=== PATIENT | female | born 1995 | race Caucasian/White ===

== ENCOUNTER 2023-05-05 19:56 | Outpatient (REF) | payer OTHER, SELFPAY ==
[2023-05-10 18:07] LABS: Age Gdln ACOG Testing Note (.); IGP, rfx Aptima HPV ASCU Note (.)
== END 2023-05-05 19:57 | disposition home or self-care (01) ==
LOC: LAB 19:56
PROVIDERS: Visit Provider Obstetrics & Gynecology
DX: Z01.419 Encounter for gynecological examination (general) (routine) without abnormal findings (principal)
CPT/HCPCS: G0145

== ENCOUNTER 2024-05-09 20:11 | Outpatient (REF) | payer OTHER, SELFPAY ==
[2024-05-13 17:07] LABS: Age Gdln ACOG Testing Note (.); HPV Aptima Negative (Negative); IGP, Aptima HPV, rfx 16/18,45 Note (.)
== END 2024-05-09 20:12 | disposition home or self-care (01) ==
LOC: LAB 20:11
PROVIDERS: Visit Provider Obstetrics & Gynecology
DX: Z01.419 Encounter for gynecological examination (general) (routine) without abnormal findings (principal)
CPT/HCPCS: 88175

== ENCOUNTER 2024-08-27 08:44 | Outpatient (OUT) | payer OTHER, SELFPAY ==
--- NOTE | 2024-08-27 | US_ITS ---
[address] [address] Patient Name: ISABEL GUTIERREZ MRN: [id number] date: 1995 Sex: F Assigned Patient Location: Current Patient Location: Accession/Order Number: [id number] Exam Date: 08/27/2024 08:52 Report Date: 08/29/2024 13:14 At the request of: VANESSA EDGE Procedure: US pelvis transvaginal EXAMINATION: US pelvis transvaginal HISTORY: Encounter for intrauterine device placement Z30.430 COMPARISON: No relevant comparison available. FINDINGS: Transvaginal images The uterus is normal in size, contour and echotexture measuring 7.5 x 3.2 x 4.2 cm per the uterus is anteverted. Linear hyperechogenicity within the endometrial cavity consistent with normally positioned IUD. The endometrial stripe measures 3 mm The right ovary is normal measuring 2.8 x 2.5 x 2.2 cm. Normal color and Doppler flow. 1.7 cm area of anechoic echogenicity, simple cyst The left ovary is normal measuring 2.9 x 1.7 x 1.4 cm. Normal color and Doppler flow No free fluid US/US pelvis transvaginal IMPRESSION: Normally positioned IUD Electronically authenticated by: JOSE KEE Date: 08/29/2024 13:14
== END 2024-08-27 08:45 | disposition home or self-care (01) ==
LOC: US 08:45
PROVIDERS: Visit Provider Obstetrics & Gynecology
DX: R10.2 Pelvic and perineal pain (principal); Z30.430 Encounter for insertion of intrauterine contraceptive device
CPT/HCPCS: 76830

== ENCOUNTER 2024-09-02 15:47 | Outpatient (RCR) | payer OTHER, SELFPAY | END 2024-09-16 15:50 | disposition home or self-care (01) | LOC: PT 15:47 | PROVIDERS: PCP Family Medicine; Visit Provider Family Medicine | DX: S22.39XD Fracture of one rib, unspecified side, subsequent encounter for fracture with routine healing (principal); R53.1 Weakness | CPT/HCPCS: 97110; 97161 ==

== ENCOUNTER 2024-10-12 08:22 | Outpatient (OUT) | payer OTHER, SELFPAY ==
[2024-10-12 09:44] LABS: Alanine Aminotransferase 29 U/L (14-59); Albumin Globulin Ratio 0.9; Albumin Level 3.4 g/dL (3.4-5.0); Alkaline Phosphatase 89 U/L (46-116); Anion Gap 12.2; Aspartate Amino Transferase 17 U/L (15-37); BUN Creatinine Ratio 12.1; Bilirubin Total 0.4 mg/dL (0.2-1.0); Calcium 8.8 mg/dL (8.5-10.1); Carbon Dioxide 27.3 mmol/L (21.0-32.0); Chloride 106 mmol/L (98-107); Estimated GFR (African America >60 (>=60 mL/min/1.73m^2); Estimated GFR (Non-African Ame >60 (>=60 mL/min/1.73m^2); Globulin 3.8 g/dL; Glucose 78 mg/dL (74-106); Potassium 4.5 mmol/L (3.5-5.1); Sodium 141 mmol/L (136-145); Total Protein 7.2 g/dL (6.4-8.2)
== END 2024-10-12 08:23 | disposition home or self-care (01) ==
LOC: LAB 08:24
PROVIDERS: PCP Family Medicine; Visit Provider Family Medicine
DX: S36.113A Laceration of liver, unspecified degree, initial encounter (principal)
CPT/HCPCS: 36415; 80053

== ENCOUNTER 2024-11-03 12:40 | Outpatient (OUT) | payer OTHER, SELFPAY ==
--- NOTE | 2024-11-03 12:43 | MR_ITS ---
[facility] [place] [id number] Patient Name: ISABEL GUTIERREZ MRN: [facility]:[id number] date: 1995 Sex: F Assigned Patient Location: MRI Current Patient Location: Accession/Order Number: [id number] Exam Date: 11/03/2024 13:00 Report Date: 11/04/2024 13:19 At the request of: KIMI LY Procedure: MR thoracic spine wo con EXAMINATION: MR thoracic spine wo con HISTORY: compression fracture of T4 T5 vertebrae S22.040A COMPARISON: No relevant comparison available. TECHNIQUE: Axial T2; Sagittal T1, T2, and Stir sequences. Images were performed without contrast. FINDINGS: CORD: Normal caliber, contour, and signal intensity. BONES: Slight irregularity and anterior wedging involving superior endplate of T5. No marrow edema. DISCS: No significant disc/facet abnormality, spinal stenosis, or foraminal stenosis. PARASPINAL AREA: No visible mass. OTHER: Negative. MR/MR thoracic spine wo con IMPRESSION: 1. T5 superior endplate remote mild compression fracture versus degenerative changes versus developmental variation. No marrow edema to suggest acute or subacute injury. No prior studies for comparison. Electronically authenticated by: PAMELA HAMILTON Date: 11/04/2024 13:19
--- OUTSIDE RECORDS SUMMARY | 2024-11-03 12:49 | XMS_ITS | CCD ---
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 Patent left gastric and common hepatic arteries through pancreaticoduodenal collaterals. SMA: No significant stenosis. DIMA: No significant stenosis. Right renal vessels: No significant stenosis. Left renal vessels: No significant stenosis. Infrarenal aorta: No significant stenosis. CTA PELVIC VESSELS R. Common iliac artery: No significant stenosis. R. External iliac artery: No significant stenosis. R. Internal iliac artery: No significant stenosis. L. Common iliac artery: No significant stenosis. L. External iliac artery: No significant stenosis. L. Internal iliac artery: No significant stenosis. NON-VASCULAR FINDINGS Included images of the lower thorax: Small volume right pleural effusion improved since prior. Mild persistent right middle, right lower, left lower lobe atelectasis, improved since prior. Hepatobiliary: Redemonstration of known hepatic laceration and hematoma which continues to decrease in size currently measuring 5.5 x 4.5 cm, previously 7.6 x 7.0 cm. No intra or extrahepatic biliary dilation evident. Pancreas: Unremarkable Spleen: Chronic appearing low attenuation splenic hematoma measuring 9.6 x 6.0 cm status-post splenic artery embolization. Adrenal Glands: Unremarkable Kidneys, ureters, and bladder: No calculi or hydroureteronephrosis GI tract: No evidence of obstruction. The appendix is within normal limits. Peritoneum and retroperitoneum: No free fluid or free air is noted. Lymph Nodes: Stable prominent lymph nodes in the right lower quadrant without lymphadenopathy. Uterus and adnexa: Right ovarian hypodensity, likely physiologic. IUD is present. Visualized musculoskeletal structures: No acute fracture or destructive osseous lesion is identified IMPRESSION: 1. 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 Patent left gastric and common hepatic arteries through pancreaticoduodenal collaterals.Otherwise patent vasculature throughout. 2. Chronic appearing low-attenuation splenic hematoma measuring 9.6 x 6.0 cm. MACRO: None [facility] CTA Abdominal vessels and Pe lvis vessels WO and W contrast Gay 09-15-2024 Radiology Study observation (narrative) [facility] Progress Noteson 08-29-2024 Spa Experience Coordinator Authentication Interface Message Text Normal [facility] Spa Experience Coordinator Authentication Interface Message Text IAkil PT, physical therapist was present and in the room for the entire session. I personally directed the care, and was responsible for the assessment and treatment of the patient. Akil Guerin PT, DPT Normal [facility] Progress Noteson 08-27-2024 Spa Experience Coordinator Authentication Interface Message Text Normal [facility] Patient Instructionson 08-25 Spa Experience Coordinator Authentication Interface Message Text Call [phone] scan ( please schedule 2-4 weeks from now) Call [phone] to schedule telephone follow up appointment with me AFTER the date of the CT scan to review results Normal [facility] Progress Noteson 08-24-2024 Spa Experience Coordinator Authentication Interface Message Text Normal [facility] Telephone En[facility] 2023 Spa Experience Coordinator Authentication Interface Message Text Normal [facility] BASIC METABOLIC PANELon 10-0 Anion gap [Moles/Vol] 15 mmol/L Normal 10-20 [facility] Comment on above: Performed By: #### C H8, MG ####[facility] [id number] [place], [place], Calcium [Mass/Vol] 8.3 mg/dL Low 8.6-10.3 [facility] Comment on above: Performed By: #### C H8, MG ####[facility] [id number] [place], Chloride [Moles/Vol] 101 mmol/L Normal 98-107 [facility] Comment on above: Performed By: #### C H8, MG ####[facility] [id number] [place], CO2 [Moles/Vol] 25 mmol/L Normal 21-31 [facility] Comment on above: Performed By: #### C H8, MG ####[facility] [id number] [place], Creatinine [Mass/Vol] 0.48 mg/dL Low 0.60-1.20 [facility] Comment on above: Performed By: #### C H8, MG ####[facility] [id number] [place], ESTIMATED GFR (CKD-EPI) 130 mL/min/1.73sqm Normal >=60 The [facility] Comment on above: Result Comment: 2020 CKD EPI Equation using Creatinine without RaceComment: Estimated glomerular filtration rate (eGFR) is calculated without a race coefficient. Values should be interpreted in the context of the patient's full clinical presentation.Reference:1. Evert Neely, Gloria M, Jasper GUERRA, et al.. A Unifying Approach for GFR Estimation: Recommendations of the NKF-ASN Task Force on Reassessing the Inclusion of Race in Diagnosing Kidney Disease. [place] Journal of Kidney Diseases 202;79(2):268-88.e1.2. N Engl J Med 1 Vol. 385 Issue 19 Pages 9149-3289 Performed By: #### Chin H8, MG ####[facility] [id number] [place], Glucose [Mass/Vol] 115 mg/dL High 74-109 [facility] Comment on above: Performed By: #### Chin H8, MG ####[facility] [id number] [place], Potassium [Moles/Vol] 4.5 mmol/L Normal 3.5-5.0 [facility] Comment on above: Performed By: #### Chin H8, MG ####[facility] [id number] [place], Sodium [Moles/Vol] 136 mmol/L Normal 136-145 [facility] Comment on above: Performed By: #### Chin H8, MG ####[facility] [id number] [place], Urea nitrogen [Mass/Vol] 5 mg/dL Low 7-25 [facility] Comment on above: Performed By: #### Chin H8, MG ####[facility] [id number] [place], Basic metabolic 2000 panelon 08-16-2024 Anion gap [Moles/Vol] 15 mmol/L 10 - 20 [facility] Calcium [Mass/Vol] 8.3 mg/dL Low 8.6 - 10. 3 mg/dL [facility] Chloride [Moles/Vol] 101 mmol/L 98 - 10 7 mmol/L [facility] CO2 [Moles/Vol] 25 mmol/L 21 - 31 mmol/L [facility] Creatinine [Mass/Vol] 0.48 mg/dL Low 0.60 - 1.20 mg/dL [facility] GFR/1.73 sq M.predicted CKD-EPI (S/P/Bld) [Vol rate/Area] 130 - PINF [facility] Glucose [Mass/Vol] 115 mg/dL High 74 - 109 mg/dL [facility] Interpretation and review of laboratory results Abnormal [facility] Potassium [Moles/Vol] 4.5 mmol/L 3.5 - 5.0 mmol/L [facility] Sodium [Moles/Vol] 136 mmol/L 136 - 145 mmol/L [facility] Urea nitrogen [Mass/Vol] 5 mg/dL Low 7 - 25 mg/dL [facility] CBC panel Auto (Bld)on 08-16 Erythrocyte distribution width (RBC) [Ratio] 15.9 % High 11.5 - 14.5 % [facility] Hematocrit (Bld) [Volume fraction] 31.2 % Low 36.0 - 46.0 % [facility] Hemoglobin (Bld) [Mass/Vol] 10.2 g/dL Low 12.0 - 15.0 g/dL [facility] Interpretation and review of laboratory results Abnormal [facility] MCH (RBC) [Entitic mass] 27.2 pg 26.0 - 34.0 pg [facility] MCHC (RBC) [Mass/Vol] 32.6 g/dL 32.0 - 35.9 g/dL [facility] MCV (RBC) [Entitic vol] 83 fL 80 - 100 fL [facility] Platelet mean volume (Bld) [Entitic vol] 7.0 fL Low 7.5 - 11.2 fL [facility] Platelets (Bld) [#/Vol] 735 10*3/uL High 150 - 400 K/uL [facility] RBC (Bld) [#/Vol] 3.75 10*6/uL Low [facility] WBC (Bld) [#/Vol] 9.0 10*3/uL 4.5 - 11.5 K/uL [facility] COMPLETE BLOOD COUNTon 08-16 Erythrocyte distribution width (RBC) [Ratio] 15.9 % High 11.5-14.5 [facility] Comment on above: Performed By: #### C BC ####S PATHOLOGY [id number] [place], Hematocrit (Bld) [Volume fraction] 31.2 % Low 36.0-46.0 [facility] Comment on above: Performed By: #### C BC ####S PATHOLOGY [id number] [place], Hemoglobin (Bld) [Mass/Vol] 10.2 g/dL Low 12.0-15.0 [facility] Comment on above: Performed By: #### C BC ####S PATHOLOGY [id number] [place], MCH (RBC) [Entitic mass] 27.2 pg Normal 26.0-34.0 [facility] Comment on above: Performed By: #### C BC ####S PATHOLOGY [id number] [place], MCHC (RBC) [Mass/Vol] 32.6 g/dL Normal 32.0-35.9 [facility] Comment on above: Performed By: #### C BC ####[facility] PATHOLOGY [id number] [place], MCV (RBC) [Entitic vol] 83 fL Normal 80-100 [facility] Comment on above: Performed By: #### C BC ####[facility] PATHOLOGY [id number] [place], Platelet mean volume (Bld) [Entitic vol] 7.0 fL Low 7.5-11.2 [facility] Comment on above: Performed By: #### C BC ####[facility] PATHOLOGY [id number] [place], Platelets (Bld) [#/Vol] 735 10*3/uL High 150-400 [facility] Comment on above: Performed By: #### C BC ####[facility] PATHOLOGY [id number] [place], RBC (Bld) [#/Vol] 3.75 10*6/uL Low 4.00-5.20 [facility] Comment on above: Performed By: #### C BC ####[facility] PATHOLOGY [id number] [place], WBC (Bld) [#/Vol] 9.0 10*3/uL Normal 4.5-11.5 [facility] Comment on above: Performed By: #### C BC ####S PATHOLOGY [id number] [place], MAGNESIUMon 08-16-2024 Interpretation and review of laboratory results Normal [facility] Magnesium [Mass/Vol] 2.0 mg/dL 1.9 - 2 .7 mg/dL [facility] Magnesium [Mass/Vol] 2.0 mg/dL Normal 1.9-2.7 [facility] Comment on above: Performed By: #### C H8, MG ####[facility] [id number] [place], No Panel Informationon 08-16 [facility] Progress Notes[facility] 08-16-2024 Spa Experience Coordinator Authentication Interface Message Text Normal [facility] Spa Experience Coordinator Authentication Interface Message Text Normal [facility] BASIC METABOLIC PANELon 10-0 Anion gap [Moles/Vol] 13 mmol/L Normal 10-20 [facility] Comment on above: Performed By: #### H EPATIC, MG, PHOS, CH8 ####[facility] [id number] [place], Calcium [Mass/Vol] 8.8 mg/dL Normal 8.6-10.3 [facility] Comment on above: Performed By: #### H EPATIC, MG, PHOS, CH8 ####[facility] [id number] [place], Chloride [Moles/Vol] 106 mmol/L Normal 98-107 [facility] Comment on above: Performed By: #### H EPATIC, MG, PHOS, CH8 ####[facility] [id number] [place], CO2 [Moles/Vol] 26 mmol/L Normal 21-31 [facility] Comment on above: Performed By: #### H EPATIC, MG, PHOS, CH8 ####[facility] [id number] [place], Creatinine [Mass/Vol] 0.65 mg/dL Normal 0.60-1.20 [facility] Comment on above: Performed By: #### H EPATIC, MG, PHOS, CH8 ####[facility] [id number] [place], ESTIMATED GFR (CKD-EPI) 121 mL/min/1.73sqm Normal >=60 [facility] Comment on above: Result Comment: 2020 CKD EPI Equation using Creatinine without RaceComment: Estimated glomerular filtration rate (eGFR) is calculated without a race coefficient. Values should be interpreted in the context of the patient's full clinical presentation.Reference:1. Evert Neely, Gloria M, Jasper GUERRA, et al.. A Unifying Approach for GFR Estimation: Recommendations of the NKF-ASN Task Force on Reassessing the Inclusion of Race in Diagnosing Kidney Disease. [place] Journal of Kidney Diseases 2021;79(2):268-88.e1.2. N Engl J Med 2020 Vol. 385 Issue 19 Pages 1736-0201 Performed By: #### H MG NOEMI PHOS, CH8 ####[facility] [id number] [place], Glucose [Mass/Vol] 134 mg/dL High 74-109 [facility] Comment on above: Performed By: #### H NOEMI MG PHOS, CH8 ####[facility] [id number] [place], Potassium [Moles/Vol] 4.2 mmol/L Normal 3.5-5.0 [facility] Comment on above: Performed By: #### H NOEMI MG PHOS, CH8 ####[facility] [id number] [place], Sodium [Moles/Vol] 141 mmol/L Normal 136-145 [facility] Comment on above: Performed By: #### H NOEMI MG PHOS, CH8 ####[facility] [id number] [place], Urea nitrogen [Mass/Vol] 19 mg/dL Normal 7-25 [facility] Comment on above: Performed By: #### H NOEMI MG PHOS, CH8 ####[facility] [id number] [place], Anion gap [Moles/Vol] 12 mmol/L Normal 10-20 [facility] Comment on above: Performed By: #### H ANI FRANKLINS, CH8, MG ####[facility] [id number] [place], Calcium [Mass/Vol] 8.0 mg/dL Low 8.6-10.3 [facility] Comment on above: Performed By: #### H EPATIC, PHOS, CH8, MG ####[facility] [id number] [place], Chloride [Moles/Vol] 102 mmol/L Normal 98-107 [facility] Comment on above: Performed By: #### H EPATIC, PHOS, CH8, MG ####[facility] [id number] [place], CO2 [Moles/Vol] 28 mmol/L Normal 21-31 [facility] Comment on above: Performed By: #### H EPATIC, PHOS, CH8, MG ####[facility] [id number] [place], Creatinine [Mass/Vol] 0.45 mg/dL Low 0.60-1.20 [facility] Comment on above: Performed By: #### H EPATIC, PHOS, CH8, MG ####[facility] [id number] [place], ESTIMATED GFR (CKD-EPI) 132 mL/min/1.73sqm Normal >=60 [facility] Comment on above: Result Comment: 2020 CKD EPI Equation using Creatinine without RaceComment: Estimated glomerular filtration rate (eGFR) is calculated without a race coefficient. Values should be interpreted in the context of the patient's full clinical presentation.Reference:1. Evert C, Gloria M, Jasper GUERRA, et al.. A Unifying Approach for GFR Estimation: Recommendations of the NKF-ASN Task Force on Reassessing the Inclusion of Race in Diagnosing Kidney Disease. [place] Journal of Kidney Diseases 2021;79(2):268-88.e1.2. N Engl J Med 2020 Vol. 385 Issue 19 Pages 0294-8614 Performed By: #### H EPATIC, PHOS, CH8, MG ####[facility] [id number] [place], Glucose [Mass/Vol] 91 mg/dL Normal 74-109 [facility] Comment on above: Performed By: #### H TSERING FRANKLIN CH8, MG ####[facility] [id number] [place], Potassium [Moles/Vol] 4.4 mmol/L Normal 3.5-5.0 [facility] Comment on above: Performed By: #### H TSERING FRANKLIN CH8, MG ####[facility] [id number] [place], Sodium [Moles/Vol] 138 mmol/L Normal 136-145 [facility] Comment on above: Performed By: #### H TSERING FRANLKIN CH8, MG ####[facility] [id number] [place], Urea nitrogen [Mass/Vol] 7 mg/dL Normal 7-25 [facility] Comment on above: Performed By: #### H TSERING FRANKLIN CH8, MG ####S PATHOLOGY [id number] [place], Basic metabolic 2000 panelon 08-15-2024 Anion gap [Moles/Vol] 13 mmol/L 10 - 20 [facility] Cal[facility] [Mass/Vol] 8.8 mg/dL 8.6 - 10. 3 mg/dL [facility] Chloride [Moles/Vol] 106 mmol/L 98 - 10 7 mmol/L [facility] CO2 [Moles/Vol] 26 mmol/L 21 - 31 mmol/L [facility] Creatinine [Mass/Vol] 0.65 mg/dL 0.60 - 1.20 mg/dL [facility] GFR/1.73 sq M.predicted CKD-EPI (S/P/Bld) [Vol rate/Area] 121 - PINF [facility] Glucose [Mass/Vol] 134 mg/dL High 74 - 109 mg/dL [facility] Potassium [Moles/Vol] 4.2 mmol/L 3.5 - 5.0 mmol/L [facility] Sodium [Moles/Vol] 141 mmol/L 136 - 145 mmol/L [facility] Urea nitrogen [Mass/Vol] 19 mg/dL 7 - 25 mg/dL [facility] Anion gap [Moles/Vol] 12 mmol/L 10 - 20 [facility] Calcium [Mass/Vol] 8.0 mg/dL Low 8.6 - 10. 3 mg/dL [facility] Chloride [Moles/Vol] 102 mmol/L 98 - 10 7 mmol/L [facility] CO2 [Moles/Vol] 28 mmol/L 21 - 31 mmol/L [facility] Creatinine [Mass/Vol] 0.45 mg/dL Low 0.60 - 1.20 mg/dL [facility] GFR/1.73 sq M.predicted CKD-EPI (S/P/Bld) [Vol rate/Area] 132 - PINF [facility] Glucose [Mass/Vol] 91 mg/dL 74 - 109 mg/dL [facility] Potassium [Moles/Vol] 4.4 mmol/L 3.5 - 5.0 mmol/L [facility] Sodium [Moles/Vol] 138 mmol/L 136 - 145 mmol/L [facility] Urea nitrogen [Mass/Vol] 7 mg/dL 7 - 25 mg/dL [facility] CBC panel Auto (Bld)on 08-15 Erythrocyte distribution width (RBC) [Ratio] 15.8 % High 11.5 - 14.5 % [facility] Hematocrit (Bld) [Volume fraction] 30.5 % Low 36.0 - 46.0 % [facility] Hemoglobin (Bld) [Mass/Vol] 10.0 g/dL Low 12.0 - 15.0 g/dL [facility] Interpretation and review of laboratory results Abnormal [facility] MCH (RBC) [Entitic mass] 27.5 pg 26.0 - 34.0 pg [facility] MCHC (RBC) [Mass/Vol] 32.9 g/dL 32.0 - 35.9 g/dL [facility] MCV (RBC) [Entitic vol] 84 fL 80 - 100 fL [facility] Platelet mean volume (Bld) [Entitic vol] 6.8 fL Low 7.5 - 11.2 fL [facility] Platelets (Bld) [#/Vol] 613 10*3/uL High 150 - 400 K/uL [facility] RBC (Bld) [#/Vol] 3.64 10*6/uL Low [facility] WBC (Bld) [#/Vol] 10.3 10*3/uL 4.5 - 11.5 K/uL [facility] Erythrocyte distribution width (RBC) [Ratio] 15.9 % High 11.5 - 14.5 % [facility] Hematocrit (Bld) [Volume fraction] 30.7 % Low 36.0 - 46.0 % [facility] Hemoglobin (Bld) [Mass/Vol] 10.0 g/dL Low 12.0 - 15.0 g/dL [facility] Interpretation and review of laboratory results Abnormal [facility] MCH (RBC) [Entitic mass] 27.5 pg 26.0 - 34.0 pg [facility] MCHC (RBC) [Mass/Vol] 32.7 g/dL 32.0 - 35.9 g/dL [facility] MCV (RBC) [Entitic vol] 84 fL 80 - 100 fL [facility] Platelet mean volume (Bld) [Entitic vol] 7.2 fL Low 7.5 - 11.2 fL [facility] Platelets (Bld) [#/Vol] 624 10*3/uL High 150 - 400 K/uL [facility] RBC (Bld) [#/Vol] 3.64 10*6/uL Low [facility] WBC (Bld) [#/Vol] 10.3 10*3/uL 4.5 - 11.5 K/uL [facility] COMPLETE BLOOD COUNTon 08-15 Erythrocyte distribution width (RBC) [Ratio] 15.8 % High 11.5-14.5 [facility] Comment on above: Performed By: #### C BC ####S PATHOLOGY [id number] [place] [address], Hematocrit (Bld) [Volume fraction] 30.5 % Low 36.0-46.0 [facility] Comment on above: Performed By: #### C BC ####[facility] [id number] [place], Hemoglobin (Bld) [Mass/Vol] 10.0 g/dL Low 12.0-15.0 [facility] Comment on above: Performed By: #### C BC ####S PATHOLOGY [id number] [place] [address], MCH (RBC) [Entitic mass] 27.5 pg Normal 26.0-34.0 [facility] Comment on above: Performed By: #### C BC ####[facility] PATHOLOGY [id number] [place], MCHC (RBC) [Mass/Vol] 32.9 g/dL Normal 32.0-35.9 [facility] Comment on above: Performed By: #### C BC ####[facility] PATHOLOGY [id number] [place], MCV (RBC) [Entitic vol] 84 fL Normal 80-100 [facility] Comment on above: Performed By: #### C BC ####[facility] PATHOLOGY [id number] [place], Platelet mean volume (Bld) [Entitic vol] 6.8 fL Low 7.5-11.2 [facility] Comment on above: Performed By: #### C BC ####[facility] PATHOLOGY [id number] [place], Platelets (Bld) [#/Vol] 613 10*3/uL High 150-400 [facility] Comment on above: Performed By: #### C BC ####[facility] PATHOLOGY [id number] [place], RBC (Bld) [#/Vol] 3.64 10*6/uL Low 4.00-5.20 [facility] Comment on above: Performed By: #### C BC ####[facility] PATHOLOGY [id number] [place], WBC (Bld) [#/Vol] 10.3 10*3/uL Normal 4.5-11.5 [facility] Comment on above: Performed By: #### C BC ####[facility] PATHOLOGY [id number] [place], Erythrocyte distribution width (RBC) [Ratio] 15.9 % High 11.5-14.5 [facility] Comment on above: Performed By: #### C BC ####S PATHOLOGY [id number] [place], Hematocrit (Bld) [Volume fraction] 30.7 % Low 36.0-46.0 [facility] Comment on above: Performed By: #### C BC ####[facility] PATHOLOGY [id number] [place], Hemoglobin (Bld) [Mass/Vol] 10.0 g/dL Low 12.0-15.0 [facility] Comment on above: Performed By: #### C BC ####[facility] PATHOLOGY [id number] [place], MCH (RBC) [Entitic mass] 27.5 pg Normal 26.0-34.0 [facility] Comment on above: Performed By: #### C BC ####[facility] PATHOLOGY [id number] [place], MCHC (RBC) [Mass/Vol] 32.7 g/dL Normal 32.0-35.9 [facility] Comment on above: Performed By: #### C BC ####[facility] PATHOLOGY [id number] [place] [address], MCV (RBC) [Entitic vol] 84 fL Normal 80-100 [facility] Comment on above: Performed By: #### C BC ####[facility] PATHOLOGY [id number] [place], Platelet mean volume (Bld) [Entitic vol] 7.2 fL Low 7.5-11.2 [facility] Comment on above: Performed By: #### C BC ####[facility] PATHOLOGY [id number] [place], Platelets (Bld) [#/Vol] 624 10*3/uL High 150-400 [facility] Comment on above: Performed By: #### C BC ####[facility] PATHOLOGY [id number] [place], RBC (Bld) [#/Vol] 3.64 10*6/uL Low 4.00-5.20 [facility] Comment on above: Performed By: #### C BC ####[facility] PATHOLOGY [id number] [place], WBC (Bld) [#/Vol] 10.3 10*3/uL Normal 4.5-11.5 [facility] Comment on above: Performed By: #### C BC ####S PATHOLOGY [id number] [place], HEPATIC FUNCTION PANELOrdere d By: Malaika Arroyo on 08-15-2024 Albumin [Mass/Vol] 3.3 g/dL Low 3.5 - 5.7 g/dL [facility] ALP [Catalytic activity/Vol] 69 U/L [facility] ALT [Catalytic activity/Vol] 17 U/L [facility] AST [Catalytic activity/Vol] 21 U/L [facility] Bilirubin [Mass/Vol] 0.4 mg/dL 0.3 - 1 .0 mg/dL [facility] Bilirubin.direct [Mass/Vol] 0.09 mg/dL 0.03 - 0.18 mg/dL [facility] Protein [Mass/Vol] 5.9 g/dL Low 6.0 - 8.3 g/dL [facility] HEPATIC FUNCTION PANELon Albumin [Mass/Vol] 2.8 g/dL Low 3.5 - 5.7 g/dL [facility] ALP [Catalytic activity/Vol] 75 U/L [facility] ALT [Catalytic activity/Vol] 38 U/L [facility] AST [Catalytic activity/Vol] 37 U/L [facility] Bilirubin [Mass/Vol] 0.4 mg/dL 0.3 - 1 .0 mg/dL [facility] Bilirubin.direct [Mass/Vol] 0.09 mg/dL 0.03 - 0.18 mg/dL [facility] Protein [Mass/Vol] 5.6 g/dL Low 6.0 - 8.3 g/dL [facility] Albumin [Mass/Vol] 3.3 g/dL Low 3.5-5.7 [facility] Comment on above: Performed By: #### H MG FRANKLIN PHOS, CH8 ####[facility] [id number] [place], ALK 69 IU/L Normal 34-104 [facility] Comment on above: Performed By: #### H MG FRANKLIN PHOS, CH8 ####S PATHOLOGY [id number] [place], ALT [Catalytic activity/Vol] 17 U/L Normal 7-52 [facility] Comment on above: Performed By: #### H EPAABHIJIT MG, PHOS, CH8 ####[facility] PATHOLOGY [id number] [place], [place], AST [Catalytic activity/Vol] 21 U/L Normal 13-39 [facility] Comment on above: Performed By: #### H EPATIC MG, PHOS, CH8 ####S PATHOLOGY [id number] [place], Bilirubin [Mass/Vol] 0.4 mg/dL Normal 0.3-1.0 [facility] Comment on above: Performed By: #### H EPATIC MG, PHOS, CH8 ####S PATHOLOGY [id number] [place], Bilirubin.direct [Mass/Vol] 0.09 mg/dL Normal 0.03-0.18 [facility] Comment on above: Performed By: #### H EPAABHIJIT MG, PHOS, CH8 ####S PATHOLOGY [id number] [place], Protein [Mass/Vol] 5.9 g/dL Low 6.0-8.3 [facility] Comment on above: Performed By: #### H EPATIC, MG, PHOS, CH8 ####S PATHOLOGY [id number] [place], Albumin [Mass/Vol] 2.8 g/dL Low 3.5-5.7 [facility] Comment on above: Performed By: #### H EPATIC, PHOS, CH8, MG ####S PATHOLOGY [id number] [place], ALK 75 IU/L Normal 34-104 [facility] Comment on above: Performed By: #### H EPATIC, PHOS, CH8, MG ####[facility] PATHOLOGY [id number] [place], ALT [Catalytic activity/Vol] 38 U/L Normal 7-52 [facility] Comment on above: Performed By: #### H TSERING FRANKLIN CH8, MG ####S PATHOLOGY [id number] [place], AST [Catalytic activity/Vol] 37 U/L Normal 13-39 [facility] Comment on above: Performed By: #### H ANI FRANKLINS CH8, MG ####S PATHOLOGY [id number] [place], Bilirubin [Mass/Vol] 0.4 mg/dL Normal 0.3-1.0 [facility] Comment on above: Performed By: #### H TSERING FRANKLIN CH8, MG ####S PATHOLOGY [id number] [place], Bilirubin.direct [Mass/Vol] 0.09 mg/dL Normal 0.03-0.18 [facility] Comment on above: Performed By: #### H TSERING FRANKLIN CH8, MG ####S PATHOLOGY [id number] [place], Protein [Mass/Vol] 5.6 g/dL Low 6.0-8.3 [facility] Comment on above: Performed By: #### H TSERING FRANKLIN CH8, MG ####S PATHOLOGY [id number] [place], MAGNESIUMon 08-15-2024 Magnesium [Mass/Vol] 2.0 mg/dL 1.9 - 2 .7 mg/dL [facility] Magnesium [Mass/Vol] 2.1 mg/dL 1.9 - 2 .7 mg/dL [facility] Magnesium [Mass/Vol] 2.0 mg/dL Normal 1.9-2.7 [facility] Comment on above: Performed By: #### H NOEMI MG, PHOS, CH8 ####S PATHOLOGY [id number] [place], Magnesium [Mass/Vol] 2.1 mg/dL Normal 1.9-2.7 [facility] Comment on above: Performed By: #### H NOEMI PHOS, CH8, MG ####[facility] PATHOLOGY [id number] [place], No Panel Informationon 08-15 Interpretation and review of laboratory results Abnormal [facility] Interpretation and review of laboratory results Normal [facility] Interpretation and review of laboratory results Abnormal [facility] Interpretation and review of laboratory results Normal [facility] PHOSPHORUSon 08-15-2024 Phosphate [Mass/Vol] 4.2 mg/dL 2.5 - 5 .0 mg/dL [facility] Phosphate [Mass/Vol] 4.1 mg/dL 2.5 - 5 .0 mg/dL [facility] Phosphate [Mass/Vol] 4.2 mg/dL Normal 2.5-5.0 [facility] Comment on above: Performed By: #### H NOEMI MG, PHOS, CH8 ####MHAgustin PATHOLOGY [id number] [place], Phosphate [Mass/Vol] 4.1 mg/dL Normal 2.5-5.0 [facility] Comment on above: Performed By: #### H TSERING FRANKLIN, CH8, MG ####S PATHOLOGY [id number] [place], Progress Noteson 08-15-2024 Spa Experience Coordinator Authentication Interface Message Text Normal [facility] Spa Experience Coordinator Authentication Interface Message Text Normal [facility] Spa Experience Coordinator Authentication Interface Message Text RN Coordinator picked up FMLA paperwork from [address] Normal [facility] Spa Experience Coordinator Authentication Interface Message Text Normal [facility] BASIC METABOLIC PANELon 100 Anion gap [Moles/Vol] 13 mmol/L Normal 10-20 [facility] Comment on above: Performed By: #### C H8 ####[facility] PATHOLOGY [id number] [place], Calcium [Mass/Vol] 7.7 mg/dL Low 8.6-10.3 [facility] Comment on above: Performed By: #### C H8 ####[facility] PATHOLOGY [id number] [place], Chloride [Moles/Vol] 101 mmol/L Normal 98-107 [facility] Comment on above: Performed By: #### C H8 ####S PATHOLOGY [id number] [place], CO2 [Moles/Vol] 28 mmol/L Normal 21-31 [facility] Comment on above: Performed By: #### C H8 ####S PATHOLOGY [id number] [place], Creatinine [Mass/Vol] 0.45 mg/dL Low 0.60-1.20 [facility] Comment on above: Performed By: #### C H8 ####S PATHOLOGY [id number] [place], ESTIMATED GFR (CKD-EPI) 132 mL/min/1.73sqm Normal >=60 [facility] Comment on above: Result Comment: 2020 CKD EPI Equation using Creatinine without RaceComment: Estimated glomerular filtration rate (eGFR) is calculated without a race coefficient. Values should be interpreted in the context of the patient's full clinical presentation.Reference:1. Evert C, Gloria M, Jasper GUERRA, et al.. A Unifying Approach for GFR Estimation: Recommendations of the NKF-ASN Task Force on Reassessing the Inclusion of Race in Diagnosing Kidney Disease. [place] Journal of Kidney Diseases 2021;79(2):268-88.e1.2. N Engl J Med 2020 Vol. 385 Issue 19 Pages 9534-7529 Performed By: #### C H8 ####[facility] PATHOLOGY [id number] [place], Glucose [Mass/Vol] 96 mg/dL Normal 74-109 [facility] Comment on above: Performed By: #### C H8 ####S PATHOLOGY [id number] [place], Potassium [Moles/Vol] 4.0 mmol/L Normal 3.5-5.0 [facility] Comment on above: Performed By: #### C H8 ####[facility] PATHOLOGY [id number] [place], Sodium [Moles/Vol] 138 mmol/L Normal 136-145 [facility] Comment on above: Performed By: #### C H8 ####[facility] PATHOLOGY [id number] [place], Urea nitrogen [Mass/Vol] 5 mg/dL Low 7-25 [facility] Comment on above: Performed By: #### C H8 ####[facility] PATHOLOGY [id number] [place], Basic metabolic 2000 panelon 08-14-2024 Anion gap [Moles/Vol] 13 mmol/L 10 - 20 [facility] Calcium [Mass/Vol] 7.7 mg/dL Low 8.6 - 10. 3 mg/dL [facility] Chloride [Moles/Vol] 101 mmol/L 98 - 10 7 mmol/L [facility] CO2 [Moles/Vol] 28 mmol/L 21 - 31 mmol/L [facility] Creatinine [Mass/Vol] 0.45 mg/dL Low 0.60 - 1.20 mg/dL [facility] GFR/1.73 sq M.predicted CKD-EPI (S/P/Bld) [Vol rate/Area] 132 - PINF [facility] Glucose [Mass/Vol] 96 mg/dL 74 - 109 mg/dL [facility] Interpretation and review of laboratory results Abnormal [facility] Potassium [Moles/Vol] 4.0 mmol/L 3.5 - 5.0 mmol/L [facility] Sodium [Moles/Vol] 138 mmol/L 136 - 145 mmol/L [facility] Urea nitrogen [Mass/Vol] 5 mg/dL Low 7 - 25 mg/dL [facility] CBC panel Auto (Bld)on 08-14 Erythrocyte distribution width (RBC) [Ratio] 15.6 % High 11.5 - 14.5 % [facility] Hematocrit (Bld) [Volume fraction] 30.1 % Low 36.0 - 46.0 % [facility] Hemoglobin (Bld) [Mass/Vol] 10.2 g/dL Low 12.0 - 15.0 g/dL [facility] Interpretation and review of laboratory results Abnormal [facility] MCH (RBC) [Entitic mass] 28.2 pg 26.0 - 34.0 pg [facility] MCHC (RBC) [Mass/Vol] 33.9 g/dL 32.0 - 35.9 g/dL [facility] MCV (RBC) [Entitic vol] 83 fL 80 - 100 [facility] mean volume (Bld) [Entitic vol] 7.5 fL 7.5 - 11.2 fL [facility] Platelets (Bld) [#/Vol] 579 10*3/uL High 150 - 400 K/uL [facility] RBC (Bld) [#/Vol] 3.63 10*6/uL Low [facility] WBC (Bld) [#/Vol] 11.0 10*3/uL 4.5 - 11.5 K/uL [facility] COMPLETE BLOOD COUNTon 08-14 Erythrocyte distribution width (RBC) [Ratio] 15.6 % High 11.5-14.5 [facility] Comment on above: Performed By: #### C BC ####[facility] PATHOLOGY [id number] [place] [address], Hematocrit (Bld) [Volume fraction] 30.1 % Low 36.0-46.0 [facility] Comment on above: Performed By: #### C BC ####[facility] PATHOLOGY [id number] [place] [address], Hemoglobin (Bld) [Mass/Vol] 10.2 g/dL Low 12.0-15.0 [facility] Comment on above: Performed By: #### C BC ####[facility] PATHOLOGY [id number] [place] [address], MCH (RBC) [Entitic mass] 28.2 pg Normal 26.0-34.0 [facility] Comment on above: Performed By: #### C BC ####S PATHOLOGY [id number] [place], MCHC (RBC) [Mass/Vol] 33.9 g/dL Normal 32.0-35.9 [facility] Comment on above: Performed By: #### C BC ####S PATHOLOGY [id number] [place], MCV (RBC) [Entitic vol] 83 fL Normal 80-100 [facility] Comment on above: Performed By: #### C BC ####[facility] PATHOLOGY [id number] [place], Platelet mean volume (Bld) [Entitic vol] 7.5 fL Normal 7.5-11.2 [facility] Comment on above: Performed By: #### C BC ####[facility] PATHOLOGY [id number] [place], Platelets (Bld) [#/Vol] 579 10*3/uL High 150-400 [facility] Comment on above: Performed By: #### C BC ####[facility] PATHOLOGY [id number] [place], RBC (Bld) [#/Vol] 3.63 10*6/uL Low 4.00-5.20 [facility] Comment on above: Performed By: #### C BC ####[facility] PATHOLOGY [id number] [place], WBC (Bld) [#/Vol] 11.0 10*3/uL Normal 4.5-11.5 [facility] Comment on above: Performed By: #### C BC ####[facility] PATHOLOGY [id number] [place], HEPATIC FUNCTION PANELon Albumin [Mass/Vol] 2.9 g/dL Low 3.5 - 5.7 g/dL [facility] ALP [Catalytic activity/Vol] 74 U/L [facility] ALT [Catalytic activity/Vol] 23 U/L [facility] AST [Catalytic activity/Vol] 24 U/L [facility] Bilirubin [Mass/Vol] 0.4 mg/dL 0.3 - 1 .0 mg/dL [facility] Bilirubin.direct [Mass/Vol] 0.10 mg/dL 0.03 - 0.18 mg/dL [facility] Interpretation and review of laboratory results Abnormal [facility] Protein [Mass/Vol] 5.5 g/dL Low 6.0 - 8.3 g/dL [facility] Albumin [Mass/Vol] 2.9 g/dL Low 3.5-5.7 [facility] Comment on above: Performed By: #### M G, HEPATIC, PHOS ####[facility] PATHOLOGY [id number] [place], ALK 74 IU/L Normal 34-104 [facility] Comment on above: Performed By: ###Nikkie Back HEPATIC, ANIS ####[facility] PATHOLOGY [id number] [place], ALT [Catalytic activity/Vol] 23 U/L Normal 7-52 [facility] Comment on above: Performed By: #### Mera Back HEPATIC, PHOS ####[facility] PATHOLOGY KOMUXSKKII0533 [place], AST [Catalytic activity/Vol] 24 U/L Normal 13-39 [facility] Comment on above: Performed By: #### Mera Back HEPATIC, ANIS ####[facility] PATHOLOGY [id number] [place], Bilirubin [Mass/Vol] 0.4 mg/dL Normal 0.3-1.0 [facility] Comment on above: Performed By: ###Nikkie Back HEPATIC, PHOS ####S PATHOLOGY [id number] [place], Bilirubin.direct [Mass/Vol] 0.10 mg/dL Normal 0.03-0.18 [facility] Comment on above: Performed By: ###Nikkie Back HEPATIC PHOS ####[facility] PATHOLOGY [id number] [place], Protein [Mass/Vol] 5.5 g/dL Low 6.0-8.3 [facility] Comment on above: Performed By: ###Nikkie Back HEPATIC, ANIS ####[facility] PATHOLOGY [id number] [place], MAGNESIUMon 08-14-2024 Magnesium [Mass/Vol] 2.2 mg/dL 1.9 - 2 .7 mg/dL [facility] Magnesium [Mass/Vol] 2.2 mg/dL Normal 1.9-2.7 The [facility] Comment on above: Performed By: ###iNkkie Back HEPATIC, ANIS ####[facility] PATHOLOGY [id number] [place], [place] Panel Informationon 08-14 Interpretation and review of laboratory results Normal [facility] PHOSPHORUSon 08-14-2024 Phosphate [Mass/Vol] 3.8 mg/dL 2.5 - 5 .0 mg/dL [facility] Phosphate [Mass/Vol] 3.8 mg/dL Normal 2.5-5.0 [facility] Comment on above: Performed By: #### M G, HEPATIC, PHOS ####[facility] PATHOLOGY [id number] [place], Progress Noteson 08-14-2024 Spa Experience Coordinator Authentication Interface Message Text Normal [facility] BASIC METABOLIC PANELon Anion gap [Moles/Vol] 14 mmol/L Normal 10-20 [facility] Comment on above: Performed By: #### Chin H8, HEPATIC, PHOS, MG ####[facility] PATHOLOGY [id number] [place], Calcium [Mass/Vol] 7.8 mg/dL Low 8.6-10.3 [facility] Comment on above: Performed By: #### Chin H8, HEPATIC, PHOS, MG ####[facility] PATHOLOGY [id number] [place], Chloride [Moles/Vol] 100 mmol/L Normal 98-107 [facility] Comment on above: Performed By: #### Chin H8, HEPATIC, PHOS, MG ####[facility] PATHOLOGY [id number] [place], CO2 [Moles/Vol] 29 mmol/L Normal 21-31 [facility] Comment on above: Performed By: #### C H8, HEPATIC, PHOS, MG ####[facility] PATHOLOGY [id number] [place], Creatinine [Mass/Vol] 0.45 mg/dL Low 0.60-1.20 [facility] Comment on above: Performed By: #### C H8, HEPATIC, PHOS, MG ####[facility] PATHOLOGY [id number] [place], ESTIMATED GFR (CKD-EPI) 132 mL/min/1.73sqm Normal >=60 [facility] Comment on above: Result Comment: 2020 CKD EPI Equation using Creatinine without RaceComment: Estimated glomerular filtration rate (eGFR) is calculated without a race coefficient. Values should be interpreted in the context of the patient's full clinical presentation.Reference:1. Evert Neely, Gloria M, Jasper GUERRA, et al.. A Unifying Approach for GFR Estimation: Recommendations of the NKF-ASN Task Force on Reassessing the Inclusion of Race in Diagnosing Kidney Disease. [place] Journal of Kidney Diseases 2021;79(2):268-88.e1.2. N Engl J Med 2020 Vol. 385 Issue 19 Pages [phone] Performed By: #### C H8, HEPATIC, PHOS, MG ####[facility] PATHOLOGY [id number] [place], Glucose [Mass/Vol] 95 mg/dL Normal 74-109 [facility] Comment on above: Performed By: #### C H8, HEPATIC, PHOS, MG ####[facility] PATHOLOGY [id number] [place], Potassium [Moles/Vol] 4.0 mmol/L Normal 3.5-5.0 [facility] Comment on above: Performed By: #### C H8, HEPATIC, PHOS, MG ####[facility] PATHOLOGY [id number] [place], Sodium [Moles/Vol] 139 mmol/L Normal 136-145 [facility] Comment on above: Performed By: #### C H8, HEPATIC, PHOS, MG ####[facility] PATHOLOGY [id number] [place], Urea nitrogen [Mass/Vol] 5 mg/dL Low 7-25 [facility] Comment on above: Performed By: #### C H8, HEPATIC, PHOS, MG ####[facility] PATHOLOGY [id number] [place], Basic metabolic 2000 panelon 08-13-2024 Anion gap [Moles/Vol] 14 mmol/L 10 - 20 [facility] Calcium [Mass/Vol] 7.8 mg/dL Low 8.6 - 10. 3 mg/dL [facility] Chloride [Moles/Vol] 100 mmol/L 98 - 10 7 mmol/L [facility] CO2 [Moles/Vol] 29 mmol/L 21 - 31 mmol/L [facility] Creatinine [Mass/Vol] 0.45 mg/dL Low 0.60 - 1.20 mg/dL [facility] GFR/1.73 sq M.predicted CKD-EPI (S/P/Bld) [Vol rate/Area] 132 - PINF [facility] Glucose [Mass/Vol] 95 mg/dL 74 - 109 mg/dL [facility] Potassium [Moles/Vol] 4.0 mmol/L 3.5 - 5.0 mmol/L [facility] Sodium [Moles/Vol] 139 mmol/L 136 - 145 mmol/L [facility] Urea nitrogen [Mass/Vol] 5 mg/dL Low 7 - 25 mg/dL [facility] CBC panel Auto (Bld)on 08-13 Erythrocyte distribution width (RBC) [Ratio] 15.7 % High 11.5 - 14.5 % [facility] Hematocrit (Bld) [Volume fraction] 28.5 % Low 36.0 - 46.0 % [facility] Hemoglobin (Bld) [Mass/Vol] 9.6 g/dL Low 12.0 - 15.0 g/dL [facility] Interpretation and review of laboratory results Abnormal [facility] MCH (RBC) [Entitic mass] 28.1 pg 26.0 - 34.0 pg [facility] MCHC (RBC) [Mass/Vol] 33.8 g/dL 32.0 - 35.9 g/dL [facility] MCV (RBC) [Entitic vol] 83 fL 80 - 100 fL [facility] Platelet mean volume (Bld) [Entitic vol] 7.4 fL Low 7.5 - 11.2 fL [facility] Platelets (Bld) [#/Vol] 523 10*3/uL High 150 - 400 K/uL [facility] RBC (Bld) [#/Vol] 3.43 10*6/uL Low [facility] WBC (Bld) [#/Vol] 11.8 10*3/uL High 4.5 - 11.5 K/uL [facility] COMPLETE BLOOD COUNTon 08-13 Erythrocyte distribution width (RBC) [Ratio] 15.7 % High 11.5-14.5 [facility] Comment on above: Performed By: #### C BC ####[facility] PATHOLOGY [id number] [place], Hematocrit (Bld) [Volume fraction] 28.5 % Low 36.0-46.0 [facility] Comment on above: Performed By: #### C BC ####[facility] PATHOLOGY [id number] [place], Hemoglobin (Bld) [Mass/Vol] 9.6 g/dL Low 12.0-15.0 [facility] Comment on above: Performed By: #### C BC ####[facility] PATHOLOGY [id number] [place], MCH (RBC) [Entitic mass] 28.1 pg Normal 26.0-34.0 [facility] Comment on above: Performed By: #### C BC ####[facility] PATHOLOGY [id number] [place], MCHC (RBC) [Mass/Vol] 33.8 g/dL Normal 32.0-35.9 [facility] Comment on above: Performed By: #### C BC ####[facility] PATHOLOGY [id number] [place], MCV (RBC) [Entitic vol] 83 fL Normal 80-100 [facility] Comment on above: Performed By: #### C BC ####[facility] PATHOLOGY [id number] [place], Platelet mean volume (Bld) [Entitic vol] 7.4 fL Low 7.5-11.2 [facility] Comment on above: Performed By: #### C BC ####[facility] PATHOLOGY [id number] [place], Platelets (Bld) [#/Vol] 523 10*3/uL High 150-400 [facility] Comment on above: Performed By: #### C BC ####[facility] PATHOLOGY [id number] [place], RBC (Bld) [#/Vol] 3.43 10*6/uL Low 4.00-5.20 [facility] Comment on above: Performed By: #### C BC ####[facility] PATH[facility] [id number] [place], WBC (Bld) [#/Vol] 11.8 10*3/uL High 4.5-11.5 [facility] Comment on above: Performed By: #### C BC ####S PATHOLOGY [id number] [place], HEPATIC FUNCTION PANELon Albumin [Mass/Vol] 2.7 g/dL Low 3.5 - 5.7 g/dL [facility] ALP [Catalytic activity/Vol] 67 U/L [facility] ALT [Catalytic activity/Vol] 15 U/L [facility] AST [Catalytic activity/Vol] 15 U/L [facility] Bilirubin [Mass/Vol] 0.4 mg/dL 0.3 - 1 .0 mg/dL [facility] Bilirubin.direct [Mass/Vol] 0.09 mg/dL 0.03 - 0.18 mg/dL [facility] Protein [Mass/Vol] 5.1 g/dL Low 6.0 - 8.3 g/dL [facility] Albumin [Mass/Vol] 2.7 g/dL Low 3.5-5.7 [facility] Comment on above: Performed By: #### Chin Royal, HEPATIC, PHOS, MG ####[facility] PATH[facility] [id number] [place], ALK 67 IU/L Normal 34-104 [facility] Comment on above: Performed By: #### Chin HNilo, HEPATIC, PHOS, MG ####[facility] PATHOLOGY [id number] [place], ALT [Catalytic activity/Vol] 15 U/L Normal 7-52 [facility] Comment on above: Performed By: #### Chin H8, HEPATIC, PHOS, MG ####[facility] PATHOLOG[facility] [id number] [place], AST [Catalytic activity/Vol] 15 U/L Normal 13-39 [facility] Comment on above: Performed By: #### Chin H8, HEPATIC, PHOS, MG ####[facility] PATHOLOGY [id number] [place], Bilirubin [Mass/Vol] 0.4 mg/dL Normal 0.3-1.0 [facility] Comment on above: Performed By: #### Chin H8, HEPATIC, PHOS, MG ####[facility] PATHOLOG[facility] [id number] [place], Bilirubin.direct [Mass/Vol] 0.09 mg/dL Normal 0.03-0.18 [facility] Comment on above: Performed By: #### Chin H8, HEPATIC, PHOS, MG ####[facility] PATHOLOGY [id number] [place], Protein [Mass/Vol] 5.1 g/dL Low 6.0-8.3 [facility] Comment on above: Performed By: #### Chin Royal, HEPATIC, PHOS, MG ####[facility] PATH[facility] [id number] [place], MAGNESIUMon 08-13-2024 Magnesium [Mass/Vol] 2.1 mg/dL 1.9 - 2 .7 mg/dL [facility] Magnesium [Mass/Vol] 2.1 mg/dL Normal 1.9-2.7 [facility] Comment on above: Performed By: #### Chin H8, HEPATIC, PHOS, MG ####[facility] PATHOLOG[facility] [id number] [place], [place] Panel Informationon 08-13 Interpretation and review of laboratory results Abnormal [facility] Interpretation and review of laboratory results [facility] PH[facility] 08-13-2024 Phosphate [Mass/Vol] 3.3 mg/dL 2.5 - 5 .0 mg/dL [facility] Phosphate [Mass/Vol] 3.3 mg/dL Normal 2.5-5.0 [facility] Comment on above: Performed By: #### Chin H8, HEPATIC, PHOS, MG ####[facility] PATHOLOG[facility] [id number] [place], Progress Noteson 08-13-2024 Spa Experience Coordinator Authentication Interface Message Text Normal [facility] BASIC METABOLIC PANELon Anion gap [Moles/Vol] 13 mmol/L Normal 10-20 [facility] Comment on above: Performed By: #### H EPATIC, CH8, LIP, PHOS, MG ####S PATHOLOGY [id number] [place], Calcium [Mass/Vol] 7.7 mg/dL Low 8.6-10.3 [facility] Comment on above: Performed By: #### H EPATIC, CH8, LIP, PHOS, MG ####[facility] PATHOLOG[facility] [id number] [place], Chloride [Moles/Vol] 100 mmol/L Normal 98-107 [facility] Comment on above: Performed By: #### H EPATIC, CH8, LIP, PHOS, MG ####[facility] PATHOLOG[facility] [id number] [place], CO2 [Moles/Vol] 28 mmol/L Normal 21-31 [facility] Comment on above: Performed By: #### H EPATIC, CH8, LIP, PHOS, MG ####[facility] PATHOLOGY [id number] [place], Creatinine [Mass/Vol] 0.42 mg/dL Low 0.60-1.20 [facility] Comment on above: Performed By: #### H EPATIC, CH8, LIP, PHOS, MG ####S PATHOLOGY [id number] [place], ESTIMATED GFR (CKD-EPI) 134 mL/min/1.73sqm Normal >=60 [facility] Comment on above: Result Comment: 2020 CKD EPI Equation using Creatinine without RaceComment: Estimated glomerular filtration rate (eGFR) is calculated without a race coefficient. Values should be interpreted in the context of the patient's full clinical presentation.Reference:1. Evert C, Gloria M, Jasper GUERRA, et al.. A Unifying Approach for GFR Estimation: Recommendations of the NKF-ASN Task Force on Reassessing the Inclusion of Race in Diagnosing Kidney Disease. [place] Journal of Kidney Diseases 2021;79(2):268-88.e1.2. N Engl J Med 2021 Vol. 385 Issue 19 Pages 9019-7084 Performed By: #### H NOEMI CHNilo, LIP, PHOS, MG ####[facility] PATHOLOGY [id number] [place], Glucose [Mass/Vol] 108 mg/dL Normal 74-109 [facility] Comment on above: Performed By: #### H NOEMI CH8, LIP, PHOS, MG ####[facility] PATHOLOGY [id number] [place], Potassium [Moles/Vol] 4.3 mmol/L Normal 3.5-5.0 [facility] Comment on above: Performed By: #### H DESHAWN FRANKLIN, LIP, PHOS, MG ####[facility] PATH[facility] [id number] [place], Sodium [Moles/Vol] 137 mmol/L Normal 136-145 [facility] Comment on above: Performed By: #### H DESHAWN FRANKLIN, LIP, PHOS, MG ####[facility] PATH[facility] [id number] [place], [place], Urea nitrogen [Mass/Vol] 6 mg/dL Low 7-25 [facility] Comment on above: Performed By: #### H DESHAWN FRANKLIN, LIP, PHOS, MG ####[facility] PATH[facility] [id number] [place], [place], Basic metabolic 2000 panelon 08-12-2024 Anion gap [Moles/Vol] 13 mmol/L 10 - 20 [facility] Cal[facility] [Mass/Vol] 7.7 mg/dL Low 8.6 - 10. 3 mg/dL [facility] Chloride [Moles/Vol] 100 mmol/L 98 - 10 7 mmol/L [facility] CO2 [Moles/Vol] 28 mmol/L 21 - 31 mmol/L [facility] Creatinine [Mass/Vol] 0.42 mg/dL Low 0.60 - 1.20 mg/dL [facility] GFR/1.73 sq M.predicted CKD-EPI (S/P/Bld) [Vol rate/Area] 134 - PINF [facility] Glucose [Mass/Vol] 108 mg/dL 74 - 109 mg/dL [facility] Potassium [Moles/Vol] 4.3 mmol/L 3.5 - 5.0 mmol/L [facility] Sodium [Moles/Vol] 137 mmol/L 136 - 145 mmol/L [facility] Urea nitrogen [Mass/Vol] 6 mg/dL Low 7 - 25 mg/dL [facility] CBC panel Auto (Bld)on 08-12 Erythrocyte distribution width (RBC) [Ratio] 15.6 % High 11.5 - 14.5 % [facility] Hematocrit (Bld) [Volume fraction] 31.5 % Low 36.0 - 46.0 % [facility] Hemoglobin (Bld) [Mass/Vol] 10.4 g/dL Low 12.0 - 15.0 g/dL [facility] Interpretation and review of laboratory results Abnormal [facility] MCH (RBC) [Entitic mass] 27.5 pg 26.0 - 34.0 pg [facility] MCHC (RBC) [Mass/Vol] 33.0 g/dL 32.0 - 35.9 g/dL [facility] MCV (RBC) [Entitic vol] 83 fL 80 - 100 fL [facility] Platelet mean volume (Bld) [Entitic vol] 6.8 fL Low 7.5 - 11.2 fL [facility] Platelets (Bld) [#/Vol] 504 10*3/uL High 150 - 400 K/uL [facility] RBC (Bld) [#/Vol] 3.77 10*6/uL Low [facility] WBC (Bld) [#/Vol] 8.3 10*3/uL 4.5 - 11.5 K/uL [facility] COMPLETE BLOOD COUNTon 08-12 Erythrocyte distribution width (RBC) [Ratio] 15.6 % High 11.5-14.5 [facility] Comment on above: Performed By: #### C BC ####S PATHOLOGY [id number] [place], Hematocrit (Bld) [Volume fraction] 31.5 % Low 36.0-46.0 [facility] Comment on above: Performed By: #### C BC ####S PATHOLOGY [id number] [place], Hemoglobin (Bld) [Mass/Vol] 10.4 g/dL Low 12.0-15.0 [facility] Comment on above: Performed By: #### C BC ####[facility] PATHOLOGY [id number] [place], MCH (RBC) [Entitic mass] 27.5 pg Normal 26.0-34.0 [facility] Comment on above: Performed By: #### C BC ####[facility] PATHOLOGY [id number] [place], MCHC (RBC) [Mass/Vol] 33.0 g/dL Normal 32.0-35.9 [facility] Comment on above: Performed By: #### C BC ####[facility] PATHOLOGY [id number] [place], MCV (RBC) [Entitic vol] 83 fL Normal 80-100 [facility] Comment on above: Performed By: #### C BC ####[facility] PATHOLOGY [id number] [place], Platelet mean volume (Bld) [Entitic vol] 6.8 fL Low 7.5-11.2 [facility] Comment on above: Performed By: #### C BC ####[facility] PATHOLOGY [id number] [place], Platelets (Bld) [#/Vol] 504 10*3/uL High 150-400 [facility] Comment on above: Performed By: #### C BC ####[facility] PATHOLOGY [id number] [place], RBC (Bld) [#/Vol] 3.77 10*6/uL Low 4.00-5.20 [facility] Comment on above: Performed By: #### C BC ####[facility] PATHOLOGY [id number] [place], WBC (Bld) [#/Vol] 8.3 10*3/uL Normal 4.5-11.5 [facility] Comment on above: Performed By: #### C BC ####[facility] PATHOLOGY [id number] [place], HEPATIC FUNCTION PANELon Albumin [Mass/Vol] 2.7 g/dL Low 3.5 - 5.7 g/dL [facility] ALP [Catalytic activity/Vol] 67 U/L [facility] ALT [Catalytic activity/Vol] 16 U/L [facility] AST [Catalytic activity/Vol] 20 U/L [facility] Bilirubin [Mass/Vol] 0.4 mg/dL 0.3 - 1 .0 mg/dL [facility] Bilirubin.direct [Mass/Vol] 0.10 mg/dL 0.03 - 0.18 mg/dL [facility] Protein [Mass/Vol] 5.3 g/dL Low 6.0 - 8.3 g/dL [facility] Albumin [Mass/Vol] 2.7 g/dL Low 3.5-5.7 [facility] Comment on above: Performed By: #### H EPATIC, CH8, LIP, PHOS, MG ####[facility] PATHOLOG[facility] [id number] [place], ALK 67 IU/L Normal 34-104 [facility] Comment on above: Performed By: #### H EPATIC, CH8, LIP, PHOS, MG ####S PATHOLOGY [id number] [place], ALT [Catalytic activity/Vol] 16 U/L Normal 7-52 The [facility] Comment on above: Performed By: #### H EPATIC, CH8, LIP, PHOS, MG ####[facility] PATHOLOGY [id number] [place], AST [Catalytic activity/Vol] 20 U/L Normal 13-39 [facility] Comment on above: Performed By: #### H EPATIC, CH8, LIP, PHOS, MG ####[facility] PATHOLOGY [id number] [place], Bilirubin [Mass/Vol] 0.4 mg/dL Normal 0.3-1.0 [facility] Comment on above: Performed By: #### H EPATIC, CH8, LIP, PHOS, MG ####[facility] PATHOLOGY [id number] [place], Bilirubin.direct [Mass/Vol] 0.10 mg/dL Normal 0.03-0.18 [facility] Comment on above: Performed By: #### H EPATIC, CH8, LIP, PHOS, MG ####[facility] PATHOLOGY [id number] [place], Protein [Mass/Vol] 5.3 g/dL Low 6.0-8.3 [facility] Comment on above: Performed By: #### H EPATIC, CH8, LIP, PHOS, MG ####[facility] PATHOLOGY [id number] [place], LIPASEon 08-12-2024 Lipase [Catalytic activity/Vol] 12 U/L [facility] LIP 12 IU/L Normal 11-82 [facility] Comment on above: Performed By: #### H EPATIC, CH8, LIP, PHOS, MG ####[facility] PATHOLOG[facility] [id number] [place], MAGNESIUMon 08-12-2024 Magnesium [Mass/Vol] 1.9 mg/dL 1.9 - 2 .7 mg/dL [facility] Magnesium [Mass/Vol] 1.9 mg/dL Normal 1.9-2.7 [facility] Comment on above: Performed By: #### H EPATIC, CH8, LIP, PHOS, MG ####[facility] PATHOLOGY [id number] [place], No Panel Informationon 08-12 [facility] Interpretation and review of laboratory results Normal [facility] Interpretation and review of laboratory results Abnormal [facility] No Panel InformationOrdered By: Henry Taylor on 08-12-2024 [facility] Work Phone: PHOSPHORUSon 08-12-2024 Phosphate [Mass/Vol] 3.5 mg/dL 2.5 - 5 .0 mg/dL [facility] Phosphate [Mass/Vol] 3.5 mg/dL Normal 2.5-5.0 [facility] Comment on above: Performed By: #### H EPATIC, CH8, LIP, PHOS, MG ####[facility] PATHOLOGY [id number] [place], [place], Progress Noteson 08-12-2024 Spa Experience Coordinator Authentication Interface Message Text I have reviewed and agree with Akil Odom's (Student Nurse) documentation for [id number] shift. Normal [facility] Spa Experience Coordinator Authentication Interface Message Text Normal [facility] Spa Experience Coordinator Authentication Interface Message Text Normal [facility] Spa Experience Coordinator Authentication Interface Message Text Normal [facility] XA ADDITIONAL VESSELS (ALESSANDRO)o n 08-12-2024 XA ADDITIONAL VESSELS (ALESSANDRO) Normal [facility] XA ART EMBO NON HEMORRHAGE ( ALESSANDRO)on 08-12-2024 XA ART EMBO NON HEMORRHAGE (ALESSANDRO) Normal [facility] XA CELIAC ARTERY (ALESSANDRO)on XA CELIAC ARTERY (ALESSANDRO) Normal Th e [facility] XA SUPERIOR MESENTERIC ARTER Y (ALESSANDRO)on 08-12-2024 XA SUPERIOR MESENTERIC ARTERY (ALESSANDRO) Normal [facility] XR CHEST AP OR PA 1 VIEWon 1 XR CHEST AP OR PA 1 VIEW Normal [facility] XR Chest Single viewon 08-12 RADIOLOGY [facility] XR Chest Single viewOrdered By: Pollo Quezada on 08-12-2024 [facility] Work Phone: AEROBIC BODY FLUID CULTUREon 08-11-2024 Bacteria identified Cx Nom (Body fld) No Growth [facility] Microscopic observation Gram stain Nom (Unsp spec) 3+ WBC's other than Polymorphonuclear cells present [facility] Microscopic observation Gram stain Nom (Unsp spec) 2+ Polymorphonuclear Leukocytes [facility] Microscopic observation Gram stain Nom (Unsp spec) 1+ Squamous Epithelial Cells [facility] Microscopic observation Gram stain Nom (Unsp spec) No organisms seen [facility] BASIC METABOLIC PANELon 100 Anion gap [Moles/Vol] 10 mmol/L Normal 10-20 [facility] Comment on above: Performed By: #### C H8, HEPATIC, PHOS, MG ####[facility] PATHOLOGY [id number] [place], [address] Calcium [Mass/Vol] 7.9 mg/dL Low 8.6-10.3 [facility] Comment on above: Performed By: #### C H8, HEPATIC, PHOS, MG ####[facility] PATHOLOGY [id number] [place], Chloride [Moles/Vol] 101 mmol/L Normal 98-107 [facility] Comment on above: Performed By: #### C H8, HEPATIC, PHOS, MG ####[facility] PATHOLOGY [id number] [place], CO2 [Moles/Vol] 30 mmol/L Normal 21-31 [facility] Comment on above: Performed By: #### C H8, HEPATIC, PHOS, MG ####[facility] PATHOLOGY [id number] [place], Creatinine [Mass/Vol] 0.53 mg/dL Low 0.60-1.20 [facility] Comment on above: Performed By: #### C H8, HEPATIC, PHOS, MG ####[facility] PATHOLOGY [id number] [place], ESTIMATED GFR (CKD-EPI) 127 mL/min/1.73sqm Normal >=60 [facility] Comment on above: Result Comment: 2020 CKD EPI Equation using Creatinine without RaceComment: Estimated glomerular filtration rate (eGFR) is calculated without a race coefficient. Values should be interpreted in the context of the patient's full clinical presentation.Reference:1. Evert C, Gloria M, Jasper GUERRA, et al.. A Unifying Approach for GFR Estimation: Recommendations of the NKF-ASN Task Force on Reassessing the Inclusion of Race in Diagnosing Kidney Disease. [place] Journal of Kidney Diseases 2021;79(2):268-88.e1.2. N Engl J Med 2020 Vol. 385 Issue 19 Pages 8181-0926 Performed By: #### C H8, HEPATIC, PHOS, MG ####[facility] PATHOLOGY [id number] [place], Glucose [Mass/Vol] 98 mg/dL Normal 74-109 [facility] Comment on above: Performed By: #### C H8, HEPATIC, PHOS, MG ####[facility] PATHOLOGY [id number] [place], Potassium [Moles/Vol] 4.2 mmol/L Normal 3.5-5.0 [facility] Comment on above: Performed By: #### C H8, HEPATIC, PHOS, MG ####[facility] PATHOLOGY [id number] [place], Sodium [Moles/Vol] 137 mmol/L Normal 136-145 [facility] Comment on above: Performed By: #### Chin H8, HEPATIC, PHOS, MG ####[facility] PATHOLOGY [id number] [place], Urea nitrogen [Mass/Vol] 10 mg/dL Normal 7-25 [facility] Comment on above: Performed By: #### Chin H8, HEPATIC, PHOS, MG ####[facility] PATHOLOGY [id number] [place], Basic metabolic 2000 panelon 08-11-2024 Anion gap [Moles/Vol] 10 mmol/L 10 - 20 Met [facility] Calcium [Mass/Vol] 7.9 mg/dL Low 8.6 - 10. 3 mg/dL [facility] Chloride [Moles/Vol] 101 mmol/L 98 - 10 7 mmol/L [facility] CO2 [Moles/Vol] 30 mmol/L 21 - 31 mmol/L [facility] Creatinine [Mass/Vol] 0.53 mg/dL Low 0.60 - 1.20 mg/dL [facility] GFR/1.73 sq M.predicted CKD-EPI (S/P/Bld) [Vol rate/Area] 127 - PINF [facility] Glucose [Mass/Vol] 98 mg/dL 74 - 109 mg/dL [facility] Potassium [Moles/Vol] 4.2 mmol/L 3.5 - 5.0 mmol/L [facility] Sodium [Moles/Vol] 137 mmol/L 136 - 145 mmol/L [facility] Urea nitrogen [Mass/Vol] 10 mg/dL 7 - 25 mg/dL [facility] CBC panel Auto (Bld)on 08-11 Erythrocyte distribution width (RBC) [Ratio] 15.2 % High 11.5 - 14.5 % [facility] Hematocrit (Bld) [Volume fraction] 29.0 % Low 36.0 - 46.0 % [facility] Hemoglobin (Bld) [Mass/Vol] 10.0 g/dL Low 12.0 - 15.0 g/dL [facility] Interpretation and review of laboratory results Abnormal [facility] MCH (RBC) [Entitic mass] 28.6 pg 26.0 - 34.0 pg [facility]C (RBC) [Mass/Vol] 34.5 g/dL 32.0 - 35.9 g/dL [facility] MCV (RBC) [Entitic vol] 83 fL 80 - 100 fL [facility] Platelet mean volume (Bld) [Entitic vol] 7.1 fL Low 7.5 - 11.2 fL [facility] Platelets (Bld) [#/Vol] 487 10*3/uL High 150 - 400 K/uL [facility] RBC (Bld) [#/Vol] 3.50 10*6/uL Low [facility] WBC (Bld) [#/Vol] 8.2 10*3/uL 4.5 - 11.5 K/uL [facility] COMPLETE BLOOD COUNTon 08-11 Erythrocyte distribution width (RBC) [Ratio] 15.2 % High 11.5-14.5 [facility] Comment on above: Performed By: #### C BC ####S PATHOLOGY [id number] [place], Hematocrit (Bld) [Volume fraction] 29.0 % Low 36.0-46.0 [facility] Comment on above: Performed By: #### C BC ####S PATHOLOGY [id number] [place], Hemoglobin (Bld) [Mass/Vol] 10.0 g/dL Low 12.0-15.0 [facility] Comment on above: Performed By: #### C BC ####S PATHOLOGY [id number] [place], MCH (RBC) [Entitic mass] 28.6 pg Normal 26.0-34.0 [facility] Comment on above: Performed By: #### C BC ####S PATHOLOGY [id number] [place], MCHC (RBC) [Mass/Vol] 34.5 g/dL Normal 32.0-35.9 [facility] Comment on above: Performed By: #### C BC ####[facility] PATHOLOGY [id number] [place], MCV (RBC) [Entitic vol] 83 fL Normal 80-100 [facility] Comment on above: Performed By: #### C BC ####[facility] PATHOLOGY [id number] [place], Platelet mean volume (Bld) [Entitic vol] 7.1 fL Low 7.5-11.2 [facility] Comment on above: Performed By: #### C BC ####[facility] PATHOLOGY [id number] [place], Platelets (Bld) [#/Vol] 487 10*3/uL High 150-400 [facility] Comment on above: Performed By: #### C BC ####[facility] PATHOLOGY [id number] [place], RBC (Bld) [#/Vol] 3.50 10*6/uL Low 4.00-5.20 [facility] Comment on above: Performed By: #### C BC ####[facility] PATHOLOGY [id number] [place], WBC (Bld) [#/Vol] 8.2 10*3/uL Normal 4.5-11.5 [facility] Comment on above: Performed By: #### C BC ####[facility] PATHOLOGY [id number] [place], Consultson 08-11-2024 Spa Experience Coordinator Authentication Interface Message Text Normal [facility] HEPATIC FUNCTION PANELon Albumin [Mass/Vol] 2.8 g/dL Low 3.5 - 5.7 g/dL [facility] ALP [Catalytic activity/Vol] 67 U/L [facility] ALT [Catalytic activity/Vol] 13 U/L [facility] AST [Catalytic activity/Vol] 11 U/L Low [facility] Bilirubin [Mass/Vol] 0.4 mg/dL 0.3 - 1 .0 mg/dL [facility] Bilirubin.direct [Mass/Vol] 0.11 mg/dL 0.03 - 0.18 mg/dL [facility] Protein [Mass/Vol] 5.3 g/dL Low 6.0 - 8.3 g/dL [facility] Albumin [Mass/Vol] 2.8 g/dL Low 3.5-5.7 [facility] Comment on above: Performed By: #### C H8, HEPATIC, PHOS, MG ####[facility] PATHOLOGY [id number] [place], ALK 67 IU/L Normal 34-104 [facility] Comment on above: Performed By: #### C H8, HEPATIC, PHOS, MG ####[facility] PATHOLOGY [id number] [place], ALT [Catalytic activity/Vol] 13 U/L Normal 7-52 [facility] Comment on above: Performed By: #### C H8, HEPATIC, PHOS, MG ####[facility] PATHOLOGY [id number] [place], AST [Catalytic activity/Vol] 11 U/L Low 13-39 [facility] Comment on above: Performed By: #### C H8, HEPATIC, PHOS, MG ####[facility] PATHOLOGY [id number] [place], Bilirubin [Mass/Vol] 0.4 mg/dL Normal 0.3-1.0 [facility] Comment on above: Performed By: #### C H8, HEPATIC, PHOS, MG ####[facility] PATHOLOGY [id number] [place], Bilirubin.direct [Mass/Vol] 0.11 mg/dL Normal 0.03-0.18 [facility] Comment on above: Performed By: #### C H8, HEPATIC, PHOS, MG ####[facility] PATHOLOGY [id number] [place], Protein [Mass/Vol] 5.3 g/dL Low 6.0-8.3 [facility] Comment on above: Performed By: #### C H8, HEPATIC, PHOS, MG ####[facility] PATHOLOGY [id number] [place], Laboratory - Blood bankon ABO and Rh group Nom (Bld) Blood group A Rh(D) negative [facility] MAGNESIUMon 08-11-2024 Magnesium [Mass/Vol] 1.8 mg/dL Low 1.9 - 2 .7 mg/dL [facility] Magnesium [Mass/Vol] 1.8 mg/dL Low 1.9-2.7 [facility] Comment on above: Performed By: #### C H8, HEPATIC, PHOS, MG ####[facility] PATHOLOGY [id number] [place], No Panel Informationon 08-11 Radiology Study observation (narrative) [facility] Interpretation and review of laboratory results Abnormal [facility] PHOSPHORUSon 08-11-2024 Interpretation and review of laboratory results Normal [facility] Phosphate [Mass/Vol] 3.7 mg/dL 2.5 - 5 .0 mg/dL [facility] Phosphate [Mass/Vol] 3.7 mg/dL Normal 2.5-5.0 [facility] Comment on above: Performed By: #### C H8, HEPATIC, PHOS, MG ####[facility] PATHOLOGY [id number] [place], Post-Procedure Noteon 2023 Spa Experience Coordinator Authentication Interface Message Text Normal [facility] Pre-Procedure Noteon Spa Experience Coordinator Authentication Interface Message Text Normal [facility] Procedureson 08-11-2024 Spa Experience Coordinator Authentication Interface Message Text Normal [facility] Progress Noteson 08-11-2024 Spa Experience Coordinator Authentication Interface Message Text Acute lactic acidosis Normal [facility] Spa Experience Coordinator Authentication Interface Message Text Attempted to see patient, but unable due to patient being off the unit. Will re-attempt tomorrow, if not today. Jarod Venegas, OFFICE SECRETARY-EDUCATION PROFESSOR Pain consult availability: Mornings, Thursday through Thursday. For questions please page [phone]. Normal [facility] Spa Experience Coordinator Authentication Interface Message Text Normal [facility] Spa Experience Coordinator Authentication Interface Message Text Normal [facility] TYPE AND SCREENon 08-11-2024 Blood group antibody screen Ql Negative [facility] ABO and Rh group Nom (Bld) Blood group A Rh(D) negative Normal [facility] Comment on above: Performed By: #### T S ####[facility] PATHOLOGY [id number] [place], ABSC INT Negative Normal [facility] Comment on above: Performed By: #### T S ####[facility] PATHOLOGY [id number] [place], XR ABDOMEN AP 1 VIEWon 08-11 XR ABDOMEN AP 1 VIEW Normal [facility] XR Abdomen APon 08-11-[address] [facility] Radiology Study observation (narrative) [facility] XR CHEST AP OR PA 1 VIEWon 1 XR CHEST AP OR PA 1 VIEW Normal [facility] XR Chest Single viewon 08-11 Radiology Study observation (narrative) [facility] EXAMINATION: XR CHES T AP OR PA 1 VIEW 08/11/2024 04:25 AM CLINICAL HISTORY: Chest surgery, postoperative; Chest tube assessment ASSOCIATED DIAGNOSIS: Chest surgery, postoperative Chest tube assessment ORDERING PROVIDER: VANIA KUMAR TECHNNAOMI NOTE: COMPARISON: XR CHEST AP OR PA 1 VIEW 08/10/2024, 4:31 AM FINDINGS: Lines, tubes, and devices: Right pleural drainage catheter is unchanged in position, but tip projecting over the right upper lung zone. Lungs and pleura: No new focal consolidation. Persistent right greater than left basilar opacities with blunting of the costophrenic angles bilaterally. Pleural air is seen inferiorly, likely loculated. Cardiomediastinal silhouette: The cardiomediastinal silhouette is prominent in size and likely exaggerated by AP technique. Musculoskeletal: Unremarkable. IMPRESSION: Stable radiographic appearance of the chest MACRO: None RADIOLOGY Nava Marrero MD - 08/11/2024 EXAMINATION: XR CHEST AP OR PA 1 VIEW 08/11/2024 04:25 AM CLINICAL HISTORY: Chest surgery, postoperative; Chest tube assessment ASSOCIATED DIAGNOSIS: Chest surgery, postoperative Chest tube assessment ORDERING PROVIDER: VANIA ARROYO NOTE: COMPARISON: XR CHEST AP OR PA 1 VIEW 08/10/2024, 4:31 AM FINDINGS: Lines, tubes, and devices: Right pleural drainage catheter is unchanged in position, but tip projecting over the right upper lung zone. Lungs and pleura: No new focal consolidation. Persistent right greater than left basilar opacities with blunting of the costophrenic angles bilaterally. Pleural air is seen inferiorly, likely loculated. Cardiomediastinal silhouette: The cardiomediastinal silhouette is prominent in size and likely exaggerated by AP technique. Musculoskeletal: Unremarkable. IMPRESSION: Stable radiographic appearance of the chest MACRO: None [facility] Radiology Study observation (narrative) [facility] XR Chest Single viewOrdered By: Nava Marrero on 08-11-2024 [facility] Work Phone: BASIC METABOLIC PANELon 10-0 Anion gap [Moles/Vol] 13 mmol/L Normal 10-20 [facility] Comment on above: Performed By: #### C H8, HEPATIC, MG, PHOS ####[facility] PATHOLOG[facility] [id number] [place], Calcium [Mass/Vol] 7.9 mg/dL Low 8.6-10.3 [facility] Comment on above: Performed By: #### C H8, HEPATIC, MG, PHOS ####[facility] PATHOLOGY [id number] [place], Chloride [Moles/Vol] 103 mmol/L Normal 98-107 [facility] Comment on above: Performed By: #### C H8, HEPATIC, MG, PHOS ####[facility] PATHOLOGY [id number] [place], CO2 [Moles/Vol] 28 mmol/L Normal 21-31 [facility] Comment on above: Performed By: #### C H8, HEPATIC, MG, PHOS ####[facility] PATHOLOGY [id number] [place], Creatinine [Mass/Vol] 0.54 mg/dL Low 0.60-1.20 [facility] Comment on above: Performed By: #### C H8, HEPATIC, MG, PHOS ####[facility] PATHOLOG[facility] [id number] [place], ESTIMATED GFR (CKD-EPI) 126 mL/min/1.73sqm Normal >=60 [facility] Comment on above: Result Comment: 2020 CKD EPI Equation using Creatinine without RaceComment: Estimated glomerular filtration rate (eGFR) is calculated without a race coefficient. Values should be interpreted in the context of the patient's full clinical presentation.Reference:1. Evert Neely, Gloria M, Jasper GUERRA, et al.. A Unifying Approach for GFR Estimation: Recommendations of the NKF-ASN Task Force on Reassessing the Inclusion of Race in Diagnosing Kidney Disease. [place] Journal of Kidney Diseases 2021;79(2):268-88.e1.2. N Engl J Med 2020 Vol. 385 Issue 19 Pages 5935-3881 Performed By: #### C H8, HEPATIC, MG, PHOS ####[facility] PATHOLOGY [id number] [place], Glucose [Mass/Vol] 88 mg/dL Normal 74-109 [facility] Comment on above: Performed By: #### C H8, HEPATIC, MG, PHOS ####[facility] PATHOLOG[facility] [id number] [place], Potassium [Moles/Vol] 4.3 mmol/L Normal 3.5-5.0 [facility] Comment on above: Performed By: #### C H8, HEPATIC, MG, PHOS ####[facility] PATHOLOGY [id number] [place], Sodium [Moles/Vol] 140 mmol/L Normal 136-145 [facility] Comment on above: Performed By: #### C H8, HEPATIC, MG, PHOS ####[facility] PATHOLOG[facility] [id number] [place], [place], Urea nitrogen [Mass/Vol] 12 mg/dL Normal 7-25 [facility] Comment on above: Performed By: #### C H8, HEPATIC, MG, PHOS ####[facility] PATH[facility] [id number] [place], [place], Basic metabolic 2000 panelon 08-10-2024 Anion gap [Moles/Vol] 13 mmol/L 10 - 20 [facility] Calcium [Mass/Vol] 7.9 mg/dL Low 8.6 - 10. 3 mg/dL [facility] Chloride [Moles/Vol] 103 mmol/L 98 - 10 7 mmol/L [facility] CO2 [Moles/Vol] 28 mmol/L 21 - 31 mmol/L [facility] Creatinine [Mass/Vol] 0.54 mg/dL Low 0.60 - 1.20 mg/dL [facility] GFR/1.73 sq M.predicted CKD-EPI (S/P/Bld) [Vol rate/Area] 126 - PINF [facility] Glucose [Mass/Vol] 88 mg/dL 74 - 109 mg/dL [facility] Potassium [Moles/Vol] 4.3 mmol/L 3.5 - 5.0 mmol/L [facility] Sodium [Moles/Vol] 140 mmol/L 136 - 145 mmol/L [facility] Urea nitrogen [Mass/Vol] 12 mg/dL 7 - 25 mg/dL [facility] CBC panel Auto (Bld)on 08-10 Erythrocyte distribution width (RBC) [Ratio] 15.4 % High 11.5 - 14.5 % [facility] Hematocrit (Bld) [Volume fraction] 31.5 % Low 36.0 - 46.0 % [facility] Hemoglobin (Bld) [Mass/Vol] 10.4 g/dL Low 12.0 - 15.0 g/dL [facility] Interpretation and review of laboratory results Abnormal [facility] MCH (RBC) [Entitic mass] 27.4 pg 26.0 - 34.0 pg [facility] MCHC (RBC) [Mass/Vol] 32.9 g/dL 32.0 - 35.9 g/dL [facility] MCV (RBC) [Entitic vol] 83 fL 80 - 100 fL [facility] Platelet mean volume (Bld) [Entitic vol] 7.1 fL Low 7.5 - 11.2 fL [facility] Platelets (Bld) [#/Vol] 506 10*3/uL High 150 - 400 K/uL [facility] RBC (Bld) [#/Vol] 3.78 10*6/uL Low [facility] WBC (Bld) [#/Vol] 6.6 10*3/uL 4.5 - 11.5 K/uL [facility] COMPLETE BLOOD COUNTon 08-10 Erythrocyte distribution width (RBC) [Ratio] 15.4 % High 11.5-14.5 [facility] Comment on above: Performed By: #### C BC ####[facility] PATHOLOGY [id number] [place], [place], Hematocrit (Bld) [Volume fraction] 31.5 % Low 36.0-46.0 [facility] Comment on above: Performed By: #### C BC ####[facility] PATHOLOGY [id number] [place], Hemoglobin (Bld) [Mass/Vol] 10.4 g/dL Low 12.0-15.0 [facility] Comment on above: Performed By: #### C BC ####[facility] PATHOLOGY [id number] [place], MCH (RBC) [Entitic mass] 27.4 pg Normal 26.0-34.0 [facility] Comment on above: Performed By: #### C BC ####[facility] PATHOLOGY [id number] [place], MCHC (RBC) [Mass/Vol] 32.9 g/dL Normal 32.0-35.9 [facility] Comment on above: Performed By: #### C BC ####[facility] PATHOLOGY [id number] [place], MCV (RBC) [Entitic vol] 83 fL Normal 80-100 [facility] Comment on above: Performed By: #### C BC ####[facility] PATHOLOGY [id number] [place], Platelet mean volume (Bld) [Entitic vol] 7.1 fL Low 7.5-11.2 [facility] Comment on above: Performed By: #### C BC ####[facility] PATHOLOGY [id number] [place], Platelets (Bld) [#/Vol] 506 10*3/uL High 150-400 [facility] Comment on above: Performed By: #### C BC ####[facility] PATHOLOGY [id number] [place], [place], RBC (Bld) [#/Vol] 3.78 10*6/uL Low 4.00-5.20 [facility] Comment on above: Performed By: #### C BC ####S PATHOLOGY [id number] [place], [place], WBC (Bld) [#/Vol] 6.6 10*3/uL Normal 4.5-11.5 [facility] Comment on above: Performed By: #### C BC ####[facility] PATHOLOGY [id number] [place], [place], Consultson 08-10-2024 Spa Experience Coordinator Authentication Interface Message Text Normal [facility] HEPATIC FUNCTION PANELon Albumin [Mass/Vol] 2.7 g/dL Low 3.5 - 5.7 g/dL [facility] ALP [Catalytic activity/Vol] 66 U/L [facility] ALT [Catalytic activity/Vol] 15 U/L [facility] AST [Catalytic activity/Vol] 12 U/L Low [facility] Bilirubin [Mass/Vol] 0.4 mg/dL 0.3 - 1 .0 mg/dL [facility] Bilirubin.direct [Mass/Vol] 0.11 mg/dL 0.03 - 0.18 mg/dL [facility] Protein [Mass/Vol] 5.3 g/dL Low 6.0 - 8.3 g/dL [facility] Albumin [Mass/Vol] 2.7 g/dL Low 3.5-5.7 [facility] Comment on above: Performed By: #### C H8, HEPATIC, MG, PHOS ####S PATHOLOGY [id number] [place], [place], ALK 66 IU/L Normal 34-104 [facility] Comment on above: Performed By: #### C H8, HEPATIC, MG, PHOS ####S PATHOLOGY [id number] [place], ALT [Catalytic activity/Vol] 15 U/L Normal 7-52 [facility] Comment on above: Performed By: #### C H8, HEPATIC, MG, PHOS ####S PATHOLOGY [id number] [place], AST [Catalytic activity/Vol] 12 U/L Low 13-39 [facility] Comment on above: Performed By: #### Chin Royal, HEPATIC, MG, PHOS ####[facility] PATHOLOG[facility] [id number] [place], Bilirubin [Mass/Vol] 0.4 mg/dL Normal 0.3-1.0 [facility] Comment on above: Performed By: #### Chin Royal, HEPATIC, MG, PHOS ####[facility] PATH[facility] [id number] [place], Bilirubin.direct [Mass/Vol] 0.11 mg/dL Normal 0.03-0.18 [facility] Comment on above: Performed By: #### Chin Royal, HEPATIC, MG, PHOS ####[facility] PATHOLOGY [id number] [place], Protein [Mass/Vol] 5.3 g/dL Low 6.0-8.3 [facility] Comment on above: Performed By: #### Chin Royal, HEPATIC, MG, PHOS ####S PATHOLOGY [id number] [place], [place], Laboratory - Microbiology an d Antimicrobial susceptibilityon 08-10-2024 Bacteria identified Cx Nom (Bld) No Growth [facility] MAGNESIUMon 08-10-2024 Magnesium [Mass/Vol] 1.9 mg/dL 1.9 - 2 .7 mg/dL [facility] Magnesium [Mass/Vol] 1.9 mg/dL Normal 1.9-2.7 [facility] Comment on above: Performed By: #### Chin Royal, HEPATIC, MG, PHOS ####S PATHOLOGY [id number] [place], [place], No Panel Informationon 08-10 Interpretation and review of laboratory results Normal [facility] Interpretation and review of laboratory results Abnormal [facility] Interpretation and review of laboratory results [facility] PHOSPHORUSon 08-10-2024 Phosphate [Mass/Vol] 3.3 mg/dL 2.5 - 5 .0 mg/dL [facility] Phosphate [Mass/Vol] 3.3 mg/dL Normal 2.5-5.0 [facility] Comment on above: Performed By: #### C H8, HEPATIC, MG, PHOS ####[facility] PATHOLOGY [id number] [place], [place], PROTHROMBIN TIME AND INRon INR Coag (PPP) [Relative time] 1.43 {INR} High 0.90 - 1.10 [facility] Interpretation and review of laboratory results Abnormal [facility] PT Coag (PPP) [Time] 16.0 s High [facility] INR Coag (PPP) [Relative time] 1.43 {INR} High 0.90-1.10 [facility] Comment on above: Performed By: #### P T ####[facility] PATH[facility] [id number] [place], PT Coag (PPP) [Time] 16.0 s High 9.7-12.9 [facility] Comment on above: Performed By: #### P T ####[facility] PATHOLOGY [id number] [place], [place], Progress Noteson 08-10-2024 Spa Experience Coordinator Authentication Interface Message Text Normal [facility] Spa Experience Coordinator Authentication Interface Message Text Normal [facility] XR CHEST AP OR PA 1 VIEWon XR CHEST AP OR PA 1 VIEW Normal [facility] X[facility] Chest Single viewon 08-10 EXAMINATION: XR CHES T AP OR PA 1 VIEW 08/10/2024 04:30 AM CLINICAL HISTORY: POD 2 s/p right VATS with chest tube x2 COMPARISON: XR CHEST AP OR PA 1 VIEW 08/09/2024, 1:33 PM FINDINGS: Lines, tubes, and devices: Status post VATS. Two right chest tubes in unchanged position. Lungs and pleura: Persistent right pleural effusion with adjacent opacities suggestive of atelectasis. Left retrocardiac opacity. Cardiomediastinal silhouette: Normal cardiomediastinal silhouette. Musculoskeletal: Unremarkable. IMPRESSION: 1. Similar position of right pleural drainage catheters with the inferior drainage catheter sidehole not confidently within the pleural space. Correlate with function. 2. Left retrocardiac opacity may represent atelectasis/mucus plugging or pleural fluid. Continued attention on follow-up is recommended. 3. Persistent right pleural effusion with adjacent opacities suggestive of atelectasis. MACRO: None RADIOLOGY Lucian Humphries MD - 08/10/2024 EXAMINATION: XR CHEST AP OR PA 1 VIEW 08/10/2024 04:30 AM CLINICAL HISTORY: POD 2 s/p right VATS with chest tube x2 COMPARISON: XR CHEST AP OR PA 1 VIEW 08/09/2024, 1:33 PM FINDINGS: Lines, tubes, and devices: Status post VATS. Two right chest tubes in unchanged position. Lungs and pleura: Persistent right pleural effusion with adjacent opacities suggestive of atelectasis. Left retrocardiac opacity. Cardiomediastinal silhouette: Normal cardiomediastinal silhouette. Musculoskeletal: Unremarkable. IMPRESSION: 1. Similar position of right pleural drainage catheters with the inferior drainage catheter sidehole not confidently within the pleural space. Correlate with function. 2. Left retrocardiac opacity may represent atelectasis/mucus plugging or pleural fluid. Continued attention on follow-up is recommended. 3. Persistent right pleural effusion with adjacent opacities suggestive of atelectasis. MACRO: None [facility] RADIOLOGY [facility] Radiology Study observation (narrative) [facility] Chest Single viewOrdered By: Lcuian Humphries on 08-10-2024 [employer] Work Phone: BASIC METABOLIC PANELon 10-0 Anion gap [Moles/Vol] 19 mmol/L Normal 10-20 [facility] Comment on above: Performed By: #### Mera Back PHOS, CH8, HEPATIC ####[facility] PATHOLOGY [id number] [place], Calcium [Mass/Vol] 7.7 mg/dL Low 8.6-10.3 [facility] Comment on above: Performed By: #### Mera Back PHOS, CH8, HEPATIC ####[facility] PATHOLOGY [id number] [place], Chloride [Moles/Vol] 104 mmol/L Normal 98-107 [facility] Comment on above: Performed By: #### Mera Back PHOS, CH8, HEPATIC ####[facility] PATHOLOGY [id number] [place], CO2 [Moles/Vol] 21 mmol/L Normal 21-31 [facility] Comment on above: Performed By: #### TSERING Wright CH8, HEPATIC ####[facility] PATHOLOGY [id number] [place], Creatinine [Mass/Vol] 0.53 mg/dL Low 0.60-1.20 [facility] Comment on above: Performed By: #### TSERING Wright CH8, HEPATIC ####[facility] PATHOLOGY [id number] [place], ESTIMATED GFR (CKD-EPI) 127 mL/min/1.73sqm Normal >=60 [facility] Comment on above: Result Comment: 2020 CKD EPI Equation using Creatinine without RaceComment: Estimated glomerular filtration rate (eGFR) is calculated without a race coefficient. Values should be interpreted in the context of the patient's full clinical presentation.Reference:1. Evert C, Gloria M, Jasper GUERRA, et al.. A Unifying Approach for GFR Estimation: Recommendations of the NKF-ASN Task Force on Reassessing the Inclusion of Race in Diagnosing Kidney Disease. [place] Journal of Kidney Diseases 2021;79(2):268-88.e1.2. N Engl J Med 1 Vol. 385 Issue 19 Pages 3702-7160 Performed By: #### TSERING Wright CH8, HEPATIC ####[facility] PATHOLOGY [id number] [place], Glucose [Mass/Vol] 95 mg/dL Normal 74-109 [facility] Comment on above: Performed By: #### TSERING Wright CH8, HEPATIC ####[facility] PATHOLOGY [id number] [place], [place], Potassium [Moles/Vol] 4.7 mmol/L Normal 3.5-5.0 [facility] Comment on above: Performed By: #### TSERING Wright CH8, HEPATIC ####[facility] PATHOLOGY [id number] [place], Sodium [Moles/Vol] 139 mmol/L Normal 136-145 [facility] Comment on above: Performed By: #### M G, PHOS, CH8, HEPATIC ####[facility] PATHOLOGY [id number] [place], Urea nitrogen [Mass/Vol] 10 mg/dL Normal 7-25 [facility] Comment on above: Performed By: #### M G, PHOS, CH8, HEPATIC ####[facility] PATHOLOGY [id number] [place], [place], Basic metabolic 2000 panelon 08-09-2024 Anion gap [Moles/Vol] 19 mmol/L 10 - 20 [facility] Calcium [Mass/Vol] 7.7 mg/dL Low 8.6 - 10. 3 mg/dL [facility] Chloride [Moles/Vol] 104 mmol/L 98 - 10 7 mmol/L [facility] CO2 [Moles/Vol] 21 mmol/L 21 - 31 mmol/L [facility] Creatinine [Mass/Vol] 0.53 mg/dL Low 0.60 - 1.20 mg/dL [facility] GFR/1.73 sq M.predicted CKD-EPI (S/P/Bld) [Vol rate/Area] 127 - PINF [facility] Glucose [Mass/Vol] 95 mg/dL 74 - 109 mg/dL [facility] Potassium [Moles/Vol] 4.7 mmol/L 3.5 - 5.0 mmol/L [facility] Sodium [Moles/Vol] 139 mmol/L 136 - 145 mmol/L [facility] Urea nitrogen [Mass/Vol] 10 mg/dL 7 - 25 mg/dL [facility] panel Auto (Bld)on 08-09 Erythrocyte distribution width (RBC) [Ratio] 15.4 % High 11.5 - 14.5 % [facility] Hematocrit (Bld) [Volume fraction] 29.9 % Low 36.0 - 46.0 % [facility] Hemoglobin (Bld) [Mass/Vol] 10.1 g/dL Low 12.0 - 15.0 g/dL [facility] Interpretation and review of laboratory results Abnormal [facility] MCH (RBC) [Entitic mass] 27.6 pg 26.0 - 34.0 pg [facility] MCHC (RBC) [Mass/Vol] 33.9 g/dL 32.0 - 35.9 g/dL [facility] MCV (RBC) [Entitic vol] 81 fL 80 - 100 fL [facility] Platelet mean volume (Bld) [Entitic vol] 7.1 fL Low 7.5 - 11.2 fL [facility] Platelets (Bld) [#/Vol] 500 10*3/uL High 150 - 400 K/[facility] RBC (Bld) [#/Vol] 3.67 10*6/uL Low [facility] WBC (Bld) [#/Vol] 9.4 10*3/uL 4.5 - 11.5 K/uL [facility] COMPLETE BLOOD COUNTon 08-09 Erythrocyte distribution width (RBC) [Ratio] 15.4 % High 11.5-14.5 [facility] Comment on above: Performed By: #### C BC ####[facility] PATHOLOGY [id number] [place] [address], Hematocrit (Bld) [Volume fraction] 29.9 % Low 36.0-46.0 [facility] Comment on above: Performed By: #### C BC ####[facility] PATHOLOGY [id number] [place] [address], Hemoglobin (Bld) [Mass/Vol] 10.1 g/dL Low 12.0-15.0 [facility] Comment on above: Performed By: #### C BC ####[facility] PATHOLOGY [id number] [place], MCH (RBC) [Entitic mass] 27.6 pg Normal 26.0-34.0 [facility] Comment on above: Performed By: #### C BC ####[facility] PATHOLOGY [id number] [place], MCHC (RBC) [Mass/Vol] 33.9 g/dL Normal 32.0-35.9 [facility] Comment on above: Performed By: #### C BC ####S PATHOLOGY [id number] [place], MCV (RBC) [Entitic vol] 81 fL Normal 80-100 [facility] Comment on above: Performed By: #### C BC ####[facility] [id number] [place], Platelet mean volume (Bld) [Entitic vol] 7.1 fL Low 7.5-11.2 [facility] Comment on above: Performed By: #### C BC ####[facility] PATHOLOGY [id number] [place], Platelets (Bld) [#/Vol] 500 10*3/uL High 150-400 [facility] Comment on above: Performed By: #### C BC ####[facility] PATHOLOGY [id number] [place], RBC (Bld) [#/Vol] 3.67 10*6/uL Low 4.00-5.20 [facility] Comment on above: Performed By: #### C BC ####[facility] PATHOLOGY [id number] [place], WBC (Bld) [#/Vol] 9.4 10*3/uL Normal 4.5-11.5 [facility] Comment on above: Performed By: #### C BC ####[facility] PATHOLOGY [id number] [place], HEPATIC FUNCTION PANELon Albumin [Mass/Vol] 2.7 g/dL Low 3.5 - 5.7 g/dL [facility] ALP [Catalytic activity/Vol] 71 U/L [facility] ALT [Catalytic activity/Vol] 18 U/L [facility] AST [Catalytic activity/Vol] 23 U/L [facility] Bilirubin [Mass/Vol] 0.4 mg/dL 0.3 - 1 .0 mg/dL [facility] Bilirubin.direct [Mass/Vol] 0.06 mg/dL 0.03 - 0.18 mg/dL [facility] Interpretation and review of laboratory results Abnormal [facility] Protein [Mass/Vol] 5.4 g/dL Low 6.0 - 8.3 g/dL [facility] Albumin [Mass/Vol] 2.7 g/dL Low 3.5-5.7 [facility] Comment on above: Performed By: #### M G, PHOS, CH8, HEPATIC ####[facility] PATHOLOGY [id number] [place], ALK 71 IU/L Normal 34-104 [facility] Comment on above: Performed By: #### TSERING Wright CH8, HEPATIC ####S PATHOLOGY [id number] [place], ALT [Catalytic activity/Vol] 18 U/L Normal 7-52 [facility] Comment on above: Performed By: #### TSERING Wright CH8, HEPATIC ####[facility] PATHOLOGY [id number] [place], AST [Catalytic activity/Vol] 23 U/L Normal 13-39 [facility] Comment on above: Performed By: #### TSERING Wright CH8, HEPATIC ####S PATHOLOGY [id number] [place], Bilirubin [Mass/Vol] 0.4 mg/dL Normal 0.3-1.0 [facility] Comment on above: Performed By: #### TSERING Wright CH8, HEPATIC ####[facility] PATHOLOGY [id number] [place], Bilirubin.direct [Mass/Vol] 0.06 mg/dL Normal 0.03-0.18 [facility] Comment on above: Performed By: #### TSERING Wright CH8, HEPATIC ####[facility] PATHOLOGY [id number] [place], Protein [Mass/Vol] 5.4 g/dL Low 6.0-8.3 [facility] Comment on above: Performed By: ###TSERING Mcguire CH8, HEPATIC ####S PATHOLOGY [id number] [place], MAGNESIUMon 08-09-2024 Magnesium [Mass/Vol] 1.8 mg/dL Low 1.9 - 2 .7 mg/dL [facility] Magnesium [Mass/Vol] 1.8 mg/dL Low 1.9-2.7 [facility] Comment on above: Performed By: #### TSERING Wright CH8, HEPATIC ####S PATHOLOGY [id number] [place], [id number] No Panel Informationon 08-09 Interpretation and review of laboratory results Abnormal [facility] PHOSPHORUSon 08-09-2024 Interpretation and review of laboratory results Normal [facility] Phosphate [Mass/Vol] 4.4 mg/dL 2.5 - 5 .0 mg/dL [facility] Phosphate [Mass/Vol] 4.4 mg/dL Normal 2.5-5.0 [facility] Comment on above: Performed By: #### M G, PHOS, CH8, HEPATIC ####[facility] PATH[facility] [id number] [place], Progress Noteson 08-09-2024 Spa Experience Coordinator Authentication Interface Message Text Normal [facility] Spa Experience Coordinator Authentication Interface Message Text Normal [facility] Spa Experience Coordinator Authentication Interface Message Text Normal [facility] Spa Experience Coordinator Authentication Interface Message Text Normal [facility] XR CHEST AP OR PA 1 VIEWon 1 XR CHEST AP OR PA 1 VIEW Normal [facility] XR Chest Single viewon 08-09 EXAMINATION: XR CHES T AP OR PA 1 VIEW 08/09/2024 01:33 PM CLINICAL HISTORY: POD 1 s/p right VATS with chest tube x2 ASSOCIATED DIAGNOSIS: POD 1 s/p right VATS with chest tube x2 ORDERING PROVIDER: [employer] NOTE: COMPARISON: XR CHEST AP OR PA 1 VIEW 08/08/2024, 5:36 PM FINDINGS: Lines, tubes, and devices: 2 right pleural drainage catheters project over the right upper lung zone and periphery of the right lower lung zone. The sidehole of the superior pleural drainage catheter is medial to the rib cage. The sidehole of the lower lung zone pleural drainage catheter is again at/just medial to the inferior rib cage. Lungs and pleura: No new focal pulmonary consolidation. Persistent right greater than left basilar opacities, with apparent increased left retrocardiac opacity. No sizable pneumothorax, however there is a small right basilar lucency seen peripherally, which favors small volume pleural air. Cardiomediastinal silhouette: Normal cardiomediastinal silhouette. Musculoskeletal: Unremarkable. IMPRESSION: 1. Similar position of right pleural drainage catheters with the inferior drainage catheter sidehole not confidently within the pleural space. Correlate with function. 2. Similar to slightly improved aeration. Increased left retrocardiac opacity may represent atelectasis/mucus plugging or pleural fluid. Continued attention on follow-up is recommended, as exam is limited by rotated patient position. MACRO: None RADIOLOGY Nava Marrero MD - 08/09/2024 EXAMINATION: XR CHEST AP OR PA 1 VIEW 08/09/2024 01:33 PM CLINICAL HISTORY: POD 1 s/p right VATS with chest tube x2 ASSOCIATED DIAGNOSIS: POD 1 s/p right VATS with chest tube x2 ORDERING PROVIDER: [employer] NOTE: COMPARISON: XR CHEST AP OR PA 1 VIEW 08/08/2024, 5:36 PM FINDINGS: Lines, tubes, and devices: 2 right pleural drainage catheters project over the right upper lung zone and periphery of the right lower lung zone. The sidehole of the superior pleural drainage catheter is medial to the rib cage. The sidehole of the lower lung zone pleural drainage catheter is again at/just medial to the inferior rib cage. Lungs and pleura: No new focal pulmonary consolidation. Persistent right greater than left basilar opacities, with apparent increased left retrocardiac opacity. No sizable pneumothorax, however there is a small right basilar lucency seen peripherally, which favors small volume pleural air. Cardiomediastinal silhouette: Normal cardiomediastinal silhouette. Musculoskeletal: Unremarkable. IMPRESSION: 1. Similar position of right pleural drainage catheters with the inferior drainage catheter sidehole not confidently within the pleural space. Correlate with function. 2. Similar to slightly improved aeration. Increased left retrocardiac opacity may represent atelectasis/mucus plugging or pleural fluid. Continued attention on follow-up is recommended, as exam is limited by rotated patient position. MACRO: None [facility] RADIOLOGY [facility] Radiology Study observation (narrative) [facility] XR Chest Single viewOrdered By: Nava Marrero on 08-09-2024 [facility] Work Phone: Anesthesia Postprocedure Clementina luationon 08-08-2024 Spa Experience Coordinator Authentication Interface Message Text Normal [facility] Anesthesia Preprocedure Eval uationon 08-08-2024 Spa Experience Coordinator Authentication Interface Message Text Normal [facility] Anesthesia Transfer Of Careo n 08-08-2024 Spa Experience Coordinator Authentication Interface Message Text Normal [facility] BASIC METABOLIC PANELon 07-12 Anion gap [Moles/Vol] 16 mmol/L Normal 10-20 [facility] Comment on above: Performed By: #### C H8, MG, PHOS ####[facility] PATH[facility] [id number] [place], Calcium [Mass/Vol] 8.1 mg/dL Low 8.6-10.3 [facility] Comment on above: Performed By: #### C H8, MG, PHOS ####[facility] [id number] [place], Chloride [Moles/Vol] 102 mmol/L Normal 98-107 [facility] Comment on above: Performed By: #### C H8, MG, PHOS ####[facility] PATH[facility] [id number] [place], CO2 [Moles/Vol] 24 mmol/L Normal 21-31 [facility] Comment on above: Performed By: #### C H8, MG, PHOS ####[facility] PATH[facility] [id number] [place], Creatinine [Mass/Vol] 0.61 mg/dL Normal 0.60-1.20 [facility] Comment on above: Performed By: #### C H8, MG, PHOS ####[facility] PATH[facility] [id number] [place], ESTIMATED GFR (CKD-EPI) 123 mL/min/1.73sqm Normal >=60 [facility] [facility] Comment on above: Result Comment: 2020 CKD EPI Equation using Creatinine without RaceComment: Estimated glomerular filtration rate (eGFR) is calculated without a race coefficient. Values should be interpreted in the context of the patient's full clinical presentation.Reference:1. Evert Neely, Gloria M, Jasper GUERRA, et al.. A Unifying Approach for GFR Estimation: Recommendations of the NKF-ASN Task Force on Reassessing the Inclusion of Race in Diagnosing Kidney Disease. [place] Journal of Kidney Diseases 202;79(2):268-88.e1.2. N Engl J Med 2020 Vol. 385 Issue 19 Pages 9279-9269 Performed By: #### MG Lou PHOS ####[facility] [id number] [place], [place], Glucose [Mass/Vol] 89 mg/dL Normal 74-109 [facility] Comment on above: Performed By: #### MG Lou PHOS ####[facility] [id number] [place], [place], Potassium [Moles/Vol] 4.1 mmol/L Normal 3.5-5.0 [facility] Comment on above: Performed By: #### MG Lou PHOS ####[facility] [id number] [place], Sodium [Moles/Vol] 138 mmol/L Normal 136-145 [facility] Comment on above: Performed By: #### MG Lou PHOS ####[facility] [id number] [place], [place], Urea nitrogen [Mass/Vol] 12 mg/dL Normal 7-25 [facility] Comment on above: Performed By: ###MG Bass PHOS ####[facility] [id number] [place], [place], BLOOD GAS, ARTERIALOrdered B y: Harsh Epperson on 08-08-2024 Base excess Calc (Bld) [Moles/Vol] -0.4000 mmol/L -2.0 - 3.0 mmol/L [facility] CO2 (Bld) [Partial pressure] 48.4 mm[Hg] High [facility] HCO3 (Bld) [Moles/Vol] 25 mmol/L 21 - 28 mmol/L [facility] Oxygen (Bld) [Partial pressure] 88 mm[Hg] [facility] pH (Bld) 7.335 [pH] Low 7.350 - 7.450 [facility] BLOOD GAS, ARTERIALon 2023 CR TERA -0.4 mmol/L Normal -2.0-3.0 [facility] Comment on above: Performed By: #### C R BGA, CR LYTES, CR COOX, CR ICA, CR GLU, LACT ####[facility] PATHOLOGY [id number] [place] [address], CR PCO2 48.4 mm Hg High 35.0-45.0 [facility] Comment on above: Performed By: #### C R BGA, CR LYTES, CR COOX, CR ICA, CR GLU, LACT ####[facility] PATHOLOGY [id number] [place] [address], CR PHA 7.335 Low 7.350-7.45 0 [facility] Comment on above: Performed By: #### C R BGA, CR LYTES, CR COOX, CR ICA, CR GLU, LACT ####[facility] PATHOLOGY [id number] [place] [address], CR PO2 88 mm Hg Normal 80-100 [facility] Comment on above: Performed By: #### C R BGA, CR LYTES, CR COOX, CR ICA, CR GLU, LACT ####[facility] PATHOLOGY [id number] [place] [address], HCO3 (Bld) [Moles/Vol] 25 mmol/L Normal 21-28 e [facility] Comment on above: Performed By: #### C R BGA, CR LYTES, CR COOX, CR ICA, CR GLU, LACT ####[facility] PATHOLOGY [id number] [place] [address], Oxygen saturation in Blood 96.6 % Normal 95.0-99.0 [facility] Comment on above: Performed By: #### C R BGA, CR LYTES, CR COOX, CR ICA, CR GLU, LACT ####[facility] PATHOLOGY [id number] [place] [address], Basic metabolic 2000 panelon 08-08-2024 Anion gap [Moles/Vol] 16 mmol/L 10 - 20 [facility] Calcium [Mass/Vol] 8.1 mg/dL Low 8.6 - 10. 3 mg/dL [facility] Chloride [Moles/Vol] 102 mmol/L 98 - 10 7 mmol/L [facility] CO2 [Moles/Vol] 24 mmol/L 21 - 31 mmol/L [facility] Creatinine [Mass/Vol] 0.61 mg/dL 0.60 - 1.20 mg/dL [facility] GFR/1.73 sq M.predicted CKD-EPI (S/P/Bld) [Vol rate/Area] 123 - PINF [facility] Glucose [Mass/Vol] 89 mg/dL 74 - 109 mg/dL [facility] Interpretation and review of laboratory results Abnormal [facility] Potassium [Moles/Vol] 4.1 mmol/L 3.5 - 5.0 mmol/L [facility] Sodium [Moles/Vol] 138 mmol/L 136 - 145 mmol/L [facility] Urea nitrogen [Mass/Vol] 12 mg/dL 7 - 25 mg/dL [facility] Blood Attestationon 08-08-20 24 Spa Experience Coordinator Authentication Interface Message Text Normal [facility] CALCIUM, IONIZEDon 4 Calcium.ionized (Bld) [Moles/Vol] 1.10 mmol/L Low 1.15 - 1.33 mmol/L [facility] CR ICA 1.10 mmol/L Low 1.15-1.33 [facility] Comment on above: Result Comment: This test was developed, and its performance characteristics determined by the Department of Pathology of [facility]. It has not been cleared or approved by the FDA. This test is used for clinical purposes only. Performed By: #### C R BGA, CR LYTES, CR COOX, CR ICA, CR GLU, LACT ####[facility] [id number] [place], [id number] CBC panel Auto (Bld)on 08-08 Erythrocyte distribution width (RBC) [Ratio] 15.0 % High 11.5 - 14.5 % [facility] Hematocrit (Bld) [Volume fraction] 31.3 % Low 36.0 - 46.0 % [facility] Hemoglobin (Bld) [Mass/Vol] 10.2 g/dL Low 12.0 - 15.0 g/dL [facility] Interpretation and review of laboratory results Abnormal [facility] MCH (RBC) [Entitic mass] 27.5 pg 26.0 - 34.0 pg [facility] MCHC (RBC) [Mass/Vol] 32.6 g/dL 32.0 - 35.9 g/dL [facility] MCV (RBC) [Entitic vol] 84 fL 80 - 100 fL [facility] Platelet mean volume (Bld) [Entitic vol] 7.5 fL 7.5 - 11.2 fL [facility] Platelets (Bld) [#/Vol] 411 10*3/uL High 150 - 400 K/uL [facility] RBC (Bld) [#/Vol] 3.71 10*6/uL Low [facility] WBC (Bld) [#/Vol] 7.4 10*3/uL 4.5 - 11.5 K/uL [facility] CO-OXIMETERon 08-08-2024 Carboxyhemoglobin (BldA) [Mass fraction] 1.8 % High 0.5 - 1.5 % [facility] Hematocrit (BldA) [Volume fraction] 28.9 % Low 38.0 - 46.0 % [facility] Hemoglobin (Bld) [Mass/Vol] 9.3 g/dL Low 12.0 - 16.0 g/dL [facility] Methemoglobin (BldA) [Mass fraction] 0.6 % 0.0 - 1.5 % [facility] Oxyhemoglobin (BldA) [Mass fraction] 94.3 % 94.0 - 98.0 % [facility] CARBOXYHEMOGLOBIN 1.8 % High 0.5-1.5 [facility] Comment on above: Performed By: #### C R BGA, CR LYTES, CR COOX, CR ICA, CR GLU, LACT ####[facility] PATHOLOGY [id number] [place] [address], CR HBMET 0.6 % Normal 0.0-1.5 [facility] Comment on above: Performed By: #### C R BGA, CR LYTES, CR COOX, CR ICA, CR GLU, LACT ####[facility] PATHOLOGY [id number] [place] [address], Hematocrit (Bld) [Volume fraction] 28.9 % Low 38.0-46.0 [facility] Comment on above: Performed By: #### C R BGA, CR LYTES, CR COOX, CR ICA, CR GLU, LACT ####[facility] PATHOLOGY [id number] [place] [address], Hemoglobin (Bld) [Mass/Vol] 9.3 g/dL Low 12.0-16.0 [facility] Comment on above: Performed By: #### C R BGA, CR LYTES, CR COOX, CR ICA, CR GLU, LACT ####[facility] PATHOLOGY [id number] [place], OXYHEMOGLOBIN 94.3 % Normal 94.0-98.0 [facility] Comment on above: Performed By: #### C R BGA, CR LYTES, CR COOX, CR ICA, CR GLU, LACT ####[facility] PATHOLOGY [id number] [place], COMPLETE BLOOD COUNTon 08-08 Erythrocyte distribution width (RBC) [Ratio] 15.0 % High 11.5-14.5 [facility] Comment on above: Performed By: #### C BC ####[facility] PATHOLOGY [id number] [place] [address], Hematocrit (Bld) [Volume fraction] 31.3 % Low 36.0-46.0 [facility] Comment on above: Performed By: #### C BC ####[facility] PATHOLOGY [id number] [place] [address], Hemoglobin (Bld) [Mass/Vol] 10.2 g/dL Low 12.0-15.0 [facility] Comment on above: Performed By: #### C BC ####[facility] PATHOLOGY [id number] [place], MCH (RBC) [Entitic mass] 27.5 pg Normal 26.0-34.0 [facility] Comment on above: Performed By: #### C BC ####[facility] PATHOLOGY [id number] [place] [address], MCHC (RBC) [Mass/Vol] 32.6 g/dL Normal 32.0-35.9 [facility] Comment on above: Performed By: #### C BC ####[facility] PATHOLOGY [id number] [place] [address], MCV (RBC) [Entitic vol] 84 fL Normal 80-100 [facility] Comment on above: Performed By: #### C BC ####[facility] PATHOLOGY [id number] [place], Platelet mean volume (Bld) [Entitic vol] 7.5 fL Normal 7.5-11.2 [facility] Comment on above: Performed By: #### C BC ####[facility] PATHOLOGY [id number] [place], Platelets (Bld) [#/Vol] 411 10*3/uL High 150-400 [facility] Comment on above: Performed By: #### C BC ####[facility] PATHOLOGY [id number] [place], RBC (Bld) [#/Vol] 3.71 10*6/uL Low 4.00-5.20 The [facility] Comment on above: Performed By: #### C BC ####[facility] PATHOLOGY [id number] [place], WBC (Bld) [#/Vol] 7.4 10*3/uL Normal 4.5-11.5 [facility] Comment on above: Performed By: #### C BC ####[facility] PATHOLOGY [id number] [place], [place], CT CHEST/ABD/PELVIS W/ CONTR Ericka 08-08-2024 CT CHEST/ABD/PELVIS W/ CONTRAST Normal [facility] CT Chest and Abdomen and Pel vis W contrast IVOrdered By: Radha Lee on 08-08-2024 CT DLP 1359.03 (mGycm) [facility] Work Phone: CT Series Chest,Chest,Chest [facility] Work Phone: CTDI VOL 17.61 (mGy) [facility] Work Phone: PHANTOM TYPE IEC Body Dosimetry Phantom [facility] Work Phone: [facility] Work Phone: CT Chest and Abdomen and Pel vis W contrast Gay 08-08-2024 RADIOLOGY [facility] EKG 12 LEAD - PERFORMon 09-3 0-2024 P wave [facility] by EKG [address] [facility] P wave [facility] by EKG 119 BPM [facility] P wave axis 48 degrees [facility] P wave axis 70 degrees [facility] P-R Interval 134 ms [facility] P-R Interval 146 ms [facility] Q-T interval 300 ms [facility] Q-T interval 298 ms [facility] Q-T interval corrected 436 ms [facility] Q-T interval corrected 419 ms [facility] QRS axis 11 degrees [facility] QRS axis 74 degrees [facility] QRS duration 68 ms [facility] QRS duration 74 ms [facility] T wave axis -13 degrees [facility] T wave axis 14 degrees [facility] ELECTROLYTESon 08-08-2024 Chloride [Moles/Vol] 106 mmol/L 98 - 10 7 mmol/L [facility] HCO3 (Bld) [Moles/Vol] 25 mmol/L 21 - 28 mmol/L [facility] Interpretation and review of laboratory results Abnormal [facility] Potassium [Moles/Vol] 3.1 mmol/L Low 3.5 - 5.0 mmol/L [facility] Sodium [Moles/Vol] 137 mmol/L 136 - 146 mmol/L [facility] Chloride [Moles/Vol] 106 mmol/L Normal 98-107 [facility] Comment on above: Performed By: #### C R BGA, CR LYTES, CR COOX, CR ICA, CR GLU, LACT ####[facility] PATHOLOGY [id number] [place] [address], Potassium [Moles/Vol] 3.1 mmol/L Low 3.5-5.0 [facility] Comment on above: Performed By: #### C R BGA, CR LYTES, CR COOX, CR ICA, CR GLU, LACT ####[facility] PATHOLOGY [id number] [place], Sodium [Moles/Vol] 137 mmol/L Normal 136-146 [facility] Comment on above: Performed By: #### C R BGA, CR LYTES, CR COOX, CR ICA, CR GLU, LACT ####[facility] PATHOLOGY [id number] [place], GLUCOSE, WHOLE BLOODon 08-08 Glucose [Mass/Vol] 101 mg/dL 70 - 105 mg/dL [facility] CR GLU 101 mg/dL Normal 70-105 [facility] Comment on above: Performed By: #### C R BGA, CR LYTES, CR COOX, CR ICA, CR GLU, LACT ####[facility] [id number] [place], LACTIC ACIDon 08-08-2024 Lactate [Moles/Vol] 0.7 mmol/L 0.5 - 1. 6 mmol/L [facility] CR LACT 0.7 mmol/L Normal 0.5-1.6 [facility] Comment on above: Performed By: #### C R BGA, CR LYTES, CR COOX, CR ICA, CR GLU, LACT ####S PATHOLOGY [id number] [place], [place], Laboratory - Blood bankon ABO and Rh group Nom (Bld) Blood group A Rh(D) negative [facility] MAGNESIUMon 08-08-2024 Magnesium [Mass/Vol] 1.9 mg/dL 1.9 - 2 .7 mg/dL [facility] Magnesium [Mass/Vol] 1.9 mg/dL Normal 1.9-2.7 [facility] Comment on above: Performed By: #### C H8, MG, PHOS ####[facility] [id number] [place] [address], No Panel Informationon 08-08 Interpretation and review of laboratory results Abnormal [facility] Interpretation and review of laboratory results Normal [facility] Interpretation and review of laboratory results Normal [facility] OP Noteon 08-08-2024 Spa Experience Coordinator Authentication Interface Message Text Normal [facility] PHOSPHORUSon 08-08-2024 Phosphate [Mass/Vol] 3.8 mg/dL 2.5 - 5 .0 mg/dL [facility] Phosphate [Mass/Vol] 3.8 mg/dL Normal 2.5-5.0 [facility] Comment on above: Performed By: #### C H8, MG, PHOS ####[facility] [id number] [place], [place], Progress Noteson 08-08-2024 Spa Experience Coordinator Authentication Interface Message Text Normal [facility] TYPE AND SCREENon 08-08-2024 Blood group antibody screen Ql Negative [facility] ABO and Rh group Nom (Bld) Blood group A Rh(D) negative Normal [facility] Comment on above: Performed By: #### T S ####[facility] [id number] [place], ABSC INT Negative Normal [facility] Comment on above: Performed By: #### T S ####[facility] [id number] [place], URINE HCG-IN OFFICEOrdered B y: Doris Wayne on 08-08-2024 HCG ( test) Ql (U) Negative Negative [facility] Interpretation and review of laboratory results Normal [facility] Negative Internal Control Negative Negative [facility] Positive Internal Control Positive Positive [facility] X[facility] CHEST AP OR PA 1 VIEWon 0 08-08-2024 XR CHEST AP OR PA 1 VIEW Normal [facility] XR CHEST AP OR PA 1 VIEW Normal [facility] XR Chest Single viewon 08-08 RADIOLOGY [facility] Radiology Study observation (narrative) [facility] EXAMINATION: XR CHES T AP OR PA 1 VIEW 08/08/2024 08:05 AM CLINICAL HISTORY: right pigtail catheter in place for pleural effusion; eval placement/interval change in effusion ASSOCIATED DIAGNOSIS: right pigtail catheter in place for pleural effusion; eval placement/interval change in effusion ORDERING PROVIDER: [employer] NOTE: COMPARISON: XR CHEST AP OR PA 1 VIEW 08/07/2024, 6:08 AM FINDINGS: Life support devices are unchanged. The aeration of the lungs is stable compared to the prior exam. No pneumothorax. The cardiac size and osseous structures are unchanged. IMPRESSION: No significant change from the prior exam. Macro: None RADIOLOGY Chris Liz M D - 08/08/2024 EXAMINATION: XR CHEST AP OR PA 1 VIEW 08/08/2024 08:05 AM CLINICAL HISTORY: right pigtail catheter in place for pleural effusion; eval placement/interval change in effusion ASSOCIATED DIAGNOSIS: right pigtail catheter in place for pleural effusion; eval placement/interval change in effusion ORDERING PROVIDER: [employer] NOTE: COMPARISON: XR CHEST AP OR PA 1 VIEW 08/07/2024, 6:08 AM FINDINGS: Life support devices are unchanged. The aeration of the lungs is stable compared to the prior exam. No pneumothorax. The cardiac size and osseous structures are unchanged. IMPRESSION: No significant change from the prior exam. Macro: None [facility] RADIOLOGY [facility] Radiology Study observation (narrative) [facility] XR Chest Single viewOrdered By: Jose Emerson on 08-08-2024 [facility]: XR Chest Single viewOrdered By: Chris Liz on 08-08-2024 [facility] Work Phone: BASIC METABOLIC PANELon 07-11 Anion gap [Moles/Vol] 16 mmol/L Normal 10-20 [facility] Comment on above: Performed By: #### TSERING Lou MG ####[facility] [id number] [place], Calcium [Mass/Vol] 8.0 mg/dL Low 8.6-10.3 [facility] Comment on above: Performed By: #### TSERING Lou MG ####[facility] [id number] [place], Chloride [Moles/Vol] 101 mmol/L Normal 98-107 [facility] Comment on above: Performed By: #### TSERING Lou MG ####[facility] HEXVALJFNT3307 [place], CO2 [Moles/Vol] 23 mmol/L Normal 21-31 [facility] Comment on above: Performed By: #### TSERING Lou MG ####[facility] XBHGMSEMFM4466 [place], Creatinine [Mass/Vol] 0.60 mg/dL Normal 0.60-1.20 [facility] Comment on above: Performed By: #### TSERING Lou MG ####[facility] [id number] [place], ESTIMATED GFR (CKD-EPI) 123 mL/min/1.73sqm Normal >=60 [facility] Comment on above: Result Comment: 2020 CKD EPI Equation using Creatinine without RaceComment: Estimated glomerular filtration rate (eGFR) is calculated without a race coefficient. Values should be interpreted in the context of the patient's full clinical presentation.Reference:1. Evert C, Gloria M, Jasper DC, et al.. A Unifying Approach for GFR Estimation: Recommendations of the NKF-ASN Task Force on Reassessing the Inclusion of Race in Diagnosing Kidney Disease. [place] Journal of Kidney Diseases 202;79(2):268-88.e1.2. N Engl J Med 1 Vol. 385 Issue 19 Pages 6350-7012 Performed By: #### TSERING Lou MG ####[facility] [id number] [place], Glucose [Mass/Vol] 128 mg/dL High 74-109 [facility] Comment on above: Performed By: #### TSERING Lou MG ####[facility] VATMXLVLOC9177 [place], Potassium [Moles/Vol] 4.1 mmol/L Normal 3.5-5.0 [facility] Comment on above: Performed By: #### TSERING Lou MG ####[facility] [id number] [place], Sodium [Moles/Vol] 136 mmol/L Normal 136-145 [facility] Comment on above: Performed By: #### TSERING Lou MG ####[facility] [id number] [place], Urea nitrogen [Mass/Vol] 11 mg/dL Normal 7-25 [facility] Comment on above: Performed By: #### TSERING Lou MG ####[facility] UYELMMHKYW0190 [place], Basic metabolic 2000 panelon 08-07-2024 Anion gap [Moles/Vol] 16 mmol/L 10 - 20 [facility] Calcium [Mass/Vol] 8.0 mg/dL Low 8.6 - 10. 3 mg/dL [facility] Chloride [Moles/Vol] 101 mmol/L 98 - 10 7 mmol/L [facility] CO2 [Moles/Vol] 23 mmol/L 21 - 31 mmol/L [facility] Creatinine [Mass/Vol] 0.60 mg/dL 0.60 - 1.20 mg/dL [facility] GFR/1.73 sq M.predicted CKD-EPI (S/P/Bld) [Vol rate/Area] 123 - PINF [facility] Glucose [Mass/Vol] 128 mg/dL High 74 - 109 mg/dL [facility] Potassium [Moles/Vol] 4.1 mmol/L 3.5 - 5.0 mmol/L [facility] Sodium [Moles/Vol] 136 mmol/L 136 - 145 mmol/L [facility] Urea nitrogen [Mass/Vol] 11 mg/dL 7 - 25 mg/dL [facility] CBC panel Auto (Bld)on 08-07 Erythrocyte distribution width (RBC) [Ratio] 15.3 % High 11.5 - 14.5 % [facility] Hematocrit (Bld) [Volume fraction] 34.0 % Low 36.0 - 46.0 % [facility] Hemoglobin (Bld) [Mass/Vol] 11.0 g/dL Low 12.0 - 15.0 g/dL [facility] Interpretation and review of laboratory results Abnormal [facility] MCH (RBC) [Entitic mass] 27.3 pg 26.0 - 34.0 pg [facility] MCHC (RBC) [Mass/Vol] 32.4 g/dL 32.0 - 35.9 g/dL [facility] MCV (RBC) [Entitic vol] 84 fL 80 - 100 fL [facility] Platelet mean volume (Bld) [Entitic vol] 7.3 fL Low 7.5 - 11.2 fL [facility] Platelets (Bld) [#/Vol] 457 10*3/uL High 150 - 400 K/uL [facility] RBC (Bld) [#/Vol] 4.03 10*6/uL [facility] WBC (Bld) [#/Vol] 14.1 10*3/uL High 4.5 - 11.5 K/uL [facility] COMPLETE BLOOD COUNTon 08-07 Erythrocyte distribution width (RBC) [Ratio] 15.3 % High 11.5-14.5 [facility] Comment on above: Performed By: #### C BC ####[facility] PATHOLOGY [id number] [place], Hematocrit (Bld) [Volume fraction] 34.0 % Low 36.0-46.0 [facility] Comment on above: Performed By: #### C BC ####[facility] PATHOLOGY [id number] [place] [address], Hemoglobin (Bld) [Mass/Vol] 11.0 g/dL Low 12.0-15.0 [facility] Comment on above: Performed By: #### C BC ####[facility] PATHOLOGY [id number] [place] [address], MCH (RBC) [Entitic mass] 27.3 pg Normal 26.0-34.0 [facility] Comment on above: Performed By: #### C BC ####[facility] PATHOLOGY [id number] [place] [address], MCHC (RBC) [Mass/Vol] 32.4 g/dL Normal 32.0-35.9 [facility] Comment on above: Performed By: #### C BC ####[facility] PATHOLOGY [id number] [place] [address], MCV (RBC) [Entitic vol] 84 fL Normal 80-100 [facility] Comment on above: Performed By: #### C BC ####[facility] PATHOLOGY [id number] [place] [address], Platelet mean volume (Bld) [Entitic vol] 7.3 fL Low 7.5-11.2 [facility] Comment on above: Performed By: #### C BC ####[facility] PATHOLOGY [id number] [place] [address], Platelets (Bld) [#/Vol] 457 10*3/uL High 150-400 [facility] Comment on above: Performed By: #### C BC ####[facility] PATHOLOGY [id number] [place] [address], RBC (Bld) [#/Vol] 4.03 10*6/uL Normal 4.00-5.20 [facility] Comment on above: Performed By: #### C BC ####[facility] [id number] [place], WBC (Bld) [#/Vol] 14.1 10*3/uL High 4.5-11.5 [facility] Comment on above: Performed By: #### C BC ####[facility] [id number] [place], [place], CT Chest and Abdomen and Pel vis W contrast Gay 08-07-2024 Radiology Study observation (narrative) [facility] Consultson 08-07-2024 Spa Experience Coordinator Authentication Interface Message Text Normal [facility] MAGNESIUMon 08-07-2024 Magnesium [Mass/Vol] 1.7 mg/dL Low 1.9 - 2 .7 mg/dL [facility] Magnesium [Mass/Vol] 1.7 mg/dL Low 1.9-2.7 [facility] Comment on above: Performed By: #### C HNilo, PHOS, MG ####[facility] [id number] [place], No Panel Informationon 08-07 Interpretation and review of laboratory results Abnormal [facility] PHOSPHORUSon 08-07-2024 Interpretation and review of laboratory results [facility] Phosphate [Mass/Vol] 4.0 mg/dL 2.5 - 5 .0 mg/dL [facility] Phosphate [Mass/Vol] 4.0 mg/dL Normal 2.5-5.0 [facility] Comment on above: Performed By: #### C H8, PHOS, MG ####[facility] PATH[facility] [id number] [place], [place], Progress Noteson 08-07-2024 Spa Experience Coordinator Authentication Interface Message Text Normal [facility] Spa Experience Coordinator Authentication Interface Message Text Normal [facility] XR CHEST AP OR PA 1 VIEWon 0 08-07-2024 XR CHEST AP OR PA 1 VIEW Normal [facility] XR CHEST AP OR PA 1 VIEW Normal [facility] XR Chest Single viewon 08-07 [facility] observation (narrative) [facility] EXAMINATION: XR CHES T AP OR PA 1 VIEW 08/07/2024 01:25 AM CLINICAL HISTORY: Chest pain; right sided chest tubes in place, new chest pain centrally, eval for change ASSOCIATED DIAGNOSIS: Chest pain right sided chest tubes in place, new chest pain centrally, eval for change ORDERING PROVIDER: HARRY RIZO [employer] NOTE: COMPARISON: XR CHEST AP OR PA 1 VIEW 08/06/2024, 3:55 AM FINDINGS: Lines, tubes, and devices: Unchanged appearance of pigtail pleural drainage catheter in the right mid lung zone. An additional pigtail drainage catheter overlies the subdiaphragmatic right upper quadrant. Lungs and pleura: Hyperlucency in the right lower lung zone with adjacent consolidation. Blunting of the right costophrenic angle. Cardiomediastinal silhouette: Normal cardiomediastinal silhouette. Musculoskeletal: Unremarkable. IMPRESSION: 1. Increasing lucency of the right lower lung zone may represent interval development of small right basilar hydropneumothorax versus improving right basilar aeration with loculated effusion. 2. Chest tubes in the right mid lung and right lung bases are in unchanged position from previously. MACRO: None RADIOLOGY Hayley Shannon MD - 08/07/2024 EXAMINATION: XR CHEST AP OR PA 1 VIEW 08/07/2024 01:25 AM CLINICAL HISTORY: Chest pain; right sided chest tubes in place, new chest pain centrally, eval for change ASSOCIATED DIAGNOSIS: Chest pain right sided chest tubes in place, new chest pain centrally, eval for change ORDERING PROVIDER: HARRY RIZO [employer] NOTE: COMPARISON: XR CHEST AP OR PA 1 VIEW 08/06/2024, 3:55 AM FINDINGS: Lines, tubes, and devices: Unchanged appearance of pigtail pleural drainage catheter in the right mid lung zone. An additional pigtail drainage catheter overlies the subdiaphragmatic right upper quadrant. Lungs and pleura: Hyperlucency in the right lower lung zone with adjacent consolidation. Blunting of the right costophrenic angle. Cardiomediastinal silhouette: Normal cardiomediastinal silhouette. Musculoskeletal: Unremarkable. IMPRESSION: 1. Increasing lucency of the right lower lung zone may represent interval development of small right basilar hydropneumothorax versus improving right basilar aeration with loculated effusion. 2. Chest tubes in the right mid lung and right lung bases are in unchanged position from previously. MACRO: None [facility] RAD[facility]Y [facility] Radiology Study observation (narrative) [facility] XR Chest Single viewOrdered By: Kedar Kauffman on 08-07-2024 [facility] Work Phone: XR Chest Single viewOrdered By: Hayley Shannon on 08-07-2024 [facility] Work Phone: AEROBIC BODY FLUID CULTUREon 08-06-2024 AEROBIC BODY FLUID CULTURE C BDYFLD: No Growth GRAM STAIN: 3+ WBC's other than Polymorphonuclear cells present 2+ Polymorphonuclear Leukocytes 1+ Squamous Epithelial Cells No organisms seen Normal [facility] Comment on above: Performed By: #### C BDYFLD ####[facility] Yvst[address]qloc8539 [place], [place] BASIC METABOLIC PANELon 07-11 Anion gap [Moles/Vol] 17 mmol/L Normal 10-20 [facility] Comment on above: Performed By: #### C H8 ####[facility] PATHOLOGY [id number] [place], [place], Calcium [Mass/Vol] 7.8 mg/dL Low 8.6-10.3 [facility] Comment on above: Performed By: #### C H8 ####S PATHOLOGY [id number] [place], [place], Chloride [Moles/Vol] 105 mmol/L Normal 98-107 [facility] Comment on above: Performed By: #### C H8 ####S PATHOLOGY [id number] [place], [place], CO2 [Moles/Vol] 20 mmol/L Low 21-31 [facility] Comment on above: Performed By: #### C H8 ####S PATHOLOGY [id number] [place], [place], Creatinine [Mass/Vol] 0.63 mg/dL Normal 0.60-1.20 [facility] Comment on above: Performed By: #### C H8 ####S PATHOLOGY [id number] [place], [place], ESTIMATED GFR (CKD-EPI) 122 mL/min/1.73sqm Normal >=60 [facility] Comment on above: Result Comment: 2020 CKD EPI Equation using Creatinine without RaceComment: Estimated glomerular filtration rate (eGFR) is calculated without a race coefficient. Values should be interpreted in the context of the patient's full clinical presentation.Reference:1. Evert C, Gloria M, Jasper GUERRA, et al.. A Unifying Approach for GFR Estimation: Recommendations of the NKF-ASN Task Force on Reassessing the Inclusion of Race in Diagnosing Kidney Disease. [place] Journal of Kidney Diseases 2021;79(2):268-88.e1.2. N Engl J Med 1 Vol. 385 Issue 19 Pages 7893-3175 Performed By: #### C H8 ####[facility] PATHOLOGY [id number] [place], [place], Glucose [Mass/Vol] 123 mg/dL High 74-109 [facility] Comment on above: Performed By: #### C H8 ####[facility] PATHOLOGY [id number] [place], [place], Potassium [Moles/Vol] 3.8 mmol/L Normal 3.5-5.0 [facility] Comment on above: Performed By: #### C H8 ####[facility] PATHOLOGY [id number] [place], [place], Sodium [Moles/Vol] 138 mmol/L Normal 136-145 [facility] Comment on above: Performed By: #### C H8 ####[facility] PATHOLOGY [id number] [place], Urea nitrogen [Mass/Vol] 9 mg/dL Normal 7-25 [facility] Comment on above: Performed By: #### C H8 ####S PATHOLOGY [id number] [place], [place], Basic metabolic 2000 panelon 08-06-2024 Anion gap [Moles/Vol] 17 mmol/L 10 - 20 [facility] Calcium [Mass/Vol] 7.8 mg/dL Low 8.6 - 10. 3 mg/dL [facility] Chloride [Moles/Vol] 105 mmol/L 98 - 10 7 mmol/L [facility] CO2 [Moles/Vol] 20 mmol/L Low 21 - 31 mmol/L [facility] Creatinine [Mass/Vol] 0.63 mg/dL 0.60 - 1.20 mg/dL [facility] GFR/1.73 sq M.predicted CKD-EPI (S/P/Bld) [Vol rate/Area] 122 - PINF [facility] Glucose [Mass/Vol] 123 mg/dL High 74 - 109 mg/dL [facility] Interpretation and review of laboratory results Abnormal [facility] Potassium [Moles/Vol] 3.8 mmol/L 3.5 - 5.0 mmol/L [facility] Sodium [Moles/Vol] 138 mmol/L 136 - 145 mmol/L [facility] Urea nitrogen [Mass/Vol] 9 mg/dL 7 - 25 mg/dL [facility] CBC panel Auto (Bld)on 08-06 Erythrocyte distribution width (RBC) [Ratio] 14.9 % High 11.5 - 14.5 % [facility] Hematocrit (Bld) [Volume fraction] 35.3 % Low 36.0 - 46.0 % [facility] Hemoglobin (Bld) [Mass/Vol] 11.6 g/dL Low 12.0 - 15.0 g/dL [facility] Interpretation and review of laboratory results Abnormal [facility] MCH (RBC) [Entitic mass] 27.6 pg 26.0 - 34.0 pg [facility] MCHC (RBC) [Mass/Vol] 32.9 g/dL 32.0 - 35.9 g/dL [facility] MCV (RBC) [Entitic vol] 84 fL 80 - 100 fL [facility] Platelet mean volume (Bld) [Entitic vol] 7.4 fL Low 7.5 - 11.2 fL [facility] Platelets (Bld) [#/Vol] 456 10*3/uL High 150 - 400 K/uL [facility] RBC (Bld) [#/Vol] 4.20 10*6/uL [facility] WBC (Bld) [#/Vol] 10.4 10*3/uL 4.5 - 11.5 K/uL [facility] COMPLETE BLOOD COUNTon 08-06 Erythrocyte distribution width (RBC) [Ratio] 14.9 % High 11.5-14.5 [facility] Comment on above: Performed By: #### C BC ####[facility] PATHOLOGY [id number] [place] [address], Hematocrit (Bld) [Volume fraction] 35.3 % Low 36.0-46.0 [facility] Comment on above: Performed By: #### C BC ####[facility] PATHOLOGY [id number] [place] [address], Hemoglobin (Bld) [Mass/Vol] 11.6 g/dL Low 12.0-15.0 [facility] Comment on above: Performed By: #### C BC ####[facility] PATHOLOGY [id number] [place] [address], MCH (RBC) [Entitic mass] 27.6 pg Normal 26.0-34.0 [facility] Comment on above: Performed By: #### C BC ####[facility] PATHOLOGY [id number] [place] [address], MCHC (RBC) [Mass/Vol] 32.9 g/dL Normal 32.0-35.9 [facility] Comment on above: Performed By: #### C BC ####[facility] PATHOLOGY [id number] [place] [address], MCV (RBC) [Entitic vol] 84 fL Normal 80-100 [facility] Comment on above: Performed By: #### C BC ####[facility] PATHOLOGY [id number] [place] [address], Platelet mean volume (Bld) [Entitic vol] 7.4 fL Low 7.5-11.2 [facility] Comment on above: Performed By: #### C BC ####[facility] PATHOLOGY [id number] [place] [address], Platelets (Bld) [#/Vol] 456 10*3/uL High 150-400 [facility] Comment on above: Performed By: #### C BC ####[facility] PATHOLOGY [id number] [place] [address], RBC (Bld) [#/Vol] 4.20 10*6/uL Normal 4.00-5.20 [facility] Comment on above: Performed By: #### C BC ####[facility] PATHOLOGY [id number] [place], WBC (Bld) [#/Vol] 10.4 10*3/uL Normal 4.5-11.5 [facility] Comment on above: Performed By: #### C BC ####[facility] PATHOLOGY [id number] [place], [place], Care Plan Noteon 08-06-2024 Spa Experience Coordinator Authentication Interface Message Text Normal [facility] LACTIC ACIDOrdered By: Tarah Arguelles on 08-06-2024 Interpretation and review of laboratory results Normal [facility] Lactate [Moles/Vol] 0.8 mmol/L 0.5 - 1. 6 mmol/L [facility] LACTIC ACIDon 08-06-2024 CR LACT 0.8 mmol/L Normal 0.5-1.6 [facility] Comment on above: Performed By: #### L ACT ####[facility] PATHOLOGY [id number] [place], [place], Progress Noteson 08-06-2024 Spa Experience Coordinator Authentication Interface Message Text Normal [facility] Spa Experience Coordinator Authentication Interface Message Text Pigtail inserted by trauma team, plurovac changed total output from 1st drainage system 1950 mL blood tinged. Normal [facility] TOTAL BILIRUBIN, BODY FLUIDo n 08-06-2024 Bilirubin (Body fld) [Mass/Vol] 1.3 mg/dL [facility] Bilirubin [Mass/Vol] 1.3 mg/dL Normal [facility] Comment on above: Result Comment: This test was developed, and its performance characteristics determined by the Department of Pathology of The [facility]. It has not been cleared or approved by the FDA. This test is used for clinical purposes only. Performed By: #### T BILFLD ####[facility] PATHOLOGY [id number] [place], [place], URINE CULTUREOrdered By: Diane Hernandez on 08-06-2024 Bacteria identified Cx Nom (U) 10,000 - 50,000 CFU/ml No significant growth; skin/urogenital contamination present [facility] Interpretation and review of laboratory results Normal [facility] XR CHEST AP OR PA 1 VIEWon 0 08-06-2024 XR CHEST AP OR PA 1 VIEW Normal [facility] XR Chest Single viewon 08-[address] [facility] Radiology Study observation (narrative) [facility] BASIC METABOLIC PANELon 07-11 Anion gap [Moles/Vol] 14 mmol/L Normal 10-20 [facility] Comment on above: Performed By: #### H EPATIC, MG, PHOS, CH8 ####[facility] PATHOLOGY [id number] [place], Calcium [Mass/Vol] 8.6 mg/dL Normal 8.6-10.3 [facility] Comment on above: Performed By: #### H EPATIC, MG, PHOS, CH8 ####[facility] PATHOLOG[facility] [id number] [place], Chloride [Moles/Vol] 103 mmol/L Normal 98-107 [facility] Comment on above: Performed By: #### H EPATIC, MG, PHOS, CH8 ####[facility] PATHOLOGY [id number] [place], CO2 [Moles/Vol] 25 mmol/L Normal 21-31 [facility] Comment on above: Performed By: #### H EPATIC, MG, PHOS, CH8 ####[facility] PATHOLOGY [id number] [place], Creatinine [Mass/Vol] 0.67 mg/dL Normal 0.60-1.20 [facility] Comment on above: Performed By: #### H EPATIC, MG, PHOS, CH8 ####[facility] PATHOLOGY [id number] [place], ESTIMATED GFR (CKD-EPI) 120 mL/min/1.73sqm Normal >=60 [facility] Comment on above: Result Comment: 2020 CKD EPI Equation using Creatinine without RaceComment: Estimated glomerular filtration rate (eGFR) is calculated without a race coefficient. Values should be interpreted in the context of the patient's full clinical presentation.Reference:1. Evert C, Gloria M, Jasper DC, et al.. A Unifying Approach for GFR Estimation: Recommendations of the NKF-ASN Task Force on Reassessing the Inclusion of Race in Diagnosing Kidney Disease. [place] Journal of Kidney Diseases 2021;79(2):268-88.e1.2. N Engl J Med 1 Vol. 385 Issue 19 Pages 0486-0471 Performed By: #### H EPATIC, MG, PHOS, CH8 ####[facility] PATHOLOGY [id number] [place], Glucose [Mass/Vol] 92 mg/dL Normal 74-109 [facility] Comment on above: Performed By: #### H EPATIC, MG, PHOS, CH8 ####[facility] PATHOLOGY [id number] [place], Potassium [Moles/Vol] 4.0 mmol/L Normal 3.5-5.0 [facility] Comment on above: Performed By: #### H EPATIC, MG, PHOS, CH8 ####S PATHOLOGY [id number] [place], Sodium [Moles/Vol] 138 mmol/L Normal 136-145 [facility] Comment on above: Performed By: #### H EPATIC, MG, PHOS, CH8 ####[facility] PATHOLOGY [id number] [place], Urea nitrogen [Mass/Vol] 10 mg/dL Normal 7-25 [facility] Comment on above: Performed By: #### H EPATIC, MG, PHOS, CH8 ####[facility] PATHOLOGY [id number] [place], BLOOD CULTUREon 08-05-2024 Bacteria identified Cx Nom (Bld) C BLOOD: No Growth Normal [facility] Comment on above: Performed By: #### C BLOOD ####[facility] Patmlpner[address] [place], [place] Basic metabolic 2000 panelon 08-05-2024 Anion gap [Moles/Vol] 14 mmol/L 10 - 20 [facility] Calcium [Mass/Vol] 8.6 mg/dL 8.6 - 10. 3 mg/dL [facility] Chloride [Moles/Vol] 103 mmol/L 98 - 10 7 mmol/L [facility] CO2 [Moles/Vol] 25 mmol/L 21 - 31 mmol/L [facility] Creatinine [Mass/Vol] 0.67 mg/dL 0.60 - 1.20 mg/dL [facility] GFR/1.73 sq M.predicted CKD-EPI (S/P/Bld) [Vol rate/Area] 120 - PINF [facility] Glucose [Mass/Vol] 92 mg/dL 74 - 109 mg/dL [facility] Potassium [Moles/Vol] 4.0 mmol/L 3.5 - 5.0 mmol/L [facility] Sodium [Moles/Vol] 138 mmol/L 136 - 145 mmol/L [facility] Urea nitrogen [Mass/Vol] 10 mg/dL 7 - 25 mg/dL [facility] CBC WITH DIFFERENTIALon 07-11 Basophils (Bld) [#/Vol] 0.10 10*3/uL 0.00 - 0.20 K/uL [facility] Basophils/100 WBC (Bld) 1.0 % NINF - 1.9 % [facility] Eosinophils (Bld) [#/Vol] 0.26 10*3/uL 0.00 - 0.70 K/uL [facility] Eosinophils/100 WBC (Bld) 2.6 % 0.1 - 4.0 % [facility] Erythrocyte distribution width (RBC) [Ratio] 14.6 % High 11.5 - 14.5 % [facility] Hematocrit (Bld) [Volume fraction] 36.3 % 36.0 - 46.0 % [facility] Hemoglobin (Bld) [Mass/Vol] 11.9 g/dL Low 12.0 - 15.0 g/dL [facility] Interpretation and review of laboratory results Abnormal [facility] Lymphocytes (Bld) [#/Vol] 0.93 10*3/uL Low 1.00 - 4.80 K/uL [facility] Lymphocytes/100 WBC (Bld) 9.4 % Low 24.0 - 44.0 % [facility] MCH (RBC) [Entitic mass] 27.8 pg 26.0 - 34.0 pg [facility] MCHC (RBC) [Mass/Vol] 32.7 g/dL 32.0 - 35.9 g/dL [facility] MCV (RBC) [Entitic vol] 85 fL 80 - 100 fL [facility] Monocyte distribution width Auto (Bld) [Entitic vol] 23 High NINF - 20 [facility] Monocytes (Bld) [#/Vol] 0.99 10*3/uL 0.20 - 1.00 K/uL [facility] Monocytes/100 WBC (Bld) 10.0 % 2.0 - 11.0 % [facility] Neutrophils (Bld) [#/Vol] 7.65 10*3/uL 1.50 - 8.00 K/uL [facility] Neutrophils/100 WBC (Bld) 77.0 % High 31.0 - 76.0 % [facility] Platelet mean volume (Bld) [Entitic vol] 7.2 fL Low 7.5 - 11.2 fL [facility] Platelets (Bld) [#/Vol] 468 10*3/uL High 150 - 400 K/uL [facility] RBC (Bld) [#/Vol] 4.26 10*6/uL [facility] WBC (Bld) [#/Vol] 9.9 10*3/uL 4.5 - 11.5 K/uL [facility] Basophils (Bld) [#/Vol] 0.10 10*3/uL Normal 0.00-0.20 [facility] Comment on above: Performed By: #### C BCDSAT ####S PATHOLOGY [id number] [place], Basophils/100 WBC (Bld) 1.0 % Normal <=1.9 [facility] Comment on above: Performed By: #### C BCDSAT ####[facility] PATHOLOGY [id number] [place], Eosinophils (Bld) [#/Vol] 0.26 10*3/uL Normal 0.00-0.70 [facility] Comment on above: Performed By: #### C BCDSAT ####S PATHOLOGY [id number] [place], Eosinophils/100 WBC (Bld) 2.6 % Normal 0.1-4.0 [facility] Comment on above: Performed By: #### C BCDSAT ####[facility] PATHOLOGY [id number] [place], Erythrocyte distribution width (RBC) [Ratio] 14.6 % High 11.5-14.5 [facility] Comment on above: Performed By: #### C BCDSAT ####[facility] PATHOLOGY [id number] [place] [address], Hematocrit (Bld) [Volume fraction] 36.3 % Normal 36.0-46.0 [facility] Comment on above: Performed By: #### C BCDSAT ####[facility] PATHOLOGY [id number] [place] [address], Hemoglobin (Bld) [Mass/Vol] 11.9 g/dL Low 12.0-15.0 [facility] Comment on above: Performed By: #### C BCDSAT ####[facility] PATHOLOGY [id number] [place] [address], Lymphocytes (Bld) [#/Vol] 0.93 10*3/uL Low 1.00-4.80 [facility] Comment on above: Performed By: #### C BCDSAT ####[facility] PATHOLOGY [id number] [place] [address], Lymphocytes/100 WBC (Bld) 9.4 % Low 24.0-44.0 [facility] Comment on above: Performed By: #### C BCDSAT ####[facility] PATHOLOGY [id number] [place] [address], MCH (RBC) [Entitic mass] 27.8 pg Normal 26.0-34.0 [facility] Comment on above: Performed By: #### C BCDSAT ####S PATHOLOGY [id number] [place] [address], MCHC (RBC) [Mass/Vol] 32.7 g/dL Normal 32.0-35.9 [facility] Comment on above: Performed By: #### C BCDSAT ####S PATHOLOGY [id number] [place] [address], MCV (RBC) [Entitic vol] 85 fL Normal 80-100 [facility] Comment on above: Performed By: #### C SUSANDSAT ####[facility] PATHOLOGY [id number] [place], MONOCYTE DISTRIBUTION WIDTH 23 High <=20 [facility] Comment on above: Performed By: #### C SUSANDSAT ####S PATHOLOGY [id number] [place], Monocytes (Bld) [#/Vol] 0.99 10*3/uL Normal 0.20-1.00 [facility] Comment on above: Performed By: #### C SUSANDSAT ####[facility] PATHOLOGY [id number] [place], Monocytes/100 WBC (Bld) 10.0 % Normal 2.0-11.0 [facility] Comment on above: Performed By: #### C SUSANDSAT ####[facility] PATHOLOGY [id number] [place] [address], Neutrophils (Bld) [#/Vol] 7.65 10*3/uL Normal 1.50-8.00 [facility] Comment on above: Performed By: #### Chin PÉREZAT ####[facility] PATHOLOGY [id number] [place] [address], Neutrophils/100 WBC (Bld) 77.0 % High 31.0-76.0 [facility] Comment on above: Performed By: #### Chin BCDSAT ####S PATHOLOGY [id number] [place], Platelet mean volume (Bld) [Entitic vol] 7.2 fL Low 7.5-11.2 [facility] Comment on above: Performed By: #### C BCDSAT ####S PATHOLOGY [id number] [place], Platelets (Bld) [#/Vol] 468 10*3/uL High 150-400 [facility] Comment on above: Performed By: #### Chin BCDSAT ####S PATHOLOGY [id number] [place], RBC (Bld) [#/Vol] 4.26 10*6/uL Normal 4.00-5.20 [facility] Comment on above: Performed By: #### C BCDSAT ####[facility] PATH[facility] [id number] [place], WBC (Bld) [#/Vol] 9.9 10*3/uL Normal 4.5-11.5 [facility] Comment on above: Performed By: #### C BCDSAT ####[facility] PATHOLOG[facility] [id number] [place], [place], CT ABDOMEN/PELVIS W/ CONTRAS Ton 08-05-2024 CT ABDOMEN/PELVIS W/ CONTRAST Normal [facility] CT Abdomen and Pelvis W cont rast Gay 08-05-[address] [facility] CTA CHEST PULMONARY EMBOLISM W/on 08-05-2024 CTA CHEST PULMONARY EMBOLISM W/ Normal [facility] CTA Pulmonary arteries for p ulmonary embolus W contrast IVOrdered By: Hayley Shannon on 08-05-2024 CT DLP 1222.6 (mGy.cm) [facility] Work Phone: CT Series Entire body,Entire body,Entire body,Entire body [facility] Work Phone: CTDI VOL 5.3 (mGy),12.1 (mGy) ,13.3 (mGy),13.9 (mGy) [facility] Work Phone: LIMITED SEGMENTAL No PE identified. PE cannot be evaluated beyond the segmental level due to the limitations above. [facility] Work Phone: PHANTOM TYPE IEC Body Dosimetry Phantom,IEC Body Dosimetry Phantom,IEC Body Dosimetry Phantom,IEC Body Dosimetry Phantom [facility] Work Phone: [facility] Work Phone: CTA Pulmonary arteries for p ulmonary embolus W contrast Gay 08-05-2024 RADIOLOGY [facility] Consultson 08-05-2024 Spa Experience Coordinator Authentication Interface Message Text Normal [facility] ED Provider Noteson 08-05-20 Spa Experience Coordinator Authentication Interface Message Text Normal [facility] Spa Experience Coordinator Authentication Interface Message Text Normal [facility] Spa Experience Coordinator Authentication Interface Message Text Normal [facility] HEPATIC FUNCTION PANELon Albumin [Mass/Vol] 3.5 g/dL 3.5 - 5.7 g/dL [facility] ALP [Catalytic activity/Vol] 103 U/L [facility] ALT [Catalytic activity/Vol] 34 U/L [facility] AST [Catalytic activity/Vol] 16 U/L [facility] Bilirubin [Mass/Vol] 1.0 mg/dL 0.3 - 1 .0 mg/dL [facility] Bilirubin.direct [Mass/Vol] 0.22 mg/dL High 0.03 - 0.18 mg/dL [facility] Protein [Mass/Vol] 6.7 g/dL 6.0 - 8.3 g/dL [facility] Albumin [Mass/Vol] 3.5 g/dL Normal 3.5-5.7 [facility] Comment on above: Performed By: #### H MG FRANKLIN PHOS, CH8 ####S PATHOLOGY [id number] [place], ALK 103 IU/L Normal 34-104 [facility] Comment on above: Performed By: #### MG PLASENCIA PHOS, CH8 ####S PATHOLOGY [id number] [place], [place], ALT [Catalytic activity/Vol] 34 U/L Normal 7-52 [facility] Comment on above: Performed By: #### MG PLASENCIA PHOS, CH8 ####[facility] [id number] [place], AST [Catalytic activity/Vol] 16 U/L Normal 13-39 [facility] Comment on above: Performed By: #### MG PLASENCIA PHOS, CH8 ####S PATHOLOGY [id number] [place], Bilirubin [Mass/Vol] 1.0 mg/dL Normal 0.3-1.0 [facility] Comment on above: Performed By: #### MG PLASENCIA PHOS, CH8 ####[facility] PATH[facility] [id number] [place], Bilirubin.direct [Mass/Vol] 0.22 mg/dL High 0.03-0.18 [facility] Comment on above: Performed By: #### H MG FRANKLIN PHOS, CH8 ####S PATHOLOGY [id number] [place], Protein [Mass/Vol] 6.7 g/dL Normal 6.0-8.3 [facility] Comment on above: Performed By: #### H MG NOEMI PHOS, PRAKASH8 ####[facility] PATHOLOGY [id number] [place], LACTATE WITH REPEAT EDOrdere d By: Filomena Mabry on 08-05-2024 Interpretation and review of laboratory results Abnormal [facility] Lactate [Moles/Vol] 1.8 mmol/L High 0.5 - 1. 6 mmol/L [facility] LACTATE WITH REPEAT EDon CR LACT 1.8 mmol/L High 0.5-1.6 [facility] Comment on above: Performed By: #### L ACTREPEAT ####[facility] PATHOLOGY [id number] [place], CR LACT 1.0 mmol/L Normal 0.5-1.6 [facility] Comment on above: Performed By: #### L ACTREPEAT ####[facility] PATHOLOGY [id number] [place], LACTATE WITH REPEAT EDOrdere d By: Donnie Xavier on 08-05-2024 Interpretation and review of laboratory results Normal [facility] Lactate [Moles/Vol] 1.0 mmol/L 0.5 - 1. 6 mmol/L [facility] MAGNESIUMon 08-05-2024 Magnesium [Mass/Vol] 1.8 mg/dL Low 1.9 - 2 .7 mg/dL [facility] Magnesium [Mass/Vol] 1.8 mg/dL Low 1.9-2.7 [facility] Comment on above: Performed By: #### H MG NOEMI PHOS, CH8 ####S PATHOLOGY [id number] [place], No Panel Informationon 08-05 Radiology Study observation (narrative) [facility] Interpretation and review of laboratory results Normal [facility] Interpretation and review of laboratory results Abnormal [facility] PARTIAL THROMBOPLASTIN TIMEo n 08-05-2024 aPTT Coag (Bld) [Time] 40 s High [facility] Interpretation and review of laboratory results Abnormal [facility] aPTT Coag (Bld) [Time] 40 s High 25-37 Th e [facility] Comment on above: Performed By: #### P T, APTT ####[facility] PATH[facility] [id number] [place], PHOSPHORUSon 08-05-2024 Phosphate [Mass/Vol] 3.7 mg/dL 2.5 - 5 .0 mg/dL [facility] Phosphate [Mass/Vol] 3.7 mg/dL Normal 2.5-5.0 [facility] Comment on above: Performed By: #### H EPATIC, MG, PHOS, CH8 ####[facility] [id number] [place], PROTHROMBIN TIME AND INRon 0 08-05-2024 INR Coag (PPP) [Relative time] 1.88 {INR} High 0.90 - 1.10 [facility] Interpretation and review of laboratory results Abnormal [facility] PT Coag (PPP) [Time] 21.0 s High [facility] INR Coag (PPP) [Relative time] 1.88 {INR} High 0.90-1.10 [facility] Comment on above: Performed By: #### P T, APTT ####[facility] PATH[facility] [id number] [place], PT Coag (PPP) [Time] 21.0 s High 9.7-12.9 [facility] Comment on above: Performed By: #### P T, APTT ####[facility] PATH[facility] [id number] [place], [place], Telephone Encounteron 2023 Spa Experience Coordinator Authentication Interface Message Text Normal [facility] URINALYSIS WITH REFLEX CULTU RE PERFORMABLEon 08-05-2024 Appearance (U) Clear Clear [facility] Bacteria LM.HPF (Urine sed) [#/Area] Few /HPF [facility] Bilirubin Ql (U) Negative [facility] Calcium oxalate crystals LM.HPF (Urine sed) [#/Area] Few /HPF [facility] Color (U) Yellow Colorless [facility] Epithelial cells.squamous LM.HPF (Urine sed) [#/Area] 3-5 [facility] Glucose Auto test strip (U) [Mass/Vol] Negative Negative mg/dL [facility] Hemoglobin Ql (U) Small Abnormal Negative [facility] Interpretation and review of laboratory results Abnormal [facility] Ketones Ql (U) 10 mg/dL Abnormal Negative [facility] Leukocyte esterase Test strip Ql (U) Positive Abnormal Negative [facility] Mucus Ql (Urine sed) Present [facility] Nitrite Ql (U) Negative Negative [facility] pH (U) 6.0 [pH] 5.0 - 8.0 [facility] Protein (U) [Mass/Vol] 70 mg/dL Abnormal Negative [facility] Specific gravity (U) [Rel density] 1.045 High NINF - 1.030 [facility] Urobilinogen Qn (U) 3.0 mg/dL Abnormal Negative [facility] WBC (U) [#/Vol] 6-10 Abnormal [facility] WBC LM.HPF (Urine sed) [#/Area] 3-5 Abnormal [facility] CALCIUM OXALATE CRYSTALS Few Normal [facility] Comment on above: Order Comment: A neg ative leukocyte esterase AND negative nitrite test or absence of pyuria (urine WBC count <= 5-10) make a UTI (urinary tract infection) very unlikely in a non-neutropenic adult (<=5% likelihood in many studies). A positive leukocyte esterase, nitrite and/or pyuria is a nonspecific result. This can be seen in conditions other than a UTI e.g. asymptomatic bacteriuria, gynecologic infections, sexually transmitted infections, and noninfectious conditions (positive predictive value for UTI around 50%) Performed By: #### u rinalysiswcul ####[facility] [id number] [place], [id number]#### C URINE ####[facility] Qkjoanksc0302 [place], [place] Glucose Ql (U) Negative Normal Negative [facility] Comment on above: Order Comment: A neg ative leukocyte esterase AND negative nitrite test or absence of pyuria (urine WBC count <= 5-10) make a UTI (urinary tract infection) very unlikely in a non-neutropenic adult (<=5% likelihood in many studies). A positive leukocyte esterase, nitrite and/or pyuria is a nonspecific result. This can be seen in conditions other than a UTI e.g. asymptomatic bacteriuria, gynecologic infections, sexually transmitted infections, and noninfectious conditions (positive predictive value for UTI around 50%) Performed By: #### u rinalysiswcul ####[facility] PATHOLOGY [id number] [place] [address], #### C URINE ####[facility] [address] [place] [address] Protein (U) [Mass/Vol] 70 mg/dL Abnormal Negative Th e [facility] Comment on above: Order Comment: A neg ative leukocyte esterase AND negative nitrite test or absence of pyuria (urine WBC count <= 5-10) make a UTI (urinary tract infection) very unlikely in a non-neutropenic adult (<=5% likelihood in many studies). A positive leukocyte esterase, nitrite and/or pyuria is a nonspecific result. This can be seen in conditions other than a UTI e.g. asymptomatic bacteriuria, gynecologic infections, sexually transmitted infections, and noninfectious conditions (positive predictive value for UTI around 50%) Performed By: #### u rinalysiswcul ####[facility] PATHOLOGY [id number] [place], #### C URINE ####[facility] Cmpsfsifv8761 [place], [place] SQUAMOUS EPITHELIAL 3-5 Normal 0-10 [facility] Comment on above: Order Comment: A neg ative leukocyte esterase AND negative nitrite test or absence of pyuria (urine WBC count <= 5-10) make a UTI (urinary tract infection) very unlikely in a non-neutropenic adult (<=5% likelihood in many studies). A positive leukocyte esterase, nitrite and/or pyuria is a nonspecific result. This can be seen in conditions other than a UTI e.g. asymptomatic bacteriuria, gynecologic infections, sexually transmitted infections, and noninfectious conditions (positive predictive value for UTI around 50%) Performed By: #### u rinalysiswcul ####[facility] PATHOLOGY OARGVCTKBW7290 [place], [place], #### C URINE ####[facility] Kwsgwwuyl4103 [place], [place] U APPEAR Clear Normal Clear [facility] Comment on above: Order Comment: A neg ative leukocyte esterase AND negative nitrite test or absence of pyuria (urine WBC count <= 5-10) make a UTI (urinary tract infection) very unlikely in a non-neutropenic adult (<=5% likelihood in many studies). A positive leukocyte esterase, nitrite and/or pyuria is a nonspecific result. This can be seen in conditions other than a UTI e.g. asymptomatic bacteriuria, gynecologic infections, sexually transmitted infections, and noninfectious conditions (positive predictive value for UTI around 50%) Performed By: #### u rinalysiswcul ####[facility] PATHOLOGY [id number] [place], #### C URINE ####[facility] Ivdhvdnqv3133 [place], [place] U BACTERIA Few Normal [facility] Comment on above: Order Comment: A neg ative leukocyte esterase AND negative nitrite test or absence of pyuria (urine WBC count <= 5-10) make a UTI (urinary tract infection) very unlikely in a non-neutropenic adult (<=5% likelihood in many studies). A positive leukocyte esterase, nitrite and/or pyuria is a nonspecific result. This can be seen in conditions other than a UTI e.g. asymptomatic bacteriuria, gynecologic infections, sexually transmitted infections, and noninfectious conditions (positive predictive value for UTI around 50%) Performed By: #### u rinalysiswcul ####[facility] PATHOLOGY [id number] [place], #### C URINE ####[facility] Emeumvxjd8623 [place], [place] U BILI Negative Normal Negative [facility] Comment on above: Order Comment: A neg ative leukocyte esterase AND negative nitrite test or absence of pyuria (urine WBC count <= 5-10) make a UTI (urinary tract infection) very unlikely in a non-neutropenic adult (<=5% likelihood in many studies). A positive leukocyte esterase, nitrite and/or pyuria is a nonspecific result. This can be seen in conditions other than a UTI e.g. asymptomatic bacteriuria, gynecologic infections, sexually transmitted infections, and noninfectious conditions (positive predictive value for UTI around 50%) Performed By: #### u rinalysiswcul ####[facility] PATHOLOGY [id number] [place], #### C URINE ####[facility] [address] [place], [place] [id number] U BLOOD Small Abnormal Negative [facility] Comment on above: Order Comment: A neg ative leukocyte esterase AND negative nitrite test or absence of pyuria (urine WBC count <= 5-10) make a UTI (urinary tract infection) very unlikely in a non-neutropenic adult (<=5% likelihood in many studies). A positive leukocyte esterase, nitrite and/or pyuria is a nonspecific result. This can be seen in conditions other than a UTI e.g. asymptomatic bacteriuria, gynecologic infections, sexually transmitted infections, and noninfectious conditions (positive predictive value for UTI around 50%) Performed By: #### u rinalysiswcul ####[facility] PATHOLOGY [id number] [place], #### C URINE ####[facility] Qvrgomspc9240 [place], [place] U COLOR Yellow Normal Colorless [facility] Comment on above: Order Comment: A neg ative leukocyte esterase AND negative nitrite test or absence of pyuria (urine WBC count <= 5-10) make a UTI (urinary tract infection) very unlikely in a non-neutropenic adult (<=5% likelihood in many studies). A positive leukocyte esterase, nitrite and/or pyuria is a nonspecific result. This can be seen in conditions other than a UTI e.g. asymptomatic bacteriuria, gynecologic infections, sexually transmitted infections, and noninfectious conditions (positive predictive value for UTI around 50%) Performed By: #### u rinalysiswcul ####[facility] PATHOLOGY [id number] [place], #### C URINE ####[facility] Lykwktfzz7083 [place], [place] U KETONE 10 mg/dL Abnormal Negative [facility] Comment on above: Order Comment: A neg ative leukocyte esterase AND negative nitrite test or absence of pyuria (urine WBC count <= 5-10) make a UTI (urinary tract infection) very unlikely in a non-neutropenic adult (<=5% likelihood in many studies). A positive leukocyte esterase, nitrite and/or pyuria is a nonspecific result. This can be seen in conditions other than a UTI e.g. asymptomatic bacteriuria, gynecologic infections, sexually transmitted infections, and noninfectious conditions (positive predictive value for UTI around 50%) Performed By: #### u rinalysiswcul ####[facility] PATHOLOGY [id number] [place], #### C URINE ####[facility] [address] [place], [place] [id number] U LEUK Positive Abnormal Negative [facility] Comment on above: Order Comment: A neg ative leukocyte esterase AND negative nitrite test or absence of pyuria (urine WBC count <= 5-10) make a UTI (urinary tract infection) very unlikely in a non-neutropenic adult (<=5% likelihood in many studies). A positive leukocyte esterase, nitrite and/or pyuria is a nonspecific result. This can be seen in conditions other than a UTI e.g. asymptomatic bacteriuria, gynecologic infections, sexually transmitted infections, and noninfectious conditions (positive predictive value for UTI around 50%) Result Comment: Norm al urine specimens will not produce a positive reaction. Small amounts of leukocyte esterase, causing a positive reaction should be repeated, using a fresh urine specimen, from the same patient. Positive results require further testing for pyuria. Performed By: #### u rinalysiswcul ####[facility] PATHOLOGY SSSARFPZCK0789 [place], #### C URINE ####[facility] Sptukdrfo9390 [place], [place] U MUCOUS Present Normal [facility] Comment on above: Order Comment: A neg ative leukocyte esterase AND negative nitrite test or absence of pyuria (urine WBC count <= 5-10) make a UTI (urinary tract infection) very unlikely in a non-neutropenic adult (<=5% likelihood in many studies). A positive leukocyte esterase, nitrite and/or pyuria is a nonspecific result. This can be seen in conditions other than a UTI e.g. asymptomatic bacteriuria, gynecologic infections, sexually transmitted infections, and noninfectious conditions (positive predictive value for UTI around 50%) Performed By: #### u rinalysiswcul ####[facility] PATHOLOGY [id number] [place], #### C URINE ####[facility] Dgyihzefu9896 [place], [place] U NITRITE Negative Normal Negative [facility] Comment on above: Order Comment: A neg ative leukocyte esterase AND negative nitrite test or absence of pyuria (urine WBC count <= 5-10) make a UTI (urinary tract infection) very unlikely in a non-neutropenic adult (<=5% likelihood in many studies). A positive leukocyte esterase, nitrite and/or pyuria is a nonspecific result. This can be seen in conditions other than a UTI e.g. asymptomatic bacteriuria, gynecologic infections, sexually transmitted infections, and noninfectious conditions (positive predictive value for UTI around 50%) Performed By: #### u rinalysiswcul ####[facility] PATHOLOGY [id number] [place], #### C URINE ####[facility] [address] [place], [place] [id number] U PH 6.0 Normal 5.0-8.0 [facility] Comment on above: Order Comment: A neg ative leukocyte esterase AND negative nitrite test or absence of pyuria (urine WBC count <= 5-10) make a UTI (urinary tract infection) very unlikely in a non-neutropenic adult (<=5% likelihood in many studies). A positive leukocyte esterase, nitrite and/or pyuria is a nonspecific result. This can be seen in conditions other than a UTI e.g. asymptomatic bacteriuria, gynecologic infections, sexually transmitted infections, and noninfectious conditions (positive predictive value for UTI around 50%) Performed By: #### u rinalysiswcul ####[facility] PATHOLOGY EFTEPSKNVZ5341 [place], #### C URINE ####[facility] Nhlpyrcpf3264 [place], [place] U RBC 6-10 Abnormal 0-2 [facility] Comment on above: Order Comment: A neg ative leukocyte esterase AND negative nitrite test or absence of pyuria (urine WBC count <= 5-10) make a UTI (urinary tract infection) very unlikely in a non-neutropenic adult (<=5% likelihood in many studies). A positive leukocyte esterase, nitrite and/or pyuria is a nonspecific result. This can be seen in conditions other than a UTI e.g. asymptomatic bacteriuria, gynecologic infections, sexually transmitted infections, and noninfectious conditions (positive predictive value for UTI around 50%) Performed By: #### u rinalysiswcul ####[facility] PATHOLOGY EGVTILPLBH7799 [place], #### C URINE ####[facility] [address] [place], [place] [id number] U SG 1.045 High <=1.030 [facility] Comment on above: Order Comment: A neg ative leukocyte esterase AND negative nitrite test or absence of pyuria (urine WBC count <= 5-10) make a UTI (urinary tract infection) very unlikely in a non-neutropenic adult (<=5% likelihood in many studies). A positive leukocyte esterase, nitrite and/or pyuria is a nonspecific result. This can be seen in conditions other than a UTI e.g. asymptomatic bacteriuria, gynecologic infections, sexually transmitted infections, and noninfectious conditions (positive predictive value for UTI around 50%) Performed By: #### u rinalysiswcul ####[facility] PATHOLOGY RRVNNLANCO3184 [place], #### C URINE ####[facility] [address] [place], [place] [id number] U UROBILI 3.0 mg/dL Abnormal Negative [facility] Comment on above: Order Comment: A neg ative leukocyte esterase AND negative nitrite test or absence of pyuria (urine WBC count <= 5-10) make a UTI (urinary tract infection) very unlikely in a non-neutropenic adult (<=5% likelihood in many studies). A positive leukocyte esterase, nitrite and/or pyuria is a nonspecific result. This can be seen in conditions other than a UTI e.g. asymptomatic bacteriuria, gynecologic infections, sexually transmitted infections, and noninfectious conditions (positive predictive value for UTI around 50%) Performed By: #### u rinalysiswcul ####[facility] PATHOLOGY SVSFMYTLOF3208 [place], #### C URINE ####[facility] Sjtxhsanj8426 [place], [place] U WBC 3-5 Abnormal 0-2 [facility] Comment on above: Order Comment: A neg ative leukocyte esterase AND negative nitrite test or absence of pyuria (urine WBC count <= 5-10) make a UTI (urinary tract infection) very unlikely in a non-neutropenic adult (<=5% likelihood in many studies). A positive leukocyte esterase, nitrite and/or pyuria is a nonspecific result. This can be seen in conditions other than a UTI e.g. asymptomatic bacteriuria, gynecologic infections, sexually transmitted infections, and noninfectious conditions (positive predictive value for UTI around 50%) Performed By: #### u rinalysiswcul ####[facility] PATHOLOGY [id number] [place], #### C URINE ####[facility] Myiiglapj2327 [place], [place] URINE CULTUREon 08-05-2024 Bacteria identified Cx Nom (U) C URINE: 10,000 - 50,000 CFU/ml No significant growth; skin/urogenital contamination present Normal [facility] Comment on above: Performed By: #### u rinalysiswcul ####S PATHOLOGY NIFVERQIMQ3273 [place], #### C URINE ####[facility] [address] [place], [place] [id number] Patient Instructionson 07-27 Spa Experience Coordinator Authentication Interface Message Text Please continue to measure the drain output once a day. Please keep your follow up with Dr. Zarate, Vascular Surgery Normal [facility] Progress Noteson 07-27-2024 Spa Experience Coordinator Authentication Interface Message Text Normal [facility] Telephone Encounteron 2023 Spa Experience Coordinator Authentication Interface Message Text Called to r/s office visit with Dr Nazanin Zaarte for after scheduled CTA 08/17/24. Normal [facility] CBC panel Auto (Bld)on 07-25 Erythrocyte distribution width (RBC) [Ratio] 14.3 % 11.5 - 14.5 % [facility] Hematocrit (Bld) [Volume fraction] 29.4 % Low 36.0 - 46.0 % [facility] Hemoglobin (Bld) [Mass/Vol] 10.0 g/dL Low 12.0 - 15.0 g/dL [facility] Interpretation and review of laboratory results Abnormal [facility] MCH (RBC) [Entitic mass] 29.2 pg 26.0 - 34.0 pg [facility] MCHC (RBC) [Mass/Vol] 34.0 g/dL 32.0 - 35.9 g/dL [facility] MCV (RBC) [Entitic vol] 86 fL 80 - 100 fL [facility] Platelet mean volume (Bld) [Entitic vol] 7.2 fL Low 7.5 - 11.2 fL [facility] Platelets (Bld) [#/Vol] 579 10*3/uL High 150 - 400 K/uL [facility] RBC (Bld) [#/Vol] 3.43 10*6/uL Low [facility] WBC (Bld) [#/Vol] 9.3 10*3/uL 4.5 - 11.5 K/uL [facility] COMPLETE BLOOD COUNTon 07-25 Erythrocyte distribution width (RBC) [Ratio] 14.3 % Normal 11.5-14.5 [facility] Comment on above: Performed By: #### C BC ####S PATHOLOGY BBSYAZKPFW4585 [place], Hematocrit (Bld) [Volume fraction] 29.4 % Low 36.0-46.0 [facility] Comment on above: Performed By: #### C BC ####[facility] GWPBIPVZRR3232 [place], Hemoglobin (Bld) [Mass/Vol] 10.0 g/dL Low 12.0-15.0 [facility] Comment on above: Performed By: #### C BC ####[facility] PATHOLOGY OLYHUBYQHU2292 [place], MCH (RBC) [Entitic mass] 29.2 pg Normal 26.0-34.0 [facility] Comment on above: Performed By: #### C BC ####[facility] PATHOLOGY REIRIIBJGZ4458 [place], MCHC (RBC) [Mass/Vol] 34.0 g/dL Normal 32.0-35.9 [facility] Comment on above: Performed By: #### C BC ####[facility] PATHOLOGY RYVHASEDME0394 [place], MCV (RBC) [Entitic vol] 86 fL Normal 80-100 [facility] Comment on above: Performed By: #### C BC ####[facility] PATHOLOGY [id number] [place], Platelet mean volume (Bld) [Entitic vol] 7.2 fL Low 7.5-11.2 [facility] Comment on above: Performed By: #### C BC ####[facility] PATHOLOGY GWKALNVZJB3096 [place], Platelets (Bld) [#/Vol] 579 10*3/uL High 150-400 [facility] Comment on above: Performed By: #### C BC ####[facility] PATHOLOGY [id number] [place], RBC (Bld) [#/Vol] 3.43 10*6/uL Low 4.00-5.20 [facility] Comment on above: Performed By: #### C BC ####[facility] PATHOLOGY [id number] [place], WBC (Bld) [#/Vol] 9.3 10*3/uL Normal 4.5-11.5 [facility] Comment on above: Performed By: #### C BC ####S PATHOLOGY [id number] [place], [place], Progress Noteson 07-25-2024 Spa Experience Coordinator Authentication Interface Message Text Normal [facility] BASIC METABOLIC PANELon 07-10 Anion gap [Moles/Vol] 12 mmol/L Normal 10-20 [facility] Comment on above: Performed By: #### Chin Royal, MG, PHOS ####[facility] PATHOLOGY [id number] [place], [place], Calcium [Mass/Vol] 8.0 mg/dL Low 8.6-10.3 [facility] Comment on above: Performed By: #### Chin Royal, MG, PHOS ####[facility] PATHOLOGY [id number] [place], Chloride [Moles/Vol] 101 mmol/L Normal 98-107 [facility] Comment on above: Performed By: #### Chin Royal MG, PHOS ####[facility] PATHOLOGY [id number] [place], CO2 [Moles/Vol] 26 mmol/L Normal 21-31 [facility] Comment on above: Performed By: #### Chin Royal, MG, PHOS ####[facility] PATHOLOGY [id number] [place], Creatinine [Mass/Vol] 0.66 mg/dL Normal 0.60-1.20 [facility] Comment on above: Performed By: #### Chin HNilo, MG, PHOS ####[facility] PATHOLOGY [id number] [place], Glucose [Mass/Vol] 109 mg/dL Normal 74-109 [facility] Comment on above: Performed By: #### Chin H8, MG, PHOS ####[facility] PATHOLOGY [id number] [place], Potassium [Moles/Vol] 4.4 mmol/L Normal 3.5-5.0 [facility] Comment on above: Performed By: #### C H8, MG, PHOS ####[facility] PATHOLOGY [id number] [place], Sodium [Moles/Vol] 135 mmol/L Low 136-145 [facility] Comment on above: Performed By: #### MG Lou PHOS ####[facility] PATHOLOGY [id number] [place], Urea nitrogen [Mass/Vol] 8 mg/dL Normal 7-25 [facility] Comment on above: Performed By: #### MG Lou PHOS ####[facility] PATHOLOGY [id number] [place], ESTIMATED GFR (CKD-EPI) 120 mL/min/1.73sqm Normal >=60 [facility] Comment on above: Result Comment: 2020 CKD EPI Equation using Creatinine without RaceComment: Estimated glomerular filtration rate (eGFR) is calculated without a race coefficient. Values should be interpreted in the context of the patient's full clinical presentation.Reference:1. Evert Neely, Gloria M, Jasper GUERRA, et al.. A Unifying Approach for GFR Estimation: Recommendations of the NKF-ASN Task Force on Reassessing the Inclusion of Race in Diagnosing Kidney Disease. [place] Journal of Kidney Diseases 2021;79(2):268-88.e1.2. N Engl J Med 2020 Vol. 385 Issue 19 Pages 1431-4081 Performed By: #### MG Lou PHOS ####[facility] PATHOLOGY [id number] [place], [place], Basic metabolic 2000 panelon 07-24-2024 GFR/1.73 sq M.predicted CKD-EPI (S/P/Bld) [Vol rate/Area] 120 - PINF [facility] Interpretation and review of laboratory results Abnormal [facility] CBC panel Auto (Bld)on 07-24 Interpretation and review of laboratory results Abnormal [facility] COMPLETE BLOOD COUNTon 07-24 Erythrocyte distribution width (RBC) [Ratio] 14.5 % Normal 11.5-14.5 [facility] Comment on above: Performed By: #### C BC ####[facility] PATHOLOGY [id number] [place], Hematocrit (Bld) [Volume fraction] 29.2 % Low 36.0-46.0 [facility] Comment on above: Performed By: #### C BC ####[facility] PATHOLOGY [id number] [place], Hemoglobin (Bld) [Mass/Vol] 9.8 g/dL Low 12.0-15.0 [facility] Comment on above: Performed By: #### C BC ####[facility] PATHOLOGY [id number] [place], MCH (RBC) [Entitic mass] 28.9 pg Normal 26.0-34.0 [facility] Comment on above: Performed By: #### C BC ####[facility] PATHOLOGY [id number] [place] [address], MCHC (RBC) [Mass/Vol] 33.6 g/dL Normal 32.0-35.9 [facility] Comment on above: Performed By: #### C BC ####[facility] PATHOLOGY [id number] [place] [address], MCV (RBC) [Entitic vol] 86 fL Normal 80-100 [facility] Comment on above: Performed By: #### C BC ####[facility] PATHOLOGY [id number] [place], Platelet mean volume (Bld) [Entitic vol] 7.2 fL Low 7.5-11.2 [facility] Comment on above: Performed By: #### C BC ####[facility] PATHOLOGY [id number] [place], Platelets (Bld) [#/Vol] 545 10*3/uL High 150-400 [facility] Comment on above: Performed By: #### C BC ####[facility] PATHOLOGY [id number] [place], RBC (Bld) [#/Vol] 3.39 10*6/uL Low 4.00-5.20 [facility] Comment on above: Performed By: #### C BC ####[facility] PATHOLOGY [id number] [place], WBC (Bld) [#/Vol] 9.9 10*3/uL Normal 4.5-11.5 [facility] Comment on above: Performed By: #### C BC ####[facility] PATHOLOGY [id number] [place], [place], CT CATH DRAINAGE PERITONEAL (ALESSANDRO)on 07-24-2024 CT CATH DRAINAGE PERITONEAL (ALESSANDRO) Normal [facility] CT Guidance for drainage of abscess and placement of drainage catheter of Peritoneal spaceon 07-24-2024 CT DLP 264.1 (mGy.cm) [facility] CT Series AP Topogram ,LAT Topogram,SPIRAL SCAN ,i-Sequence [facility] CTDI VOL 0.03 (mGy),0.02 (mGy),8.35 (mGy),41.93 (mGy) [facility] PHANTOM TYPE IEC Body Dosimetry Phantom,IEC Body Dosimetry Phantom,IEC Body Dosimetry Phantom,IEC Body Dosimetry Phantom [facility] RADIOLOGY [facility] MAGNESIUMon 07-24-2024 Magnesium [Mass/Vol] 2.1 mg/dL Normal 1.9-2.7 [facility] Comment on above: Performed By: #### Chin Royal, MG, PHOS ####[facility] PATHOLOGY [id number] [place], No Panel Informationon 07-24 Interpretation and review of laboratory results Normal [facility] PHOSPHORUSon 07-24-2024 Phosphate [Mass/Vol] 5.0 mg/dL Normal 2.5-5.0 [facility] Comment on above: Performed By: #### Chin HNilo, MG, PHOS ####[facility] PATHOLOGY [id number] [place], Progress Noteson 07-24-2024 Spa Experience Coordinator Authentication Interface Message Text Normal [facility] BASIC METABOLIC PANELon 07-10 Anion gap [Moles/Vol] 15 mmol/L Normal 10-20 [facility] Comment on above: Performed By: #### Chin H8, MG, PHOS ####[facility] PATHOLOGY [id number] [place], Calcium [Mass/Vol] 7.8 mg/dL Low 8.6-10.3 [facility] Comment on above: Performed By: #### Chin H8, MG, PHOS ####[facility] PATHOLOGY [id number] [place], Chloride [Moles/Vol] 102 mmol/L Normal 98-107 [facility] Comment on above: Performed By: #### MG Lou PHOS ####[facility] PATHOLOGY [id number] [place], CO2 [Moles/Vol] 23 mmol/L Normal 21-31 [facility] Comment on above: Performed By: #### MG Lou PHOS ####[facility] PATHOLOGY [id number] [place], Creatinine [Mass/Vol] 0.52 mg/dL Low 0.60-1.20 [facility] Comment on above: Performed By: #### MG Lou PHOS ####[facility] PATHOLOGY [id number] [place], ESTIMATED GFR (CKD-EPI) 127 mL/min/1.73sqm Normal >=60 [facility] Comment on above: Result Comment: 2020 CKD EPI Equation using Creatinine without RaceComment: Estimated glomerular filtration rate (eGFR) is calculated without a race coefficient. Values should be interpreted in the context of the patient's full clinical presentation.Reference:1. Evert C, Bashakira M, Jasper GUERRA, et al.. A Unifying Approach for GFR Estimation: Recommendations of the NKF-ASN Task Force on Reassessing the Inclusion of Race in Diagnosing Kidney Disease. [place] Journal of Kidney Diseases 2021;79(2):268-88.e1.2. N Engl J Med 2020 Vol. 385 Issue 19 Pages 1791-7094 Performed By: #### MG Lou PHOS ####[facility] PATHOLOGY [id number] [place], Glucose [Mass/Vol] 102 mg/dL Normal 74-109 [facility] Comment on above: Performed By: #### MG Lou PHOS ####[facility] PATHOLOGY [id number] [place], Potassium [Moles/Vol] 4.4 mmol/L Normal 3.5-5.0 [facility] Comment on above: Performed By: #### MG Lou PHOS ####[facility] PATHOLOGY [id number] [place], Sodium [Moles/Vol] 136 mmol/L Normal 136-145 [facility] Comment on above: Performed By: #### MG Lou PHOS ####[facility] PATHOLOGY [id number] [place], Urea nitrogen [Mass/Vol] 8 mg/dL Normal 7-25 [facility] Comment on above: Performed By: #### MG Lou PHOS ####[facility] PATHOLOGY [id number] [place], Basic metabolic 2000 panelon 07-23-2024 Anion gap [Moles/Vol] 15 mmol/L 10 - 20 [facility] Calcium [Mass/Vol] 7.8 mg/dL Low 8.6 - 10. 3 mg/dL [facility] Chloride [Moles/Vol] 102 mmol/L 98 - 10 7 mmol/L [facility] CO2 [Moles/Vol] 23 mmol/L 21 - 31 mmol/L [facility] Creatinine [Mass/Vol] 0.52 mg/dL Low 0.60 - 1.20 mg/dL [facility] GFR/1.73 sq M.predicted CKD-EPI (S/P/Bld) [Vol rate/Area] 127 - PINF [facility] Glucose [Mass/Vol] 102 mg/dL 74 - 109 mg/dL [facility] Interpretation and review of laboratory results Abnormal [facility] Potassium [Moles/Vol] 4.4 mmol/L 3.5 - 5.0 mmol/L [facility] Sodium [Moles/Vol] 136 mmol/L 136 - 145 mmol/L [facility] Urea nitrogen [Mass/Vol] 8 mg/dL 7 - 25 mg/dL [facility] CBC panel Auto (Bld)on 07-23 Erythrocyte distribution width (RBC) [Ratio] 14.7 % High 11.5 - 14.5 % [facility] Hematocrit (Bld) [Volume fraction] 30.8 % Low 36.0 - 46.0 % [facility] Hemoglobin (Bld) [Mass/Vol] 10.2 g/dL Low 12.0 - 15.0 g/dL [facility] Interpretation and review of laboratory results Abnormal [facility] MCH (RBC) [Entitic mass] 28.8 pg 26.0 - 34.0 pg [facility] MCHC (RBC) [Mass/Vol] 33.2 g/dL 32.0 - 35.9 g/dL [facility] MCV (RBC) [Entitic vol] 87 fL 80 - 100 fL [facility] Platelet mean volume (Bld) [Entitic vol] 7.9 fL 7.5 - 11.2 fL [facility] Platelets (Bld) [#/Vol] 549 10*3/uL High 150 - 400 K/uL [facility] RBC (Bld) [#/Vol] 3.54 10*6/uL Low [facility] WBC (Bld) [#/Vol] 10.9 10*3/uL 4.5 - 11.5 K/uL [facility] Erythrocyte distribution width (RBC) [Ratio] 14.5 % 11.5 - 14.5 % [facility] Hematocrit (Bld) [Volume fraction] 30.6 % Low 36.0 - 46.0 % [facility] Hemoglobin (Bld) [Mass/Vol] 10.0 g/dL Low 12.0 - 15.0 g/dL [facility] Interpretation and review of laboratory results Abnormal [facility] MCH (RBC) [Entitic mass] 28.5 pg 26.0 - 34.0 pg [facility] MCHC (RBC) [Mass/Vol] 32.7 g/dL 32.0 - 35.9 g/dL [facility] MCV (RBC) [Entitic vol] 87 fL 80 - 100 fL [facility] Platelet mean volume (Bld) [Entitic vol] 7.4 fL Low 7.5 - 11.2 fL [facility] Platelets (Bld) [#/Vol] 478 10*3/uL High 150 - 400 K/uL [facility] RBC (Bld) [#/Vol] 3.51 10*6/uL Low [facility] WBC (Bld) [#/Vol] 11.2 10*3/uL 4.5 - 11.5 K/uL [facility] COMPLETE BLOOD COUNTon 07-23 Erythrocyte distribution width (RBC) [Ratio] 14.7 % High 11.5-14.5 [facility] Comment on above: Performed By: #### C BC ####[facility] PATHOLOGY [id number] [place], Hematocrit (Bld) [Volume fraction] 30.8 % Low 36.0-46.0 [facility] Comment on above: Performed By: #### C BC ####[facility] PATHOLOGY [id number] [place], Hemoglobin (Bld) [Mass/Vol] 10.2 g/dL Low 12.0-15.0 [facility] Comment on above: Performed By: #### C BC ####[facility] PATHOLOGY [id number] [place], MCH (RBC) [Entitic mass] 28.8 pg Normal 26.0-34.0 [facility] Comment on above: Performed By: #### C BC ####[facility] PATHOLOGY [id number] [place], MCHC (RBC) [Mass/Vol] 33.2 g/dL Normal 32.0-35.9 [facility] Comment on above: Performed By: #### C BC ####[facility] PATHOLOGY [id number] [place], MCV (RBC) [Entitic vol] 87 fL Normal 80-100 [facility] Comment on above: Performed By: #### C BC ####[facility] PATHOLOGY [id number] [place], Platelet mean volume (Bld) [Entitic vol] 7.9 fL Normal 7.5-11.2 [facility] Comment on above: Performed By: #### C BC ####[facility] PATHOLOGY [id number] [place], Platelets (Bld) [#/Vol] 549 10*3/uL High 150-400 [facility] Comment on above: Performed By: #### C BC ####[facility] PATHOLOGY [id number] [place], RBC (Bld) [#/Vol] 3.54 10*6/uL Low 4.00-5.20 [facility] Comment on above: Performed By: #### C BC ####[facility] PATHOLOGY [id number] [place], WBC (Bld) [#/Vol] 10.9 10*3/uL Normal 4.5-11.5 [facility] Comment on above: Performed By: #### C BC ####[facility] PATHOLOGY [id number] [place], Erythrocyte distribution width (RBC) [Ratio] 14.5 % Normal 11.5-14.5 [facility] Comment on above: Performed By: #### C BC ####[facility] PATHOLOGY [id number] [place], Hematocrit (Bld) [Volume fraction] 30.6 % Low 36.0-46.0 [facility] Comment on above: Performed By: #### C BC ####[facility] PATHOLOGY [id number] [place] [address], Hemoglobin (Bld) [Mass/Vol] 10.0 g/dL Low 12.0-15.0 [facility] Comment on above: Performed By: #### C BC ####[facility] PATHOLOGY [id number] [place], MCH (RBC) [Entitic mass] 28.5 pg Normal 26.0-34.0 [facility] Comment on above: Performed By: #### C BC ####[facility] PATHOLOGY [id number] [place], MCHC (RBC) [Mass/Vol] 32.7 g/dL Normal 32.0-35.9 [facility] Comment on above: Performed By: #### C BC ####[facility] PATHOLOGY [id number] [place], MCV (RBC) [Entitic vol] 87 fL Normal 80-100 [facility] Comment on above: Performed By: #### C BC ####[facility] PATHOLOGY [id number] [place], Platelet mean volume (Bld) [Entitic vol] 7.4 fL Low 7.5-11.2 [facility] Comment on above: Performed By: #### C BC ####[facility] PATHOLOGY [id number] [place], Platelets (Bld) [#/Vol] 478 10*3/uL High 150-400 [facility] Comment on above: Performed By: #### C BC ####[facility] PATHOLOGY [id number] [place], RBC (Bld) [#/Vol] 3.51 10*6/uL Low 4.00-5.20 [facility] Comment on above: Performed By: #### C BC ####[facility] PATHOLOGY [id number] [place], WBC (Bld) [#/Vol] 11.2 10*3/uL Normal 4.5-11.5 [facility] Comment on above: Performed By: #### C BC ####S PATHOLOGY [id number] [place], MAGNESIUMon 07-23-2024 Magnesium [Mass/Vol] 2.1 mg/dL 1.9 - 2 .7 mg/dL [facility] Magnesium [Mass/Vol] 2.1 mg/dL Normal 1.9-2.7 [facility] Comment on above: Performed By: #### C H8, MG, PHOS ####[facility] PATHOLOGY [id number] [place], No Panel Informationon 07-23 Interpretation and review of laboratory results Normal [facility] PARTIAL THROMBOPLASTIN TIMEO rdered By: Iman Lewis on 07-23-2024 aPTT Coag (Bld) [Time] 61 s High [facility] Interpretation and review of laboratory results Abnormal [facility] PARTIAL THROMBOPLASTIN TIMEo n 07-23-2024 aPTT Coag (Bld) [Time] 61 s High 25-37 Th e [facility] Comment on above: Performed By: #### A PTT ####[facility] PATHOLOGY [id number] [place], aPTT Coag (Bld) [Time] 85 s High 25-37 Th e [facility] Comment on above: Performed By: #### A PTT ####[facility] PATHOLOGY [id number] [place], aPTT Coag (Bld) [Time] 33 s Normal 25-37 e [facility] Comment on above: Performed By: #### A PTT ####[facility] PATHOLOGY [id number] [place], PARTIAL THROMBOPLASTIN TIMEO rdered By: Ronaldo He on 07-23-2024 aPTT Coag (Bld) [Time] 85 s High [facility]ation and review of laboratory results [facility] PARTIAL THROMBOPLASTIN TIMEO rdered By: Dian Calderon on 07-23-2024 aPTT Coag (Bld) [Time] 33 s [facility] Interpretation and review of laboratory results Normal [facility] PHOSPHORUSon 07-23-2024 Phosphate [Mass/Vol] 4.8 mg/dL 2.5 - 5 .0 mg/dL [facility] Phosphate [Mass/Vol] 4.8 mg/dL Normal 2.5-5.0 [facility] Comment on above: Performed By: #### C H8, MG, PHOS ####[facility] PATHOLOGY [id number] [place], Progress Noteson 07-23-2024 Spa Experience Coordinator Authentication Interface Message Text Normal [facility] BASIC METABOLIC PANELon 07-10 Anion gap [Moles/Vol] 14 mmol/L Normal 10-20 [facility] Comment on above: Performed By: #### H EPATIC, MG, CH8, PHOS ####[facility] PATHOLOGY [id number] [place], Calcium [Mass/Vol] 7.6 mg/dL Low 8.6-10.3 [facility] Comment on above: Performed By: #### H EPATIC, MG, CH8, PHOS ####[facility] PATHOLOGY [id number] [place], Chloride [Moles/Vol] 101 mmol/L Normal 98-107 [facility] Comment on above: Performed By: #### H EPATIC, MG, CH8, PHOS ####[facility] PATHOLOGY [id number] [place], CO2 [Moles/Vol] 25 mmol/L Normal 21-31 [facility] Comment on above: Performed By: #### H EPATIC, MG, CH8, PHOS ####[facility] PATHOLOGY [id number] [place], Creatinine [Mass/Vol] 0.53 mg/dL Low 0.60-1.20 [facility] Comment on above: Performed By: #### H EPATIC, MG, CH8, PHOS ####[facility] PATHOLOGY [id number] [place], ESTIMATED GFR (CKD-EPI) 127 mL/min/1.73sqm Normal >=60 [facility] Comment on above: Result Comment: 2020 CKD EPI Equation using Creatinine without RaceComment: Estimated glomerular filtration rate (eGFR) is calculated without a race coefficient. Values should be interpreted in the context of the patient's full clinical presentation.Reference:1. Evert C, Gloria M, Jasper GUERRA, et al.. A Unifying Approach for GFR Estimation: Recommendations of the NKF-ASN Task Force on Reassessing the Inclusion of Race in Diagnosing Kidney Disease. [place] Journal of Kidney Diseases 2021;79(2):268-88.e1.2. N Engl J Med 2020 Vol. 385 Issue 19 Pages 2541-7554 Performed By: #### H EPATIC, MG, CH8, PHOS ####[facility] PATHOLOGY [id number] [place], Glucose [Mass/Vol] 110 mg/dL High 74-109 [facility] Comment on above: Performed By: #### H EPATIC, MG, CH8, PHOS ####[facility] PATHOLOGY [id number] [place], Potassium [Moles/Vol] 4.0 mmol/L Normal 3.5-5.0 [facility] Comment on above: Performed By: #### H EPATIC, MG, CH8, PHOS ####[facility] PATHOLOGY [id number] [place], Sodium [Moles/Vol] 136 mmol/L Normal 136-145 [facility] Comment on above: Performed By: #### H MG FRANKLIN CH8, PHOAgustin ####S PATHOLOGY [id number] [place], Urea nitrogen [Mass/Vol] 7 mg/dL Normal 7-25 [facility] Comment on above: Performed By: #### H MG FRANKLIN CH8, PHOAgustin ####S PATHOLOGY [id number] [place], Basic metabolic 2000 panelon 07-22-2024 Anion gap [Moles/Vol] 14 mmol/L 10 - 20 [facility] Calcium [Mass/Vol] 7.6 mg/dL Low 8.6 - 10. 3 mg/dL [facility] Chloride [Moles/Vol] 101 mmol/L 98 - 10 7 mmol/L [facility] CO2 [Moles/Vol] 25 mmol/L 21 - 31 mmol/L [facility] Creatinine [Mass/Vol] 0.53 mg/dL Low 0.60 - 1.20 mg/dL [facility] GFR/1.73 sq M.predicted CKD-EPI (S/P/Bld) [Vol rate/Area] 127 - PINF [facility] Glucose [Mass/Vol] 110 mg/dL High 74 - 109 mg/dL [facility] Potassium [Moles/Vol] 4.0 mmol/L 3.5 - 5.0 mmol/L [facility] Sodium [Moles/Vol] 136 mmol/L 136 - 145 mmol/L [facility] Urea nitrogen [Mass/Vol] 7 mg/dL 7 - 25 mg/dL [facility] CBC panel Auto (Bld)on 07-22 Erythrocyte distribution width (RBC) [Ratio] 14.4 % 11.5 - 14.5 % [facility] Hematocrit (Bld) [Volume fraction] 31.6 % Low 36.0 - 46.0 % [facility] Hemoglobin (Bld) [Mass/Vol] 10.4 g/dL Low 12.0 - 15.0 g/dL [facility] Interpretation and review of laboratory results Abnormal [facility] MCH (RBC) [Entitic mass] 28.6 pg 26.0 - 34.0 pg [facility] MCHC (RBC) [Mass/Vol] 33.0 g/dL 32.0 - 35.9 g/dL [facility] MCV (RBC) [Entitic vol] 87 fL 80 - 100 fL [facility] Platelet mean volume (Bld) [Entitic vol] 7.7 fL 7.5 - 11.2 fL [facility] Platelets (Bld) [#/Vol] 473 10*3/uL High 150 - 400 K/uL [facility] RBC (Bld) [#/Vol] 3.65 10*6/uL Low [facility] WBC (Bld) [#/Vol] 11.1 10*3/uL 4.5 - 11.5 K/uL [facility] Erythrocyte distribution width (RBC) [Ratio] 14.5 % 11.5 - 14.5 % [facility] Hematocrit (Bld) [Volume fraction] 28.7 % Low 36.0 - 46.0 % [facility] Hemoglobin (Bld) [Mass/Vol] 9.6 g/dL Low 12.0 - 15.0 g/dL [facility] Interpretation and review of laboratory results Abnormal [facility] MCH (RBC) [Entitic mass] 29.0 pg 26.0 - 34.0 pg [facility] MCHC (RBC) [Mass/Vol] 33.4 g/dL 32.0 - 35.9 g/dL [facility] MCV (RBC) [Entitic vol] 87 fL 80 - 100 fL [facility] Platelet mean volume (Bld) [Entitic vol] 7.5 fL 7.5 - 11.2 fL [facility] Platelets (Bld) [#/Vol] 393 10*3/uL 150 - 400 K/uL [facility] RBC (Bld) [#/Vol] 3.31 10*6/uL Low [facility] WBC (Bld) [#/Vol] 10.6 10*3/uL 4.5 - 11.5 K/uL [facility] Erythrocyte distribution width (RBC) [Ratio] 14.6 % High 11.5 - 14.5 % [facility] Hematocrit (Bld) [Volume fraction] 27.8 % Low 36.0 - 46.0 % [facility] Hemoglobin (Bld) [Mass/Vol] 9.3 g/dL Low 12.0 - 15.0 g/dL [facility] Interpretation and review of laboratory results [facility] ([facility] [Entitic mass] 28.9 pg 26.0 - 34.0 pg [facility] MCHC (RBC) [Mass/Vol] 33.4 g/dL 32.0 - 35.9 g/dL [facility] MCV (RBC) [Entitic vol] 87 fL 80 - 100 fL [facility] Platelet mean volume (Bld) [Entitic vol] 7.4 fL Low 7.5 - 11.2 fL [facility] Platelets (Bld) [#/Vol] 398 10*3/uL 150 - 400 K/uL [facility] RBC (Bld) [#/Vol] 3.22 10*6/uL [facility] [#/Vol] 10.4 10*3/uL 4.5 - 11.5 K/uL [facility] COMPLETE BLOOD COUNTon 07-22 Erythrocyte distribution width (RBC) [Ratio] 14.4 % Normal 11.5-14.5 [facility] Comment on above: Performed By: #### C BC ####S PATHOLOGY [id number] [place], Hematocrit (Bld) [Volume fraction] 31.6 % Low 36.0-46.0 [facility] Comment on above: Performed By: #### C BC ####[facility] PATHOLOGY [id number] [place], Hemoglobin (Bld) [Mass/Vol] 10.4 g/dL Low 12.0-15.0 [facility] Comment on above: Performed By: #### C BC ####S PATHOLOGY [id number] [place], MCH (RBC) [Entitic mass] 28.6 pg Normal 26.0-34.0 [facility] Comment on above: Performed By: #### C BC ####S PATHOLOGY [id number] [place], MCHC (RBC) [Mass/Vol] 33.0 g/dL Normal 32.0-35.9 [facility] Comment on above: Performed By: #### C BC ####[facility] PATHOLOGY [id number] [place], MCV (RBC) [Entitic vol] 87 fL Normal 80-100 [facility] Comment on above: Performed By: #### C BC ####S PATHOLOGY [id number] [place], Platelet mean volume (Bld) [Entitic vol] 7.7 fL Normal 7.5-11.2 [facility] Comment on above: Performed By: #### C BC ####[facility] PATHOLOGY [id number] [place], [place], Platelets (Bld) [#/Vol] 473 10*3/uL High 150-400 [facility] Comment on above: Performed By: #### C BC ####[facility] PATHOLOGY [id number] [place], RBC (Bld) [#/Vol] 3.65 10*6/uL Low 4.00-5.20 [facility] Comment on above: Performed By: #### C BC ####[facility] PATHOLOGY [id number] [place], WBC (Bld) [#/Vol] 11.1 10*3/uL Normal 4.5-11.5 [facility] Comment on above: Performed By: #### C BC ####[facility] PATHOLOGY [id number] [place], Erythrocyte distribution width (RBC) [Ratio] 14.5 % Normal 11.5-14.5 [facility] Comment on above: Performed By: #### C BC ####[facility] PATHOLOGY [id number] [place], Hematocrit (Bld) [Volume fraction] 28.7 % Low 36.0-46.0 [facility] Comment on above: Performed By: #### C BC ####S PATHOLOGY [id number] [place], Hemoglobin (Bld) [Mass/Vol] 9.6 g/dL Low 12.0-15.0 [facility] Comment on above: Performed By: #### C BC ####S PATHOLOGY [id number] [place], MCH (RBC) [Entitic mass] 29.0 pg Normal 26.0-34.0 [facility] Comment on above: Performed By: #### C BC ####S PATHOLOGY [id number] [place], MCHC (RBC) [Mass/Vol] 33.4 g/dL Normal 32.0-35.9 [facility] Comment on above: Performed By: #### C BC ####[facility] PATHOLOGY [id number] [place], MCV (RBC) [Entitic vol] 87 fL Normal 80-100 [facility] Comment on above: Performed By: #### C BC ####[facility] PATHOLOGY [id number] [place], Platelet mean volume (Bld) [Entitic vol] 7.5 fL Normal 7.5-11.2 [facility] Comment on above: Performed By: #### C BC ####[facility] PATHOLOGY [id number] [place], Platelets (Bld) [#/Vol] 393 10*3/uL Normal 150-400 [facility] Comment on above: Performed By: #### C BC ####[facility] PATHOLOGY [id number] [place], RBC (Bld) [#/Vol] 3.31 10*6/uL Low 4.00-5.20 [facility] Comment on above: Performed By: #### C BC ####[facility] PATHOLOGY [id number] [place], WBC (Bld) [#/Vol] 10.6 10*3/uL Normal 4.5-11.5 [facility] Comment on above: Performed By: #### C BC ####S PATHOLOGY [id number] [place], Erythrocyte distribution width (RBC) [Ratio] 14.6 % High 11.5-14.5 [facility] Comment on above: Performed By: #### C BC ####[facility] PATHOLOGY [id number] [place], Hematocrit (Bld) [Volume fraction] 27.8 % Low 36.0-46.0 [facility] Comment on above: Performed By: #### C BC ####[facility] PATHOLOGY [id number] [place], Hemoglobin (Bld) [Mass/Vol] 9.3 g/dL Low 12.0-15.0 [facility] Comment on above: Performed By: #### C BC ####[facility] PATHOLOGY [id number] [place], MCH (RBC) [Entitic mass] 28.9 pg Normal 26.0-34.0 [facility] Comment on above: Performed By: #### C BC ####[facility] PATHOLOGY [id number] [place], MCHC (RBC) [Mass/Vol] 33.4 g/dL Normal 32.0-35.9 [facility] Comment on above: Performed By: #### C BC ####[facility] PATHOLOGY [id number] [place], MCV (RBC) [Entitic vol] 87 fL Normal 80-100 [facility] Comment on above: Performed By: #### C BC ####[facility] PATHOLOGY [id number] [place], Platelet mean volume (Bld) [Entitic vol] 7.4 fL Low 7.5-11.2 [facility] Comment on above: Performed By: #### C BC ####[facility] PATHOLOGY [id number] [place], Platelets (Bld) [#/Vol] 398 10*3/uL Normal 150-400 [facility] Comment on above: Performed By: #### C BC ####[facility] PATHOLOGY [id number] [place], RBC (Bld) [#/Vol] 3.22 10*6/uL Low 4.00-5.20 [facility] Comment on above: Performed By: #### C BC ####S PATHOLOGY [id number] [place], WBC (Bld) [#/Vol] 10.4 10*3/uL Normal 4.5-11.5 [facility] Comment on above: Performed By: #### C BC ####S PATHOLOGY [id number] [place], [place], CT Guidance for drainage of abscess and placement of drainage catheter of Peritoneal spaceon 07-22-2024 Radiology Study observation (narrative) [facility] HEPATIC FUNCTION PANELon Albumin [Mass/Vol] 2.6 g/dL Low 3.5 - 5.7 g/dL [facility] ALP [Catalytic activity/Vol] 120 U/L High [facility] ALT [Catalytic activity/Vol] 120 U/L High [facility] AST [Catalytic activity/Vol] 30 U/L [facility] Bilirubin [Mass/Vol] 0.8 mg/dL 0.3 - 1 .0 mg/dL [facility] Bilirubin.direct [Mass/Vol] 0.20 mg/dL High 0.03 - 0.18 mg/dL [facility] Protein [Mass/Vol] 5.1 g/dL Low 6.0 - 8.3 g/dL [facility] Albumin [Mass/Vol] 2.6 g/dL Low 3.5-5.7 [facility] Comment on above: Performed By: #### H MG NOEMI CH8, PHOS ####S PATHOLOGY [id number] [place], ALK 120 IU/L High 34-104 [facility] Comment on above: Performed By: #### H MG NOEMI CH8, PHOS ####[facility] [id number] [place], ALT [Catalytic activity/Vol] 120 U/L High 7-52 [facility] Comment on above: Performed By: #### H MG NOEMI, CH8, PHOS ####S PATHOLOGY [id number] [place], AST [Catalytic activity/Vol] 30 U/L Normal 13-39 [facility] Comment on above: Performed By: #### H NOEMI MG, CH8, PHOS ####[facility] [id number] [place], Bilirubin [Mass/Vol] 0.8 mg/dL Normal 0.3-1.0 [facility] Comment on above: Performed By: #### H NOEMI MG, CH8, PHOS ####[facility] [id number] [place], Bilirubin.direct [Mass/Vol] 0.20 mg/dL High 0.03-0.18 [facility] Comment on above: Performed By: #### H NOEMI MG, CH8, PHOS ####[facility] [id number] [place], Protein [Mass/Vol] 5.1 g/dL Low 6.0-8.3 [facility] Comment on above: Performed By: #### H NOEMI MG, CH8, PHOS ####[facility] [id number] [place], Laboratory - Blood bankon ABO and Rh group Nom (Bld) Blood group A Rh(D) negative [facility] MAGNESIUMon 07-22-2024 Magnesium [Mass/Vol] 2.1 mg/dL 1.9 - 2 .7 mg/dL [facility] Magnesium [Mass/Vol] 2.1 mg/dL Normal 1.9-2.7 [facility] Comment on above: Performed By: #### H NOEMI MG, CH8, PHOS ####[facility] [id number] [place], No Panel Informationon 07-22 Interpretation and review of laboratory results Abnormal [facility] Interpretation and review of laboratory results Normal [facility] PHOSPHORUSon 07-22-2024 Phosphate [Mass/Vol] 4.8 mg/dL 2.5 - 5 .0 mg/dL [facility] Phosphate [Mass/Vol] 4.8 mg/dL Normal 2.5-5.0 [facility] Comment on above: Performed By: #### H EPATIC, MG, CH8, PHOS ####[facility] [id number] [place], Post-Procedure Noteon 2023 [employer] Experience Coordinator Authentication Interface Message Text Normal [facility] Pre-Procedure Noteon 024 [employer] Experience Coordinator Authentication Interface Message Text Normal [facility] Progress Noteson 07-22-2024 Spa Experience Coordinator Authentication Interface Message Text Normal [facility] TYPE AND SCREENon 07-22-2024 Blood group antibody screen Ql Negative [facility] ABO and Rh group Nom (Bld) Blood group A Rh(D) negative Normal [facility] Comment on above: Performed By: #### T S ####[facility] [id number] [place], ABSC INT Negative Normal [facility] Comment on above: Performed By: #### T S ####[facility] [id number] [place], URINE HCG-IN OFFICEOrdered B y: Jacinda Srivastava on 07-22-2024 HCG ( test) Ql (U) Negative Negative [facility] Phone: Interpretation and review of laboratory results Normal [facility] Work Phone: Negative Internal Control Negative Negative [facility] Phone: Positive Internal Control Positive Positive [facility] Work Phone: [facility] Work Phone: BASIC METABOLIC PANELon 07-10 Anion gap [Moles/Vol] 11 mmol/L Normal 10-20 [facility] Comment on above: Performed By: #### C H8, MG, PHOS ####[facility] PATH[facility] [id number] [place], Calcium [Mass/Vol] 7.8 mg/dL Low 8.6-10.3 [facility] Comment on above: Performed By: #### C H8, MG, PHOS ####[facility] PATH[facility] [id number] [place], Chloride [Moles/Vol] 102 mmol/L Normal 98-107 [facility] Comment on above: Performed By: #### MG Lou PHOS ####[facility] PATH[facility]Y [id number] [place], CO2 [Moles/Vol] 26 mmol/L Normal 21-31 [facility] Comment on above: Performed By: #### MG Lou PHOS ####[facility] PATH[facility]Y [id number] [place], Creatinine [Mass/Vol] 0.55 mg/dL Low 0.60-1.20 [facility] Comment on above: Performed By: #### MG Lou PHOS ####[facility] PATH[facility] [id number] [place], ESTIMATED GFR (CKD-EPI) 126 mL/min/1.73sqm Normal >=60 [facility] Comment on above: Result Comment: 2020 CKD EPI Equation using Creatinine without RaceComment: Estimated glomerular filtration rate (eGFR) is calculated without a race coefficient. Values should be interpreted in the context of the patient's full clinical presentation.Reference:1. Evert C, Bashakira M, Jasper DC, et al.. A Unifying Approach for GFR Estimation: Recommendations of the NKF-ASN Task Force on Reassessing the Inclusion of Race in Diagnosing Kidney Disease. [place] Journal of Kidney Diseases 2021;79(2):268-88.e1.2. N Engl J Med 2020 Vol. 385 Issue 19 Pages 9831-4049 Performed By: #### MG Lou PHOS ####[facility] [id number] [place], Glucose [Mass/Vol] 115 mg/dL High 74-109 [facility] Comment on above: Performed By: #### MG Lou PHOS ####[facility] [id number] [place], Potassium [Moles/Vol] 4.3 mmol/L Normal 3.5-5.0 [facility] Comment on above: Performed By: #### MG Lou PHOS ####[facility] [id number] [place], Sodium [Moles/Vol] 135 mmol/L Low 136-145 [facility] Comment on above: Performed By: #### MG Lou PHOS ####[facility] PATH[facility] [id number] [place], Urea nitrogen [Mass/Vol] 7 mg/dL Normal 7-25 [facility] Comment on above: Performed By: #### MG Lou PHOS ####[facility] PATH[facility] [id number] [place], Basic metabolic 2000 panelon 07-21-2024 Anion gap [Moles/Vol] 11 mmol/L 10 - 20 [facility] Calcium [Mass/Vol] 7.8 mg/dL Low 8.6 - 10. 3 mg/dL [facility] Chloride [Moles/Vol] 102 mmol/L 98 - 10 7 mmol/L [facility] CO2 [Moles/Vol] 26 mmol/L 21 - 31 mmol/L [facility] Creatinine [Mass/Vol] 0.55 mg/dL Low 0.60 - 1.20 mg/dL [facility] GFR/1.73 sq M.predicted CKD-EPI (S/P/Bld) [Vol rate/Area] 126 - PINF [facility] Glucose [Mass/Vol] 115 mg/dL High 74 - 109 mg/dL [facility] Interpretation and review of laboratory results Abnormal [facility] Potassium [Moles/Vol] 4.3 mmol/L 3.5 - 5.0 mmol/L [facility] Sodium [Moles/Vol] 135 mmol/L Low 136 - 145 mmol/L [facility] Urea nitrogen [Mass/Vol] 7 mg/dL 7 - 25 mg/dL [facility] CBC panel Auto (Bld)on 07-21 Erythrocyte distribution width (RBC) [Ratio] 14.4 % 11.5 - 14.5 % [facility] Hematocrit (Bld) [Volume fraction] 30.9 % Low 36.0 - 46.0 % [facility] Hemoglobin (Bld) [Mass/Vol] 10.5 g/dL Low 12.0 - 15.0 g/dL [facility] Interpretation and review of laboratory results Abnormal [facility] MCH (RBC) [Entitic mass] 29.2 pg 26.0 - 34.0 pg [facility] MCHC (RBC) [Mass/Vol] 33.8 g/dL 32.0 - 35.9 g/dL [facility] MCV (RBC) [Entitic vol] 86 fL 80 - 100 fL [facility] Platelet mean volume (Bld) [Entitic vol] 7.8 fL 7.5 - 11.2 fL [facility] Platelets (Bld) [#/Vol] 401 10*3/uL High 150 - 400 K/uL [facility] RBC (Bld) [#/Vol] 3.59 10*6/uL Low [facility] WBC (Bld) [#/Vol] 11.0 10*3/uL 4.5 - 11.5 K/uL [facility] Erythrocyte distribution width (RBC) [Ratio] 14.0 % 11.5 - 14.5 % [facility] Hematocrit (Bld) [Volume fraction] 31.0 % Low 36.0 - 46.0 % [facility] Hemoglobin (Bld) [Mass/Vol] 10.3 g/dL Low 12.0 - 15.0 g/dL [facility] Interpretation and review of laboratory results Abnormal [facility] MCH (RBC) [Entitic mass] 28.8 pg 26.0 - 34.0 pg [facility] MCHC (RBC) [Mass/Vol] 33.3 g/dL 32.0 - 35.9 g/dL [facility] MCV (RBC) [Entitic vol] 87 fL 80 - 100 fL [facility] Platelet mean volume (Bld) [Entitic vol] 7.9 fL 7.5 - 11.2 fL [facility] Platelets (Bld) [#/Vol] 393 10*3/uL 150 - 400 K/uL [facility] RBC (Bld) [#/Vol] 3.58 10*6/uL Low [facility] WBC (Bld) [#/Vol] 11.2 10*3/uL 4.5 - 11.5 K/uL [facility] Erythrocyte distribution width (RBC) [Ratio] 14.2 % 11.5 - 14.5 % [facility] Hematocrit (Bld) [Volume fraction] 29.5 % Low 36.0 - 46.0 % [facility] Hemoglobin (Bld) [Mass/Vol] 9.8 g/dL Low 12.0 - 15.0 g/dL [facility] Interpretation and review of laboratory results [facility] MCH (RBC) [Entitic mass] 28.9 pg 26.0 - 34.0 pg [facility] MCHC (RBC) [Mass/Vol] 33.0 g/dL 32.0 - 35.9 g/dL [facility] MCV (RBC) [Entitic vol] 88 fL 80 - 100 fL [facility] Platelet mean volume (Bld) [Entitic vol] 7.8 fL 7.5 - 11.2 fL [facility] Platelets (Bld) [#/Vol] 381 10*3/uL 150 - 400 K/uL [facility] RBC (Bld) [#/Vol] 3.38 10*6/uL Low [facility] WBC (Bld) [#/Vol] 10.7 10*3/uL 4.5 - 11.5 K/uL [facility] COMPLETE BLOOD COUNTon 07-21 Erythrocyte distribution width (RBC) [Ratio] 14.4 % Normal 11.5-14.5 [facility] Comment on above: Performed By: #### C BC ####S PATHOLOGY [id number] [place], Hematocrit (Bld) [Volume fraction] 30.9 % Low 36.0-46.0 [facility] Comment on above: Performed By: #### C BC ####S PATHOLOGY [id number] [place], Hemoglobin (Bld) [Mass/Vol] 10.5 g/dL Low 12.0-15.0 [facility] Comment on above: Performed By: #### C BC ####S PATHOLOGY [id number] [place], MCH (RBC) [Entitic mass] 29.2 pg Normal 26.0-34.0 [facility] Comment on above: Performed By: #### C BC ####S PATHOLOGY [id number] [place], MCHC (RBC) [Mass/Vol] 33.8 g/dL Normal 32.0-35.9 [facility] Comment on above: Performed By: #### C BC ####[facility] PATHOLOGY [id number] [place], MCV (RBC) [Entitic vol] 86 fL Normal 80-100 [facility] Comment on above: Performed By: #### C BC ####[facility] PATHOLOGY [id number] [place], Platelet mean volume (Bld) [Entitic vol] 7.8 fL Normal 7.5-11.2 [facility] Comment on above: Performed By: #### C BC ####[facility] PATHOLOGY [id number] [place], Platelets (Bld) [#/Vol] 401 10*3/uL High 150-400 [facility] Comment on above: Performed By: #### C BC ####[facility] PATHOLOGY [id number] [place] [address], RBC (Bld) [#/Vol] 3.59 10*6/uL Low 4.00-5.20 [facility] Comment on above: Performed By: #### C BC ####[facility] PATHOLOGY [id number] [place] [address], WBC (Bld) [#/Vol] 11.0 10*3/uL Normal 4.5-11.5 [facility] Comment on above: Performed By: #### C BC ####[facility] PATHOLOGY [id number] [place] [address], Erythrocyte distribution width (RBC) [Ratio] 14.0 % Normal 11.5-14.5 [facility] Comment on above: Performed By: #### C BC ####[facility] PATHOLOGY [id number] [place], Hematocrit (Bld) [Volume fraction] 31.0 % Low 36.0-46.0 [facility] Comment on above: Performed By: #### C BC ####[facility] PATHOLOGY [id number] [place], Hemoglobin (Bld) [Mass/Vol] 10.3 g/dL Low 12.0-15.0 [facility] Comment on above: Performed By: #### C BC ####[facility] PATHOLOGY [id number] [place], MCH (RBC) [Entitic mass] 28.8 pg Normal 26.0-34.0 [facility] Comment on above: Performed By: #### C BC ####[facility] PATHOLOGY [id number] [place], MCHC (RBC) [Mass/Vol] 33.3 g/dL Normal 32.0-35.9 [facility] Comment on above: Performed By: #### C BC ####[facility] PATHOLOGY [id number] [place], MCV (RBC) [Entitic vol] 87 fL Normal 80-100 [facility] Comment on above: Performed By: #### C BC ####[facility] PATHOLOGY [id number] [place], Platelet mean volume (Bld) [Entitic vol] 7.9 fL Normal 7.5-11.2 [facility] Comment on above: Performed By: #### C BC ####[facility] PATHOLOGY [id number] [place], Platelets (Bld) [#/Vol] 393 10*3/uL Normal 150-400 [facility] Comment on above: Performed By: #### C BC ####[facility] PATHOLOGY [id number] [place], RBC (Bld) [#/Vol] 3.58 10*6/uL Low 4.00-5.20 [facility] Comment on above: Performed By: #### C BC ####[facility] PATHOLOGY [id number] [place], WBC (Bld) [#/Vol] 11.2 10*3/uL Normal 4.5-11.5 [facility] Comment on above: Performed By: #### C BC ####[facility] PATHOLOGY [id number] [place], Erythrocyte distribution width (RBC) [Ratio] 14.2 % Normal 11.5-14.5 [facility] Comment on above: Performed By: #### C BC ####[facility] PATHOLOGY [id number] [place] [address], Hematocrit (Bld) [Volume fraction] 29.5 % Low 36.0-46.0 [facility] Comment on above: Performed By: #### C BC ####[facility] PATHOLOGY [id number] [place] [address], Hemoglobin (Bld) [Mass/Vol] 9.8 g/dL Low 12.0-15.0 [facility] Comment on above: Performed By: #### C BC ####[facility] PATHOLOGY [id number] [place] [address], MCH (RBC) [Entitic mass] 28.9 pg Normal 26.0-34.0 [facility] Comment on above: Performed By: #### C BC ####[facility] PATHOLOGY [id number] [place] [address], MCHC (RBC) [Mass/Vol] 33.0 g/dL Normal 32.0-35.9 [facility] Comment on above: Performed By: #### C BC ####[facility] PATHOLOGY [id number] [place] [address], MCV (RBC) [Entitic vol] 88 fL Normal 80-100 [facility] Comment on above: Performed By: #### C BC ####[facility] PATHOLOGY [id number] [place] [address], Platelet mean volume (Bld) [Entitic vol] 7.8 fL Normal 7.5-11.2 [facility] Comment on above: Performed By: #### C BC ####[facility] PATHOLOGY [id number] [place] [address], Platelets (Bld) [#/Vol] 381 10*3/uL Normal 150-400 [facility] Comment on above: Performed By: #### C BC ####[facility] PATHOLOGY [id number] [place] [address], RBC (Bld) [#/Vol] 3.38 10*6/uL Low 4.00-5.20 [facility] Comment on above: Performed By: #### C BC ####S PATHOLOGY [id number] [place], WBC (Bld) [#/Vol] 10.7 10*3/uL Normal 4.5-11.5 [facility] Comment on above: Performed By: #### C BC ####[facility] PATHOLOGY [id number] [place], [place] ABDOMEN/PELVIS W/ CONTRAS Ton 07-21-2024 CT ABDOMEN/PELVIS W/ CONTRAST Normal [facility] CT Abdomen and Pelvis W cont rast Gay 07-21-[address] CT DLP 688.58 (mGy.cm) [facility] Series Topogram,ABD PEL WITH [facility] CTDI VOL 0.03 (mGy),11.70 (mGy) [facility] PHANTOM TYPE IEC Body Dosimetry Phantom,IEC Body Dosimetry Phantom [facility] RADIOLOGY [facility] CT HEAD W/O CONTRASTon 07-21 CT HEAD W/O CONTRAST Normal [facility] CT Head WO contrastOrdered B y: Pollo Quezada on 07-21-2024 CT DLP 545.85 (mGy.cm) [facility] Work Phone: CT Series Topogram,HEAD WO [facility] Work Phone: CTDI VOL 0.19 (mGy),31.91 (mGy) [facility] Work Phone: PHANTOM TYPE IEC Head Dosimetry Phantom,IEC Head Dosimetry Phantom [facility] Work Phone: [facility] Work Phone: CT Head WO contraston 2023 RADIOLOGY [facility] Consultson 07-21-2024 Spa Experience Coordinator Authentication Interface Message Text Normal [facility] [employer] Coordinator Authentication Interface Message Text Normal [facility] MAGNESIUMon 07-21-2024 Magnesium [Mass/Vol] 2.0 mg/dL 1.9 - 2 .7 mg/dL [facility] Magnesium [Mass/Vol] 2.0 mg/dL Normal 1.9-2.7 [facility] Comment on above: Performed By: #### C MG Lele PHOS ####[facility] [id number] [place], No Panel Informationon 07-21 Radiology Study observation (narrative) [facility] Interpretation and review of laboratory results Normal [facility] PARTIAL THROMBOPLASTIN TIMEO rdered By: Kelly Hagen on 07-21-2024 aPTT Coag (Bld) [Time] 61 s High [facility] Interpretation and review of laboratory results Abnormal [facility] PARTIAL THROMBOPLASTIN TIMEo n 07-21-2024 aPTT Coag (Bld) [Time] 61 s High 25-37 Th [facility] Comment on above: Performed By: #### A PTT ####[facility] [id number] [place], aPTT Coag (Bld) [Time] 105 s Critically high [facility] Interpretation and review of laboratory results Abnormal [facility] aPTT Coag (Bld) [Time] 105 s Critically high 25-37 [facility] Comment on above: Performed By: #### A PTT ####[facility] [id number] [place], aPTT Coag (Bld) [Time] 38 s High [facility] Interpretation and review of laboratory results Abnormal [facility] aPTT Coag (Bld) [Time] 38 s High 25-37 Th e [facility] Comment on above: Performed By: #### A PTT ####[facility] [id number] [place], PHOSPHORUSon 07-21-2024 Phosphate [Mass/Vol] 4.5 mg/dL 2.5 - 5 .0 mg/dL [facility] Phosphate [Mass/Vol] 4.5 mg/dL Normal 2.5-5.0 [facility] Comment on above: Performed By: #### Chin HNilo, [place], PHOS ####[facility] [id number] [place], [place], Progress Noteson 07-21-2024 Spa Experience Coordinator Authentication Interface Message Text I have reviewed and agree with Jenna Wheeler's (Student Nurse) documentation for [id number] shift. Normal [facility] Spa Experience Coordinator Authentication Interface Message Text Normal [facility] BASIC METABOLIC PANELon 07-10 Anion gap [Moles/Vol] 14 mmol/L Normal 10-20 [facility] Comment on above: Performed By: #### P HOS, MG, CH8 ####[facility] PATH[facility] [id number] [place], [place], Calcium [Mass/Vol] 7.7 mg/dL Low 8.6-10.3 [facility] Comment on above: Performed By: #### P HOS, MG, CH8 ####[facility] PATH[facility] [id number] [place], [place], Chloride [Moles/Vol] 103 mmol/L Normal 98-107 [facility] Comment on above: Performed By: #### P HOS, MG, CH8 ####[facility] PATH[facility] [id number] [place], CO2 [Moles/Vol] 24 mmol/L Normal 21-31 [facility] Comment on above: Performed By: #### P HOS, MG, CH8 ####[facility] PATH[facility] [id number] [place], Creatinine [Mass/Vol] 0.49 mg/dL Low 0.60-1.20 [facility] Comment on above: Performed By: #### P HOS, MG, CH8 ####[facility] [id number] [place], ESTIMATED GFR (CKD-EPI) 129 mL/min/1.73sqm Normal >=60 [facility] Comment on above: Result Comment: 2020 CKD EPI Equation using Creatinine without RaceComment: Estimated glomerular filtration rate (eGFR) is calculated without a race coefficient. Values should be interpreted in the context of the patient's full clinical presentation.Reference:1. Evert C, Gloria M, Jasper DC, et al.. A Unifying Approach for GFR Estimation: Recommendations of the NKF-ASN Task Force on Reassessing the Inclusion of Race in Diagnosing Kidney Disease. [place] Journal of Kidney Diseases 2021;79(2):268-88.e1.2. N Engl J Med 1 Vol. 385 Issue 19 Pages 4673-9470 Performed By: #### P HOS MG, CH8 ####[facility] [id number] [place], Glucose [Mass/Vol] 111 mg/dL High 74-109 [facility] Comment on above: Performed By: #### P HOS MG, CH8 ####[facility] [id number] [place], Potassium [Moles/Vol] 4.1 mmol/L Normal 3.5-5.0 [facility] Comment on above: Performed By: #### P HOS MG, CH8 ####[facility] [id number] [place], Sodium [Moles/Vol] 137 mmol/L Normal 136-145 [facility] Comment on above: Performed By: #### P HOS, MG, CH8 ####[facility] [id number] [place], Urea nitrogen [Mass/Vol] 9 mg/dL Normal 7-25 [facility] Comment on above: Performed By: #### P HOS MG, CH8 ####[facility] [id number] [place], Basic metabolic 2000 panelon 2024 Anion gap [Moles/Vol] 14 mmol/L 10 - 20 [facility] Calcium [Mass/Vol] 7.7 mg/dL Low 8.6 - 10. 3 mg/dL [facility] Chloride [Moles/Vol] 103 mmol/L 98 - 10 7 mmol/L [facility] CO2 [Moles/Vol] 24 mmol/L 21 - 31 mmol/L [facility] Creatinine [Mass/Vol] 0.49 mg/dL Low 0.60 - 1.20 mg/dL [facility] GFR/1.73 sq M.predicted CKD-EPI (S/P/Bld) [Vol rate/Area] 129 - PINF [facility] Glucose [Mass/Vol] 111 mg/dL High 74 - 109 mg/dL [facility] Interpretation and review of laboratory results Abnormal [facility] Potassium [Moles/Vol] 4.1 mmol/L 3.5 - 5.0 mmol/L [facility] Sodium [Moles/Vol] 137 mmol/L 136 - 145 mmol/L [facility] Urea nitrogen [Mass/Vol] 9 mg/dL 7 - 25 mg/dL [facility] CBC panel Auto (Bld)on 07-20 Erythrocyte distribution width (RBC) [Ratio] 14.3 % 11.5 - 14.5 % [facility] Hematocrit (Bld) [Volume fraction] 31.9 % Low 36.0 - 46.0 % [facility] Hemoglobin (Bld) [Mass/Vol] 10.4 g/dL Low 12.0 - 15.0 g/dL [facility] Interpretation and review of laboratory results Abnormal [facility] MCH (RBC) [Entitic mass] 28.8 pg 26.0 - 34.0 pg [facility] MCHC (RBC) [Mass/Vol] 32.7 g/dL 32.0 - 35.9 g/dL [facility] MCV (RBC) [Entitic vol] 88 fL 80 - 100 fL [facility] Platelet mean volume (Bld) [Entitic vol] 7.8 fL 7.5 - 11.2 fL [facility] Platelets (Bld) [#/Vol] 433 10*3/uL High 150 - 400 K/uL [facility] RBC (Bld) [#/Vol] 3.62 10*6/uL Low [facility] WBC (Bld) [#/Vol] 11.8 10*3/uL High 4.5 - 11.5 K/uL [facility] Erythrocyte distribution width (RBC) [Ratio] 14.3 % 11.5 - 14.5 % [facility] Hematocrit (Bld) [Volume fraction] 30.2 % Low 36.0 - 46.0 % [facility] Hemoglobin (Bld) [Mass/Vol] 10.4 g/dL Low 12.0 - 15.0 g/dL [facility] Interpretation and review of laboratory results Abnormal [facility] MCH (RBC) [Entitic mass] 30.2 pg 26.0 - 34.0 pg [facility] MCHC (RBC) [Mass/Vol] 34.5 g/dL 32.0 - 35.9 g/dL [facility] MCV (RBC) [Entitic vol] 88 fL 80 - 100 fL [facility] Platelet mean volume (Bld) [Entitic vol] 7.5 fL 7.5 - 11.2 fL [facility] Platelets (Bld) [#/Vol] 492 10*3/uL High 150 - 400 K/uL [facility] RBC (Bld) [#/Vol] 3.45 10*6/uL Low [facility] WBC (Bld) [#/Vol] 9.9 10*3/uL 4.5 - 11.5 K/uL [facility] Erythrocyte distribution width (RBC) [Ratio] 14.2 % 11.5 - 14.5 % [facility] Hematocrit (Bld) [Volume fraction] 28.2 % Low 36.0 - 46.0 % [facility] Hemoglobin (Bld) [Mass/Vol] 9.6 g/dL Low 12.0 - 15.0 g/dL [facility] Interpretation and review of laboratory results Abnormal [facility] MCH (RBC) [Entitic mass] 29.6 pg 26.0 - 34.0 pg [facility] MCHC (RBC) [Mass/Vol] 33.9 g/dL 32.0 - 35.9 g/dL [facility] MCV (RBC) [Entitic vol] 87 fL 80 - 100 fL [facility] Platelet mean volume (Bld) [Entitic vol] 7.4 fL Low 7.5 - 11.2 fL [facility] Platelets (Bld) [#/Vol] 421 10*3/uL High 150 - 400 K/uL [facility] RBC (Bld) [#/Vol] 3.23 10*6/uL Low [facility] WBC (Bld) [#/Vol] 9.2 10*3/uL 4.5 - 11.5 K/uL [facility] Erythrocyte distribution width (RBC) [Ratio] 14.3 % 11.5 - 14.5 % [facility] Hematocrit (Bld) [Volume fraction] 28.3 % Low 36.0 - 46.0 % [facility] Hemoglobin (Bld) [Mass/Vol] 9.5 g/dL Low 12.0 - 15.0 g/dL [facility] Interpretation and review of laboratory results Abnormal [facility] MCH (RBC) [Entitic mass] 29.3 pg 26.0 - 34.0 pg [facility] MCHC (RBC) [Mass/Vol] 33.5 g/dL 32.0 - 35.9 g/dL [facility] MCV (RBC) [Entitic vol] 88 fL 80 - 100 fL [facility] Platelet mean volume (Bld) [Entitic vol] 7.6 fL 7.5 - 11.2 fL [facility] Platelets (Bld) [#/Vol] 394 10*3/uL 150 - 400 K/uL [facility] RBC (Bld) [#/Vol] 3.24 10*6/uL [facility]ld[facility] [#/Vol] 9.4 10*3/uL 4.5 - 11.5 K/uL [facility] COMPLETE BLOOD COUNTon 07-20 Erythrocyte distribution width (RBC) [Ratio] 14.3 % Normal 11.5-14.5 [facility] Comment on above: Performed By: #### C BC ####S PATHOLOGY [id number] [place] [address], Hematocrit (Bld) [Volume fraction] 31.9 % Low 36.0-46.0 [facility] Comment on above: Performed By: #### C BC ####[facility] PATHOLOGY [id number] [place] [address], Hemoglobin (Bld) [Mass/Vol] 10.4 g/dL Low 12.0-15.0 [facility] Comment on above: Performed By: #### C BC ####S PATHOLOGY [id number] [place] [address], MCH (RBC) [Entitic mass] 28.8 pg Normal 26.0-34.0 [facility] Comment on above: Performed By: #### C BC ####S PATHOLOGY [id number] [place] [address], MCHC (RBC) [Mass/Vol] 32.7 g/dL Normal 32.0-35.9 [facility] Comment on above: Performed By: #### C BC ####S PATHOLOGY [id number] [place] [address], MCV (RBC) [Entitic vol] 88 fL Normal 80-100 [facility] Comment on above: Performed By: #### C BC ####[facility] PATHOLOGY [id number] [place] [address], Platelet mean volume (Bld) [Entitic vol] 7.8 fL Normal 7.5-11.2 [facility] Comment on above: Performed By: #### C BC ####[facility] PATHOLOGY [id number] [place] [address], Platelets (Bld) [#/Vol] 433 10*3/uL High 150-400 [facility] Comment on above: Performed By: #### C BC ####[facility] PATHOLOGY [id number] [place] [address], RBC (Bld) [#/Vol] 3.62 10*6/uL Low 4.00-5.20 [facility] Comment on above: Performed By: #### C BC ####[facility] PATHOLOGY [id number] [place] [address], WBC (Bld) [#/Vol] 11.8 10*3/uL High 4.5-11.5 [facility] Comment on above: Performed By: #### C BC ####[facility] PATHOLOGY [id number] [place] [address], Erythrocyte distribution width (RBC) [Ratio] 14.3 % Normal 11.5-14.5 [facility] Comment on above: Performed By: #### C BC ####[facility] PATHOLOGY [id number] [place], Hematocrit (Bld) [Volume fraction] 30.2 % Low 36.0-46.0 [facility] Comment on above: Performed By: #### C BC ####[facility] PATHOLOGY [id number] [place], Hemoglobin (Bld) [Mass/Vol] 10.4 g/dL Low 12.0-15.0 [facility] Comment on above: Performed By: #### C BC ####[facility] PATHOLOGY [id number] [place], MCH (RBC) [Entitic mass] 30.2 pg Normal 26.0-34.0 [facility] Comment on above: Performed By: #### C BC ####[facility] PATHOLOGY [id number] [place], MCHC (RBC) [Mass/Vol] 34.5 g/dL Normal 32.0-35.9 [facility] Comment on above: Performed By: #### C BC ####[facility] PATHOLOGY [id number] [place], MCV (RBC) [Entitic vol] 88 fL Normal 80-100 [facility] Comment on above: Performed By: #### C BC ####[facility] PATHOLOGY [id number] [place] [address], Platelet mean volume (Bld) [Entitic vol] 7.5 fL Normal 7.5-11.2 [facility] Comment on above: Performed By: #### C BC ####[facility] PATHOLOGY [id number] [place] [address], Platelets (Bld) [#/Vol] 492 10*3/uL High 150-400 [facility] Comment on above: Performed By: #### C BC ####[facility] PATHOLOGY [id number] [place], RBC (Bld) [#/Vol] 3.45 10*6/uL Low 4.00-5.20 [facility] Comment on above: Performed By: #### C BC ####[facility] PATHOLOGY [id number] [place] [address], WBC (Bld) [#/Vol] 9.9 10*3/uL Normal 4.5-11.5 [facility] Comment on above: Performed By: #### C BC ####[facility] PATHOLOGY [id number] [place], Erythrocyte distribution width (RBC) [Ratio] 14.2 % Normal 11.5-14.5 [facility] Comment on above: Performed By: #### C BC ####[facility] JIGRANPUNJ6694 [place], Hematocrit (Bld) [Volume fraction] 28.2 % Low 36.0-46.0 [facility] Comment on above: Performed By: #### C BC ####[facility] PATHOLOGY [id number] [place], Hemoglobin (Bld) [Mass/Vol] 9.6 g/dL Low 12.0-15.0 [facility] Comment on above: Performed By: #### C BC ####[facility] PATHOLOGY [id number] [place], MCH (RBC) [Entitic mass] 29.6 pg Normal 26.0-34.0 [facility] Comment on above: Performed By: #### C BC ####[facility] PATHOLOGY [id number] [place], MCHC (RBC) [Mass/Vol] 33.9 g/dL Normal 32.0-35.9 [facility] Comment on above: Performed By: #### C BC ####[facility] PATHOLOGY [id number] [place], MCV (RBC) [Entitic vol] 87 fL Normal 80-100 [facility] Comment on above: Performed By: #### C BC ####[facility] PATHOLOGY [id number] [place], Platelet mean volume (Bld) [Entitic vol] 7.4 fL Low 7.5-11.2 [facility] Comment on above: Performed By: #### C BC ####[facility] PATHOLOGY [id number] [place], Platelets (Bld) [#/Vol] 421 10*3/uL High 150-400 [facility] Comment on above: Performed By: #### C BC ####[facility] PATHOLOGY [id number] [place], RBC (Bld) [#/Vol] 3.23 10*6/uL Low 4.00-5.20 [facility] Comment on above: Performed By: #### C BC ####[facility] [id number] [place], WBC (Bld) [#/Vol] 9.2 10*3/uL Normal 4.5-11.5 [facility] Comment on above: Performed By: #### C BC ####[facility] PATHOLOGY [id number] [place], Erythrocyte distribution width (RBC) [Ratio] 14.3 % Normal 11.5-14.5 [facility] Comment on above: Performed By: #### C BC ####[facility] PATHOLOGY [id number] [place] [address], Hematocrit (Bld) [Volume fraction] 28.3 % Low 36.0-46.0 [facility] Comment on above: Performed By: #### C BC ####[facility] PATHOLOGY [id number] [place] [address], Hemoglobin (Bld) [Mass/Vol] 9.5 g/dL Low 12.0-15.0 [facility] Comment on above: Performed By: #### C BC ####[facility] PATHOLOGY [id number] [place] [address], MCH (RBC) [Entitic mass] 29.3 pg Normal 26.0-34.0 [facility] Comment on above: Performed By: #### C BC ####[facility] PATHOLOGY [id number] [place], MCHC (RBC) [Mass/Vol] 33.5 g/dL Normal 32.0-35.9 [facility] Comment on above: Performed By: #### C BC ####[facility] PATHOLOGY [id number] [place], MCV (RBC) [Entitic vol] 88 fL Normal 80-100 [facility] Comment on above: Performed By: #### C BC ####[facility] PATHOLOGY [id number] [place] [address], Platelet mean volume (Bld) [Entitic vol] 7.6 fL Normal 7.5-11.2 [facility] Comment on above: Performed By: #### C BC ####S PATHOLOGY [id number] [place], Platelets (Bld) [#/Vol] 394 10*3/uL Normal 150-400 [facility] Comment on above: Performed By: #### C BC ####S PATHOLOGY [id number] [place], RBC (Bld) [#/Vol] 3.24 10*6/uL Low 4.00-5.20 [facility] Comment on above: Performed By: #### C BC ####[facility] PATHOLOGY [id number] [place], WBC (Bld) [#/Vol] 9.4 10*3/uL Normal 4.5-11.5 [facility] Comment on above: Performed By: #### C BC ####[facility] PATHOLOGY [id number] [place] [address], MAGNESIUMon 2024 Magnesium [Mass/Vol] 2.0 mg/dL 1.9 - 2 .7 mg/dL [facility] Magnesium [Mass/Vol] 2.0 mg/dL Normal 1.9-2.7 The [facility] Comment on above: Performed By: #### P HOS, MG, CH8 ####[facility] PATHOLOGY [id number] [place] [address], No Panel Informationon 07-20 Interpretation and review of laboratory results Normal [facility] PARTIAL THROMBOPLASTIN TIMEo n 2024 aPTT Coag (Bld) [Time] 38 s High [facility] Interpretation and review of laboratory results Abnormal [facility] aPTT Coag (Bld) [Time] 38 s High 25-37 Th e [facility] Comment on above: Performed By: #### A PTT ####S PATHOLOGY [id number] [place] [address], aPTT Coag (Bld) [Time] 41 s High [facility] Interpretation and review of laboratory results Abnormal [facility] aPTT Coag (Bld) [Time] 41 s High 25-37 Th e [facility] Comment on above: Performed By: #### A PTT ####[facility] [id number] [place], aPTT Coag (Bld) [Time] 34 s [facility] Interpretation and review of laboratory results Normal [facility] aPTT Coag (Bld) [Time] 34 s Normal 25-37 Th e [facility] Comment on above: Performed By: #### A PTT ####[facility] PATH[facility] [id number] [place], aPTT Coag (Bld) [Time] 31 s [facility] Interpretation and review of laboratory results Normal [facility] aPTT Coag (Bld) [Time] 31 s Normal 25-37 Th e [facility] Comment on above: Performed By: #### A PTT ####[facility] [id number] [place], PHOSPHORUSon 2024 Phosphate [Mass/Vol] 4.1 mg/dL 2.5 - 5 .0 mg/dL [facility] Phosphate [Mass/Vol] 4.1 mg/dL Normal 2.5-5.0 The [facility] Comment on above: Performed By: #### P MALISSA MG, CH8 ####[facility] PATHOLOGY [id number] [place] [address], Progress Noteson 2024 Spa Experience Coordinator Authentication Interface Message Text Normal The [facility] Spa Experience Coordinator Authentication Interface Message Text Normal The [facility] ANTI FXA-LMW HEPARINon 07-19 LMW Heparin Chromogenic method Qn (PPP) 0.11 IU/mL [facility] ANTI FXA-LMW HEPARIN ASSAY 0.11 IU/mL Normal [facility] Comment on above: Order Comment: The r ecommended therapeutic range for treatment of thrombosis with Low Molecular Weight Heparin is 0.5 - 1.0 IU/mLThe recommended range for VTE prophylaxis with Low Molecular Weight Heparin is 0.2 - 0.4 IU/mL. Performed By: #### A XL ####[facility] [id number] [place], BASIC METABOLIC PANELon 07-10 Anion gap [Moles/Vol] 14 mmol/L Normal 10-20 [facility] Comment on above: Performed By: #### TSERING [place] CH8 ####S PATHOLOGY [id number] [place], Calcium [Mass/Vol] 7.5 mg/dL Low 8.6-10.3 [facility] Comment on above: Performed By: #### TSERING [place] CH8 ####S PATHOLOGY ONRGEQHRCS4194 [place], Chloride [Moles/Vol] 102 mmol/L Normal 98-107 [facility] Comment on above: Performed By: #### TSERING [place] CH8 ####S PATHOLOGY [id number] [place], CO2 [Moles/Vol] 26 mmol/L Normal 21-31 [facility] Comment on above: Performed By: ###TSERING Mcguire CH8 ####S PATHOLOGY [id number] [place], Creatinine [Mass/Vol] 0.56 mg/dL Low 0.60-1.20 [facility] Comment on above: Performed By: ###TSERING Mcguire CH8 ####[facility] PATHOLOGY [id number] [place], ESTIMATED GFR (CKD-EPI) 126 mL/min/1.73sqm Normal >=60 [facility] Comment on above: Result Comment: 2020 CKD EPI Equation using Creatinine without RaceComment: Estimated glomerular filtration rate (eGFR) is calculated without a race coefficient. Values should be interpreted in the context of the patient's full clinical presentation.Reference:1. Evert C, Gloria M, Jasper DC, et al.. A Unifying Approach for GFR Estimation: Recommendations of the NKF-ASN Task Force on Reassessing the Inclusion of Race in Diagnosing Kidney Disease. [place] Journal of Kidney Diseases 202;79(2):268-88.e1.2. N Engl J Med 1 Vol. 385 Issue 19 Pages 0736-9127 Performed By: ###TSERING Mcguire CH8 ####S PATHOLOGY [id number] [place], Glucose [Mass/Vol] 106 mg/dL Normal 74-109 The [facility] Comment on above: Performed By: #### TSERING [place] CH8 ####S PATHOLOGY [id number] [place], Potassium [Moles/Vol] 3.9 mmol/L Normal 3.5-5.0 [facility] Comment on above: Performed By: #### TSERING [place] CH8 ####S PATHOLOGY [id number] [place], Sodium [Moles/Vol] 138 mmol/L Normal 136-145 The [facility] Comment on above: Performed By: #### TSERING [place] CH8 ####[facility] PATHOLOGY [id number] [place], Urea nitrogen [Mass/Vol] 11 mg/dL Normal 7-25 The [facility] Comment on above: Performed By: #### TSERING [place] CH8 ####[facility] PATHOLOGY [id number] [place], Basic metabolic 2000 panelon 07-19-2024 Anion gap [Moles/Vol] 14 mmol/L 10 - 20 [facility] Calcium [Mass/Vol] 7.5 mg/dL Low 8.6 - 10. 3 mg/dL [facility] Chloride [Moles/Vol] 102 mmol/L 98 - 10 7 mmol/L [facility] CO2 [Moles/Vol] 26 mmol/L 21 - 31 mmol/L [facility] Creatinine [Mass/Vol] 0.56 mg/dL Low 0.60 - 1.20 mg/dL [facility] GFR/1.73 sq M.predicted CKD-EPI (S/P/Bld) [Vol rate/Area] 126 - PINF [facility] Glucose [Mass/Vol] 106 mg/dL 74 - 109 mg/dL [facility] Interpretation and review of laboratory results Abnormal [facility] Potassium [Moles/Vol] 3.9 mmol/L 3.5 - 5.0 mmol/L [facility] Sodium [Moles/Vol] 138 mmol/L 136 - 145 mmol/L [facility] Urea nitrogen [Mass/Vol] 11 mg/dL 7 - 25 mg/dL [facility] CBC panel Auto (Bld)on 07-19 Erythrocyte distribution width (RBC) [Ratio] 14.3 % 11.5 - 14.5 % [facility] Hematocrit (Bld) [Volume fraction] 28.7 % Low 36.0 - 46.0 % [facility] Hemoglobin (Bld) [Mass/Vol] 9.6 g/dL Low 12.0 - 15.0 g/dL [facility] Interpretation and review of laboratory results Abnormal [facility] MCH (RBC) [Entitic mass] 29.1 pg 26.0 - 34.0 pg [facility] MCHC (RBC) [Mass/Vol] 33.3 g/dL 32.0 - 35.9 g/dL [facility] MCV (RBC) [Entitic vol] 87 fL 80 - 100 fL [facility] Platelet mean volume (Bld) [Entitic vol] 7.7 fL 7.5 - 11.2 fL [facility] Platelets (Bld) [#/Vol] 367 10*3/uL 150 - 400 K/uL [facility] RBC (Bld) [#/Vol] 3.29 10*6/uL Low [facility] WBC (Bld) [#/Vol] 9.1 10*3/uL 4.5 - 11.5 K/uL [facility] Erythrocyte distribution width (RBC) [Ratio] 14.3 % 11.5 - 14.5 % [facility] Hematocrit (Bld) [Volume fraction] 29.3 % Low 36.0 - 46.0 % [facility] Hemoglobin (Bld) [Mass/Vol] 9.8 g/dL Low 12.0 - 15.0 g/dL [facility] Interpretation and review of laboratory results Abnormal [facility] MCH (RBC) [Entitic mass] 29.4 pg 26.0 - 34.0 pg [facility] MCHC (RBC) [Mass/Vol] 33.6 g/dL 32.0 - 35.9 g/dL [facility] MCV (RBC) [Entitic vol] 87 fL 80 - 100 fL [facility] Platelet mean volume (Bld) [Entitic vol] 8.1 fL 7.5 - 11.2 fL [facility] Platelets (Bld) [#/Vol] 361 10*3/uL 150 - 400 K/uL [facility] RBC (Bld) [#/Vol] 3.35 10*6/uL Low [facility] WBC (Bld) [#/Vol] 9.2 10*3/uL 4.5 - 11.5 K/uL [facility] COMPLETE BLOOD COUNTon 07-19 Erythrocyte distribution width (RBC) [Ratio] 14.3 % Normal 11.5-14.5 [facility] Comment on above: Performed By: #### C BC ####[facility] PATHOLOGY [id number] [place] [address], Hematocrit (Bld) [Volume fraction] 28.7 % Low 36.0-46.0 [facility] Comment on above: Performed By: #### C BC ####[facility] PATHOLOGY [id number] [place] [address], Hemoglobin (Bld) [Mass/Vol] 9.6 g/dL Low 12.0-15.0 [facility] Comment on above: Performed By: #### C BC ####[facility] PATHOLOGY [id number] [place] [address], MCH (RBC) [Entitic mass] 29.1 pg Normal 26.0-34.0 [facility] Comment on above: Performed By: #### C BC ####[facility] PATHOLOGY [id number] [place] [address], MCHC (RBC) [Mass/Vol] 33.3 g/dL Normal 32.0-35.9 [facility] Comment on above: Performed By: #### C BC ####[facility] PATHOLOGY [id number] [place] [address], MCV (RBC) [Entitic vol] 87 fL Normal 80-100 [facility] Comment on above: Performed By: #### C BC ####[facility] PATHOLOGY [id number] [place] [address], Platelet mean volume (Bld) [Entitic vol] 7.7 fL Normal 7.5-11.2 [facility] Comment on above: Performed By: #### C BC ####[facility] PATHOLOGY [id number] [place], [place], Platelets (Bld) [#/Vol] 367 10*3/uL Normal 150-400 [facility] Comment on above: Performed By: #### C BC ####[facility] PATHOLOGY [id number] [place], RBC (Bld) [#/Vol] 3.29 10*6/uL Low 4.00-5.20 [facility] Comment on above: Performed By: #### C BC ####[facility] PATHOLOGY [id number] [place], WBC (Bld) [#/Vol] 9.1 10*3/uL Normal 4.5-11.5 [facility] Comment on above: Performed By: #### C BC ####[facility] PATHOLOGY [id number] [place], Erythrocyte distribution width (RBC) [Ratio] 14.3 % Normal 11.5-14.5 [facility] Comment on above: Performed By: #### C BC ####[facility] PATHOLOGY [id number] [place], Hematocrit (Bld) [Volume fraction] 29.3 % Low 36.0-46.0 [facility] Comment on above: Performed By: #### C BC ####[facility] PATHOLOGY [id number] [place], Hemoglobin (Bld) [Mass/Vol] 9.8 g/dL Low 12.0-15.0 [facility] Comment on above: Performed By: #### C BC ####[facility] PATHOLOGY [id number] [place], MCH (RBC) [Entitic mass] 29.4 pg Normal 26.0-34.0 [facility] Comment on above: Performed By: #### C BC ####[facility] PATHOLOGY [id number] [place], MCHC (RBC) [Mass/Vol] 33.6 g/dL Normal 32.0-35.9 [facility] Comment on above: Performed By: #### C BC ####S PATHOLOGY [id number] [place], MCV (RBC) [Entitic vol] 87 fL Normal 80-100 [facility] Comment on above: Performed By: #### C BC ####[facility] [id number] [place], Platelet mean volume (Bld) [Entitic vol] 8.1 fL Normal 7.5-11.2 [facility] Comment on above: Performed By: #### C BC ####S PATHOLOGY [id number] [place], Platelets (Bld) [#/Vol] 361 10*3/uL Normal 150-400 [facility] Comment on above: Performed By: #### C BC ####[facility] PATHOLOGY [id number] [place], RBC (Bld) [#/Vol] 3.35 10*6/uL Low 4.00-5.20 [facility] Comment on above: Performed By: #### C BC ####[facility] PATH[facility] [id number] [place], WBC (Bld) [#/Vol] 9.2 10*3/uL Normal 4.5-11.5 [facility] Comment on above: Performed By: #### C BC ####[facility] PATHOLOGY [id number] [place], [place], Consultson 07-19-2024 Spa Experience Coordinator Authentication Interface Message Text Normal [facility] Spa Experience Coordinator Authentication Interface Message Text Normal [facility] MAGNESIUMon 07-19-2024 Magnesium [Mass/Vol] 2.1 mg/dL 1.9 - 2 .7 mg/dL [facility] Magnesium [Mass/Vol] 2.1 mg/dL Normal 1.9-2.7 [facility] Comment on above: Performed By: #### TSERING Wright, CH8 ####[facility] PATHOLOGY [id number] [place], No Panel Informationon 07-19 Interpretation and review of laboratory results Normal [facility] PARTIAL THROMBOPLASTIN TIMEo n 07-19-2024 aPTT Coag (Bld) [Time] 31 s [facility] Interpretation and review of laboratory results Normal [facility] aPTT Coag (Bld) [Time] 31 s Normal 25-37 Th e [facility] Comment on above: Performed By: #### A PTT ####[facility] [id number] [place], PHOSPHORUSon 07-19-2024 Phosphate [Mass/Vol] 4.2 mg/dL 2.5 - 5 .0 mg/dL [facility] Phosphate [Mass/Vol] 4.2 mg/dL Normal 2.5-5.0 [facility] Comment on above: Performed By: #### TSERING Wright CH8 ####[facility] [id number] [place], Progress Noteson 07-19-2024 Spa Experience Coordinator Authentication Interface Message Text Normal [facility] Spa Experience Coordinator Authentication Interface Message Text Normal [facility] ANTI FXA-LMW HEPARINon 07-18 LMW Heparin Chromogenic method Qn (PPP) 0.09 IU/mL [facility] ANTI FXA-LMW HEPARIN ASSAY 0.09 IU/mL Normal [facility] Comment on above: Order Comment: The r ecommended therapeutic range for treatment of thrombosis with Low Molecular Weight Heparin is 0.5 - 1.0 IU/mLThe recommended range for VTE prophylaxis with Low Molecular Weight Heparin is 0.2 - 0.4 IU/mL. Performed By: #### A XL ####[facility] [id number] [place], BASIC METABOLIC PANELon Anion gap [Moles/Vol] 14 mmol/L Normal 10-20 [facility] Comment on above: Performed By: #### TSERING Lou MG ####[facility] [id number] [place], Calcium [Mass/Vol] 7.5 mg/dL Low 8.6-10.3 [facility] Comment on above: Performed By: #### C H8, PHOS, MG ####[facility] [id number] [place], Chloride [Moles/Vol] 100 mmol/L Normal 98-107 [facility] Comment on above: Performed By: #### C H8, PHOS, MG ####[facility] [id number] [place], CO2 [Moles/Vol] 28 mmol/L Normal 21-31 [facility] Comment on above: Performed By: #### C H8 PHOS, MG ####[facility] [id number] [place], Creatinine [Mass/Vol] 0.56 mg/dL Low 0.60-1.20 [facility] Comment on above: Performed By: #### C H8, PHOS, MG ####[facility] [id number] [place], ESTIMATED GFR (CKD-EPI) 126 mL/min/1.73sqm Normal >=60 [facility] Comment on above: Result Comment: 2020 CKD EPI Equation using Creatinine without RaceComment: Estimated glomerular filtration rate (eGFR) is calculated without a race coefficient. Values should be interpreted in the context of the patient's full clinical presentation.Reference:1. Evert C, Gloria M, Jasper GUERRA, et al.. A Unifying Approach for GFR Estimation: Recommendations of the NKF-ASN Task Force on Reassessing the Inclusion of Race in Diagnosing Kidney Disease. [place] Journal of Kidney Diseases 2021;79(2):268-88.e1.2. N Engl J Med 2020 Vol. 385 Issue 19 Pages 5129-6883 Performed By: #### C H8, PHOS, MG ####[facility] [id number] [place], Glucose [Mass/Vol] 100 mg/dL Normal 74-109 [facility] Comment on above: Performed By: #### C H8, PHOS, MG ####[facility] [id number] [place], Potassium [Moles/Vol] 3.5 mmol/L Normal 3.5-5.0 [facility] Comment on above: Performed By: #### TSEIRNG Lou MG ####[facility] [id number] [place], Sodium [Moles/Vol] 138 mmol/L Normal 136-145 [facility] Comment on above: Performed By: #### TSERING Lou MG ####[facility] [id number] [place], Urea nitrogen [Mass/Vol] 10 mg/dL Normal 7-25 [facility] Comment on above: Performed By: #### TSERING Lou MG ####[facility] [id number] [place], Basic metabolic 2000 panelon 07-18-2024 Anion gap [Moles/Vol] 14 mmol/L 10 - 20 [facility] Calcium [Mass/Vol] 7.5 mg/dL Low 8.6 - 10. 3 mg/dL [facility] Chloride [Moles/Vol] 100 mmol/L 98 - 10 7 mmol/L [facility] CO2 [Moles/Vol] 28 mmol/L 21 - 31 mmol/L [facility] Creatinine [Mass/Vol] 0.56 mg/dL Low 0.60 - 1.20 mg/dL [facility] G[facility]/1.73 sq M.predicted CKD-EPI (S/P/Bld) [Vol rate/Area] 126 - PINF [facility] Glucose [Mass/Vol] 100 mg/dL 74 - 109 mg/dL [facility] Interpretation and review of laboratory results Abnormal [facility] Potassium [Moles/Vol] 3.5 mmol/L 3.5 - 5.0 mmol/L [facility] Sodium [Moles/Vol] 138 mmol/L 136 - 145 mmol/L [facility] Urea nitrogen [Mass/Vol] 10 mg/dL 7 - 25 mg/dL [facility] CBC panel Auto (Bld)on 07-18 Erythrocyte distribution width (RBC) [Ratio] 13.8 % 11.5 - 14.5 % [facility] Hematocrit (Bld) [Volume fraction] 26.9 % Low 36.0 - 46.0 % [facility] Hemoglobin (Bld) [Mass/Vol] 9.0 g/dL Low 12.0 - 15.0 g/dL [facility] Interpretation and review of laboratory results Abnormal [facility] MCH (RBC) [Entitic mass] 29.4 pg 26.0 - 34.0 pg [facility] MCHC (RBC) [Mass/Vol] 33.6 g/dL 32.0 - 35.9 g/dL [facility] MCV (RBC) [Entitic vol] 88 fL 80 - 100 fL [facility] Platelet mean volume (Bld) [Entitic vol] 8.0 fL 7.5 - 11.2 fL [facility] Platelets (Bld) [#/Vol] 297 10*3/uL 150 - 400 K/uL [facility] RBC (Bld) [#/Vol] 3.06 10*6/uL Low [facility] WBC (Bld) [#/Vol] 9.1 10*3/uL 4.5 - 11.5 K/uL [facility] COMPLETE BLOOD COUNTon 07-18 Erythrocyte distribution width (RBC) [Ratio] 13.8 % Normal 11.5-14.5 [facility] Comment on above: Performed By: #### C BC ####[facility] PATHOLOGY [id number] [place], Hematocrit (Bld) [Volume fraction] 26.9 % Low 36.0-46.0 [facility] Comment on above: Performed By: #### C BC ####S PATHOLOGY [id number] [place], Hemoglobin (Bld) [Mass/Vol] 9.0 g/dL Low 12.0-15.0 [facility] Comment on above: Performed By: #### C BC ####S PATHOLOGY [id number] [place], MCH (RBC) [Entitic mass] 29.4 pg Normal 26.0-34.0 [facility] Comment on above: Performed By: #### C BC ####S PATHOLOGY [id number] [place], MCHC (RBC) [Mass/Vol] 33.6 g/dL Normal 32.0-35.9 [facility] Comment on above: Performed By: #### C BC ####[facility] PATH[facility]Y [id number] [place], MCV (RBC) [Entitic vol] 88 fL Normal 80-100 [facility] Comment on above: Performed By: #### C BC ####S PATHOLOGY [id number] [place], Platelet mean volume (Bld) [Entitic vol] 8.0 fL Normal 7.5-11.2 [facility] Comment on above: Performed By: #### C BC ####[facility] PATH[facility] [id number] [place], Platelets (Bld) [#/Vol] 297 10*3/uL Normal 150-400 [facility] Comment on above: Performed By: #### C BC ####[facility] PATHOLOGY [id number] [place], RBC (Bld) [#/Vol] 3.06 10*6/uL Low 4.00-5.20 [facility] Comment on above: Performed By: #### C BC ####[facility] PATHOLOGY [id number] [place], WBC (Bld) [#/Vol] 9.1 10*3/uL Normal 4.5-11.5 [facility] Comment on above: Performed By: #### C BC ####[facility] PATHOLOGY [id number] [place], Consultson 07-18-2024 Spa Experience Coordinator Authentication Interface Message Text Normal [facility] Spa Experience Coordinator Authentication Interface Message Text Normal [facility] Spa Experience Coordinator Authentication Interface Message Text Normal [facility] MAGNESIUMon 07-18-2024 Magnesium [Mass/Vol] 2.0 mg/dL 1.9 - 2 .7 mg/dL [facility] Magnesium [Mass/Vol] 2.0 mg/dL Normal 1.9-2.7 [facility] Comment on above: Performed By: #### C H8, PHOS, MG ####[facility] PATHOLOGY [id number] [place], [place] Panel Informationon 07-18 Interpretation and review of laboratory results Normal [facility] PHOSPHORUSon 07-18-2024 Phosphate [Mass/Vol] 3.9 mg/dL 2.5 - 5 .0 mg/dL [facility] Phosphate [Mass/Vol] 3.9 mg/dL Normal 2.5-5.0 [facility] Comment on above: Performed By: #### TSERING Lou MG ####[facility] [id number] [place], Progress Noteson 07-18-2024 Spa Experience Coordinator Authentication Interface Message Text RN Coordinator picked up FMLA paperwork from [address] and delivered to produce department manager Normal [facility] Spa Experience Coordinator Authentication Interface Message Text Normal [facility] ANTI FXA-LMW HEPARINon 07-17 LMW Heparin Chromogenic method Qn (PPP) 0.13 IU/mL [facility] ANTI FXA-LMW HEPARIN ASSAY 0.13 IU/mL Normal [facility] Comment on above: Order Comment: The r ecommended therapeutic range for treatment of thrombosis with Low Molecular Weight Heparin is 0.5 - 1.0 IU/mLThe recommended range for VTE prophylaxis with Low Molecular Weight Heparin is 0.2 - 0.4 IU/mL. Performed By: #### A XL ####[facility] [id number] [place], BASIC METABOLIC PANELon Anion gap [Moles/Vol] 12 mmol/L Normal 10-20 [facility] Comment on above: Performed By: #### TSERING Lou MG ####[facility] [id number] [place], Calcium [Mass/Vol] 7.3 mg/dL Low 8.6-10.3 [facility] Comment on above: Performed By: #### TSERING Lou MG ####[facility] [id number] [place], Chloride [Moles/Vol] 100 mmol/L Normal 98-107 [facility] Comment on above: Performed By: #### C H8, PHOS, MG ####[facility] [id number] [place], CO2 [Moles/Vol] 27 mmol/L Normal 21-31 [facility] Comment on above: Performed By: #### TSERING Lou MG ####[facility] [id number] [place], Creatinine [Mass/Vol] 0.53 mg/dL Low 0.60-1.20 [facility] Comment on above: Performed By: #### TSERING Lou MG ####[facility] [id number] [place], ESTIMATED GFR (CKD-EPI) 128 mL/min/1.73sqm Normal >=60 [facility] Comment on above: Result Comment: 2020 CKD EPI Equation using Creatinine without RaceComment: Estimated glomerular filtration rate (eGFR) is calculated without a race coefficient. Values should be interpreted in the context of the patient's full clinical presentation.Reference:1. Evert C, Gloria M, Jasper GUERRA, et al.. A Unifying Approach for GFR Estimation: Recommendations of the NKF-ASN Task Force on Reassessing the Inclusion of Race in Diagnosing Kidney Disease. [place] Journal of Kidney Diseases 2021;79(2):268-88.e1.2. N Engl J Med 2020 Vol. 385 Issue 19 Pages 1681-3840 Performed By: #### TSERING Lou MG ####[facility] [id number] [place], Glucose [Mass/Vol] 123 mg/dL High 74-109 [facility] Comment on above: Performed By: #### TSERING Lou MG ####[facility] [id number] [place], Potassium [Moles/Vol] 3.5 mmol/L Normal 3.5-5.0 [facility] Comment on above: Performed By: #### TSERING Lou MG ####[facility] [id number] [place], Sodium [Moles/Vol] 135 mmol/L Low 136-145 [facility] Comment on above: Performed By: #### C H8, PHOS, MG ####[facility] [id number] [place], Urea nitrogen [Mass/Vol] 12 mg/dL Normal 7-25 [facility] Comment on above: Performed By: #### C H8, PHOS, MG ####[facility] [id number] [place], Basic metabolic 2000 panelon 07-17-2024 Anion gap [Moles/Vol] 12 mmol/L 10 - 20 [facility] Calcium [Mass/Vol] 7.3 mg/dL Low 8.6 - 10. 3 mg/dL [facility] Chloride [Moles/Vol] 100 mmol/L 98 - 10 7 mmol/L [facility] CO2 [Moles/Vol] 27 mmol/L 21 - 31 mmol/L [facility] Creatinine [Mass/Vol] 0.53 mg/dL Low 0.60 - 1.20 mg/dL [facility] GFR/1.73 sq M.predicted CKD-EPI (S/P/Bld) [Vol rate/Area] 128 - PINF [facility] Glucose [Mass/Vol] 123 mg/dL High 74 - 109 mg/dL [facility] Interpretation and review of laboratory results Abnormal [facility] Potassium [Moles/Vol] 3.5 mmol/L 3.5 - 5.0 mmol/L [facility] Sodium [Moles/Vol] 135 mmol/L Low 136 - 145 mmol/L [facility] Urea nitrogen [Mass/Vol] 12 mg/dL 7 - 25 mg/dL [facility] CBC panel Auto (Bld)on 07-17 Erythrocyte distribution width (RBC) [Ratio] 14.0 % 11.5 - 14.5 % [facility] Hematocrit (Bld) [Volume fraction] 25.8 % Low 36.0 - 46.0 % [facility] Hemoglobin (Bld) [Mass/Vol] 8.7 g/dL Low 12.0 - 15.0 g/dL [facility] Interpretation and review of laboratory results Abnormal [facility] MCH (RBC) [Entitic mass] 29.5 pg 26.0 - 34.0 pg [facility] MCHC (RBC) [Mass/Vol] 33.8 g/dL 32.0 - 35.9 g/dL [facility] MCV (RBC) [Entitic vol] 87 fL 80 - 100 fL [facility] Platelet mean volume (Bld) [Entitic vol] 8.0 fL 7.5 - 11.2 fL [facility] Platelets (Bld) [#/Vol] 257 10*3/uL 150 - 400 K/uL [facility] RBC (Bld) [#/Vol] 2.96 10*6/uL Low [facility] WBC (Bld) [#/Vol] 10.8 10*3/uL 4.5 - 11.5 K/uL [facility] COMPLETE BLOOD COUNTon 07-17 Erythrocyte distribution width (RBC) [Ratio] 14.0 % Normal 11.5-14.5 [facility] Comment on above: Performed By: #### C BC ####[facility] [id number] [place], Hematocrit (Bld) [Volume fraction] 25.8 % Low 36.0-46.0 [facility] Comment on above: Performed By: #### C BC ####[facility] PATHOLOGY [id number] [place], Hemoglobin (Bld) [Mass/Vol] 8.7 g/dL Low 12.0-15.0 [facility] Comment on above: Performed By: #### C BC ####[facility] PATH[facility] [id number] [place], MCH (RBC) [Entitic mass] 29.5 pg Normal 26.0-34.0 [facility] Comment on above: Performed By: #### C BC ####[facility] PATHOLOG[facility] [id number] [place], MCHC (RBC) [Mass/Vol] 33.8 g/dL Normal 32.0-35.9 [facility] Comment on above: Performed By: #### C BC ####[facility] [id number] [place], MCV (RBC) [Entitic vol] 87 fL Normal 80-100 [facility] Comment on above: Performed By: #### C BC ####[facility] [id number] [place], Platelet mean volume (Bld) [Entitic vol] 8.0 fL Normal 7.5-11.2 [facility] Comment on above: Performed By: #### C BC ####[facility] [id number] [place], Platelets (Bld) [#/Vol] 257 10*3/uL Normal 150-400 [facility] Comment on above: Performed By: #### C BC ####[facility] [id number] [place], RBC (Bld) [#/Vol] 2.96 10*6/uL Low 4.00-5.20 [facility] Comment on above: Performed By: #### C BC ####[facility] [id number] [place], WBC (Bld) [#/Vol] 10.8 10*3/uL Normal 4.5-11.5 [facility] Comment on above: Performed By: #### C BC ####[facility] [id number] [place], CTA ABDOMEN + PELVIS W/on CTA ABDOMEN + PELVIS W/ Normal [facility] CTA Abdominal vessels and Pe lvis vessels WO and W contrast IVOrdered By: Cristofer Trevino on 07-17-2024 CT DLP 2437.2 (mGy.cm) [facility] Work Phone: CT Series Abdomen,Abdomen,Abdo men,A bdomen,Abdomen [facility] Work Phone: CTDI VOL 14.6 (mGy),5.3 (mGy) ,12.1 (mGy),13.1 (mGy),13.1 (mGy) [facility] Work Phone: PHANTOM TYPE IEC Body Dosimetry Phantom,IEC Body Dosimetry Phantom,IEC Body Dosimetry Phantom,IEC Body Dosimetry Phantom,IEC Body Dosimetry Phantom [employer] Work Phone: [facility] Work Phone: CTA Abdominal vessels and Pe lvis vessels WO and W contrast Gay 07-17-2024 RADIOLOGY [facility] Radiology Study observation (narrative) [facility] MAGNESIUMon 07-17-2024 Magnesium [Mass/Vol] 2.0 mg/dL 1.9 - 2 .7 mg/dL [facility] Magnesium [Mass/Vol] 2.0 mg/dL Normal 1.9-2.7 [facility] Comment on above: Performed By: #### C H8, PHOS, MG ####[facility] [id number] [place], No Panel Informationon 07-17 Interpretation and review of laboratory results Normal [facility] PHOSPHORUSon 07-17-2024 Phosphate [Mass/Vol] 3.0 mg/dL 2.5 - 5 .0 mg/dL [facility] Phosphate [Mass/Vol] 3.0 mg/dL Normal 2.5-5.0 [facility] Comment on above: Performed By: #### C H8, PHOS, MG ####[facility] [id number] [place], Progress Noteson 07-17-2024 Spa Experience Coordinator Authentication Interface Message Text Normal [facility] ANTI FXA-LMW HEPARINon 07-16 LMW Heparin Chromogenic method Qn (PPP) 0.22 IU/mL [facility] ANTI FXA-LMW HEPARIN ASSAY 0.22 IU/mL Normal [facility] Comment on above: Order Comment: The r ecommended therapeutic range for treatment of thrombosis with Low Molecular Weight Heparin is 0.5 - 1.0 IU/mLThe recommended range for VTE prophylaxis with Low Molecular Weight Heparin is 0.2 - 0.4 IU/mL. Performed By: #### A XL ####[facility] [id number] [place], BASIC METABOLIC PANELon Anion gap [Moles/Vol] 12 mmol/L Normal 10-20 [facility] Comment on above: Performed By: #### C H8, MG, HEPATIC, PHOS ####[facility] [id number] [place], Calcium [Mass/Vol] 7.4 mg/dL Low 8.6-10.3 [facility] Comment on above: Performed By: #### C H8, MG, HEPATIC, PHOS ####[facility] [id number] [place], Chloride [Moles/Vol] 102 mmol/L Normal 98-107 [facility] Comment on above: Performed By: #### C H8, MG, HEPATIC, PHOS ####[facility] [id number] [place], CO2 [Moles/Vol] 25 mmol/L Normal 21-31 [facility] Comment on above: Performed By: #### C H8, MG, HEPATIC, PHOS ####[facility] [id number] [place], Creatinine [Mass/Vol] 0.62 mg/dL Normal 0.60-1.20 [facility] [employer] [facility] Comment on above: Performed By: #### C H8, MG, HEPATIC, PHOS ####[facility] [id number] [place], ESTIMATED GFR (CKD-EPI) 123 mL/min/1.73sqm Normal >=60 [facility] Comment on above: Result Comment: 2020 CKD EPI Equation using Creatinine without RaceComment: Estimated glomerular filtration rate (eGFR) is calculated without a race coefficient. Values should be interpreted in the context of the patient's full clinical presentation.Reference:1. Evert C, Gloria M, Jasper GUERRA, et al.. A Unifying Approach for GFR Estimation: Recommendations of the NKF-ASN Task Force on Reassessing the Inclusion of Race in Diagnosing Kidney Disease. [place] Journal of Kidney Diseases 2021;79(2):268-88.e1.2. N Engl J Med 1 Vol. 385 Issue 19 Pages 8994-3177 Performed By: #### C H8, MG, HEPATIC, PHOS ####[facility] [id number] [place], Glucose [Mass/Vol] 122 mg/dL High 74-109 [facility] Comment on above: Performed By: #### C H8, MG, HEPATIC, PHOS ####[facility] [id number] [place], Potassium [Moles/Vol] 3.7 mmol/L Normal 3.5-5.0 [facility] Comment on above: Performed By: #### Chin H8, MG, HEPATIC, PHOS ####[facility] [id number] [place], Sodium [Moles/Vol] 135 mmol/L Low 136-145 [facility] Comment on above: Performed By: #### Chin H8, MG, HEPATIC, PHOS ####[facility] [id number] [place], Urea nitrogen [Mass/Vol] 14 mg/dL Normal 7-25 [facility] Comment on above: Performed By: #### Chin H8, MG, HEPATIC, PHOS ####[facility] [id number] [place], Basic metabolic 2000 panelon 07-16-2024 Anion gap [Moles/Vol] 12 mmol/L 10 - 20 [facility] Calcium [Mass/Vol] 7.4 mg/dL Low 8.6 - 10. 3 mg/dL [facility] Chloride [Moles/Vol] 102 mmol/L 98 - 10 7 mmol/L [facility] CO2 [Moles/Vol] 25 mmol/L 21 - 31 mmol/L [facility] Creatinine [Mass/Vol] 0.62 mg/dL 0.60 - 1.20 mg/dL [facility] GFR/1.73 sq M.predicted CKD-EPI (S/P/Bld) [Vol rate/Area] 123 - PINF [facility] Glucose [Mass/Vol] 122 mg/dL High 74 - 109 mg/dL [facility] Interpretation and review of laboratory results Abnormal [facility] Potassium [Moles/Vol] 3.7 mmol/L 3.5 - 5.0 mmol/L [facility] Sodium [Moles/Vol] 135 mmol/L Low 136 - 145 mmol/L [facility] Urea nitrogen [Mass/Vol] 14 mg/dL 7 - 25 mg/dL [facility] CBC panel Auto (Bld)Ordered By: Jessie Oneil on 07-16-2024 Erythrocyte distribution width (RBC) [Ratio] 14.0 % 11.5 - 14.5 % [facility] Hematocrit (Bld) [Volume fraction] 29.1 % Low 36.0 - 46.0 % [facility] Hemoglobin (Bld) [Mass/Vol] 9.7 g/dL Low 12.0 - 15.0 g/dL [facility] Interpretation and review of laboratory results Abnormal [facility] MCH (RBC) [Entitic mass] 29.4 pg 26.0 - 34.0 pg [facility] MCHC (RBC) [Mass/Vol] 33.3 g/dL 32.0 - 35.9 g/dL [facility] MCV (RBC) [Entitic vol] 88 fL 80 - 100 fL [facility] Platelet mean volume (Bld) [Entitic vol] 8.0 fL 7.5 - 11.2 fL [facility] Platelets (Bld) [#/Vol] 264 10*3/uL 150 - 400 K/uL [facility] RBC (Bld) [#/Vol] 3.30 10*6/uL Low [facility] WBC (Bld) [#/Vol] 13.9 10*3/uL High 4.5 - 11.5 K/uL [facility] CBC panel Auto (Bld)on 07-16 Erythrocyte distribution width (RBC) [Ratio] 14.0 % 11.5 - 14.5 % [facility] Hematocrit (Bld) [Volume fraction] 27.8 % Low 36.0 - 46.0 % [facility] Hemoglobin (Bld) [Mass/Vol] 9.3 g/dL Low 12.0 - 15.0 g/dL [facility] Interpretation and review of laboratory results Abnormal [facility] MCH (RBC) [Entitic mass] 29.2 pg 26.0 - 34.0 pg [facility] MCHC (RBC) [Mass/Vol] 33.5 g/dL 32.0 - 35.9 g/dL [facility] MCV (RBC) [Entitic vol] 87 fL 80 - 100 fL [facility] Platelet mean volume (Bld) [Entitic vol] 8.3 fL 7.5 - 11.2 fL [facility] Platelets (Bld) [#/Vol] 197 10*3/uL 150 - 400 K/uL [facility] RBC (Bld) [#/Vol] 3.18 10*6/uL Low [facility] WBC (Bld) [#/Vol] 12.5 10*3/uL High 4.5 - 11.5 K/uL [facility] COMPLETE BLOOD COUNTon 07-16 Erythrocyte distribution width (RBC) [Ratio] 14.0 % Normal 11.5-14.5 [facility] Comment on above: Performed By: #### C BC ####[facility] PATHOLOGY [id number] [place] [address], Hematocrit (Bld) [Volume fraction] 29.1 % Low 36.0-46.0 [facility] Comment on above: Performed By: #### C BC ####[facility] PATHOLOGY [id number] [place] [address], Hemoglobin (Bld) [Mass/Vol] 9.7 g/dL Low 12.0-15.0 [facility] Comment on above: Performed By: #### C BC ####[facility] PATHOLOGY [id number] [place] [address], MCH (RBC) [Entitic mass] 29.4 pg Normal 26.0-34.0 [facility] Comment on above: Performed By: #### C BC ####[facility] PATHOLOGY [id number] [place] [address], MCHC (RBC) [Mass/Vol] 33.3 g/dL Normal 32.0-35.9 [facility] Comment on above: Performed By: #### C BC ####[facility] PATHOLOGY [id number] [place] [address], MCV (RBC) [Entitic vol] 88 fL Normal 80-100 [facility] Comment on above: Performed By: #### C BC ####[facility] PATHOLOGY [id number] [place] [address], Platelet mean volume (Bld) [Entitic vol] 8.0 fL Normal 7.5-11.2 [facility] Comment on above: Performed By: #### C BC ####[facility] PATH[facility]Y [id number] [place], Platelets (Bld) [#/Vol] 264 10*3/uL Normal 150-400 [facility] Comment on above: Performed By: #### C BC ####[facility] PATH[facility] [id number] [place], RBC (Bld) [#/Vol] 3.30 10*6/uL Low 4.00-5.20 [facility] Comment on above: Performed By: #### C BC ####[facility] PATH[facility] [id number] [place], WBC (Bld) [#/Vol] 13.9 10*3/uL High 4.5-11.5 [facility] Comment on above: Performed By: #### C BC ####[facility] PATH[facility] [id number] [place], Erythrocyte distribution width (RBC) [Ratio] 14.0 % Normal 11.5-14.5 [facility] Comment on above: Performed By: #### C BC ####[facility] [id number] [place], Hematocrit (Bld) [Volume fraction] 27.8 % Low 36.0-46.0 [facility] Comment on above: Performed By: #### C BC ####[facility] [id number] [place], Hemoglobin (Bld) [Mass/Vol] 9.3 g/dL Low 12.0-15.0 [facility] Comment on above: Performed By: #### C BC ####[facility] [id number] [place], MCH (RBC) [Entitic mass] 29.2 pg Normal 26.0-34.0 [facility] Comment on above: Performed By: #### C BC ####[facility] PATH[facility] [id number] [place], MCHC (RBC) [Mass/Vol] 33.5 g/dL Normal 32.0-35.9 [facility] Comment on above: Performed By: #### C BC ####[facility] PATH[facility] [id number] [place], MCV (RBC) [Entitic vol] 87 fL Normal 80-100 [facility] Comment on above: Performed By: #### C BC ####S PATHOLOGY [id number] [place], Platelet mean volume (Bld) [Entitic vol] 8.3 fL Normal 7.5-11.2 [facility] Comment on above: Performed By: #### C BC ####[facility] PATH[facility] [id number] [place], Platelets (Bld) [#/Vol] 197 10*3/uL Normal 150-400 [facility] Comment on above: Performed By: #### C BC ####[facility] PATH[facility] [id number] [place], RBC (Bld) [#/Vol] 3.18 10*6/uL Low 4.00-5.20 [facility] Comment on above: Performed By: #### C BC ####[facility] [id number] [place], WBC (Bld) [#/Vol] 12.5 10*3/uL High 4.5-11.5 [facility] Comment on above: Performed By: #### C BC ####[facility] [id number] [place], [place], Consultson 07-16-2024 Spa Experience Coordinator Authentication Interface Message Text Normal [facility] HEPATIC FUNCTION PANELOrdere d By: Libby Wilson on 07-16-2024 Albumin [Mass/Vol] 2.9 g/dL Low 3.5 - 5.7 g/dL [facility] ALP [Catalytic activity/Vol] 141 U/L High [facility] ALT [Catalytic activity/Vol] 523 U/L High [facility] AST [Catalytic activity/Vol] 93 U/L High [facility] Bilirubin [Mass/Vol] 1.6 mg/dL High 0.3 - 1 .0 mg/dL [facility] Bilirubin.direct [Mass/Vol] 0.62 mg/dL High 0.03 - 0.18 mg/dL [facility] Interpretation and review of laboratory results Abnormal [facility] Protein [Mass/Vol] 5.2 g/dL Low 6.0 - 8.3 g/dL [facility] HEPATIC FUNCTION PANELon Albumin [Mass/Vol] 2.9 g/dL Low 3.5-5.7 [facility] Comment on above: Performed By: #### Chin Royal MG, HEPATIC, PHOS ####[facility] [id number] [place], ALK 141 IU/L High 34-104 [facility] Comment on above: Performed By: #### Chin Royal, MG, HEPATIC, PHOS ####[facility] [id number] [place], ALT [Catalytic activity/Vol] 523 U/L High 7-52 [facility] Comment on above: Performed By: #### Chin Royal, MG, HEPATIC, PHOS ####[facility] [id number] [place], AST [Catalytic activity/Vol] 93 U/L High 13-39 [facility] Comment on above: Performed By: #### Chin Royal, MG, HEPATIC, PHOS ####[facility] [id number] [place], Bilirubin [Mass/Vol] 1.6 mg/dL High 0.3-1.0 [facility] Comment on above: Performed By: #### Chin Royal, MG, HEPATIC, PHOS ####[facility] [id number] [place], Bilirubin.direct [Mass/Vol] 0.62 mg/dL High 0.03-0.18 [facility] Comment on above: Performed By: #### Chin Royal, MG, HEPATIC, PHOS ####[facility] [id number] [place], Protein [Mass/Vol] 5.2 g/dL Low 6.0-8.3 [facility] Comment on above: Performed By: #### C H8, MG, HEPATIC, PHOS ####[facility] [id number] [place], Laboratory - Blood bankon ABO and Rh group Nom (Bld) Blood group A Rh(D) negative [facility] MAGNESIUMon 07-16-2024 Magnesium [Mass/Vol] 2.0 mg/dL 1.9 - 2 .7 [facility] [Mass/Vol] 2.0 mg/dL Normal 1.9-2.7 [facility] Comment on above: Performed By: #### C H8, MG, HEPATIC, PHOS ####[facility] [id number] [place], No Panel Informationon 07-16 Interpretation and review of laboratory results Normal [facility] PHOSPHORUSon 07-16-2024 Phosphate [Mass/Vol] 2.7 mg/dL 2.5 - 5 .0 mg/dL [facility] Phosphate [Mass/Vol] 2.7 mg/dL Normal 2.5-5.0 [facility] Comment on above: Performed By: #### C H8, MG, HEPATIC, PHOS ####[facility] [id number] [place], Progress Noteson 07-16-2024 Spa Experience Coordinator Authentication Interface Message Text Normal [facility] TYPE AND SCREENon 07-16-2024 Blood group antibody screen Ql Negative [facility] ABO and Rh group Nom (Bld) Blood group A Rh(D) negative Normal [facility] Comment on above: Performed By: #### T S ####[facility] [id number] [place], ABSC INT Negative Normal [facility] Comment on above: Performed By: #### T S ####[facility] [id number] [place], ANTI FXA-LMW HEPARINon 07-15 LMW Heparin Chromogenic method Qn (PPP) 0.16 IU/mL [facility] ANTI FXA-LMW HEPARIN ASSAY 0.16 IU/mL Normal [facility] Comment on above: Order Comment: The r ecommended therapeutic range for treatment of thrombosis with Low Molecular Weight Heparin is 0.5 - 1.0 IU/mLThe recommended range for VTE prophylaxis with Low Molecular Weight Heparin is 0.2 - 0.4 IU/mL. Performed By: #### A XL ####[facility] [id number] [place], BASIC METABOLIC PANELon 09-0 -2023 Anion gap [Moles/Vol] 14 mmol/L Normal 10-20 [facility] Comment on above: Performed By: #### C H8, MG, PHOS ####[facility] [id number] [place], Calcium [Mass/Vol] 7.7 mg/dL Low 8.6-10.3 [facility] Comment on above: Performed By: #### Chin H8, MG, PHOS ####[facility] [id number] [place], Chloride [Moles/Vol] 103 mmol/L Normal 98-107 [facility] Comment on above: Performed By: #### C H8, MG, PHOS ####[facility] [id number] [place], CO2 [Moles/Vol] 24 mmol/L Normal 21-31 [facility] Comment on above: Performed By: #### C H8, MG, PHOS ####[facility] [id number] [place], Creatinine [Mass/Vol] 0.66 mg/dL Normal 0.60-1.20 [facility] Comment on above: Performed By: #### C H8, MG, PHOS ####[facility] [id number] [place], ESTIMATED GFR (CKD-EPI) 121 mL/min/1.73sqm Normal >=60 [facility] Comment on above: Result Comment: 2020 CKD EPI Equation using Creatinine without RaceComment: Estimated glomerular filtration rate (eGFR) is calculated without a race coefficient. Values should be interpreted in the context of the patient's full clinical presentation.Reference:1. Evert Neely, Gloria Tesfaye, Jasper GUERRA, et al.. A Unifying Approach for GFR Estimation: Recommendations of the NKF-ASN Task Force on Reassessing the Inclusion of Race in Diagnosing Kidney Disease. [place] Journal of Kidney Diseases 202;79(2):268-88.e1.2. N Engl J Med 2020 Vol. 385 Issue 19 Pages 3637-9435 Performed By: #### MG Lou PHOS ####[facility] [id number] [place], Glucose [Mass/Vol] 97 mg/dL Normal 74-109 [facility] Comment on above: Performed By: #### MG Lou PHOS ####[facility] [id number] [place], Potassium [Moles/Vol] 4.3 mmol/L Normal 3.5-5.0 [facility] Comment on above: Performed By: #### MG Lou PHOS ####[facility] [id number] [place], Sodium [Moles/Vol] 137 mmol/L Normal 136-145 [facility] Comment on above: Performed By: #### MG Lou PHOS ####[facility] [id number] [place], Urea nitrogen [Mass/Vol] 11 mg/dL Normal 7-25 [facility] Comment on above: Performed By: #### MG Lou PHOS ####[facility] [id number] [place], Basic metabolic 2000 panelon 07-15-2024 Anion gap [Moles/Vol] 14 mmol/L 10 - 20 [facility] Calcium [Mass/Vol] 7.7 mg/dL Low 8.6 - 10. 3 mg/dL [facility] Chloride [Moles/Vol] 103 mmol/L 98 - 10 7 mmol/L [facility] CO2 [Moles/Vol] 24 mmol/L 21 - 31 mmol/L [facility] Creatinine [Mass/Vol] 0.66 mg/dL 0.60 - 1.20 mg/dL [facility] GFR/1.73 sq M.predicted CKD-EPI (S/P/Bld) [Vol rate/Area] 121 - PINF [facility] Glucose [Mass/Vol] 97 mg/dL 74 - 109 mg/dL [facility] Interpretation and review of laboratory results Abnormal [facility] Potassium [Moles/Vol] 4.3 mmol/L 3.5 - 5.0 mmol/L [facility] Sodium [Moles/Vol] 137 mmol/L 136 - 145 mmol/L [facility] Urea nitrogen [Mass/Vol] 11 mg/dL 7 - 25 mg/dL [facility] CBC panel Auto (Bld)Ordered By: Aysa Benavides on 07-15-2024 Erythrocyte distribution width (RBC) [Ratio] 14.1 % 11.5 - 14.5 % [facility] Hematocrit (Bld) [Volume fraction] 31.9 % Low 36.0 - 46.0 % [facility] Hemoglobin (Bld) [Mass/Vol] 10.8 g/dL Low 12.0 - 15.0 g/dL [facility] Interpretation and review of laboratory results Abnormal [facility] MCH (RBC) [Entitic mass] 29.7 pg 26.0 - 34.0 pg [facility] MCHC (RBC) [Mass/Vol] 33.7 g/dL 32.0 - 35.9 g/dL [facility] MCV (RBC) [Entitic vol] 88 fL 80 - 100 fL [facility] Platelet mean volume (Bld) [Entitic vol] 8.1 fL 7.5 - 11.2 fL [facility] Platelets (Bld) [#/Vol] 178 10*3/uL 150 - 400 K/uL [facility] RBC (Bld) [#/Vol] 3.62 10*6/uL Low [facility] WBC (Bld) [#/Vol] 14.0 10*3/uL High 4.5 - 11.5 K/uL [facility] COMPLETE BLOOD COUNTon 07-15 Erythrocyte distribution width (RBC) [Ratio] 14.1 % Normal 11.5-14.5 [facility] Comment on above: Performed By: #### C BC ####[facility] [id number] [place], [address] Hematocrit (Bld) [Volume fraction] 31.9 % Low 36.0-46.0 [facility] Comment on above: Performed By: #### C BC ####[facility] [id number] [place], Hemoglobin (Bld) [Mass/Vol] 10.8 g/dL Low 12.0-15.0 [facility] Comment on above: Performed By: #### C BC ####[facility] [id number] [place], MCH (RBC) [Entitic mass] 29.7 pg Normal 26.0-34.0 [facility] Comment on above: Performed By: #### C BC ####[facility] [id number] [place], MCHC (RBC) [Mass/Vol] 33.7 g/dL Normal 32.0-35.9 [facility] Comment on above: Performed By: #### C BC ####[facility] [id number] [place] [address], MCV (RBC) [Entitic vol] 88 fL Normal 80-100 [facility] Comment on above: Performed By: #### C BC ####[facility] [id number] [place], Platelet mean volume (Bld) [Entitic vol] 8.1 fL Normal 7.5-11.2 [facility] Comment on above: Performed By: #### C BC ####[facility] [id number] [place], Platelets (Bld) [#/Vol] 178 10*3/uL Normal 150-400 [facility] Comment on above: Performed By: #### C BC ####[facility] [id number] [place], RBC (Bld) [#/Vol] 3.62 10*6/uL Low 4.00-5.20 [facility] Comment on above: Performed By: #### C BC ####[facility] [id number] [place], WBC (Bld) [#/Vol] 14.0 10*3/uL High 4.5-11.5 [facility] Comment on above: Performed By: #### C BC ####[facility] [id number] [place], Consultson 07-15-2024 Spa Experience Coordinator Authentication Interface Message Text Normal [facility] Spa Experience Coordinator Authentication Interface Message Text Normal [facility] EKG 12 LEAD - PERFORMon Diagnosis [facility] P wave Atrium by EKG [address] [facility] P-R Interval 138 ms [facility] Q-T interval 316 ms [facility] Q-T interval corrected 435 ms [facility] QRS axis 183 degrees [facility] QRS duration 80 ms [facility] T wave axis [address] [facility] MAGNESIUMon 07-15-2024 Magnesium [Mass/Vol] 2.1 mg/dL 1.9 - 2 .7 mg/dL [facility] Magnesium [Mass/Vol] 2.1 mg/dL Normal 1.9-2.7 [facility] Comment on above: Performed By: #### C Lele, MG, PHOS ####[facility] [id number] [place], No Panel Informationon 07-15 Interpretation and review of laboratory results Normal [facility] Blood Product Description FFP [facility] Blood Product Unit Type 8400 [facility] Status Transfused [facility] PHOSPHORUSon 07-15-2024 Phosphate [Mass/Vol] 3.0 mg/dL 2.5 - 5 .0 mg/dL [facility] Phosphate [Mass/Vol] 3.0 mg/dL Normal 2.5-5.0 [facility] Comment on above: Performed By: #### C H8, MG, PHOS ####[facility] [id number] [place], PLASMA STATUSon 07-15-2024 Blood Product Code [id number] [facility] Blood Product Code [id number] [facility] Blood product unit Nom (BPU) [ID] [id number] [facility] Blood product unit Nom (BPU) [ID] [id number] [facility] Progress Noteson 07-15-2024 Spa Experience Coordinator Authentication Interface Message Text Normal [facility] WHOLE BLOOD STATUSon 024 Blood Product Code [id number] [facility] Blood Product Description Whole Blood [facility] Blood product unit Nom (BPU) [ID] [id number] [facility] Blood Product Unit Type 9500 [facility] Major crossmatch [Interp] Incompatible [facility] BASIC METABOLIC PANELon Anion gap [Moles/Vol] 12 mmol/L Normal 10-20 [facility] Comment on above: Performed By: #### C H8, PHOS, MG ####[facility] [id number] [place], Calcium [Mass/Vol] 7.4 mg/dL Low 8.6-10.3 [facility] Comment on above: Performed By: #### C H8, PHOS, MG ####[facility] [id number] [place], Chloride [Moles/Vol] 103 mmol/L Normal 98-107 [facility] Comment on above: Performed By: #### C H8, PHOS, MG ####[facility] [id number] [place], CO2 [Moles/Vol] 26 mmol/L Normal 21-31 [facility] Comment on above: Performed By: #### C H8, PHOS, MG ####[facility] [id number] [place], Creatinine [Mass/Vol] 0.75 mg/dL Normal 0.60-1.20 [facility] Comment on above: Performed By: #### C H8, PHOS, MG ####[facility] [id number] [place], ESTIMATED GFR (CKD-EPI) 110 mL/min/1.73sqm Normal >=60 [facility] Comment on above: Result Comment: 2020 CKD EPI Equation using Creatinine without RaceComment: Estimated glomerular filtration rate (eGFR) is calculated without a race coefficient. Values should be interpreted in the context of the patient's full clinical presentation.Reference:1. Evert Neely, Gloria M, Jasper GUERRA, et al.. A Unifying Approach for GFR Estimation: Recommendations of the NKF-ASN Task Force on Reassessing the Inclusion of Race in Diagnosing Kidney Disease. [place] Journal of Kidney Diseases 2021;79(2):268-88.e1.2. N Engl J Med 2020 Vol. 385 Issue 19 Pages 2405-0025 Performed By: #### TSERING Lou MG ####[facility] [id number] [place], Glucose [Mass/Vol] 113 mg/dL High 74-109 [facility] Comment on above: Performed By: #### TSERING Lou MG ####[facility] [id number] [place], Potassium [Moles/Vol] 3.9 mmol/L Normal 3.5-5.0 [facility] Comment on above: Performed By: #### TSERING Lou MG ####[facility] [id number] [place], Sodium [Moles/Vol] 137 mmol/L Normal 136-145 [facility] Comment on above: Performed By: #### TSERING Lou MG ####[facility] [id number] [place], Urea nitrogen [Mass/Vol] 12 mg/dL Normal 7-25 [facility] Comment on above: Performed By: #### TSERING Lou MG ####[facility] [id number] [place], Basic metabolic 2000 panelon 07-14-2024 Anion gap [Moles/Vol] 12 mmol/L 10 - 20 [facility] Calcium [Mass/Vol] 7.4 mg/dL Low 8.6 - 10. 3 mg/dL [facility] Chloride [Moles/Vol] 103 mmol/L 98 - 10 7 mmol/L [facility] CO2 [Moles/Vol] 26 mmol/L 21 - 31 mmol/L [facility] Creatinine [Mass/Vol] 0.75 mg/dL 0.60 - 1.20 mg/dL [facility] GFR/1.73 sq M.predicted CKD-EPI (S/P/Bld) [Vol rate/Area] 110 - PINF [facility] Glucose [Mass/Vol] 113 mg/dL High 74 - 109 mg/dL [facility] Interpretation and review of laboratory results Abnormal [facility] Potassium [Moles/Vol] 3.9 mmol/L 3.5 - 5.0 mmol/L [facility] Sodium [Moles/Vol] 137 mmol/L 136 - 145 mmol/L [facility] Urea nitrogen [Mass/Vol] 12 mg/dL 7 - 25 mg/dL [facility] CBC panel Auto (Bld)on 07-14 Erythrocyte distribution width (RBC) [Ratio] 14.0 % 11.5 - 14.5 % [facility] Hematocrit (Bld) [Volume fraction] 27.2 % Low 36.0 - 46.0 % [facility] Hemoglobin (Bld) [Mass/Vol] 9.0 g/dL Low 12.0 - 15.0 g/dL [facility] Interpretation and review of laboratory results Abnormal [facility] MCH (RBC) [Entitic mass] 29.0 pg 26.0 - 34.0 pg [facility] MCHC (RBC) [Mass/Vol] 33.2 g/dL 32.0 - 35.9 g/dL [facility] MCV (RBC) [Entitic vol] 87 fL 80 - 100 fL [facility] Platelet mean volume (Bld) [Entitic vol] 8.1 fL 7.5 - 11.2 fL [facility] Platelets (Bld) [#/Vol] 167 10*3/uL 150 - 400 K/uL [facility] RBC (Bld) [#/Vol] 3.12 10*6/uL Low [facility] WBC (Bld) [#/Vol] 13.9 10*3/uL High 4.5 - 11.5 K/uL [facility] COMPLETE BLOOD COUNTon 07-14 Erythrocyte distribution width (RBC) [Ratio] 14.0 % Normal 11.5-14.5 [facility] Comment on above: Performed By: #### C BC ####[facility] [id number] [place], [address] Hematocrit (Bld) [Volume fraction] 27.2 % Low 36.0-46.0 [facility] Comment on above: Performed By: #### C BC ####[facility] PATHOLOGY [id number] [place], [place], Hemoglobin (Bld) [Mass/Vol] 9.0 g/dL Low 12.0-15.0 [facility] Comment on above: Performed By: #### C BC ####[facility] PATHOLOGY [id number] [place], [place], MCH (RBC) [Entitic mass] 29.0 pg Normal 26.0-34.0 [facility] Comment on above: Performed By: #### C BC ####[facility] PATHOLOGY [id number] [place], MCHC (RBC) [Mass/Vol] 33.2 g/dL Normal 32.0-35.9 [facility] Comment on above: Performed By: #### C BC ####[facility] PATHOLOGY [id number] [place] [address], MCV (RBC) [Entitic vol] 87 fL Normal 80-100 [facility] Comment on above: Performed By: #### C BC ####[facility] PATHOLOGY [id number] [place], Platelet mean volume (Bld) [Entitic vol] 8.1 fL Normal 7.5-11.2 [facility] Comment on above: Performed By: #### C BC ####[facility] PATHOLOGY [id number] [place], Platelets (Bld) [#/Vol] 167 10*3/uL Normal 150-400 [facility] Comment on above: Performed By: #### C BC ####[facility] PATHOLOGY [id number] [place], RBC (Bld) [#/Vol] 3.12 10*6/uL Low 4.00-5.20 [facility] Comment on above: Performed By: #### C BC ####[facility] PATHOLOGY [id number] [place], WBC (Bld) [#/Vol] 13.9 10*3/uL High 4.5-11.5 [facility] Comment on above: Performed By: #### C BC ####[facility] [id number] [place], [place], Consultson 07-14-2024 Spa Experience Coordinator Authentication Interface Message Text Normal [facility] MAGNESIUMon 07-14-2024 Magnesium [Mass/Vol] 2.0 mg/dL 1.9 - 2 .7 mg/dL [facility] Magnesium [Mass/Vol] 2.0 mg/dL Normal 1.9-2.7 [facility] Comment on above: Performed By: #### C H8, PHOS, MG ####[facility] [id number] [place], No Panel Informationon 07-14 Interpretation and review of laboratory results Normal [facility] PHOSPHORUSon 07-14-2024 Phosphate [Mass/Vol] 2.7 mg/dL 2.5 - 5 .0 mg/dL [facility] Phosphate [Mass/Vol] 2.7 mg/dL Normal 2.5-5.0 [facility] Comment on above: Performed By: #### C H8, PHOS, MG ####[facility] [id number] [place], [place], Progress Noteson 07-14-2024 Spa Experience Coordinator Authentication Interface Message Text I have reviewed and agree with Baldemar Kunz's (Student Nurse) documentation for [id number] shift. Normal [facility] Spa Experience Coordinator Authentication Interface Message Text Normal [facility] Spa Experience Coordinator Authentication Interface Message Text Normal [facility] Spa Experience Coordinator Authentication Interface Message Text Noted injury on her knee, skin healed and can see dry blood Normal [facility] XR CHEST AP OR PA 1 VIEWon 0 07-14-2024 XR CHEST AP OR PA 1 VIEW Normal [facility] XR Chest Single viewon 07-14 EXAMINATION: XR CHES T AP OR PA 1 VIEW 07/14/2024 08:10 AM CLINICAL HISTORY: Hypoxia ASSOCIATED DIAGNOSIS: Hypoxia ORDERING PROVIDER: LYSSA JAMISON TECHNOLOGISTS NOTE: COMPARISON: XR CHEST AP OR PA 1 VIEW 07/12/2024, 5:[address] BODY IMAGE IMPORT(ALESSANDRO) 07/11/2024, 6:28 PM FINDINGS: Position and projection: AP erect. Limitations: Low lung volumes. Clinical considerations: Obtained from EMR. Lines, tubes, and devices: CT BODY IMAGE IMPORT(ALESSANDRO) 07/11/2024, 6:28 PM Cardiomediastinal silhouette: Normal heart size. Diaphragm: Mild elevation of the right hemidiaphragm with the right hemidiaphragm approximately 3 cm higher than the left. Lungs and pleura: Bibasilar atelectasis. No sizable pleural effusion or pneumothorax. Osseous structures: Acute, displaced fracture of the posteromedial right 10th rib. Chest wall: Unremarkable. IMPRESSION: 1. Status post recent right upper quadrant abdominal trauma with an acute right 10th rib fracture. 2. Low lung volumes, mild elevation of the right hemidiaphragm and bibasilar atelectasis. MACRO: None RADIOLOGY Marcelino Mcarthur, DO - 07/14/2024 EXAMINATION: XR CHEST AP OR PA 1 VIEW 07/14/2024 08:10 AM CLINICAL HISTORY: Hypoxia ASSOCIATED DIAGNOSIS: Hypoxia ORDERING PROVIDER: LYSSA JAMISON TECHNOLOGISTS NOTE: COMPARISON: XR CHEST AP OR PA 1 VIEW 07/12/2024, 5:[address] BODY IMAGE IMPORT(ALESSANDRO) 07/11/2024, 6:28 PM FINDINGS: Position and projection: AP erect. Limitations: Low lung volumes. Clinical considerations: Obtained from EMR. Lines, tubes, and devices: CT BODY IMAGE IMPORT(ALESSANDRO) 07/11/2024, 6:28 PM Cardiomediastinal silhouette: Normal heart size. Diaphragm: Mild elevation of the right hemidiaphragm with the right hemidiaphragm approximately 3 cm higher than the left. Lungs and pleura: Bibasilar atelectasis. No sizable pleural effusion or pneumothorax. Osseous structures: Acute, displaced fracture of the posteromedial right 10th rib. Chest wall: Unremarkable. IMPRESSION: 1. Status post recent right upper quadrant abdominal trauma with an acute right 10th rib fracture. 2. Low lung volumes, mild elevation of the right hemidiaphragm and bibasilar atelectasis. MACRO: None [facility] RADIOLOGY [facility] Radiology Study observation (narrative) [facility] XR Chest Single viewOrdered By: Marcelino Mcarthur on 07-14-2024 [employer] Work Phone: BASIC METABOLIC PANELon 09 Anion gap [Moles/Vol] 11 mmol/L Normal 10-20 [facility] Comment on above: Performed By: #### TSERING Wright, CH8 ####[facility] [id number] [place], Calcium [Mass/Vol] 7.6 mg/dL Low 8.6-10.3 [facility] Comment on above: Performed By: #### TSERING Wright, CH8 ####[facility] [id number] [place], Chloride [Moles/Vol] 106 mmol/L Normal 98-107 [facility] Comment on above: Performed By: #### TSERING Wright, CH8 ####[facility] [id number] [place], CO2 [Moles/Vol] 26 mmol/L Normal 21-31 [facility] Comment on above: Performed By: #### TSERING Wright, CH8 ####[facility] PATH[facility] [id number] [place], Creatinine [Mass/Vol] 0.85 mg/dL Normal 0.60-1.20 [facility] Comment on above: Performed By: #### TSERING Wright, CH8 ####[facility] [id number] [place], ESTIMATED GFR (CKD-EPI) 94 mL/min/1.73sqm Normal >=60 [facility] Comment on above: Result Comment: 2020 CKD EPI Equation using Creatinine without RaceComment: Estimated glomerular filtration rate (eGFR) is calculated without a race coefficient. Values should be interpreted in the context of the patient's full clinical presentation.Reference:1. Evert Neely, Gloria M, Jasper GUERRA, et al.. A Unifying Approach for GFR Estimation: Recommendations of the NKF-ASN Task Force on Reassessing the Inclusion of Race in Diagnosing Kidney Disease. [place] Journal of Kidney Diseases 2021;79(2):268-88.e1.2. N Engl J Med 2020 Vol. 385 Issue 19 Pages 8787-6907 Performed By: #### TSERING Wright CH8 ####[facility] [id number] [place], Glucose [Mass/Vol] 131 mg/dL High 74-109 [facility] Comment on above: Performed By: #### TSERING Wright CH8 ####[facility] [id number] [place], Potassium [Moles/Vol] 4.0 mmol/L Normal 3.5-5.0 [facility] Comment on above: Performed By: #### TSERING Wright CH8 ####[facility] [id number] [place], Sodium [Moles/Vol] 139 mmol/L Normal 136-145 [facility] Comment on above: Performed By: ###TSERING Mcguire CH8 ####[facility] HIWNAPVMCL0916 [place], Urea nitrogen [Mass/Vol] 15 mg/dL Normal 7-25 [facility] Comment on above: Performed By: ###TSERING Mcguire CH8 ####[facility] [id number] [place], Basic metabolic 2000 panelon 07-13-2024 Anion gap [Moles/Vol] 11 mmol/L 10 - 20 [facility] Calcium [Mass/Vol] 7.6 mg/dL Low 8.6 - 10. 3 mg/dL [facility] Chloride [Moles/Vol] 106 mmol/L 98 - 10 7 mmol/L [facility] CO2 [Moles/Vol] 26 mmol/L 21 - 31 mmol/L [facility] Creatinine [Mass/Vol] 0.85 mg/dL 0.60 - 1.20 mg/dL [facility] GFR/1.73 sq M.predicted CKD-EPI (S/P/Bld) [Vol rate/Area] 94 - PINF [facility] Glucose [Mass/Vol] 131 mg/dL High 74 - 109 mg/dL [facility] Interpretation and review of laboratory results Abnormal [facility] Potassium [Moles/Vol] 4.0 mmol/L 3.5 - 5.0 mmol/L [facility] Sodium [Moles/Vol] 139 mmol/L 136 - 145 mmol/L [facility] Urea nitrogen [Mass/Vol] 15 mg/dL 7 - 25 mg/dL [facility] CBC panel Auto (Bld)on 07-13 Erythrocyte distribution width (RBC) [Ratio] 14.0 % 11.5 - 14.5 % [facility] Hematocrit (Bld) [Volume fraction] 28.9 % Low 36.0 - 46.0 % [facility] Hemoglobin (Bld) [Mass/Vol] 9.7 g/dL Low 12.0 - 15.0 g/dL [facility] Interpretation and review of laboratory results Abnormal [facility] MCH (RBC) [Entitic mass] 29.1 pg 26.0 - 34.0 pg [facility] MCHC (RBC) [Mass/Vol] 33.4 g/dL 32.0 - 35.9 g/dL [facility] MCV (RBC) [Entitic vol] 87 fL 80 - 100 fL [facility] Platelet mean volume (Bld) [Entitic vol] 8.2 fL 7.5 - 11.2 fL [facility] Platelets (Bld) [#/Vol] 176 10*3/uL 150 - 400 K/uL [facility] RBC (Bld) [#/Vol] 3.31 10*6/uL Low [facility] WBC (Bld) [#/Vol] 13.6 10*3/uL High 4.5 - 11.5 K/uL [facility] COMPLETE BLOOD COUNTon 07-13 Erythrocyte distribution width (RBC) [Ratio] 14.0 % Normal 11.5-14.5 [facility] Comment on above: Performed By: #### C BC ####S PATHOLOGY [id number] [place] [address], Hematocrit (Bld) [Volume fraction] 28.9 % Low 36.0-46.0 [facility] Comment on above: Performed By: #### C BC ####S PATHOLOGY [id number] [place], Hemoglobin (Bld) [Mass/Vol] 9.7 g/dL Low 12.0-15.0 [facility] Comment on above: Performed By: #### C BC ####[facility] PATHOLOGY [id number] [place], MCH (RBC) [Entitic mass] 29.1 pg Normal 26.0-34.0 [facility] Comment on above: Performed By: #### C BC ####[facility] PATHOLOGY [id number] [place], MCHC (RBC) [Mass/Vol] 33.4 g/dL Normal 32.0-35.9 [facility] Comment on above: Performed By: #### C BC ####[facility] PATHOLOGY [id number] [place], MCV (RBC) [Entitic vol] 87 fL Normal 80-100 [facility] Comment on above: Performed By: #### C BC ####[facility] PATHOLOGY [id number] [place], Platelet mean volume (Bld) [Entitic vol] 8.2 fL Normal 7.5-11.2 [facility] Comment on above: Performed By: #### C BC ####[facility] PATHOLOGY [id number] [place], Platelets (Bld) [#/Vol] 176 10*3/uL Normal 150-400 [facility] Comment on above: Performed By: #### C BC ####[facility] PATHOLOGY [id number] [place], RBC (Bld) [#/Vol] 3.31 10*6/uL Low 4.00-5.20 [facility] Comment on above: Performed By: #### C BC ####[facility] PATHOLOGY [id number] [place], WBC (Bld) [#/Vol] 13.6 10*3/uL High 4.5-11.5 [facility] Comment on above: Performed By: #### C BC ####S PATHOLOGY [id number] [place], Consultson 07-13-2024 Spa Experience Coordinator Authentication Interface Message Text Normal [facility] Spa Experience Coordinator Authentication Interface Message Text Normal [facility] MAGNESIUMon 07-13-2024 Interpretation and review of laboratory results Abnormal [facility] Magnesium [Mass/Vol] 1.8 mg/dL Low 1.9 - 2 .7 mg/dL [facility] Magnesium [Mass/Vol] 1.8 mg/dL Low 1.9-2.7 [facility] Comment on above: Performed By: #### TSERING Wright CH8 ####[facility] [id number] [place], No Panel Informationon 07-13 [facility] No Panel InformationOrdered By: Henry Taylor on 07-13-2024 [facility] Work Phone: PHOSPHORUSon 07-13-2024 Interpretation and review of laboratory results Normal [facility] Phosphate [Mass/Vol] 3.8 mg/dL 2.5 - 5 .0 mg/dL [facility] Phosphate [Mass/Vol] 3.8 mg/dL Normal 2.5-5.0 [facility] Comment on above: Performed By: #### TSERING Wright CH8 ####[facility] [id number] [place], Progress Noteson 07-13-2024 Spa Experience Coordinator Authentication Interface Message Text Normal [facility] Spa Experience Coordinator Authentication Interface Message Text Normal [facility] XA ADDITIONAL VESSELS (ALESSANDRO)o n 07-13-2024 XA ADDITIONAL VESSELS (ALESSANDRO) Normal [facility] XA CELIAC ARTERY (ALESSANDRO)on XA CELIAC ARTERY (ALESSANDRO) Normal [facility] BASIC METABOLIC PANELon 0 Anion gap [Moles/Vol] 14 mmol/L Normal 10-20 [facility] Comment on above: Performed By: #### C H8, HEPATIC, MG, PHOS ####[facility] [id number] [place], Calcium [Mass/Vol] 7.8 mg/dL Low 8.6-10.3 [facility] Comment on above: Performed By: #### C H8, HEPATIC, MG, PHOS ####[facility] [id number] [place], Chloride [Moles/Vol] 110 mmol/L High 98-107 [facility] Comment on above: Performed By: #### C H8, HEPATIC, MG, PHOS ####[facility] [id number] [place], CO2 [Moles/Vol] 21 mmol/L Normal 21-31 [facility] Comment on above: Performed By: #### C H8, HEPATIC, MG, PHOS ####[facility] [id number] [place], Creatinine [Mass/Vol] 0.81 mg/dL Normal 0.60-1.20 [facility] Comment on above: Performed By: #### C H8, HEPATIC, MG, PHOS ####[facility] [id number] [place], ESTIMATED GFR (CKD-EPI) 100 mL/min/1.73sqm Normal >=60 [facility] Comment on above: Result Comment: 2020 CKD EPI Equation using Creatinine without RaceComment: Estimated glomerular filtration rate (eGFR) is calculated without a race coefficient. Values should be interpreted in the context of the patient's full clinical presentation.Reference:1. Evert C, Gloria M, Jasper GUERRA, et al.. A Unifying Approach for GFR Estimation: Recommendations of the NKF-ASN Task Force on Reassessing the Inclusion of Race in Diagnosing Kidney Disease. [place] Journal of Kidney Diseases 2021;79(2):268-88.e1.2. N Engl J Med 2020 Vol. 385 Issue 19 Pages 7205-3797 Performed By: #### C H8, HEPATIC, MG, PHOS ####[facility] [id number] [place], Glucose [Mass/Vol] 159 mg/dL High 74-109 [facility] Comment on above: Performed By: #### C H8, HEPATIC, MG, PHOS ####[facility] [id number] [place], Potassium [Moles/Vol] 4.2 mmol/L Normal 3.5-5.0 [facility] Comment on above: Performed By: #### C H8, HEPATIC, MG, PHOS ####[facility] [id number] [place], Sodium [Moles/Vol] 141 mmol/L Normal 136-145 [facility] Comment on above: Performed By: #### Chin H8, HEPATIC, MG, PHOS ####[facility] [id number] [place], Urea nitrogen [Mass/Vol] 16 mg/dL Normal 7-25 [facility] Comment on above: Performed By: #### Chin Moreno8, HEPATIC, MG, PHOS ####[facility] [id number] [place], Basic metabolic 2000 panelon 07-12-2024 Anion gap [Moles/Vol] 14 mmol/L 10 - 20 [facility] Calcium [Mass/Vol] 7.8 mg/dL Low 8.6 - 10. 3 mg/dL [facility] Chloride [Moles/Vol] 110 mmol/L High 98 - 10 7 mmol/L [facility] CO2 [Moles/Vol] 21 mmol/L 21 - 31 mmol/L [facility] Creatinine [Mass/Vol] 0.81 mg/dL 0.60 - 1.20 mg/dL [facility] GFR/1.73 sq M.predicted CKD-EPI (S/P/Bld) [Vol rate/Area] 100 - PINF [facility] Glucose [Mass/Vol] 159 mg/dL High 74 - 109 mg/dL [facility] Interpretation and review of laboratory results Abnormal [facility] Potassium [Moles/Vol] 4.2 mmol/L 3.5 - 5.0 mmol/L [facility] Sodium [Moles/Vol] 141 mmol/L 136 - 145 mmol/L [facility] Urea nitrogen [Mass/Vol] 16 mg/dL 7 - 25 mg/dL [facility] CBC panel Auto (Bld)on 07-12 Erythrocyte distribution width (RBC) [Ratio] 13.8 % 11.5 - 14.5 % [facility] Hematocrit (Bld) [Volume fraction] 33.6 % Low 36.0 - 46.0 % [facility] Hemoglobin (Bld) [Mass/Vol] 11.3 g/dL Low 12.0 - 15.0 g/dL [facility] Interpretation and review of laboratory results Abnormal [facility] MCH (RBC) [Entitic mass] 29.1 pg 26.0 - 34.0 pg [facility] MCHC (RBC) [Mass/Vol] 33.6 g/dL 32.0 - 35.9 g/dL [facility] MCV (RBC) [Entitic vol] 87 fL 80 - 100 fL [facility] Platelet mean volume (Bld) [Entitic vol] 8.3 fL 7.5 - 11.2 fL [facility] Platelets (Bld) [#/Vol] 218 10*3/uL 150 - 400 K/uL [facility] RBC (Bld) [#/Vol] 3.88 10*6/uL Low [facility] WBC (Bld) [#/Vol] 13.8 10*3/uL High 4.5 - 11.5 K/uL [facility] Erythrocyte distribution width (RBC) [Ratio] 13.8 % 11.5 - 14.5 % [facility] Hematocrit (Bld) [Volume fraction] 33.0 % Low 36.0 - 46.0 % [facility] Hemoglobin (Bld) [Mass/Vol] 11.4 g/dL Low 12.0 - 15.0 g/dL [facility] Interpretation and review of laboratory results Abnormal [facility] MCH (RBC) [Entitic mass] 29.9 pg 26.0 - 34.0 pg [facility] MCHC (RBC) [Mass/Vol] 34.5 g/dL 32.0 - 35.9 g/dL [facility] MCV (RBC) [Entitic vol] 87 fL 80 - 100 fL [facility] Platelet mean volume (Bld) [Entitic vol] 8.3 fL 7.5 - 11.2 fL [facility] Platelets (Bld) [#/Vol] 193 10*3/uL 150 - 400 K/uL [facility] RBC (Bld) [#/Vol] 3.81 10*6/uL Low [facility] WBC (Bld) [#/Vol] 9.8 10*3/uL 4.5 - 11.5 K/uL [facility] Erythrocyte distribution width (RBC) [Ratio] 14.0 % 11.5 - 14.5 % [facility] Hematocrit (Bld) [Volume fraction] 33.4 % Low 36.0 - 46.0 % [facility] Hemoglobin (Bld) [Mass/Vol] 11.2 g/dL Low 12.0 - 15.0 g/dL [facility] Interpretation and review of laboratory results Abnormal [facility] MCH (RBC) [Entitic mass] 29.3 pg 26.0 - 34.0 pg [facility] MCHC (RBC) [Mass/Vol] 33.6 g/dL 32.0 - 35.9 g/dL [facility] MCV (RBC) [Entitic vol] 87 fL 80 - 100 fL [facility] Platelet mean volume (Bld) [Entitic vol] 8.3 fL 7.5 - 11.2 fL [facility] Platelets (Bld) [#/Vol] 172 10*3/uL 150 - 400 K/uL [facility] RBC (Bld) [#/Vol] 3.83 10*6/uL [facility] [#/Vol] 13.0 10*3/uL High 4.5 - 11.5 K/uL [facility] COMPLETE BLOOD COUNTon 07-12 Erythrocyte distribution width (RBC) [Ratio] 13.8 % Normal 11.5-14.5 [facility] Comment on above: Performed By: #### C BC ####S PATHOLOGY [id number] [place], Hematocrit (Bld) [Volume fraction] 33.6 % Low 36.0-46.0 [facility] Comment on above: Performed By: #### C BC ####S PATHOLOGY [id number] [place], Hemoglobin (Bld) [Mass/Vol] 11.3 g/dL Low 12.0-15.0 [facility] Comment on above: Performed By: #### C BC ####S PATHOLOGY [id number] [place], MCH (RBC) [Entitic mass] 29.1 pg Normal 26.0-34.0 [facility] Comment on above: Performed By: #### C BC ####S PATHOLOGY [id number] [place], MCHC (RBC) [Mass/Vol] 33.6 g/dL Normal 32.0-35.9 [facility] Comment on above: Performed By: #### C BC ####S PATHOLOGY [id number] [place], MCV (RBC) [Entitic vol] 87 fL Normal 80-100 [facility] Comment on above: Performed By: #### C BC ####S PATHOLOGY [id number] [place], Platelet mean volume (Bld) [Entitic vol] 8.3 fL Normal 7.5-11.2 [facility] Comment on above: Performed By: #### C BC ####[facility] PATHOLOGY [id number] [place], Platelets (Bld) [#/Vol] 218 10*3/uL Normal 150-400 [facility] Comment on above: Performed By: #### C BC ####[facility] PATHOLOGY [id number] [place], RBC (Bld) [#/Vol] 3.88 10*6/uL Low 4.00-5.20 [facility] Comment on above: Performed By: #### C BC ####[facility] PATHOLOGY [id number] [place], WBC (Bld) [#/Vol] 13.8 10*3/uL High 4.5-11.5 [facility] Comment on above: Performed By: #### C BC ####S PATHOLOGY [id number] [place], Erythrocyte distribution width (RBC) [Ratio] 13.8 % Normal 11.5-14.5 [facility] Comment on above: Performed By: #### C BC ####S PATHOLOGY [id number] [place], Hematocrit (Bld) [Volume fraction] 33.0 % Low 36.0-46.0 [facility] Comment on above: Performed By: #### C BC ####[facility] PATHOLOGY [id number] [place], Hemoglobin (Bld) [Mass/Vol] 11.4 g/dL Low 12.0-15.0 [facility] Comment on above: Performed By: #### C BC ####[facility] PATHOLOGY [id number] [place], MCH (RBC) [Entitic mass] 29.9 pg Normal 26.0-34.0 [facility] Comment on above: Performed By: #### C BC ####[facility] PATHOLOGY [id number] [place], MCHC (RBC) [Mass/Vol] 34.5 g/dL Normal 32.0-35.9 [facility] Comment on above: Performed By: #### C BC ####[facility] PATHOLOGY [id number] [place], MCV (RBC) [Entitic vol] 87 fL Normal 80-100 [facility] Comment on above: Performed By: #### C BC ####[facility] PATHOLOGY [id number] [place], Platelet mean volume (Bld) [Entitic vol] 8.3 fL Normal 7.5-11.2 [facility] Comment on above: Performed By: #### C BC ####[facility] PATHOLOGY [id number] [place], Platelets (Bld) [#/Vol] 193 10*3/uL Normal 150-400 [facility] Comment on above: Performed By: #### C BC ####[facility] PATHOLOGY [id number] [place], RBC (Bld) [#/Vol] 3.81 10*6/uL Low 4.00-5.20 [facility] Comment on above: Performed By: #### C BC ####[facility] PATHOLOGY [id number] [place], WBC (Bld) [#/Vol] 9.8 10*3/uL Normal 4.5-11.5 [facility] Comment on above: Performed By: #### C ####[facility] [id number] [place], [id number] [address] 4 PHASE LIVER W/+W/Oon CT 4 PHASE LIVER W/+W/O Normal [facility] CT Liver WO and W contrast I Von 07-12-2024 RADIOLOGY [facility] CT Liver WO and W contrast I VOrdered By: Caesar Maguire on 07-12-2024 [facility] Work Phone: CT T-SPINE/L-SPINE W/O CONTR Ericka 07-12-2024 CT T-SPINE/L-SPINE W/O CONTRAST Normal [facility] CT Thoracic and lumbar spine WO contrastOrdered By: Lucian Humphries on 07-12-2024 CT DLP 3304.7 (mGy.cm) [facility] Work Phone: CT Series Entire body,Entire body,Entire body,Entire body,Entire body,Entire body,Entire body [facility] Work Phone: CTDI VOL 20.9 (mGy),7.9 (mGy) ,5.3 (mGy),9.8 (mGy),12.7 (mGy),14.2 (mGy),12.8 (mGy) [facility] Work Phone: PHANTOM TYPE IEC Body Dosimetry Phantom,IEC Body Dosimetry Phantom,IEC Body Dosimetry Phantom,IEC Body Dosimetry Phantom,IEC Body Dosimetry Phantom,IEC Body Dosimetry Phantom,IEC Body Dosimetry Phantom [facility] Work Phone: [facility]: CT Thoracic and lumbar spine WO contraston 07-12-2024 RADIOLOGY [facility] Care Plan Noteon 07-12-2024 Spa Experience Coordinator Authentication Interface Message Text Normal [facility] [employer] Consultson 07-12-2024 Spa Experience Coordinator Authentication Interface Message Text Normal [facility] Spa Experience Coordinator Authentication Interface Message Text Normal [facility] Experience Coordinator Authentication Interface Message Text Normal [facility] HEPATIC FUNCTION PANELon Albumin [Mass/Vol] 3.6 g/dL 3.5 - 5.7 g/dL [facility] ALP [Catalytic activity/Vol] 43 U/L [facility] ALT [Catalytic activity/Vol] 705 U/L High [facility] AST [Catalytic activity/Vol] 582 U/L High [facility] Bilirubin [Mass/Vol] 0.8 mg/dL 0.3 - 1 .0 mg/dL [facility] Bilirubin.direct [Mass/Vol] 0.21 mg/dL High 0.03 - 0.18 mg/dL [facility] Protein [Mass/Vol] 5.7 g/dL Low 6.0 - 8.3 g/dL [facility] Albumin [Mass/Vol] 3.6 g/dL Normal 3.5-5.7 [facility] Comment on above: Performed By: #### C H8, HEPATIC, MG, PHOS ####[facility] [id number] [place], [place], ALK 43 IU/L Normal 34-104 [facility] Comment on above: Performed By: #### C H8, HEPATIC, MG, PHOS ####[facility] [id number] [place], ALT [Catalytic activity/Vol] 705 U/L High 7-52 [facility] Comment on above: Performed By: #### C H8, HEPATIC, MG, PHOS ####[facility] [id number] [place], AST [Catalytic activity/Vol] 582 U/L High 13-39 [facility] Comment on above: Performed By: #### C H8, HEPATIC, MG, PHOS ####[facility] [id number] [place], Bilirubin [Mass/Vol] 0.8 mg/dL Normal 0.3-1.0 [facility]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 Pain is controlled, ambulating. Denies shortness of breath or difficulty breathing but is easily fatigued. States she is intermittently using the IS and is able to pull 1000 cc Physical Exam Patient in no distress Abdomen soft, non-distended, nontender Right chest incisions are clean/dry/intact, sutures intact A/P: - Patient doing well - Encouraged patient to be more active and use the IS more regularly, patient is starting PT next Thursday - Sutures removed at the bedside - Discussed pain regimen - No need to return to clinic unless new issues arise Philip Quezada MD documented in this encounter [facility] 08-17-2024 Telephone encounter Note Transitions of Care Follow Up Call Initial communication post- discharge: 1st attempt: 08/17/2024 1419 2nd attempt: 08/17/2024 15 Sources of Information: [x]Patient, family member or clinical manager home care: Name and Relationship to patient: [x] Hospital Discharge/CDU Summary reviewed: [] Hospital fax received from: [x] List of recent hospitalizations or ED visits reviewed : [] Patient/Caregiver decline Follow Up Call [] CarePort: []Other: Date of Admission: 08/05/2024 Date of Discharge: 08/16/2024 Hospital Discharge diagnosis: Pleural effusion Current symptoms/Patient concerns: Patient reports doing okay. She is sore from where the chest Medication changes: Yes If yes, what are they and does patient understand how and when to take? START taking: GNP ClearLax (polyethylene glycol) Lidocaine Pain Relief (lidocaine) Start taking on: August 17, 2024 methocarbamol (ROBAXIN) oxyCODONE CHANGE how you take: acetaminophen extra strength (TYLENOL) senna (SENOKOT) STOP taking: Eliquis 5 MG tablet (Apixaban) Medication list reviewed with patient: Yes Medication-related problems: MTP: Problem identified - No medication-related issues identified - Patient able to obtain prescribed medications per discharge list: Yes Pharmacy needs: None at this time Patient provided pharmacy number [phone] for medication related concerns/follow up. Needs follow up appointment or procedure: Yes Trauma Surg - 08/24 Vascular - 08/25 Review need for or follow up on pending diagnostic test, referrals to specialist and treatment plans with patient/caregiver: Yes Community resources identified for patient/family: No i.e. [employer] Durable medical equipment ordered:No Education provided to patient/caregiver to support self management, ADL's, etc: CLIVE offered no Mode of Transportation: Family/self Interact with other health lead caregiver involved in patient care:No Referral to Primary Care Coordination :No [facility] Additional information needed and requested:No Reminded to bring in all medications. (Old & New) to future appointment. ELISHA Guerra, RN Laundry Superintendent, [facility] 08-17-2024 Miscellaneous Notes Transitions of Care Follow Up Call Initial communication post- discharge: 1st attempt: 08/17/2024 1419 2nd attempt: 08/17/2024 15 Sources of Information: [x]Patient, family member or clinical manager home care: Name and Relationship to patient: [x] Hospital Discharge/CDU Summary reviewed: [] Hospital fax received from: [x] List of recent hospitalizations or ED visits reviewed : [] Patient/Caregiver decline Follow Up Call [] CarePort: []Other: Date of Admission: 08/05/2024 Date of Discharge: 08/16/2024 Hospital Discharge diagnosis: Pleural effusion Current symptoms/Patient concerns: Patient reports doing okay. She is sore from where the chest Medication changes: Yes If yes, what are they and does patient understand how and when to take? START taking: GNP ClearLax (polyethylene glycol) Lidocaine Pain Relief (lidocaine) Start taking on: August 17, 2024 methocarbamol (ROBAXIN) oxyCODONE CHANGE how you take: acetaminophen extra strength (TYLENOL) senna (SENOKOT) STOP taking: Eliquis 5 MG tablet (Apixaban) Medication list reviewed with patient: Yes Medication-related problems: MTP: Problem identified - No medication-related issues identified - Patient able to obtain prescribed medications per discharge list: Yes Pharmacy needs: None at this time Patient provided pharmacy number [phone] for medication related concerns/follow up. Needs follow up appointment or procedure: Yes Trauma Surg - 08/24 Vascular - 08/25 Review need for or follow up on pending diagnostic test, referrals to specialist and treatment plans with patient/caregiver: Yes Community resources identified for patient/family: No i.e. [employer] Durable medical equipment ordered:No Education provided to patient/caregiver to support self management, ADL's, etc: CLIVE offered no Mode of Transportation: Family/self Interact with other health lead caregiver involved in patient care:No Referral to Primary Care Coordination :No Referral to [place] :No Additional information needed and requested:No Reminded to bring in all medications. (Old & New) to future appointment. ELISHA Guerra, RN Laundry Superintendent, [facility], [facility] documented in this encounter [facility]16[facility] of Present illness Narrative [facility] 08/16/2024 Services Provide For: Patient Services Provided by: Dicer Operator Reason for Services: Follow-Up Immediate Needs: Patient/Family Reports None Additional Notes: Pt verbalized that she is likely being discharged today or tomorrow. Pt explained that she is ready to go home and excited to be out of the hospital. Band Top Maker listened, validated, and provided support. ? Zina Vides Main Line: [phone] [facility] TRAUMA RECOVERY PEER VISIT Patient/Family received a Peer Visit, 08/16/2024 , by an official [facility] Volunteer and trained Peer [place]. Peer Visitor Provided: Patient Support Answered questions about Recovery and Next Steps Shared Patient Experience Encouraged Patient Provided resources available to them through the Trauma Department, [facility], and [facility]. Peer Visitor: Lesvia Elder ? Special Notes: Peer visitor reports that the patient appears to be in better spirits than the previous visit they had last week. Pt is ready to get back home. Peer visitor advised pt to follow doctor and P/T instructions so she can heal and not have to return to the hospital. ? Deena Osei [facility] Main Line: [phone] Images from the original note were not included. GENERAL INFORMATION TRAUMA FLOOR - DAILY PROGRESS NOTE Patient Name: Marilee Collado Admission Date: 08/05/2024 Patient seen and examined on 08/15/24 INTERVAL HISTORY/EVENTS Background: Marilee Collado is a 29 year old female with a recent admission to the hospital on 07/11 for CUSTODIAL sustaining a grade 5 liver injury s/p IR drain placement for perihepatic fluid collection (07/22), grade 3-4 splenic laceration, R posterior 10th rib fracture, T4-5 vertebral body fracture. Patient presents again today for acute onset right sided chest pain and RUQ discomfort. Labs are unremarkable. Imaging workup significant for large right pleural effusion and RUQ percutaneous drain crossing diaphragm. Hospital Course: 08/05: R chest tube pigtail was placed for pleural effusion with 2L output 08/06: Significant pain, ill-appearing and uncomfortable, tachycardic (110s). Chest tube draining well with serobilious appearing fluid in tubing. 08/07: No acute events, pain improving, CT chest/abd/pel completed 08/08: OR for R VATS with placement of chest tubes and diagnostic lap for abdominal washout and drain placement 08/09: Uncontrolled pain, No fever, chills, nausea, or vomiting 08/10: 2L NC. H/H stable. Pain mgmt consult. Distal chest tube and LINDA drain removed. Plan for IR angio of celiac pseudoaneurysm next day. 08/11: s/p IR embolization of celiac pseudoaneurysm, CT removed, Eliquis and antibiotics discontinued 08/12: pain moderately controlled, emesis x1 50 mL, not getting out of bed, poor oral intake 08/13-08/14: improved pain. Poor PO intake 24 Hour Events: Ambulating in the hallways, reports abdominal pain is improved but feels bloated. Had BM yesterday. Passing flatus Labs: Na 141, K 4.2. Renal function stable. Resolved leukocytosis. Vitals: Normotensive, HR 89-109. Tmax 37C. Sats appropriate on RA Intake: PO: 600 mL Output: UOP: 3x occurrences recorded Last BM documented x 1 on 08/14 -- PHYSICAL EXAM -- Vital Signs: Vital sign ranges over the past 24 hours (retrieved 08/15/2024 at 4:52 PM): Tmax (24 hours): 98.6 F (37 C) Pulse Av.3 Min: 89 Max: 109 Systolic (24hrs), Av , Min:125 , Max:138 Diastolic (24hrs), Av, Min:77, Max:84 MAP (mmHg) Av.7 mmHg Min: 92 mmHg Max: 96 mmHg Resp Av Min: 18 Max: 18 SpO2 Av.7 % Min: 96 % Max: 100 % 24 Hour Input/Output Intake/Output Summary (Last 24 hours) at 08/15/2024 1652 Last data filed at 08/15/2024 0504 Gross per 24 hour Intake 600 ml Output -- Net 600 ml -- PHYSICAL EXAM -- GENERAL: Laying in bed, no acute distress NEURO: GCS 15, no focal deficits. Moves all extremities CARDIOVASCULAR:Non tachycardic, RRR, radial/DP pulses palpable bilaterally PULMONARY: Breathing easily on RA, symmetric chest expansion. R chest tube sites with sutures intact. Minimal strikethrough on dressing. ABDOMINAL: Abdominal pain with palpation; soft, non-distended. Lap sites x 3 to umbilicus, RUQ, LLQ well healed EXTREMITIES: No deformities SKIN: Warm, dry LABORATORY RESULTS (LAST 24 HOURS) CBC/PT/INR 08/15/2024 08/15/2024 1:41 AM 12:41 AM WBC 10.3 10.3 RBC 3.64 3.64 Hgb 10.0 10.0 Hct 30.5 30.7 MCV 84 84 RDW 15.8 15.9 Plt 613 624 Basic Metabolic Panel 08/15/2024 08/15/2024 1:56 AM 12:41 AM Na 141 138 K 4.2 4.4 Cl 106 102 CO2 26 28 Gap 13 12 Glu 134 91 BUN 19 7 Cr 0.65 0.45 Ca 8.8 8.0 Mg 2.0 2.1 PO4 4.2 4.1 Fingerstick Glucose (last 72 hours) None IMAGING RESULTS (PERSONALLY REVIEWED) No new imaging in last 24 hours. 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 Acute post op pain. 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 HDS - Continue routine BP and HR monitoring per unit protocol - Eliquis discontinued per Dr. Cristobal - Continue ASA 81 mg PO daily - Duration needs discussed Respiratory: R pleural effusion s/p R VATs and CT placement on 08/08. 08/[address] and LINDA removed Minimal CT output and stable CXR . - Continue pulmonary hygiene, nebs - Encourage IS - Continue Respiratory [employer] Protocol GI/Diet: Tolerating normal diet. S/p diagnostic lap and abdominal washout with drain removal on 08/08. Intermittent nausea -- monitoring for s/s of pancreatitis - Regular diet - Continue bowel regimen: Senna, Colace, and PRN Dulcolax - Zofran 4mg q4h PRN nausea/vomiting - LFTs every 3 days ID: Leukocytosis 11.0, low grade temps overnight. Completed course of cefepime and Flagyl 08/12 -CBC every other day - No indication for abx at this time Renal/Electrolytes: Voiding spontaneously. - BMP every 3 days Heme: H+H stable. - No indication for tranfusion - Daily CBC Endocrine: No glycemic/endocrine issues. MSK: - WBAT - Spines: Clear - Activity: OOBAT - Continue progressive mobilty procedure Prophylaxis: - VTE ppx: Continue SCDs, Lovenox 30 mg BID - Anti Xa with AM labs - GI ppx: Not indicated Tubes/Lines/Drains: - Maintain PIVs - Monitor for urinary retention Dispo: Remain on RNF for pain control management and progressing diet. Anticipate medical clearance in next 1-2 days. Lyssa Jamison APRN-[facility] Trauma and Acute Care Surgery Pager: [phone] Plan of care discussed with Trauma Floor Attending, Dr. Katona Images from the original note were not included. Subjective: The patient is a 29 year old female with a past medical history of adapted per chart review recent admission to the hospital on 07/11 for CUSTODIAL sustaining a grade 5 liver injury s/p IR drain placement for perihepatic fluid collection (07/22), grade 3-4 splenic laceration, R posterior 10th rib fracture, T4-5 vertebral body fracture. Patient presents again for acute onset right sided chest pain and RUQ discomfort. Imaging workup significant for large right pleural effusion and RUQ percutaneous drain crossing diaphragm, now s/p right VATS with placement of chest tubes and diagnostic lap for abdominal washout and drain placement (08/08/24). Patient is alert and oriented x4, sitting up in bed with family at bedside. Pain level 6-7/10 described as pressure bloating to abdomen that is constant. Patient states her appetite is poor. She states she had a bowel movement in the last three days. Patient states the medication does help. COMFORT- Tolerable with discomfort CHANGE IN PAIN- About the same PAIN CONTROL- Partially effective FUNCTIONING- Pain keeps me from doing most of what I need to do SLEEP- Awake with pain most of the night Review of Systems: Review of Systems Gastrointestinal: Positive for abdominal pain (bloating). Musculoskeletal: Positive for back pain. All other systems reviewed and are negative. Allergies: no known allergies Medications: Current Facility-Administered Medications: oxyCODONE immediate release tablet, 2.5 mg, Oral, Q4H PRN, Lyssa Jamison APRN-CNP oxyCODONE immediate release tablet, 5 mg, Oral, Q4H PRN, Lyssa Jamison APRN-CNP melatonin tablet, 3 mg, Oral, At Bedtime, Lyssa Jamison APRN-CNP HYDROmorphone (DILAUDID) tablet, 1 mg, Oral, Q4H PRN, Lyssa Jamison APRN-CNP simethicone (GAS-X) 80 MG chewable tablet, 80 mg, Oral, Q6H PRN, Lyssa Jamison APRN-CNP, 80 mg at 08/15/24 1848 [START ON 08/16/2024] lidocaine (LIDODERM) 4 % patch, 2 Patch, Transdermal, Every 24 hours, Lyssa Jamison APRN-CNP methocarbamol (ROBAXIN) tablet, 750 mg, Oral, Every 6 hours, Giselle Rojas APRN-CNP, 750 mg at 08/15/24 1359 aspirin 81 MG chewable tablet, 81 mg, Oral, Daily, Vania Kumar MD, 81 mg at 08/15/24 0922 enoxaparin (LOVENOX) 60 MG/0.6ML injection 50 mg, 0.5 mg/kg, Subcutaneous, 2x Daily, [place]ney Mccormick APRN-CNP, 50 mg at 08/15/24 09 acetaminophen (TYLENOL) tablet, 1,000 mg, Oral, Every 8 hours, Vania Kumar MD, 1,000 mg at 08/15/24 135 ondansetron (ZOFRAN) 4 MG/2ML injection, 4 mg, Intravenous Push, Q4H PRN, Vania Kumar MD, 4 mg at 08/13/24 2200 bisacodyl (DULCOLAX) 10 MG suppository, 10 mg, Rectal, Daily PRN, Shawna Cook MD, 10 mg at 08/11/24 184 sodium chloride 0.9 % nebulizer solution, 3 mL, Nebulization, PRN, Shawna Cook MD albuterol (PROVENTIL) (2.5 MG/3ML) 0.083% nebulizer solution, 2.5 mg, Nebulization, Q4H PRN, Shawna Cook MD polyethylene glycol (MIRALAX) 17 g packet, 17 g, Oral, Daily, Shawna Cook MD, 17 g at 08/15/24 09 senna (SENOKOT) tablet, 8.6 mg, Oral, At Bedtime, Shawna Cook MD, 8.6 mg at 08/14/24 2143 Physical Exam: Last ECG Date: 08/08/2024 Patient Vitals for the past 24 hrs: BP Temp Temp src Pulse Resp SpO2 O2 Device 08/15/24 1813 -- -- -- -- -- -- Room air 08/15/24 1602 -- -- -- -- -- -- Room air 08/15/24 1348 138/84 97.9 F (36.6 C) Oral 91 18 100 % Room air 08/15/24 0541 125/81 98.6 F (37 C) Oral 89 18 96 % Room air 08/14/24 2117 128/77 98.4 F (36.9 C) Oral 109 18 100 % Room air Intake/Output Summary (Last 24 hours) at 08/15/20242043 Last data filed at 08/15/2024 0516 Gross per 24 hour Intake 600 ml Output -- Net 600 ml Physical Exam Vitals and nursing note reviewed. Constitutional: Appearance: Normal appearance. Comments: Sitting up in bed Eyes: Extraocular Movements: Extraocular movements intact. Cardiovascular: Rate and Rhythm: Normal rate and regular rhythm. Pulmonary: Effort: Pulmonary effort is normal. Comments: Room air Abdominal: Comments: Abdomen is soft, non-distended Musculoskeletal: Cervical back: Normal range of motion and neck supple. Skin: General: Skin is warm and dry. Comments: right upper back dressing has strike through. Neurological: Mental Status: She is alert. Comments: Neurovascularly intact, sensation to light touch intact Psychiatric: Behavior: Behavior is cooperative. Comments: Recent remote memory as evidence through face to face interaction and discussion appear grossly intact Labs: BMP (last 3 years, up to 8 values) 08/15/2024 08/15/2024 08/14/2024 08/13/2024 08/12/2024 08/11/2024 08/10/2024 08/09/2024 1:56 AM 12:41 AM 6:36 AM 1:38 AM 3:16 AM 12:54 AM 1:15 AM 1:29 AM Na 141 138 138 139 137 137 140 139 K 4.2 4.4 4.0 4.0 4.3 4.2 4.3 4.7 Cl 106 102 101 100 100 101 103 104 CO2 26 28 28 29 28 30 28 21 Gap 13 12 13 14 13 10 13 19 Glu 134 91 96 95 108 98 88 95 BUN 19 7 5 5 6 10 12 10 Cr 0.65 0.45 0.45 0.45 0.42 0.53 0.54 0.53 Ca 8.8 8.0 7.7 7.8 7.7 7.9 7.9 7.7 eGFR 121 132 132 132 134 127 126 127 Cardiac None CBC (last 3 years, up to 8 values) 08/15/2024 08/15/2024 08/14/2024 08/13/2024 08/12/2024 08/11/2024 08/10/2024 08/09/2024 1:41 AM 12:41 AM 12:07 AM 1:38 AM 3:16 AM 12:54 AM 1:15 AM 1:29 AM WBC 10.3 10.3 11.0 11.8 8.3 8.2 6.6 9.4 RBC 3.64 3.64 3.63 3.43 3.77 3.50 3.78 3.67 Hgb 10.0 10.0 10.2 9.6 10.4 10.0 10.4 10.1 Hct 30.5 30.7 30.1 28.5 31.5 29.0 31.5 29.9 MCV 84 84 83 83 83 83 83 81 RDW 15.8 15.9 15.6 15.7 15.6 15.2 15.4 15.4 Plt 613 624 579 523 504 487 506 500 LFT's (last 3 years, up to 8 values) 08/15/2024 08/15/2024 08/14/2024 08/13/2024 08/12/2024 08/11/2024 08/10/2024 08/09/2024 1:56 AM 12:41 AM 12:07 AM 1:38 AM 3:16 AM 12:54 AM 1:15 AM 1:29 AM T Prot 5.9 5.6 5.5 5.1 5.3 5.3 5.3 5.4 Albumin 3.3 2.8 2.9 2.7 2.7 2.8 2.7 2.7 D Bili 0.09 0.09 0.10 0.09 0.10 0.11 0.11 0.06 T Bili 0.4 0.4 0.4 0.4 0.4 0.4 0.4 0.4 Alk Phos 69 75 74 67 67 67 66 71 ALT 17 38 23 15 16 13 15 18 AST 21 37 24 15 20 11 12 23 Imaging: XA CELIAC ARTERY (ALESSANDRO), XA SUPERIOR MESENTERIC ARTERY (ALESSANDRO), XA ADDITIONAL VESSELS (ALESSANDRO), XA ART EMBO NON HEMORRHAGE (ALESSANDRO) EXAMINATION: XA CELIAC ARTERY (ALESSANDRO), XA SUPERIOR MESENTERIC ARTERY (ALESSANDRO), XA ADDITIONAL VESSELS (ALESSANDRO), XA ART EMBO NON HEMORRHAGE (ALESSANDRO) 08/11/2024 10:08 AM CLINICAL HISTORY: Rad Procedure required: = stent vas coil embolization of celiac pseudoaneurysm,stent vas coil embolization of celiac pseudoaneurysm ASSOCIATED DIAGNOSIS: ORDERING PROVIDER: VANIA KUMAR TECHNOLOGISTS NOTE: Moderate sedation intra-service start 824 end 957. FLUOROSCOPIST: HENRY TAYLOR FLUORO TIME: 16.2 Minutes ATTENDING PHYSICIAN: Henry Taylor RESIDENT/FELLOW PHYSICIAN: Foster Meyer INTRA-PROCEDURE MEDS: iohexol (OMNIPAQUE) 350 MG/ML injection 150 mL Route: Intra-arterial SEDATION TIME: Start time: 824 Stop time: 957 INFORMED CONSENT: Written informed consent was obtained. The procedure, risks, benefits, and alternatives were discussed. All questions were answered. TIMEOUT: Physician led timeout was conducted documenting correct patient, procedure, site, fire risk, antibiotics and allergies. COMPLICATIONS: None ESTIMATED BLOOD LOSS: Less than 10 mL TECHNIQUE: The patient was positioned supine on the angiography table. The right groin was prepped and draped in the usual aseptic fashion. Lidocaine was used for local anesthesia. A 21 gauge single wall needle was used to access the right common femoral artery. A 0.018 inch wire was passed through the needle and the needle exchanged for a micropuncture sheath. The wire was removed and exchanged for a Bentson wire. A 5 swedish sheath was advanced over the wire over its matched dilator. The dilator was removed. A 5 F Omni flush catheter was placed over the wire and positioned in the aorta in the thoracoabdominal junction region and a single plane abdominal digital subtraction aortogram was performed on imaging over the upper abdomen, multiple projections. The catheter was removed over the wire. A 5 Kyrgyz Sos-2 catheter was placed over the wire, and the pair was used to position the catheter in the celiac trunk and celiac DSA was performed, imaging over the abdomen. The catheter was directed into the SMA and DSA done in multiple projections, imaging over the abdomen. The catheter was directed into the celiac artery. A ProGreat 2.4 Kyrgyz microcatheter and Synchro microwire were used to select the pseudoaneurysm and splenic artery. DSA was performed both within the pseudoaneurysm and within the splenic artery in multiple projections. Embolization was performed in the proximal splenic artery and pseudoaneurysm, packed with a total of 9 Azur Cx 18 coils. Completion angiogram was performed through both the microcatheter within the pseudoaneurysm as well as the base catheter at the origin of the celiac artery. A sheath-injected right external iliac run was made, imaging over the right hemipelvis. The sheath was removed and satisfactory hemostasis obtained using an angioseal device. The patient tolerated the procedure well without immediate complication and was transferred from the angiography suite in stable condition. FINDINGS: The abdominal aortogram is normal except for the celiac axis. Celiac artery injection with DSA over the upper abdomen shows a large pseudoaneurysm near the origin of the celiac artery. The celiac artery only supplies the splenic artery and dorsal pancreatic artery of magna. No supply to the common hepatic artery. Superior mesenteric artery injection with DSA over the abdomen shows robust pancreaticoduodenal collaterals supplying the common hepatic artery. Postintervention completion angiogram demonstrates no blood flow within the pseudoaneurysm or proximal splenic artery. Right external iliac artery injection, imaging over the right hemipelvis, shows no contraindication to the use of AngioSeal device. IMPRESSION: Successful coil embolization of the proximal splenic artery and proximal celiac artery pseudoaneurysm. MACRO: None XR CHEST AP OR PA 1 VIEW EXAMINATION: XR CHEST AP OR PA 1 VIEW 08/11/2024 11:19 PM CLINICAL HISTORY: Chest tube removal ASSOCIATED DIAGNOSIS: Chest tube removal ORDERING PROVIDER: RODNEY LARES TECHNNAOMI NOTE: COMPARISON: XR CHEST AP OR PA 1 VIEW 08/11/2024, 4:[address] CHEST/ABD/PELVIS W/ CONTRAST 08/07/2024, 6:05 PM FINDINGS: Lines, tubes, and devices: Right-sided chest tube has been removed. Lungs and pleura: Small pleural effusion on the right side again seen. Atelectasis/consolidation in the right mid and lower zone is unchanged. Blunting of left CP angle is also present and unchanged. Atelectasis/consolidation in the left retrocardiac region is again seen. Cardiomediastinal silhouette: Stable appearance of cardiomediastinal silhouette. Musculoskeletal: Unremarkable. Embolization coils are partially seen in the left upper abdomen. IMPRESSION: Findings as described above. MACRO: None Patient labs along with radiology reports and other pertinent tests were obtained and reviewed from the [employer] electronic medical record system. Pertinent positive and negative findings were considered in the medical decision making. Assessment: The patient is a 29 year old female with a past medical history of adapted per chart review recent admission to the hospital on 07/11 for CUSTODIAL sustaining a grade 5 liver injury s/p IR drain placement for perihepatic fluid collection (07/22), grade 3-4 splenic laceration, R posterior 10th rib fracture, T4-5 vertebral body fracture. Patient presents again for acute onset right sided chest pain and RUQ discomfort. Imaging workup significant for large right pleural effusion and RUQ percutaneous drain crossing diaphragm, now s/p right VATS with placement of chest tubes and diagnostic lap for abdominal washout and drain placement (08/08/24). Pain management consulted for acute post operative pain. Plan: -Patient education: Treatment option discussed with the patient -Physical Modalities: Patient activity restriction per primary care team -Senna and colace as needed for constipation -continue Tylenol 1 g PO q8h -continue Dilaudid 2 mg PO q4h PRN for moderate to severe pain -continue Lidoderm 1 transdermal patch every 24 hours -continue Robaxin 750 mg PO q6h Follow up with [facility] as an outpatient. Please call [phone] to schedule an appointment. ROSLYN Benitez Pain consult availability: Mornings, Thursday through Thursday. For questions please page [phone]. RN Coordinator picked up FMLA paperwork from [address] Social Work Progress Note SW/CM has reviewed patient's chart and assessed that there are no discharge planning needs at this time. The following was reviewed to determine no SW/CM needs warranted. 1). PT/OT evaluations indicate pt can DC home with no needs or PT/OT evaluations are not warranted. 2). No wound care or IV Antibiotics indicated at this time. 3). No SW/CM consults placed through nursing admission screen 4). Pt does not meet the criteria of being a Medicare recipient that has a high or rising readmission rate. Patient will continue to be discussed in multi-disciplinary rounds and monitored daily. If any of the the above changes, SW/CM will complete appropriate assessments and interventions. JEFFERY Kilgore Images from the original note were not included. GENERAL INFORMATION TRAUMA FLOOR - DAILY PROGRESS NOTE Patient Name: Marilee Collado Admission Date: 08/05/2024 Patient seen and examined on 08/14/24 INTERVAL HISTORY/EVENTS Background: Marilee Collado is a 29 year old female with a recent admission to the hospital on 07/11 for CUSTODIAL sustaining a grade 5 liver injury s/p IR drain placement for perihepatic fluid collection (07/22), grade 3-4 splenic laceration, R posterior 10th rib fracture, T4-5 vertebral body fracture. Patient presents again today for acute onset right sided chest pain and RUQ discomfort. Labs are unremarkable. Imaging workup significant for large right pleural effusion and RUQ percutaneous drain crossing diaphragm. Hospital Course: 08/05: R chest tube pigtail was placed for pleural effusion with 2L output 08/06: Significant pain, ill-appearing and uncomfortable, tachycardic (110s). Chest tube draining well with serobilious appearing fluid in tubing. 08/07: No acute events, pain improving, CT chest/abd/pel completed 08/08: OR for R VATS with placement of chest tubes and diagnostic lap for abdominal washout and drain placement 08/09: Uncontrolled pain, No fever, chills, nausea, or vomiting 08/10: 2L NC. H/H stable. Pain mgmt consult. Distal chest tube and LINDA drain removed. Plan for IR angio of celiac pseudoaneurysm next day. 08/11: s/p IR embolization of celiac pseudoaneurysm, CT removed, Eliquis and antibiotics discontinued 08/12: pain moderately controlled, emesis x1 50 mL, not getting out of bed, poor oral intake 24 Hour Events: Patient known to me from prior admission. Reporting improved abdominal pain today following bowel movement, patient suspects pain related to constipation. Poor PO intake, though was able to eat 3 small meals yesterday. Ambulation encouraged, as patient admits she could be more mobile. Feeling better today. Labs: Na 138, K 4. Renal function stable. Slight improvement in leukocytosis from 11.8 to 11. Improvement in hemoglobin to 10.2 (9.6) Vitals: Normotensive, HR 74-103. Tmax 37.8F. Sats appropriate on RA Intake: PO: 600 mL Output: UOP: 5x occurrences recorded Last BM documented x 1 on 08/13 -- PHYSICAL EXAM -- Vital Signs: Vital sign ranges over the past 24 hours (retrieved 08/14/2024 at 6:35 AM): Tmax (24 hours): 100 F (37.8 C) Pulse Av Min: 74 Max: 102 Systolic (24hrs), Av , Min:113 , Max:131 Diastolic (24hrs), Av, Min:70, Max:86 MAP (mmHg) Av mmHg Min: 82 mmHg Max: 94 mmHg Resp Av Min: 18 Max: 18 SpO2 Av.7 % Min: 95 % Max: 98 % 24 Hour Input/Output Intake/Output Summary (Last 24 hours) at 08/14/2024 0635 Last data filed at 08/14/2024 0100 Gross per 24 hour Intake 600 ml Output -- Net 600 ml -- PHYSICAL EXAM -- GENERAL: Laying in bed, no acute distress NEURO: GCS 15, no focal deficits. Moves all extremities CARDIOVASCULAR: Intermittently tachycardic; radial/DP pulses palpable bilaterally PULMONARY: Breathing easily on RA, symmetric chest expansion. IS encouraged. R CT dressing dry and intact. No crepitus. ABDOMINAL: Improvement in abdominal pain with palpation; soft, non-distended. Lap sites x 3 to umbilicus, RUQ, LLQ EXTREMITIES: No deformities SKIN: Warm, dry LABORATORY RESULTS (LAST 24 HOURS) CBC/PT/INR 08/14/2024 12:07 AM WBC 11.0 RBC 3.63 Hgb 10.2 Hct 30.1 MCV 83 RDW 15.6 Plt 579 Basic Metabolic Panel 08/14/2024 12:07 AM Mg 2.2 PO4 3.8 Fingerstick Glucose (last 72 hours) None IMAGING RESULTS (PERSONALLY REVIEWED) No new imaging in last 24 hours. 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 Acute post op pain. 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 HDS - Continue routine BP and HR monitoring per unit protocol - Eliquis discontinued per Dr. Cristobal - Continue ASA 81 mg PO daily - Duration needs discussed Respiratory: R pleural effusion s/p R VATs and CT placement on 08/08. 08/[address] and LINDA removed Minimal CT output and stable CXR . - Continue pulmonary hygiene, nebs - Encourage IS - Continue Respiratory [employer] Protocol GI/Diet: Tolerating normal diet. S/p diagnostic lap and abdominal washout with drain removal on 08/08. Intermittent nausea -- monitoring for s/s of pancreatitis - Regular diet - Continue bowel regimen: Senna, Colace, and PRN Dulcolax - Zofran 4mg q4h PRN nausea/vomiting - Daily LFTs ID: Leukocytosis 11.0, low grade temps overnight. Completed course of cefepime and Flagyl 08/12 - Daily CBC - No indication for abx at this time Renal/Electrolytes: Voiding spontaneously. - Repeat BMP and Mag in AM Heme: H+H stable. - No indication for tranfusion - Daily CBC Endocrine: No glycemic/endocrine issues. MSK: - WBAT - Spines: Clear - Activity: OOBAT - Continue progressive mobilty procedure Prophylaxis: - VTE ppx: Continue SCDs, Lovenox 30 mg BID - Anti Xa with AM labs - GI ppx: Not indicated Tubes/Lines/Drains: - Maintain PIVs - Monitor for urinary retention Dispo: Remain on RNF for pain control management and progressing diet. Anticipate medical clearance in next 1-2 days. ROSLYN [facility] Surgery Pager: [phone] Plan of care discussed with Trauma Floor Attending, Dr. Cristobal. Images from the original note were not included. GENERAL INFORMATION TRAUMA FLOOR - DAILY PROGRESS NOTE Patient Name: Marilee Collado Admission Date: 08/05/2024 Patient seen and examined on 08/13/24 INTERVAL HISTORY/EVENTS Background: Marilee Collado is a 29 year old female with a recent admission to the hospital on 07/11 for CUSTODIAL sustaining a grade 5 liver injury s/p IR drain placement for perihepatic fluid collection (07/22), grade 3-4 splenic laceration, R posterior 10th rib fracture, T4-5 vertebral body fracture. Patient presents again today for acute onset right sided chest pain and RUQ discomfort. Labs are unremarkable. Imaging workup significant for large right pleural effusion and RUQ percutaneous drain crossing diaphragm. Hospital Course: 08/05: R chest tube pigtail was placed for pleural effusion with 2L output 08/06: Pt in significant pain, ill-appearing and uncomfortable, tachycardic (110s). Chest tube draining well with serobilious appearing fluid in tubing. 08/07: No acute events, pain improving, CT chest/abd/pel completed 08/08: OR for R VATS with placement of chest tubes and diagnostic lap for abdominal washout and drain placement 08/09: Uncontrolled pain, No fever, chills, nausea, or vomiting 08/10: 2L NC. H/H stable. Pain mgmt consult. Distal chest tube and LINDA drain removed. Plan for IR angio of celiac pseudoaneurysm next day. 08/11: s/p IR embolization of celiac pseudoaneurysm, CT removed, Eliquis and antibiotics discontinued 08/12: pain moderately controlled, emesis x1 50cc, not getting out of bed, poor oral intake 24-hour Events: Reports some nausea and had a small episode of emesis again yesterday. Having bowel function. Pain moderately controlled but patient reports it is slowly getting better. Labs are normal except for new leukocytosis 11.8 from 8. No fever, chills, chest pain, cough, SOB, or urinary symptoms. -- PHYSICAL EXAM -- Vital Signs: Vital sign ranges over the past 24 hours (retrieved 08/13/2024 at 8:21 AM): Tmax (24 hours): 99.5 F (37.5 C) Pulse Av Min: 87 Max: 107 Systolic (24hrs), Av , Min:120 , Max:136 Diastolic (24hrs), Av, Min:76, Max:91 MAP (mmHg) Av mmHg Min: 88 mmHg Max: 105 mmHg Resp Av Min: 16 Max: 20 SpO2 Av % Min: 94 % Max: 96 % 24 Hour Input/Output Intake/Output Summary (Last 24 hours) at 08/13/2024 0821 Last data filed at 08/13/2024 0600 Gross per 24 hour Intake 135 ml Output 100 ml Net 35 ml -- PHYSICAL EXAM -- Constitutional: Appears well, not in acute distress Cardiovascular: normal rate and rhythm, intermittently tachycardic (mild). R groin angioseal site intact with no hematoma Pulmonary/Chest: CTAB, wound clean/dry/intact Abdominal: Soft. Non-distended. TTP LLQ, painful at rest. No palpable mass or hematoma. Musculoskeletal: No edema. Neurological: GCS 15 LABORATORY RESULTS (LAST 24 HOURS) CBC/PT/INR 08/13/2024 1:38 AM WBC 11.8 RBC 3.43 Hgb 9.6 Hct 28.5 MCV 83 RDW 15.7 Plt 523 Basic Metabolic Panel 08/13/2024 1:38 AM Na 139 K 4.0 Cl 100 CO2 29 Gap 14 Glu 95 BUN 5 Cr 0.45 Ca 7.8 Mg 2.1 PO4 3.3 Fingerstick Glucose (last 72 hours) None IMAGING RESULTS (PERSONALLY REVIEWED) Admit imaging reviewed. CXR 08/11: Persistent right greater than left basilar opacities with blunting of the costophrenic angles bilaterally. Pleural air is seen inferiorly, likely loculated. IMPRESSION: Stable radiographic appearance of the chest KUB 08/11: IMPRESSION: Coil embolization embolization material projects over the mid abdomen. Bowel gas pattern is nonspecific and without evidence of overt obstruction. Excreted contrast overlies the urinary bladder. 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 Acute post op pain. - Acute pain management team consulted: -Tylenol 1,000 mg every 8 hours -Oral Dilaudid 2 mg / 4 mg every 4 hours as needed for moderate/severe pain respectively - Lido patch, Robaxin 750mg QID Cardiovascular: Celiac artery pseudoaneurysm. - Continue routine BP and HR monitoring per unit protocol - Successful IR embolizations of celiac pseudoaneurysm 08/11 - Will discontinue Eliquis per Dr. Cristobal - resume ASA Respiratory: R pleural effusion s/p R VATs and CT placement on 08/08. 08/[address] and LINDA removed. Minimal CT output and stable CXR today. - Antibiotics- cepfapime and flagyl - completed course 08/12 - Continue pulmonary hygiene - Encourage IS - Continue Respiratory [employer] Office [employer] Protocol GI/Diet: Tolerating normal diet. S/p diagnostic lap and abdominal washout with drain removal on 08/08. Intermittent nausea - Regular diet - Continue bowel regimen: Continue daily Senna, BID Colace, and PRN Dulcolax - Start MoM daily x3 days or until +BM - Zofran 4mg q4h PRN nausea/vomiting - Monitor for s/s of pancreatitis - lipase normal ID: Leukocytosis 11.8 - Afebrile, no symptoms suggestive of infectious etiology - Daily CBC, will trend WBC - No indication for abx at this time Renal/Electrolytes: Voiding spontaneously. - Replete electrolytes PRN - Repeat BMP and Mag in AM Heme: H/H stable. - Hgb drop 9.6 from 10.4, will monitor Hgb levels - No indication for tranfusion - CBC in AM Endocrine: No glycemic/endocrine issues. MSK: - WB status:as tolerated - Activity: OOB as tolerated. - Continue progressive mobilty procedure. Prophylaxis: - VTE: Continue SCDs, Start lovenox 0.5mg/kg BID this evening. Resume ASA Tubes/Lines/Drains: - Maintain PIVs - Monitor for urinary retention. Dispo: Remain on RNF for pain control management and progressing diet. Anticipate medical clearance for home dispo in 3 days. Patient discussed with Attending Trauma Surgeon, Dr. Susu Kumar MD Trauma Surgery Associated attestation - Harlan Cristobal MD - 08/13/2024 5:57 PM EDT I have personally seen and examined the patient with the team and nursing staff at the patient's bedside. I have reviewed recent data and reports. I have also reviewed lab values, imaging, and current medications profile. I discussed my findings with the team. I reviewed the full note by the resident with the detailed findings, and I agree with the assessment, overall impression, and plan of care. We have also updated the patient or any available family as well as other services with our care plan. Harlan Cristobal MD I have reviewed and agree with Akil Odom's (Student Nurse) documentation for [id number] shift. Images from the original note were not included. Subjective: The patient is a 29 year old female with a past medical history of adapted per chart review recent admission to the hospital on 07/11 for CUSTODIAL sustaining a grade 5 liver injury s/p IR drain placement for perihepatic fluid collection (07/22), grade 3-4 splenic laceration, R posterior 10th rib fracture, T4-5 vertebral body fracture. Patient presents again for acute onset right sided chest pain and RUQ discomfort. Imaging workup significant for large right pleural effusion and RUQ percutaneous drain crossing diaphragm, now s/p right VATS with placement of chest tubes and diagnostic lap for abdominal washout and drain placement (08/08/24). COMFORT- Tolerable with discomfort CHANGE IN PAIN- About the same PAIN CONTROL- Partially effective FUNCTIONING- Pain keeps me from doing most of what I need to do SLEEP- Awake with pain most of the night Review of Systems: Review of Systems Musculoskeletal: Positive for back pain. All other systems reviewed and are negative. Allergies: no known allergies Medications: Current Facility-Administered Medications: HYDROmorphone (DILAUDID) tablet, 2 mg, Oral, Q4H PRN, Giselle Rojas APRN-CNP, 2 mg at 08/15/24 0922 methocarbamol (ROBAXIN) tablet, 750 mg, Oral, Every 6 hours, Giselle Rojas APRN-CNP, 750 mg at 08/15/24 0516 aspirin 81 MG chewable tablet, 81 mg, Oral, Daily, Vania Kumar MD, 81 mg at 08/15/24 0922 enoxaparin (LOVENOX) 60 MG/0.6ML injection 50 mg, 0.5 mg/kg, Subcutaneous, 2x Daily, Rodney Lares APRN-CNP, 50 mg at 08/15/24 0923 acetaminophen (TYLENOL) tablet, 1,000 mg, Oral, Every 8 hours, Vania Kumar MD, 1,000 mg at 08/15/24 0516 ondansetron (ZOFRAN) 4 MG/2ML injection, 4 mg, Intravenous Push, Q4H PRN, Vania Kumar MD, 4 mg at 08/13/24 2200 bisacodyl (DULCOLAX) 10 MG suppository, 10 mg, Rectal, Daily PRN, Shawna Cook MD, 10 mg at 08/11/24 1847 sodium chloride 0.9 % nebulizer solution, 3 mL, Nebulization, PRN, Shawna Cook MD albuterol (PROVENTIL) (2.5 MG/3ML) 0.083% nebulizer solution, 2.5 mg, Nebulization, Q4H PRN, Shawna Cook MD polyethylene glycol (MIRALAX) 17 g packet, 17 g, Oral, Daily, Shawna Cook MD, 17 g at 08/15/24 0922 senna (SENOKOT) tablet, 8.6 mg, Oral, At Bedtime, Shawna Cook MD, 8.6 mg at 08/14/24 2143 lidocaine (LIDODERM) 4 % patch, 1 Patch, Transdermal, Every 24 hours, Shawna Cook MD, 1 Patch at 08/13/24 1018 Physical Exam: Last ECG Date: 08/08/2024 Patient Vitals for the past 24 hrs: BP Temp Temp src Pulse Resp SpO2 O2 Device 08/15/24 0541 125/81 98.6 F (37 C) Oral 89 18 96 % Room air 08/14/24 2117 128/77 98.4 F (36.9 C) Oral 109 18 100 % Room air 08/14/24 1447 133/87 98.3 F (36.8 C) Oral 97 18 100 % Room air Intake/Output Summary (Last 24 hours) at 08/15/2024 1150 Last data filed at 08/15/2024 0516 Gross per 24 hour Intake 600 ml Output -- Net 600 ml Physical Exam Vitals and nursing note reviewed. Constitutional: Appearance: Normal appearance. Comments: Sitting on edge of bed Eyes: Extraocular Movements: Extraocular movements intact. Cardiovascular: Rate and Rhythm: Normal rate and regular rhythm. Pulmonary: Effort: Pulmonary effort is normal. Comments: Room air Abdominal: Comments: Abdomen is soft, non-distended Skin: General: Skin is warm and dry. Comments: Room air Neurological: Mental Status: She is alert. Comments: Neurovascularly intact, sensation to light touch intact Psychiatric: Behavior: Behavior is cooperative. Comments: Recent remote memory as evidence through face to face interaction and discussion appear grossly intact Labs: BMP (last 3 years, up to 8 values) 08/15/2024 08/15/2024 08/14/2024 08/13/2024 08/12/2024 08/11/2024 08/10/2024 08/09/2024 1:56 AM 12:41 AM 6:36 AM 1:38 AM 3:16 AM 12:54 AM 1:15 AM 1:29 AM Na 141 138 138 139 137 137 140 139 K 4.2 4.4 4.0 4.0 4.3 4.2 4.3 4.7 Cl 106 102 101 100 100 101 103 104 CO2 26 28 28 29 28 30 28 21 Gap 13 12 13 14 13 10 13 19 Glu 134 91 96 95 108 98 88 95 BUN 19 7 5 5 6 10 12 10 Cr 0.65 0.45 0.45 0.45 0.42 0.53 0.54 0.53 Ca 8.8 8.0 7.7 7.8 7.7 7.9 7.9 7.7 eGFR 121 132 132 132 134 127 126 127 Cardiac None CBC (last 3 years, up to 8 values) 08/15/2024 08/15/2024 08/14/2024 08/13/2024 08/12/2024 08/11/2024 08/10/2024 08/09/2024 1:41 AM 12:41 AM 12:07 AM 1:38 AM 3:16 AM 12:54 AM 1:15 AM 1:29 AM WBC 10.3 10.3 11.0 11.8 8.3 8.2 6.6 9.4 RBC 3.64 3.64 3.63 3.43 3.77 3.50 3.78 3.67 Hgb 10.0 10.0 10.2 9.6 10.4 10.0 10.4 10.1 Hct 30.5 30.7 30.1 28.5 31.5 29.0 31.5 29.9 MCV 84 84 83 83 83 83 83 81 RDW 15.8 15.9 15.6 15.7 15.6 15.2 15.4 15.4 Plt 613 624 579 523 504 487 506 500 LFT's (last 3 years, up to 8 values) 08/15/2024 08/15/2024 08/14/2024 08/13/2024 08/12/2024 08/11/2024 08/10/2024 08/09/2024 1:56 AM 12:41 AM 12:07 AM 1:38 AM 3:16 AM 12:54 AM 1:15 AM 1:29 AM T Prot 5.9 5.6 5.5 5.1 5.3 5.3 5.3 5.4 Albumin 3.3 2.8 2.9 2.7 2.7 2.8 2.7 2.7 D Bili 0.09 0.09 0.10 0.09 0.10 0.11 0.11 0.06 T Bili 0.4 0.4 0.4 0.4 0.4 0.4 0.4 0.4 Alk Phos 69 75 74 67 67 67 66 71 ALT 17 38 23 15 16 13 15 18 AST 21 37 24 15 20 11 12 23 Imaging: XA CELIAC ARTERY (ALESSANDRO), XA SUPERIOR MESENTERIC ARTERY (ALESSANDRO), XA ADDITIONAL VESSELS (ALESSANDRO), XA ART EMBO NON HEMORRHAGE (ALESSANDRO) EXAMINATION: XA CELIAC ARTERY (ALESSANDRO), XA SUPERIOR MESENTERIC ARTERY (ALESSANDRO), XA ADDITIONAL VESSELS (ALESSANDRO), XA ART EMBO NON HEMORRHAGE (ALESSANDRO) 08/11/2024 10:08 AM CLINICAL HISTORY: Rad Procedure required: = stent vas coil embolization of celiac pseudoaneurysm,stent vas coil embolization of celiac pseudoaneurysm ASSOCIATED DIAGNOSIS: ORDERING PROVIDER: VANIA KUMAR TECHNOLOGISTS NOTE: Moderate sedation intra-service start 824 end 957. FLUOROSCOPIST: HENRY TAYLOR TIME: 16.2 Minutes ATTENDING PHYSICIAN: Henry Taylor RESIDENT/FELLOW PHYSICIAN: Foster Meyer INTRA-PROCEDURE MEDS: iohexol (OMNIPAQUE) 350 MG/ML injection 150 mL Route: Intra-arterial SEDATION TIME: Start time: 824 Stop time: 957 INFORMED CONSENT: Written informed consent was obtained. The procedure, risks, benefits, and alternatives were discussed. All questions were answered. TIMEOUT: Physician led timeout was conducted documenting correct patient, procedure, site, fire risk, antibiotics and allergies. COMPLICATIONS: None ESTIMATED BLOOD LOSS: Less than 10 mL TECHNIQUE: The patient was positioned supine on the angiography table. The right groin was prepped and draped in the usual aseptic fashion. Lidocaine was used for local anesthesia. A 21 gauge single wall needle was used to access the right common femoral artery. A 0.018 inch wire was passed through the needle and the needle exchanged for a micropuncture sheath. The wire was removed and exchanged for a [employer] wire. A 5 swedish sheath was advanced over the wire over its matched dilator. The dilator was removed. A 5 F Omni flush catheter was placed over the wire and positioned in the aorta in the thoracoabdominal junction region and a single plane abdominal digital subtraction aortogram was performed on imaging over the upper abdomen, multiple projections. The catheter was removed over the wire. A 5 K[place] Sos-2 catheter was placed over the wire, and the pair was used to position the catheter in the celiac trunk and celiac DSA was performed, imaging over the abdomen. The catheter was directed into the SMA and DSA done in multiple projections, imaging over the abdomen. The catheter was directed into the celiac artery. A ProGreat 2.4 Kyrgyz microcatheter and Synchro microwire were used to select the pseudoaneurysm and splenic artery. DSA was performed both within the pseudoaneurysm and within the splenic artery in multiple projections. Embolization was performed in the proximal splenic artery and pseudoaneurysm, packed with a total of 9 Azur Cx 18 coils. Completion angiogram was performed through both the microcatheter within the pseudoaneurysm as well as the base catheter at the origin of the celiac artery. A sheath-injected right external iliac run was made, imaging over the right hemipelvis. The sheath was removed and satisfactory hemostasis obtained using an angioseal device. The patient tolerated the procedure well without immediate complication and was transferred from the angiography suite in stable condition. FINDINGS: The abdominal aortogram is normal except for the celiac axis. Celiac artery injection with DSA over the upper abdomen shows a large pseudoaneurysm near the origin of the celiac artery. The celiac artery only supplies the splenic artery and dorsal pancreatic artery of magna. No supply to the common hepatic artery. Superior mesenteric artery injection with DSA over the abdomen shows robust pancreaticoduodenal collaterals supplying the common hepatic artery. Postintervention completion angiogram demonstrates no blood flow within the pseudoaneurysm or proximal splenic artery. Right external iliac artery injection, imaging over the right hemipelvis, shows no contraindication to the use of AngioSeal device. IMPRESSION: Successful coil embolization of the proximal splenic artery and proximal celiac artery pseudoaneurysm. MACRO: None XR CHEST AP OR PA 1 VIEW EXAMINATION: XR CHEST AP OR PA 1 VIEW 08/11/2024 11:19 PM CLINICAL HISTORY: Chest tube removal ASSOCIATED DIAGNOSIS: Chest tube removal ORDERING PROVIDER: RODNEY LARES TECHNOLOGISTS NOTE: COMPARISON: XR CHEST AP OR PA 1 VIEW 08/11/2024, 4:[address] CHEST/ABD/PELVIS W/ CONTRAST 08/07/2024, 6:05 PM FINDINGS: Lines, tubes, and devices: Right-sided chest tube has been removed. Lungs and pleura: Small pleural effusion on the right side again seen. Atelectasis/consolidation in the right mid and lower zone is unchanged. Blunting of left CP angle is also present and unchanged. Atelectasis/consolidation in the left retrocardiac region is again seen. Cardiomediastinal silhouette: Stable appearance of cardiomediastinal silhouette. Musculoskeletal: Unremarkable. Embolization coils are partially seen in the left upper abdomen. IMPRESSION: Findings as described above. MACRO: None Patient labs along with radiology reports and other pertinent tests were obtained and [facility] Pertinent positive and negative findings were considered in the medical decision making. Assessment: The patient is a 29 year old female with a past medical history of adapted per chart review recent admission to the hospital on 07/11 for CUSTODIAL sustaining a grade 5 liver injury s/p IR drain placement for perihepatic fluid collection (07/22), grade 3-4 splenic laceration, R posterior 10th rib fracture, T4-5 vertebral body fracture. Patient presents again for acute onset right sided chest pain and RUQ discomfort. Imaging workup significant for large right pleural effusion and RUQ percutaneous drain crossing diaphragm, now s/p right VATS with placement of chest tubes and diagnostic lap for abdominal washout and drain placement (08/08/24). Pain management consulted for acute post operative pain. Plan: -Patient education: Treatment option discussed with the patient -Physical Modalities: Patient activity restriction per primary care team -Senna and colace as needed for constipation -continue Tylenol 1 g PO q8h -continue Dilaudid 2 mg PO q4h PRN for moderate to severe pain -continue Lidoderm 1 transdermal patch every 24 hours -continue Robaxin 750 mg PO q6h Follow up with [facility] as an outpatient. Please call [phone] to schedule an appointment. ROSLYN Benitez Pain consult availability: Mornings, Thursday through Thursday. For questions please page [phone]. Images from the original note were not included. GENERAL INFORMATION TRAUMA FLOOR - DAILY PROGRESS NOTE Patient Name: Marilee Collado Admission Date: 08/05/2024 Patient seen and examined on 08/12/24 INTERVAL HISTORY/EVENTS Background: Marilee Collado is a 29 year old female with a recent admission to the hospital on 07/11 for CUSTODIAL sustaining a grade 5 liver injury s/p IR drain placement for perihepatic fluid collection (07/22), grade 3-4 splenic laceration, R posterior 10th rib fracture, T4-5 vertebral body fracture. Patient presents again today for acute onset right sided chest pain and RUQ discomfort. Labs are unremarkable. Imaging workup significant for large right pleural effusion and RUQ percutaneous drain crossing diaphragm. Hospital Course: 08/05: R chest tube pigtail was placed for pleural effusion with 2L output 08/06: Pt in significant pain, ill-appearing and uncomfortable, tachycardic (110s). Chest tube draining well with serobilious appearing fluid in tubing. 08/07: No acute events, pain improving, CT chest/abd/pel completed 08/08: OR for R VATS with placement of chest tubes and diagnostic lap for abdominal washout and drain placement 08/09: Uncontrolled pain, No fever, chills, nausea, or vomiting 08/10: 2L NC. H/H stable. Pain mgmt consult. Distal chest tube and LINDA drain removed. Plan for IR angio of celiac pseudoaneurysm next day. 08/11: s/p IR embolization of celiac pseudoaneurysm, CT removed, Eliquis and antibiotics discontinued 24-hour Events: S/p IR angiogram yesterday with successful embolization of celiac artery pseudoaneurysm. Patient having LLQ abdominal pain. Reports some nausea and had a small episode of emesis last night. Reports passing flatus and having a small BM yesterday. Lipase normal. Labs are within normal limites. KUB unremarkable. CT tube removed yesterday with post-pull xray looking fine -- PHYSICAL EXAM -- Vital Signs: Vital sign ranges over the past 24 hours (retrieved 08/12/2024 at 10:19 AM): Tmax (24 hours): 98.2 F (36.8 C) Pulse Av.7 Min: 88 Max: 115 Systolic (24hrs), Av , Min:117 , Max:135 Diastolic (24hrs), Av, Min:81, Max:97 MAP (mmHg) Av.2 mmHg Min: 91 mmHg Max: 106 mmHg Resp Av.6 Min: 15 Max: 18 SpO2 Av.1 % Min: 91 % Max: 98 % 24 Hour Input/Output Intake/Output Summary (Last 24 hours) at 08/12/2024 1019 Last data filed at 08/12/2024 0609 Gross per 24 hour Intake 1448.33 ml Output 50 ml Net 1398.33 ml -- PHYSICAL EXAM -- Constitutional: Appears well, not in acute distress Cardiovascular: normal rate and rhythm, intermittently tachycardic (mild). R groin angioseal site intact with no hematoma Pulmonary/Chest: CTAB, wound clean/dry/intact Abdominal: Soft. Non-distended. TTP LLQ, painful at rest. No palpable mass or hematoma. Musculoskeletal: No edema. Neurological: GCS 15 LABORATORY RESULTS (LAST 24 HOURS) CBC/PT/INR 08/12/2024 3:16 AM WBC 8.3 RBC 3.77 Hgb 10.4 Hct 31.5 MCV 83 RDW 15.6 Plt 504 Basic Metabolic Panel 08/12/2024 3:16 AM Na 137 K 4.3 Cl 100 CO2 28 Gap 13 Glu 108 BUN 6 Cr 0.42 Ca 7.7 Mg 1.9 PO4 3.5 Fingerstick Glucose (last 72 hours) None IMAGING RESULTS (PERSONALLY REVIEWED) Admit imaging reviewed. CXR 08/11: Persistent right greater than left basilar opacities with blunting of the costophrenic angles bilaterally. Pleural air is seen inferiorly, likely loculated. IMPRESSION: Stable radiographic appearance of the chest KUB 08/11: IMPRESSION: Coil embolization embolization material projects over the mid abdomen. Bowel gas pattern is nonspecific and without evidence of overt obstruction. Excreted contrast overlies the urinary bladder. 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 Acute post op pain. - Acute pain management team consulted: -Tylenol 1,000 mg every 8 hours -Oral Dilaudid 2 mg / 4 mg every 4 hours as needed for moderate/severe pain respectively -IV dilaudid 0.5 mg every 4 hours as needed for breakthrough pain. Wean as patient tolerates to every 6 hours then 8 hours then stop. - Lido patch, Robaxin 750mg QID Cardiovascular: Celiac artery pseudoaneurysm. - Continue routine BP and HR monitoring per unit protocol - Successful IR embolizations of celiac pseudoaneurysm 08/11 - Will discontinue Eliquis per Dr. Cristobal - resume ASA Respiratory: R pleural effusion s/p R VATs and CT placement on 08/08. 08/[address] and LINDA removed. Minimal CT output and stable CXR today. - Antibiotics- cepfapime and flagyl - completed course 08/12 - Continue pulmonary hygiene - Encourage IS - Continue Respiratory Real Estate Office Manager Protocol GI/Diet: Tolerating normal diet. S/p diagnostic lap and abdominal washout with drain removal on 08/08. - Regular diet - Continue bowel regimen: Continue daily Senna, BID Colace, and PRN Dulcolax - Start MoM daily x3 days or until +BM - Zofran 4mg q4h PRN nausea/vomiting - Monitor for s/s of pancreatitis - lipase normal Renal/Electrolytes: Voiding spontaneously. - Replete electrolytes PRN - Repeat BMP and Mag in AM Heme: H/H stable. - No indication for tranfusion - CBC in AM Endocrine: No glycemic/endocrine issues. MSK: - WB status:as tolerated - Activity: OOB as tolerated. - Continue progressive mobilty procedure. Prophylaxis: - VTE: Continue SCDs, Start lovenox 0.5mg/kg BID this evening. Resume ASA Tubes/Lines/Drains: - Maintain PIVs - Monitor for urinary retention. Dispo: Remain on RNF for CT management, IR procedure, resuming eliquis and pain control. Anticipate medical clearance for home dispo in 3 days. Patient discussed with Attending Trauma Surgeon, Dr. Susu Kumar MD Trauma Surgery Associated attestation - Harlan Cristobal MD - 08/12/2024 7:30 PM EDT I have personally seen and examined the patient with the team and nursing staff at the patient's bedside. I have reviewed recent data and reports. I have also reviewed lab values, imaging, and current medications profile. I discussed my findings with the team. I reviewed the full note by the resident with the detailed findings, and I agree with the assessment, overall impression, and plan of care. We have also updated the patient or any available family as well as other services with our care plan. Harlan Cristobal MD Social Work Progress Note SW/CM has reviewed patient's chart and assessed that there are no discharge planning needs at this time. The following was reviewed to determine no SW/CM needs warranted. 1). PT/OT evaluations indicate pt can DC home with no needs or PT/OT evaluations are not warranted. 2). No wound care or IV Antibiotics indicated at this time. 3). No SW/CM consults placed through nursing admission screen 4). Pt does not meet the criteria of being a Medicare recipient that has a high or rising readmission rate. Patient will continue to be discussed in multi-disciplinary rounds and monitored daily. If any of the the above changes, SW/CM will complete appropriate assessments and interventions. JEFFERY Kilgore Acute lactic acidosis Images from the original note were not included. Attempted to see patient, but unable due to patient being off the unit. Will re-attempt tomorrow, if not today. Jarod Venegas, OFFICE SECRETARY-EDUCATION PROFESSOR Pain consult availability: Mornings, Thursday through Thursday. For questions please page [phone]. SOCIAL WORK COVERAGE NOTE SW has reviewed patient's chart and assessed that there are no discharge planning needs at this time. The following was reviewed to determine no SW needs warranted. 1). PT/OT evaluations indicate pt can DC home with no needs or PT/OT evaluations are not warranted. 2). No wound care or IV Antibiotics indicated at this time. 3). No SW consults placed through nursing admission screen 4). Pt does not meet the criteria of being a Medicare recipient that has a high or rising readmission rate. Of note, pt connected with Trauma Dicer Operator. Patient will continue to be discussed in multi-disciplinary rounds and monitored daily. If any of the the above changes, SW will complete appropriate assessments and interventions. TONY Montalvo LSW Inpatient Social Work Images from the original note were not included. GENERAL INFORMATION TRAUMA FLOOR - DAILY PROGRESS NOTE Patient Name: Marilee Collado Admission Date: 08/05/2024 Patient seen and examined on 08/11/24 INTERVAL HISTORY/EVENTS Background: Marilee Collado is a 29 year old female with a recent admission to the hospital on 07/11 for CUSTODIAL sustaining a grade 5 liver injury s/p IR drain placement for perihepatic fluid collection (07/22), grade 3-4 splenic laceration, R posterior 10th rib fracture, T4-5 vertebral body fracture. Patient presents again today for acute onset right sided chest pain and RUQ discomfort. Labs are unremarkable. Imaging workup significant for large right pleural effusion and RUQ percutaneous drain crossing diaphragm. Hospital Course: 08/05: R chest tube pigtail was placed for pleural effusion with 2L output 08/06: Pt in significant pain, ill-appearing and uncomfortable, tachycardic (110s). Chest tube draining well with serobilious appearing fluid in tubing. 08/07: No acute events, pain improving, CT chest/abd/pel completed 08/08: OR for R VATS with placement of chest tubes and diagnostic lap for abdominal washout and drain placement 08/09: Uncontrolled pain, No fever, chills, nausea, or vomiting 08/10: 2L NC. H/H stable. Pain mgmt consult. Distal chest tube and LINDA drain removed. Plan for IR angio of celiac pseudoaneurysm next day. 24-hour Events: S/p IR angiogram today with successful embolization of celiac artery pseudoaneurysm. Patient evaluated after return from IR with complains of LLQ abdominal pain. Denies nausea, states she hasn't passed flatus today. Abdomen is soft, non-distended, no palpable mass/hematoma per my exam. Will obtain KUB to evaluate. Will defer CT removal until pain is better controlled to allow for appropriate positioning. VS: Afebrile, Mild intermittent tachycardia, normotensive. Satting well on RA. Labs: Mild hypomag, otherwise BMP WNL. NO leukocytosis, H/H stable. UOP: 300ml BM: 0x since VAT OVERHAULER on 08/06 LINDA drain output: 10ml (removed 08/10) R CT #1: 20 (removed 08/10) R CT #2: 20 (120) -- PHYSICAL EXAM -- Vital Signs: Vital sign ranges over the past 24 hours (retrieved 08/11/2024 at 6:34 AM): Tmax (24 hours): 99.1 F (37.3 C) Pulse Av.7 Min: 88 Max: 108 Systolic (24hrs), Av , Min:110 , Max:125 Diastolic (24hrs), Av, Min:76, Max:82 MAP (mmHg) Av.5 mmHg Min: 80 mmHg Max: 95 mmHg Resp Av Min: 18 Max: 18 SpO2 Av % Min: 99 % Max: 99 % 24 Hour Input/Output Intake/Output Summary (Last 24 hours) at 08/11/2024 0648 Last data filed at 08/11/2024 0409 Gross per 24 hour Intake 2780 ml Output 348 ml Net 2432 ml -- PHYSICAL EXAM -- Constitutional: Appears well, not in acute distress Cardiovascular: normal rate and rhythm, intermittently tachycardic (mild). R groin angioseal site intact with no hematoma Pulmonary/Chest: CTAB, chest tubes x1, serous fluid in tubing, wound clean/dry/intact Abdominal: Soft. Non-distended. TTP LLQ, painful at rest. No palpable mass or hematoma. Musculoskeletal: No edema. Neurological: GCS 15 LABORATORY RESULTS (LAST 24 HOURS) CBC/PT/INR 08/11/2024 12:54 AM WBC 8.2 RBC 3.50 Hgb 10.0 Hct 29.0 MCV 83 RDW 15.2 Plt 487 Basic Metabolic Panel 08/11/2024 12:54 AM Na 137 K 4.2 Cl 101 CO2 30 Gap 10 Glu 98 BUN 10 Cr 0.53 Ca 7.9 Mg 1.8 PO4 3.7 Fingerstick Glucose (last 72 hours) None IMAGING RESULTS (PERSONALLY REVIEWED) Admit imaging reviewed. CXR 08/11: Persistent right greater than left basilar opacities with blunting of the costophrenic angles bilaterally. Pleural air is seen inferiorly, likely loculated. IMPRESSION: Stable radiographic appearance of the chest KUB 08/11: IMPRESSION: Coil embolization embolization material projects over the mid abdomen. Bowel gas pattern is nonspecific and without evidence of overt obstruction. Excreted contrast overlies the urinary bladder. 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 Acute post op pain. - Acute pain management team consulted: -Tylenol 1,000 mg every 8 hours -Oral Dilaudid 2 mg / 4 mg every 4 hours as needed for moderate/severe pain respectively -IV dilaudid 0.5 mg every 4 hours as needed for breakthrough pain. Wean as patient tolerates to every 6 hours then 8 hours then stop. - Lido patch, Robaxin 750mg QID Cardiovascular: Celiac artery pseudoaneurysm. - Continue routine BP and HR monitoring per unit protocol - Successful IR embolizations of celiac pseudoaneurysm today - Will discontinue Eliquis per Dr. Cristobal Respiratory: R pleural effusion s/p R VATs and CT placement on 08/08. 08/[address] and LINDA removed. Minimal CT output and stable CXR today. - Antibiotics- cepfapime and flagyl - Continue pulmonary hygiene - Encourage IS - Continue Respiratory Real Estate Office Manager Protocol - Continue CT to water seal GI/Diet: Tolerating normal diet. S/p diagnostic lap and abdominal washout with drain removal on 08/08. - Resume diet post IR - Continue bowel regimen: Continue daily Senna, BID Colace, and PRN Dulcolax - Start MoM daily x3 days or until +BM - Zofran 4mg q4h PRN nausea/vomiting - Monitor for s/s of pancreatitis (expected per IR following procedure Renal/Electrolytes: Voiding spontaneously. - Replete electrolytes PRN - Repeat BMP and Mag in AM - 2gm Mag today Heme: H/H stable. - No indication for tranfusion - CBC in AM - IR consult: plan for angiogram today to evaluate aneurysm +/- intervention ID: Afebrile, leukocytosis resolved - Continue cefepime/flagyl, end date 08/12/24 Endocrine: No glycemic/endocrine issues. MSK: - WB status:as tolerated - Activity: OOB as tolerated. - Continue progressive mobilty procedure. Prophylaxis: - VTE: Continue SCDs, Start lovenox 0.5mg/kg BID this evening. Tubes/Lines/Drains: - Maintain PIVs - Monitor for urinary retention. - Percutaneous drain, right. Monitor output. - Pigtail chest tube to water seal, right Dispo: Remain on RNF for CT management, IR procedure, resuming eliquis and pain control. Anticipate medical clearance for home dispo in 3 days. Patient discussed with Attending Trauma Surgeon, ROSLYN Sal Trauma Surgery [facility] 08/10/2024 Services Provide For: Patient Services Provided by: Dicer Operator Reason for Services: Follow-Up Immediate Needs: Patient/Family Reports None Additional Notes: Pt verbalized that she was not feeling well today. Band Top Maker gave pt life flight pin from peer visit yesterday. Pt expressed gratitude. ? Zina Vides Main Line: [phone] Images from the original note were not included. GENERAL INFORMATION TRAUMA FLOOR - DAILY PROGRESS NOTE Patient Name: Mariele Collado Admission Date: 08/05/2024 Patient seen and examined on 08/10/24 INTERVAL HISTORY/EVENTS Background: Marilee Collado is a 29 year old female with a recent admission to the hospital on 07/11 for CUSTODIAL sustaining a grade 5 liver injury s/p IR drain placement for perihepatic fluid collection (07/22), grade 3-4 splenic laceration, R posterior 10th rib fracture, T4-5 vertebral body fracture. Patient presents again today for acute onset right sided chest pain and RUQ discomfort. Labs are unremarkable. Imaging workup significant for large right pleural effusion and RUQ percutaneous drain crossing diaphragm. Hospital Course: 08/05: R chest tube pigtail was placed for pleural effusion with 2L output 08/06: Pt in significant pain, ill-appearing and uncomfortable, tachycardic (110s). Chest tube draining well with serobilious appearing fluid in tubing. 08/07: No acute events, pain improving, CT chest/abd/pel completed 08/08: pt underwent right VATS with placement of chest tubes and diagnostic lap for abdominal washout and drain placement 08/09: No acute events, patient reports uncontrolled pain, No fever, chills, nausea, or vomiting 24-hour Events: Patient is now s/p right VATS, washout of right pleural cavity, placement of R chest tubes x2, and diagnostic lap, removal of transdiaphragmatic intra-abdominal catheter, abdominal washout and drain placement 08/08 AF, VSS. Tachycardia resolved. Satting well on 2L NC, Pain is moderately controlled. No fever, chills, nausea, or vomiting. ILNDA drain output: 10cc R CT #1: [address] #2: 120 WBC 6.6 from 9.4 Hgb stable 10.4 from 10.1 -- PHYSICAL EXAM -- Vital Signs: Vital sign ranges over the past 24 hours (retrieved 08/10/2024 at 6:57 AM): Tmax (24 hours): 98.1 F (36.7 C) Pulse Av.3 Min: 86 Max: 95 Systolic (24hrs), Av , Min:114 , Max:130 Diastolic (24hrs), Av, Min:72, Max:84 MAP (mmHg) Av.3 mmHg Min: 84 mmHg Max: 98 mmHg Resp Av Min: 17 Max: 19 SpO2 Av.3 % Min: 97 % Max: 99 % 24 Hour Input/Output Intake/Output Summary (Last 24 hours) at 08/10/2024 0657 Last data filed at 08/10/2024 0500 Gross per 24 hour Intake 1030 ml Output 1437 ml Net -407 ml -- PHYSICAL EXAM -- Constitutional: Appears well, not in acute distress Cardiovascular: normal rate and rhythm, intermittently tachycardic (mild) Pulmonary/Chest: CTAB, chest tubes x2, serosanguinous fluid in tubing, wound clean/dry/intact Abdominal: Soft. Non-distended. Appropriately tender. Ss fluid in LINDA drain Musculoskeletal: No edema. Neurological: GCS 15 LABORATORY RESULTS (LAST 24 HOURS) CBC/PT/INR 08/10/2024 1:15 AM WBC 6.6 RBC 3.78 Hgb 10.4 Hct 31.5 MCV 83 RDW 15.4 Plt 506 INR 1.43 Basic Metabolic Panel 08/10/2024 1:15 AM Na 140 K 4.3 Cl 103 CO2 28 Gap 13 Glu 88 BUN 12 Cr 0.54 Ca 7.9 Mg 1.9 PO4 3.3 Fingerstick Glucose (last 72 hours) None IMAGING RESULTS (PERSONALLY REVIEWED) 08/10 CXR: 1. Similar position of right pleural drainage catheters with the inferior drainage catheter sidehole not confidently within the pleural space. Correlate with function. 2. Left retrocardiac opacity may represent atelectasis/mucus plugging or pleural fluid. Continued attention on follow-up is recommended. 3. Persistent right pleural effusion with adjacent opacities suggestive of atelectasis. 08/09 CXR: 1. Similar position of right pleural drainage catheters with the inferior drainage catheter sidehole not confidently within the pleural space. Correlate with function. 2. Similar to slightly improved aeration. Increased left retrocardiac opacity may represent atelectasis/mucus plugging or pleural fluid. Continued attention on follow-up is recommended, as exam is limited by rotated patient position. 08/07 @ 0129, CXR: IMPRESSION: 1. Increasing lucency of the right lower lung zone may represent interval development of small right basilar hydropneumothorax versus improving right basilar aeration with loculated effusion. 2. Chest tubes in the right mid lung and right lung bases are in unchanged position from previously. All admit imaging and follow up imaging reviewed. No new imaging ASSESSMENT & PLAN Diagnosis s/p traumatic injury 3 weeks ago: large right pleural effusion and RUQ percutaneous drain crossing diaphragm. Now s/p right VATS, washout of right pleural cavity, placement of R chest tubes x2, and diagnostic lap, removal of transdiaphragmatic intra-abdominal catheter, abdominal washout and drain placement 08/08 PMHx Non-significant Incidental Findings: N/A per MD GUERO 08/06 Plan: Neurological: Acute pain due to trauma. Acute post op pain. - Acute pain management team consulted: -Tylenol 1,000 mg every 8 hours -Oral Dilaudid 2 mg / 4 mg every 4 hours as needed for moderate/severe pain respectively -IV dilaudid 0.5 mg every 4 hours as needed for breakthrough pain. Wean as patient tolerates to every 6 hours then 8 hours then stop. - Lido patch, Robaxin 750mg QID Cardiovascular: No acute cardiac issues. BP and HR have remained acceptable. - Tachycardia resolved - Continue routine BP and HR monitoring per unit protocol Respiratory: Large pleural effusion, Right,now s/p Right VATS - Chest tube x2, will remove lower chest tube since it is not putting out - Antibiotics- cepfapime and flagyl - Continue pulmonary hygiene - Encourage IS - Continue Respiratory Real Estate Office Manager Protocol GI/Diet: Tolerating normal diet. - Regular diet, NPO after midnight for IR intervention - Continue bowel regimen: Continue daily Senna, BID Colace, and PRN Dulcolax - LFTs WNL - Will remove LINDA drain today Renal/Electrolytes: Voiding spontaneously. - Replete electrolytes PRN - Repeat BMP and Mag in AM Heme: H and H remains stable. Patient remains hemodynamically stable. - No indication for tranfusion - CBC in AM - IR consult for 1.5cm celiac artery pseudoaneurysm: plan for angiogram tomorrow to evaluate aneurysm +/- intervention ID: Afebrile, leukocytosis resolved - Continue cefepime/flagyl Endocrine: No glycemic/endocrine issues. MSK: - WB status:as tolerated - Activity: OOB as tolerated. - Continue progressive mobilty procedure. Prophylaxis: - VTE: Continue SCDs, lovenox 0.5mg/kg BID. Hold Eliquis POD2 Tubes/Lines/Drains: - Maintain PIVs - Monitor for urinary retention. - Percutaneous drain, right. Monitor output. - Pigtail chest tube to water seal, right Dispo: RNF, pending clinical progression Patient discussed with Attending Trauma Surgeon, Dr. Susu Kumar MD PGY1, Trauma Surgery Associated attestation - Harlan Cristobal MD - 08/10/2024 6:45 PM EDT I have personally seen and examined the patient with the team and nursing staff at the patient's bedside. I have reviewed recent data and reports. I have also reviewed lab values, imaging, and current medications profile. I discussed my findings with the team. I reviewed the full note by the resident with the detailed findings, and I agree with the assessment, overall impression, and plan of care. We have also updated the patient or any available family as well as other services with our care plan. Harlan Cristobal MD [facility]MA [facility] PEER VISIT Patient/Family received a Peer Visit, 08/09/2024 , by an official [facility] Volunteer and trained Peer [place]. Peer Visitor Provided: Patient Support Answered questions about Recovery and Next Steps Shared Patient Experience Encouraged Patient and Family Provided resources available to them through the Trauma Department, Trauma Recovery Center, and [facility]. Peer Visitor: Lesvia Elder ? Special Notes: Peer Visitor spent 45 minutes with patient discussing her accident and trauma injury. Pt seemed a bit down and wasn't very talkative at the beginning. Once she opened up, the patient talked more about her injury and how she just wants to get healthy and go home. Lesvia is going to give her a [employer] Flight pin, which patient was happy about, ? Deena Osei Trauma Recovery Services Main Line: [phone] [facility] 08/09/2024 Services Provide For: Patient Services Provided by: Dicer Operator Reason for Services: Initial Visit Immediate Needs: Patient/Family Reports None Patient: Educated on Trauma Recovery Center and Resources Available. Pt verbalized she was doing okay today and asked for a hygiene kit. Band Top Maker provided pt with kit and stated she would check back in tomorrow. In addition, informed of [facility] Resources available when and where appropriate. Volunteer Peer Visitor: Informed Patient/Family of a possible visit from Trauma Recovery Peer Visitor Volunteer during inpatient stay. Informed Patient/Family of right to decline visit. Additional Notes: Band Top Maker will follow up as needed ? Zina Vides Main Line: [phone] Social Work Progress Note SW/CM has reviewed patient's chart and assessed that there are no discharge planning needs at this time. The following was reviewed to determine no SW/CM needs warranted. 1). PT/OT evaluations indicate pt can DC home with no needs or PT/OT evaluations are not warranted. 2). No wound care or IV Antibiotics indicated at this time. 3). No SW/CM consults placed through nursing admission screen 4). Pt does not meet the criteria of being a Medicare recipient that has a high or rising readmission rate. Patient will continue to be discussed in multi-disciplinary rounds and monitored daily. If any of the the above changes, SW/CM will complete appropriate assessments and interventions. JEFFERY Kilgore Images from the original note were not included. GENERAL INFORMATION TRAUMA FLOOR - DAILY PROGRESS NOTE Patient Name: Marilee Collado Admission Date: 08/05/2024 Patient seen and examined on 08/09/24 INTERVAL HISTORY/EVENTS Background: Marilee Collado is a 29 year old female with a recent admission to the hospital on 07/11 for CUSTODIAL sustaining a grade 5 liver injury s/p IR drain placement for perihepatic fluid collection (07/22), grade 3-4 splenic laceration, R posterior 10th rib fracture, T4-5 vertebral body fracture. Patient presents again today for acute onset right sided chest pain and RUQ discomfort. Labs are unremarkable. Imaging workup significant for large right pleural effusion and RUQ percutaneous drain crossing diaphragm. Hospital Course: 08/05: R chest tube pigtail was placed for pleural effusion with 2L output 08/06: Pt in significant pain, ill-appearing and uncomfortable, tachycardic (110s). Chest tube draining well with serobilious appearing fluid in tubing. 08/07: No acute events, pain improving, CT chest/abd/pel completed 08/08: pt underwent right VATS with placement of chest tubes and diagnostic lap for abdominal washout and drain placement 24-hour Events: Patient is now s/p right VATS, washout of right pleural cavity, placement of R chest tubes x2, and diagnostic lap, removal of transdiaphragmatic intra-abdominal catheter, abdominal washout and drain placement AF, VSS. Mild tachycardia 100-105. Satting well on 2L NC, Pain is moderately controlled. NO fever, chills, nausea, or vomiting. LINDA drain output: 10cc R CT #1: [address] #2: 100 WBC 9.4 from 7.4 Hgb stable 10.1 from 9.3 -- PHYSICAL EXAM -- Vital Signs: Vital sign ranges over the past 24 hours (retrieved 08/09/2024 at 6:37 AM): Tmax (24 hours): 98.6 F (37 C) Pulse Av.1 Min: 88 Max: 106 Systolic (24hrs), Av , Min:109 , Max:116 Diastolic (24hrs), Av, Min:71, Max:87 MAP (mmHg) Av.1 mmHg Min: 80 mmHg Max: 97 mmHg Resp Av.6 Min: 12 Max: 29 SpO2 Av.9 % Min: 92 % Max: 98 % 24 Hour Input/Output Intake/Output Summary (Last 24 hours) at 08/09/2024 0637 Last data filed at 08/09/2024 0538 Gross per 24 hour Intake 3201.5 ml Output 1000 ml Net 2201.5 ml -- PHYSICAL EXAM -- Constitutional: Appears well, not in acute distress Cardiovascular: normal rate and rhythm, intermittently tachycardic (mild) Pulmonary/Chest: CTAB, chest tubes x2, serosanguinous fluid in tubing, wound clean/dry/intact Abdominal: Soft. Non-distended. Appropriately tender. Ss fluid in LINDA drain Musculoskeletal: No edema. Neurological: GCS 15 LABORATORY RESULTS (LAST 24 HOURS) CBC/PT/INR 08/09/2024 08/08/2024 1:29 AM 1:46 PM WBC 9.4 -- RBC 3.67 -- Hgb 10.1 9.3 Hct 29.9 28.9 MCV 81 -- RDW 15.4 -- Plt 500 -- Basic Metabolic Panel 08/09/2024 08/08/2024 1:29 AM 1:46 PM Na 139 137 K 4.7 3.1 Cl 104 106 CO2 21 -- Gap 19 -- Glu 95 101 BUN 10 -- Cr 0.53 -- Ca 7.7 -- Mg 1.8 -- PO4 4.4 -- Fingerstick Glucose (last 72 hours) None IMAGING RESULTS (PERSONALLY REVIEWED) 08/09 CXR: 1. Similar position of right pleural drainage catheters with the inferior drainage catheter sidehole not confidently within the pleural space. Correlate with function. 2. Similar to slightly improved aeration. Increased left retrocardiac opacity may represent atelectasis/mucus plugging or pleural fluid. Continued attention on follow-up is recommended, as exam is limited by rotated patient position. 08/07 @ 0129, CXR: IMPRESSION: 1. Increasing lucency of the right lower lung zone may represent interval development of small right basilar hydropneumothorax versus improving right basilar aeration with loculated effusion. 2. Chest tubes in the right mid lung and right lung bases are in unchanged position from previously. All admit imaging and follow up imaging reviewed. No new imaging ASSESSMENT & PLAN Diagnosis s/p traumatic injury 3 weeks ago: large right pleural effusion and RUQ percutaneous drain crossing diaphragm. Now s/p PMHx Non-significant Incidental Findings: N/A per MD GUERO 08/06 Plan: Neurological: Acute pain due to trauma. Acute post op pain. - Continue acetaminophen 1000mg q6h scheduled - Lido patch, Robaxin 750mg QID - Continue oxycodone 5/10mg q4h PRN moderate/severe pain - Dilaudid 0.2mg q4hrs PRN for breakthrough pain Cardiovascular: No acute cardiac issues. BP and HR have remained acceptable. - Tachycardic 100s 2ry to uncontrolled pain - Continue routine BP and HR monitoring per unit protocol Respiratory: Large pleural effusion, Right,now s/p Right VATS - Chest tube x2 - Antibiotics- cepfapime and flagyl - Continue pulmonary hygiene - Encourage IS - Continue Respiratory Real Estate Office Manager Protocol GI/Diet: Tolerating normal diet. - Regular diet - Continue bowel regimen: Continue daily Senna, BID Colace, and PRN Dulcolax - Obtain LFTs Renal/Electrolytes: Voiding spontaneously. - Replete electrolytes PRN - Repeat BMP and Mag in AM Heme: H and H remains stable. Patient remains hemodynamically stable. 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 MSK: - WB status:as tolerated - Activity: OOB as tolerated. - Continue progressive mobilty procedure. Prophylaxis: - VTE: Continue SCDs, lovenox 0.5mg/kg BID. Hold Eliquis POD1 Tubes/Lines/Drains: - Maintain PIVs - Monitor for urinary retention. - Percutaneous drain, right. Monitor output. - Pigtail chest tube to water seal, right Dispo: RNF, pending clinical progression Discussed with Dr. Cristobal Patient discussed with Attending Trauma Surgeon, Dr. Argueta. Vania Kumar MD PGY1, Trauma Surgery Associated attestation - Harlan Cristobal MD - 08/09/2024 6:54 PM EDT I have personally seen and examined the patient with the team and nursing staff at the patient's bedside. I have reviewed recent data and reports. I have also reviewed lab values, imaging, and current medications profile. I discussed my findings with the team. I reviewed the full note by the resident with the detailed findings, and I agree with the assessment, overall impression, and plan of care. We have also updated the patient or any available family as well as other services with our care plan. Harlan Cristobal MD Images from the original note were not included. GENERAL INFORMATION TRAUMA FLOOR - DAILY PROGRESS NOTE Patient Name: Marilee Collado Admission Date: 08/05/2024 Patient seen and examined on 08/08/24 INTERVAL HISTORY/EVENTS Background: Marilee Collado is a 29 year old female with a recent admission to the hospital on 07/11 for CUSTODIAL sustaining a grade 5 liver injury s/p IR drain placement for perihepatic fluid collection (07/22), grade 3-4 splenic laceration, R posterior 10th rib fracture, T4-5 vertebral body fracture. Patient presents again today for acute onset right sided chest pain and RUQ discomfort. Labs are unremarkable. Imaging workup significant for large right pleural effusion and RUQ percutaneous drain crossing diaphragm. Hospital Course: 08/05: R chest tube pigtail was placed for pleural effusion with 2L output 08/06: Pt in significant pain, ill-appearing and uncomfortable, tachycardic (110s). Chest tube draining well with serobilious appearing fluid in tubing. 08/07: No acute events, pain improving, CT chest/abd/pel completed 24-hour Events: AF, VSS. Pain is better controlled. 1 episode of emesis. Minimal PO intake WBC resolved 7 rom 14 Hgb stable 10.2 from 11 24 hr output: 72 cc drainage reported from CT. 30 cc drainage reported from other drain. -- PHYSICAL EXAM -- Vital Signs: Vital sign ranges over the past 24 hours (retrieved 08/08/2024 at 11:34 AM): Tmax (24 hours): 98.4 F (36.9 C) Pulse Av.5 Min: 91 Max: 112 Systolic (24hrs), Av , Min:110 , Max:122 Diastolic (24hrs), Av, Min:69, Max:75 MAP (mmHg) Av.7 mmHg Min: 82 mmHg Max: 89 mmHg Resp Av Min: 18 Max: 18 SpO2 Av % Min: 92 % Max: 100 % 24 Hour Input/Output Intake/Output Summary (Last 24 hours) at 08/08/2024 1134 Last data filed at 08/08/2024 0845 Gross per 24 hour Intake 970 ml Output 677 ml Net 293 ml -- PHYSICAL EXAM -- Constitutional: Appears uncomfortable Cardiovascular: tachycardic Pulmonary/Chest: CTAB, chest tube pigtail in place, serosanguinous fluid in tubing, possible bilious staining Abdominal: Soft. Non-distended. Non-tender. Serobilious fluid in IR drain Musculoskeletal: No edema. Neurological: GCS 15 LABORATORY RESULTS (LAST 24 HOURS) CBC/PT/INR 08/08/2024 12:53 AM WBC 7.4 RBC 3.71 Hgb 10.2 Hct 31.3 MCV 84 RDW 15.0 Plt 411 Basic Metabolic Panel 08/08/2024 12:53 AM Na 138 K 4.1 Cl 102 CO2 24 Gap 16 Glu 89 BUN 12 Cr 0.61 Ca 8.1 Mg 1.9 PO4 3.8 Fingerstick Glucose (last 72 hours) None IMAGING RESULTS (PERSONALLY REVIEWED) 08/07 @ 0129, CXR: IMPRESSION: 1. Increasing lucency of the right lower lung zone may represent interval development of small right basilar hydropneumothorax versus improving right basilar aeration with loculated effusion. 2. Chest tubes in the right mid lung and right lung bases are in unchanged position from previously. All admit imaging and follow up imaging reviewed. No new imaging ASSESSMENT & PLAN Diagnosis s/p traumatic injury 3 weeks ago: large right pleural effusion and RUQ percutaneous drain crossing diaphragm. PMHx Non-significant Incidental Findings: N/A per MD GUERO 08/06 Plan: Neurological: Acute pain due to trauma. Acute post op pain. - Continue acetaminophen 1000mg q6h scheduled - Lido patch, Robaxin 750mg QID - Continue oxycodone 5/10mg q4h PRN moderate/severe pain - Dilaudid 0.3mg q4hrs PRN for breakthrough pain Cardiovascular: No acute cardiac issues. BP and HR have remained acceptable. - Tachycardic 110s 2ry to uncontrolled pain - Continue routine BP and HR monitoring per unit protocol Respiratory: Large pleural effusion, Right - Chest tube placed under water seal 08/05 - Culture NGTD - T bili levels in fluid due to concern for bilious fluid in pleural cavity -T bili 1.3, serum T bili 1.0. - Percutaneous drain invading the pleural space, crossing the diaphragm. - Antibiotics- cepfapime and flagyl - Repeat CT Chest/Abdomen/Pelvis ordered to evaluate for possible loculation of fluid collection 08/07 1. Expected evolution of right hepatic lobe grade V laceration with decreased in size of fluid collection. 2. Left sided passive atelectasis/consolidation. 3. Celiac artery pseudoaneurysm, 1.5 cm. 4. Gallbladder sludge. - Plan for VATS procedure today, possible replacement of abdominal drain - Continue pulmonary hygiene - Encourage IS - Continue Respiratory Real Estate Office Manager Protocol GI/Diet: Tolerating normal diet. - NPO for procedure today - Continue bowel regimen: Continue daily Senna, BID Colace, and PRN Dulcolax Renal/Electrolytes: Voiding spontaneously. - LR 130cc, mIVF - Replete electrolytes PRN - Repeat BMP and Mag in AM Heme: H and H remains stable. Patient remains hemodynamically stable. - No indication for tranfusion - CBC in AM ID: Afebrile, leukocytosis resolved - ABX for percutaneous drain through diaphragm. Endocrine: No glycemic/endocrine issues. MSK: - WB status:as tolerated - Activity: OOB as tolerated. - Continue progressive mobilty procedure. Prophylaxis: - VTE: Continue SCDs, patient anticoagulated with Eliquis and ASA. Hold Eliquis for procedure Tubes/Lines/Drains: - Maintain PIVs - Monitor for urinary retention. - Percutaneous drain, right. Monitor output. - Pigtail chest tube to water seal, right Dispo: RNF, pending clinical progression Discussed with Dr. Argueta Patient discussed with Attending Trauma Surgeon, Dr. Argueta. Vania Kumar MD PGY1, Trauma Surgery Associated attestation - Luci Argueta MD - 08/09/2024 11:33 AM EDT Teaching Physician Note: I saw and evaluated the patient. I personally obtained the adamson and critical portions of the history and physical exam. I reviewed the resident's documentation and discussed the patient with the resident. I agree with the resident's medical decision making as documented in the resident's note. Luci Argueta MD 1545: Shortly after administering Toradol, patient's boyfriend who was bedside noted that she had a rash to her left arm. RN assessed arm and noticed a red, blotchy, non-raised, non-pruritic rash that was from her wrist to her shoulder. Roughly 10 minutes later, RN noticed rash now on her BLE and RUE as well. Patient stated that none of the medications were unfamiliar to her and that she has received Toradol in the past without issue. MD Quevedo came up to bedside to assess. Patient not complaining of any there symptoms, including chest pain or shortness of breath. Resting in bed in significant pain from R CT. 1800: Patient came back from CT and rash appeared to be resolving at this time. Images from the original note were not included. GENERAL INFORMATION TRAUMA FLOOR - DAILY PROGRESS NOTE Patient Name: Marilee Collado Admission Date: 08/05/2024 Patient seen and examined on 08/07/24 INTERVAL HISTORY/EVENTS Background: Marilee Collado is a 29 year old female with a recent admission to the hospital on 07/11 for CUSTODIAL sustaining a grade 5 liver injury s/p IR drain placement for perihepatic fluid collection (07/22), grade 3-4 splenic laceration, R posterior 10th rib fracture, T4-5 vertebral body fracture. Patient presents again today for acute onset right sided chest pain and RUQ discomfort. Labs are unremarkable. Imaging workup significant for large right pleural effusion and RUQ percutaneous drain crossing diaphragm. Hospital Course: 08/05: R chest tube pigtail was placed for pleural effusion with 2L output 08/06: Pt in significant pain, ill-appearing and uncomfortable, tachycardic (110s). Chest tube draining well with serobilious appearing fluid in tubing. 24-hour Events: AFVSS. Patient report significant pain in the right chest wall. Worsening pain with movement of her right arm. Denies any central chest pain or radiation into the left arm. She does also report nausea with 1 small episode of NBNB emesis. CT drainage appears more serosanguinous today. Attempted to add Toradol IV for additional pin control, patient reports that it has helped in the past. Given one dose IV - patient developed scattered rash on the extremities which she believes was after receiving Toradol. No difficulty breathing, oral lesions, shortness of breath, chest pain, palpitations. IV Toradol discontinued. WBC increasing, 14.1 up from 10.4. HGB stable, 11.0 from 11.6. 24 hr output: 127 cc drainage reported from CT. 25 cc drainage reported from other drain. -- PHYSICAL EXAM -- Vital Signs: Vital sign ranges over the past 24 hours (retrieved 08/07/2024 at 8:52 AM): Tmax (24 hours): 99.7 F (37.6 C) Pulse Av.2 Min: 96 Max: 123 Systolic (24hrs), Av , Min:110 , Max:140 Diastolic (24hrs), Av, Min:69, Max:91 MAP (mmHg) Av mmHg Min: 77 mmHg Max: 103 mmHg Resp Av.4 Min: 18 Max: 28 SpO2 Av.6 % Min: 95 % Max: 99 % 24 Hour Input/Output Intake/Output Summary (Last 24 hours) at 08/07/2024 0852 Last data filed at 08/07/2024 0600 Gross per 24 hour Intake 520 ml Output 952 ml Net -432 ml -- PHYSICAL EXAM -- Constitutional: Appears uncomfortable Cardiovascular: tachycardic Pulmonary/Chest: CTAB, chest tube pigtail in place, serosanguinous fluid in tubing, possible bilious staining Abdominal: Soft. Non-distended. Non-tender. Serobilious fluid in IR drain Musculoskeletal: No edema. Neurological: GCS 15 LABORATORY RESULTS (LAST 24 HOURS) CBC/PT/INR 08/07/2024 2:10 AM WBC 14.1 RBC 4.03 Hgb 11.0 Hct 34.0 MCV 84 RDW 15.3 Plt 457 Basic Metabolic Panel 08/07/2024 2:10 AM Na 136 K 4.1 Cl 101 CO2 23 Gap 16 Glu 128 BUN 11 Cr 0.60 Ca 8.0 Mg 1.7 PO4 4.0 Fingerstick Glucose (last 72 hours) None IMAGING RESULTS (PERSONALLY REVIEWED) 08/07 @ 0129, CXR: IMPRESSION: 1. Increasing lucency of the right lower lung zone may represent interval development of small right basilar hydropneumothorax versus improving right basilar aeration with loculated effusion. 2. Chest tubes in the right mid lung and right lung bases are in unchanged position from previously. All admit imaging and follow up imaging reviewed. No new imaging ASSESSMENT & PLAN Diagnosis s/p traumatic injury 3 weeks ago: large right plural effusion and RUQ percutaneous drain crossing diaphragm. PMHx Non-significant Incidental Findings: N/A per MD GUERO 08/06 Plan: Neurological: Acute pain due to trauma. Acute post op pain. - Continue acetaminophen 1000mg q6h scheduled - Lido patch, Robaxin 750mg QID - Continue oxycodone 5/10mg q4h PRN moderate/severe pain - Dilaudid 0.3mg q4hrs PRN for breakthrough pain Cardiovascular: No acute cardiac issues. BP and HR have remained acceptable. - Tachycardic 110s 2ry to uncontrolled pain - Continue routine BP and HR monitoring per unit protocol Respiratory: Large pleural effusion, Right - Chest tube placed under water seal 08/05 - Culture NGTD - T bili levels in fluid due to concern for bilious fluid in pleural cavity -T bili 1.3, serum T bili 1.0. - Percutaneous drain invading the pleural space, crossing the diaphragm. - Antibiotics- cepfapime and flagyl - Repeat CT Chest/Abdomen/Pelvis ordered to evaluate for possible loculation of fluid collection - Continue pulmonary hygiene - Encourage IS - Continue Respiratory Real Estate Office Manager Protocol GI/Diet: Tolerating normal diet. - Continue normal diet - Continue bowel regimen: Continue daily Senna, BID Colace, and PRN Dulcolax Renal/Electrolytes: Voiding spontaneously. - LR 50cc, mIVF fue to poor oral intake - Encourage PO intake - Replete electrolytes PRN - Repeat BMP and Mag in AM Heme: H and H remains stable. Patient remains hemodynamically stable. - No indication for tranfusion - CBC in AM ID: Afebrile, 08/07 WBC 14.1 up from 10.4 - ABX for percutaneous drain through diaphragm. - patient meeting SIRS criteria prior to Endocrine: No glycemic/endocrine issues. MSK: - WB status:as tolerated - Activity: OOB as tolerated. - Continue progressive mobilty procedure. Prophylaxis: - VTE: Continue SCDs, patient anticoagulated with Eliquis and ASA. Tubes/Lines/Drains: - Maintain PIVs - Monitor for urinary retention. - Percutaneous drain, right. Monitor output. - Pigtail chest tube to water seal, right Dispo: RNF, pending clinical progression Discussed with Dr. Argueta Patient discussed with Attending Trauma Surgeon, Dr. Argueta. Jacky Quevedo MD PGY1, Trauma Surgery Associated attestation - Luci Argueta MD - 08/07/2024 4:50 PM EDT Teaching Physician Note: I saw and evaluated the patient. I personally obtained the adamson and critical portions of the history and physical exam. I reviewed the resident's documentation and discussed the patient with the resident. I agree with the resident's medical decision making as documented in the resident's note. Luci Argueta MD Images from the original note were not included. GENERAL INFORMATION TRAUMA FLOOR - STAFF NOTE Patient seen and examined on 08/06/2024 Patient Name: Marilee Collado Admission Date: 08/05/2024 INTERVAL HISTORY/EVENTS Background: Marilee Collado is a 29 year old female with a recent admission to the hospital on 07/11 for CUSTODIAL sustaining a grade 5 liver injury s/p IR drain placement for perihepatic fluid collection (07/22), grade 3-4 splenic laceration, R posterior 10th rib fracture, T4-5 vertebral body fracture. Patient presents again today for acute onset right sided chest pain and RUQ discomfort. Labs are unremarkable. Imaging workup significant for large right pleural effusion and RUQ percutaneous drain crossing diaphragm. Hospital Course: 08/05: R chest tube pigtail was placed for pleural effusion with 2L output 24-hour Events: Pt in significant pain, ill-appearing and uncomfortable, tachycardic (110s), afebrile, denies nausea, vomiting, fever, or chills. Reports some difficulty breathing 2ry to pain Chest tube draining well with serobilious appearing fluid in tubing. VITALS & INPUT/OUTPUT Vital Signs: Vital sign ranges over the past 24 hours (retrieved 08/06/2024 at 8:19 AM): Tmax (24 hours): 102.5 F (39.2 C) Pulse Av.6 Min: 103 Max: 127 Systolic (24hrs), Av , Min:103 , Max:155 Diastolic (24hrs), Av, Min:69, Max:99 MAP (mmHg) Av.2 mmHg Min: 82 mmHg Max: 115 mmHg Resp Av.6 Min: 18 Max: 38 SpO2 Av.1 % Min: 90 % Max: 99 % 24 Hour Input/Output In: 1600 (17 mL/kg) [I.V.:1600 (0.7 mL/kg/hr)] Out: 2029 (21.6 mL/kg) [Drainage:80] Net: -430 Weight: 93.9 kg -- PHYSICAL EXAM -- Constitutional: Appears uncomfortable Cardiovascular: tachycardic Pulmonary/Chest: CTAB, chest tube pigtail in place, serobilious fluid in tubing Abdominal: Soft. Non-distended. Non-tender. Serobilious fluid in IR drain Musculoskeletal: No edema. Neurological: GCS 15 LABORATORY RESULTS (LAST 24 HOURS) CBC/PT/INR 08/06/2024 08/05/2024 2:49 AM 2:02 PM WBC 10.4 9.9 RBC 4.20 4.26 Hgb 11.6 11.9 Hct 35.3 36.3 MCV 84 85 RDW 14.9 14.6 Plt 456 468 aPTT -- 40 INR -- 1.88 Basic Metabolic Panel 08/06/2024 08/05/2024 2:49 AM 2:02 PM Na 138 138 K 3.8 4.0 Cl 105 103 CO2 20 25 Gap 17 14 Glu 123 92 BUN 9 10 Cr 0.63 0.67 Ca 7.8 8.6 Mg -- 1.8 PO4 -- 3.7 Arterial Blood Gases None IMAGING RESULTS (PERSONALLY REVIEWED) CTAP: 1. Expected evolution of right hepatic lobe grade 5 laceration with decreased adjacent fluid collection with suspected extracapsular extension. Few locules of gas of increased compared to prior and may relate to instrumentation from drain. Superimposed infected hematoma cannot be excluded. 2. Right upper quadrant percutaneous drain in place appears to cross the pleura and diaphragm. 3. Improving pelvic hemoperitoneum. 4. 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 CT chest: IMPRESSION: 1. No PE identified. PE cannot be evaluated beyond the segmental level due to the limitations above. 2. Large right pleural effusion, increased since prior study. 3. The right upper quadrant drain is suspected to cross the right diaphragm. CXR: 1. Interval placement of 2 right pigtail pleural catheters with tips projecting over the right midlung and costophrenic angle. 2. Pulmonary findings likely reflect combination of residual small to moderate right pleural effusion and associated compressive atelectasis, improved from 08/05/2024. ASSESSMENT & PLAN - Diagnosis s/p traumatic injury 3 weeks ago: large right plural effusion and RUQ percutaneous drain crossing diaphragm. PMHx Nonsignificant Incidental Findings: N/A Plan: Neurological: Acute pain due to trauma. Acute post op pain. - Continue acetaminophen 1000mg q6h scheduled - Lido patch, Robaxin 750mg QID - Continue oxycodone 5/10mg q4h PRN moderate/severe pain - Dilaudid 0.3mg q4hrs PRN for breakthroughpain Cardiovascular: No acute cardiac issues. BP and HR have remained acceptable. - Tachycardic 110s 2ry to uncontrolled pain - Continue routine BP and HR monitoring per unit protocol Respiratory: Large pleural effusion, Right - Chest tube placed under water seal 08/05 - Output 1.8L - Culture NGTD - T bili levels in fluid due to concern for bilious fluid in pleural cavity - Percutaneous drain invading the pleural space, crossing the diaphragm. 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 - Continue normal diet - Continue bowel regimen: Continue daily Senna, BID Colace, and PRN Dulcolax Renal/Electrolytes: Voiding spontaneously. - LR 50cc, mIVF fue to poor oral intake - Encourage PO intake - Replete electrolytes PRN - Repeat BMP and Mag in AM Heme: H and H remains stable. Patient remains hemodynamically stable. - No indication for tranfusion - CBC in AM ID: Afebrile, leukocytosis. - ABX for percutaneous drain through diaphragm. - patient meeting SIRS criteria prior to Endocrine: No glycemic/endocrine issues. MSK: - WB status:as tolerated - Activity: OOB as tolerated. - Continue progressive mobilty procedure. Prophylaxis: - VTE: Continue SCDs, patient anticoagulated with Eliquis and ASA. Tubes/Lines/Drains: - Maintain PIVs - Monitor for urinary retention. - Percutaneous drain, right. Monitor output. - Pigtail chest tube to water seal, right Discussed with Dr. Argueta Patient discussed with Attending Trauma Surgeon, Dr. Argueta. Vania Kumar MD Associated attestation - Luci Argueta MD - 08/06/2024 3:49 PM EDT Teaching Physician Note: I saw and evaluated the patient. I personally obtained the adamson and critical portions of the history and physical exam. I reviewed the resident's documentation and discussed the patient with the resident. I agree with the resident's medical decision making as documented in the resident's note. Luci Argueta MD Pigtail inserted by trauma team, plurovac changed total output from 1st drainage system 1950 mL blood tinged. documented in this encounter [facility] 08-11-2024 Procedure note BEDSIDE PROCEDURE: Chest tube removal The string was cut to release the chest tube. The patient was instructed to hold breath and bare down. R sided chest tube was quickly and entirely removed. No bleeding or gush of air was observed . An occlusive dressing (Xeroform) was placed over the defect on the skin. Patient tolerated the procedure without change in hemodynamic or respiratory status. Repeat CXR ordered for 11pm. Rodney Lares APRN, CNP Trauma Surgery Surgical Critical Care Pager: [phone] documented in this encounter [facility] 08-11-2024 Consult note Formatting of th is note is different from the original. Images from the original note were not included. Dietitian vs DietaryTech: [employer] Diet Sand Technician Nutrition Screening Reason for visit: 7 Day Follow-Up Assessment Admitting Diagnosis: No admission diagnoses are documented for this encounter. High risk nutrition diagnosis: No - no points Past Medical History: No past medical history on file. Food Allergies: No Known Allergies Labs: LFT's (last 3 years, up to 8 values) 08/11/2024 08/10/2024 08/09/2024 08/05/2024 07/22/2024 07/16/2024 07/12/2024 12:54 AM 1:15 AM 1:29 AM 2:02 PM 1:03 AM 12:35 AM 3:27 AM T Prot 5.3 5.3 5.4 6.7 5.1 5.2 5.7 Albumin 2.8 2.7 2.7 3.5 2.6 2.9 3.6 D Bili 0.11 0.11 0.06 0.22 0.20 0.62 0.21 T Bili 0.4 0.4 0.4 1.0 0.8 1.6 0.8 Alk Phos 67 66 71 103 120 141 43 ALT 13 15 18 34 120 523 705 AST 11 12 23 16 30 93 582 Albumin: Less than 3 - 1 point Prealbumin: n/a - no points Skin Integrity: Surgical incision - no points Fluid Accumulation: wnl Diet Order: NPO Supplements: none % PO Intake: 0-25-50% Intake difficulties: Decreased appetite - 0 points 5' 9 [phone] lbs .93.9 kg Weight Only Weight 07/11/2024 11:14 PM 220 lb 3.8 oz 08/06/2024 4:53 AM 207 lb 0.2 oz BMI: 30.57 BMI Screening value: 21 or greater - 0 points % Weight Loss: not significant Weight Loss Screening Value: Not significant - 0 points Education: No nutrition education indicated at this time. Comments: Currently NPO. Intake poor-fair. Weight decline in past month. Patient may benefit from NOS's with meals when diet advances and appropriate - vanilla preference. Number of Points: 0 Nutritional Plan of Care: Less than or equal to 6 points: At this time, patient is at low nutrition risk. DTR to provide routine follow up. Will continue to follow, Yen Bynum, Diet Sand Technician Pager [phone] Associated Order(s): IP PAIN MANAGEMENT CONSULT Images from the original note were not included. Pain consult availability: Mornings: Thursday through Thursday. For questions please page [phone]. Chief Complaint: back, sides are in pain Consulting Physician: Dr. Cristobal Reason for consult: POD2 from Right VATS and diagnostic lap OARRS was reviewed today. History of Present Complaint: The patient is a 29 year old female with a past medical history of adapted per chart review recent admission to the hospital on 07/11 for CUSTODIAL sustaining a grade 5 liver injury s/p IR drain placement for perihepatic fluid collection (07/22), grade 3-4 splenic laceration, R posterior 10th rib fracture, T4-5 vertebral body fracture. Patient presents again for acute onset right sided chest pain and RUQ discomfort. Imaging workup significant for large right pleural effusion and RUQ percutaneous drain crossing diaphragm, now s/p right VATS with placement of chest tubes and diagnostic lap for abdominal washout and drain placement (08/08/24). PAIN: ONSET- acute RESULT OF A SURGERY- Yes LOCATION- back, thoracic, flanks RADIATION- Yes flanks QUALITY- sharp, stabbing CONSTANT or INTERMITTENT- Constant COMFORT- Intolerable CHANGE IN PAIN- About the same PAIN CONTROL- Partially effective oral oxycodone not helping, IV dilaudid helps SLEEP- Awake with occasional pain EXACERBATED BY- coughing BETTER WITH- IV dilaudid MEDICATIONS TRIED: Topicals: Lidocaine patch Muscle relaxant: Robaxin Pain Medications:Dilaudid and Oxycodone Past medical history: reviewed per EMR No past medical history on file. Past surgical history: per EMR. Review of patient's past surgical history indicates: THORACOSCOPY (08/08/2024) Procedure: THORACOSCOPY; Surgeon: Luci Argueta MD; Location: PERIOPERATIVE SERVICES; Service: Trauma LAPAROSCOPY, DIAGNOSTIC (08/08/2024) Procedure: LAPAROSCOPY, DIAGNOSTIC; Surgeon: Luci Argueta MD; Location: PERIOPERATIVE SERVICES; Service: Trauma Social history: per EMR ; Social History Tobacco Use Smoking status: Never Passive exposure: Never Smokeless tobacco: Never Vaping Use Vaping status: Never Used Family history: per EMR; family history is not on file. ROS (otherwise pertinent positives and negatives per HPI): Review of Systems Constitutional: Negative for fever. Musculoskeletal: Positive for back pain. Negative for myalgias. Allergies: no known allergies Home Medications: No outpatient medications have been marked as taking for the 08/05/24 encounter (Hospital Encounter). Inpatient Medications: enoxaparin 0.5 mg/kg 2x Daily polyethylene glycol 17 g Daily senna 8.6 mg At Bedtime acetaminophen 1,000 mg Every 6 hours methocarbamol 750 mg 4x Daily lidocaine 1 Patch Every 24 hours aspirin EC 81 mg Daily metroNIDAZOLE 500 mg Q8H Antibiotic cefepime ivpb 2,000 mg Q8H Antibiotic sodium chloride 3 mL PRN albuterol 2.5 mg Q4H PRN HYDROmorphone HCl PF 0.5 mg Q3H PRN oxyCODONE 5 mg Q4H PRN oxyCODONE 10 mg Q4H PRN bisacodyl 10 mg Daily PRN lactated ringers Physical Exam: Patient Vitals for the past 24 hrs: BP Temp Temp src Pulse Resp SpO2 O2 Device O2 Flow Rate (l/min) 08/10/24 0500 130/84 97.7 F (36.5 C) Oral 86 18 98 % Nasal cannula -- 08/09/24 2241 121/82 97.7 F (36.5 C) Oral 91 18 99 % Nasal cannula 2 08/09/24 1406 114/72 97.9 F (36.6 C) Oral 95 19 99 % Nasal cannula 2 08/09/24 1014 130/84 98.1 F (36.7 C) Oral 93 17 97 % Nasal cannula 2 Physical Exam Vitals reviewed. Constitutional: Comments: Intermittently in pain HENT: Head: Normocephalic. Eyes: Extraocular Movements: Extraocular movements intact. Pulmonary: Effort: Pulmonary effort is normal. Comments: Nasal cannula in place Neurological: Mental Status: She is alert and oriented to person, place, and time. Psychiatric: Mood and Affect: Mood and affect normal. Speech: Speech normal. Behavior: Behavior normal. Behavior is cooperative. Comments: Recent/remote memory as evidenced through [id number] interaction and discussion appear grossly intact Labs: BMP (last 3 years, up to 8 values) 08/10/2024 08/09/2024 08/08/2024 08/08/2024 08/07/2024 08/06/2024 08/05/2024 07/24/2024 1:15 AM 1:29 AM 1:46 PM 12:53 AM 2:10 AM 2:49 AM 2:02 PM 5:00 AM Na 140 139 137 138 136 138 138 135 K 4.3 4.7 3.1 4.1 4.1 3.8 4.0 4.4 Cl 103 104 106 102 101 105 103 101 CO2 28 21 -- 24 23 20 25 26 Gap 13 19 -- 16 16 17 14 12 Glu 88 95 101 89 128 123 92 109 BUN 12 10 -- 12 11 9 10 8 Cr 0.54 0.53 -- 0.61 0.60 0.63 0.67 0.66 Ca 7.9 7.7 -- 8.1 8.0 7.8 8.6 8.0 eGFR 126 127 -- 123 123 122 120 120 CBC (last 3 years, up to 8 values) 08/10/2024 08/09/2024 08/08/2024 08/08/2024 08/07/2024 08/06/2024 08/05/2024 07/25/2024 1:15 AM 1:29 AM 1:46 PM 12:53 AM 2:10 AM 2:49 AM 2:02 PM 12:46 AM WBC 6.6 9.4 -- 7.4 14.1 10.4 9.9 9.3 RBC 3.78 3.67 -- 3.71 4.03 4.20 4.26 3.43 Hgb 10.4 10.1 9.3 10.2 11.0 11.6 11.9 10.0 Hct 31.5 29.9 28.9 31.3 34.0 35.3 36.3 29.4 MCV 83 81 -- 84 84 84 85 86 RDW 15.4 15.4 -- 15.0 15.3 14.9 14.6 14.3 Plt 506 500 -- 411 457 456 468 579 LFT's (last 3 years, up to 8 values) 08/10/2024 08/09/2024 08/05/2024 07/22/2024 07/16/2024 07/12/2024 1:15 AM 1:29 AM 2:02 PM 1:03 AM 12:35 AM 3:27 AM T Prot 5.3 5.4 6.7 5.1 5.2 5.7 Albumin 2.7 2.7 3.5 2.6 2.9 3.6 D Bili 0.11 0.06 0.22 0.20 0.62 0.21 T Bili 0.4 0.4 1.0 0.8 1.6 0.8 Alk Phos 66 71 103 120 141 43 ALT 15 18 34 120 523 705 AST 12 23 16 30 93 582 Urine Drug Testing: Pain Management Panel No data to display Imaging: XR CHEST AP OR PA 1 VIEW EXAMINATION: XR CHEST AP OR PA 1 VIEW 08/10/2024 04:30 AM CLINICAL HISTORY: POD 2 s/p right VATS with chest tube x2 COMPARISON: XR CHEST AP OR PA 1 VIEW 08/09/2024, 1:33 PM FINDINGS: Lines, tubes, and devices: Status post VATS. Two right chest tubes in unchanged position. Lungs and pleura: Persistent right pleural effusion with adjacent opacities suggestive of atelectasis. Left retrocardiac opacity. Cardiomediastinal silhouette: Normal cardiomediastinal silhouette. Musculoskeletal: Unremarkable. IMPRESSION: 1. Similar position of right pleural drainage catheters with the inferior drainage catheter sidehole not confidently within the pleural space. Correlate with function. 2. Left retrocardiac opacity may represent atelectasis/mucus plugging or pleural fluid. Continued attention on follow-up is recommended. 3. Persistent right pleural effusion with adjacent opacities suggestive of atelectasis. MACRO: None Last ECG Date: 08/08/2024 QTC CALCULATION(BEZET) ms 419 Patient labs along with radiology reports and other pertinent tests were obtained and reviewed from the [employer] electronic medical record system. Pertinent positive and negative findings were considered in the medical decision making. Assessment: The patient is a 29 year old female with a past medical history of adapted per chart review recent admission to the hospital on 07/11 for CUSTODIAL sustaining a grade 5 liver injury s/p IR drain placement for perihepatic fluid collection (07/22), grade 3-4 splenic laceration, R posterior 10th rib fracture, T4-5 vertebral body fracture. Patient presents again for acute onset right sided chest pain and RUQ discomfort. Imaging workup significant for large right pleural effusion and RUQ percutaneous drain crossing diaphragm, now s/p right VATS with placement of chest tubes and diagnostic lap for abdominal washout and drain placement (08/08/24). Pain management consulted for acute post operative pain. My recommendations are as follows: Plan: -Tylenol 1,000 mg every 8 hours -Can continue with Lidoderm patches, maximum of 3 patches at a time, as needed for pain 12 hours on 12 hours off. Apply to areas without open wounds. -Discontinue oral oxycodone -Oral Dilaudid 2 mg / 4 mg every 4 hours as needed for moderate/severe pain respectively -IV dilaudid 0.5 mg every 4 hours as needed for breakthrough pain. Wean as patient tolerates to every 6 hours then 8 hours then stop. -Senna and colace, miralax as needed for constipation. -Will follow A copy of my note and recommendations will be sent to Dr. Cristobal Thank you for allowing me to participate in the care of your patient. Tracy Aldridge DO Pain consult availability: Mornings: Thursday through Thursday. For questions please page [phone]. Images from the original note were not included. Dietitian vs DietaryTech: [employer]oster Diet Sand Technician Nutrition Screening Reason for visit: Positive nutrition screen for weight loss Assessment Admitting Diagnosis: No admission diagnoses are documented for this encounter. High risk nutrition diagnosis: No - no points Past Medical History: No past medical history on file. Food Allergies: No Known Allergies Labs: LFT's (last 3 years, up to 8 values) 08/05/2024 07/22/2024 07/16/2024 07/12/2024 2:02 PM 1:03 AM 12:35 AM 3:27 AM T Prot 6.7 5.1 5.2 5.7 Albumin 3.5 2.6 2.9 3.6 D Bili 0.22 0.20 0.62 0.21 T Bili 1.0 0.8 1.6 0.8 Alk Phos 103 120 141 43 ALT 34 120 523 705 AST 16 30 93 582 Albumin: Greater than 3 - no points Prealbumin: n/a - no points Skin Integrity: No pressure ulcers at this time - no points Fluid Accumulation: wnl Diet Order: Regular Supplements: none % PO Intake: 50% Intake difficulties: Decreased appetite - 0 points 5' 9 [phone] lbs .93.9 kg Weight history: 216 lbs - May 2024 per [facility] Weight Only Weight 07/11/2024 11:14 PM 220 lb 3.8 oz 08/06/2024 4:53 AM 207 lb 0.2 oz BMI: 30.57 BMI Screening value: 21 or greater - 0 points % Weight Loss: not significant Weight Loss Screening Value: Not significant - 0 points Education: No nutrition education indicated at this time. Comments: tolerating a small amount of po intake. Weight decline since last admission - monitor. Patient was taking Boost plus with meals at previous admission. She would like to have Vanilla Boost with meals here as well. Will follow. Number of Points: 0 Nutritional Plan of Care: Less than or equal to 6 points: At this time, patient is at low nutrition risk. DTR to provide routine follow up. Will continue to follow, Yen Bynum, Diet Sand Technician Pager [phone] Associated Order(s): IP SURGERY TRAUMA CONSULT Images from the original note were not included. TRAUMA SURGERY Consult Marilee Collado [id number] Reason for Consultation: Chest pain-RUQ pain in the setting of recent trauma History (HPI) Marilee Collado is a 29 year old female with a recent admission to the hospital on 07/11 for CUSTODIAL sustaining a grade 5 liver injury s/p IR drain placement for perihepatic fluid collection (07/22), grade 3-4 splenic laceration, R posterior 10th rib fracture, T4-5 vertebral body fracture. Patient was discharged on 07/25 with the IR drain in place and was started on Eliquis/ASA for celiac trunk narrowing. Patient presents again today for acute onset chest pain that started last night. She describes the pain as sharp, right sided, and mostly with movement. She also endorses RUQ discomfort and pressure where the drain is placed. The drain is putting out brown murky output. She denies SOB, nausea, vomiting, dizziness, or lightheadedness. No past medical history on file. No past surgical history on file. Current Outpatient Medications Medication Instructions acetaminophen (TYLENOL) 650 mg, Oral, EVERY 6 HOURS aspirin 81 MG chewable tablet Chew and swallow 1 tablet by mouth daily. Eliquis 5 mg, Oral, 2 TIMES DAILY senna (SENOKOT) 8.6 mg, Oral, AT BEDTIME Allergies: Patient has no known allergies. Family History: family history is not on file. No family history of bleeding disorders or difficulty with anesthesia Review of Systems (Bold is Positive + ) Const: Fevers - Chills - WeightLoss - Sweating - Fatigue - MedChanges HEENT: Headaches - VisionChanges Cardiac: ChestPain - Palpitations Pulm: SOB - Cough (Productive) - Orthopnea - PND GI: Nausea - Vomiting - AbdPain - Diarrhea - Constipation - StoolChanges : Dysuria - Frequency - ColorChanges MSK: Pain - Swelling - Weakness Skin: Rash - Itching - Lumps/Bumps - Wounds Neuro: Numbness - Tingling - Dizziness - Falls Heme: Bleeding Physical Exam BP 119/84 Pulse (!) 108 Temp 99.2 F (37.3 C) (Oral) Resp (!) 21 SpO2 97% General: No acute distress, awake Cardiac: Non-tachycardic Pulmonary: Non-labored breathing. Symmetric chest rise. Abdomen: Soft, TTP in RUQ, non-distended. No peritonitis Extremities: Moving all extremities spontaneously Skin: Warm, moist Neuro: AOx3 Labs: 9.9 \ 11.9 / 468 / 36.3 \ CBC: 08/05/2024: 2:02 PM 138 103 10 / \ 92 4.0 25 0.67 BMP: 08/05/2024: 2:02 PM Studies: CT abd/pel: pending IMPRESSION: 1. Expected evolution of right hepatic lobe grade 5 laceration with decreased adjacent fluid collection with suspected extracapsular extension. Few locules of gas of increased compared to prior and may relate to instrumentation from drain. Superimposed infected hematoma cannot be excluded. 2. Right upper quadrant percutaneous drain in place appears to cross the pleura and diaphragm. 3. Improving pelvic hemoperitoneum. 4. 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 CT chest PE: pending IMPRESSION: 1. No PE identified. PE cannot be evaluated beyond the segmental level due to the limitations above. 2. Large right pleural effusion, increased since prior study. 3. The right upper quadrant drain is suspected to cross the right diaphragm. ASSESSMENT & PLAN Marilee Collado is a 29 year old female with a recent admission to the hospital on 07/11 for CUSTODIAL sustaining a grade 5 liver injury s/p IR drain placement for perihepatic fluid collection (07/22), grade 3-4 splenic laceration, R posterior 10th rib fracture, T4-5 vertebral body fracture. Patient presents again today for acute onset right sided chest pain and RUQ discomfort. Labs are unremarkable. Imaging workup significant for large right plural effusion and RUQ percutaneous drain crossing diaphragm. Plan: Neurological: Acute pain due to trauma. Acute post op pain. - Continue acetaminophen 1000mg q6h scheduled - Continue oxycodone 2.5/5 mg q4h PRN moderate/severe pain Cardiovascular: No acute cardiac issues. BP and HR have remained acceptable. - Continue routine BP and HR monitoring per unit protocol Respiratory: Large plural effusion, Right - Chest tube placed under water seal - Chest xr to confirm placement. - monitor output. - Cultures sent for analysis. - Percutaneous drain invading the plural space, crossing the diaphragm. 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 - Continue normal diet - Continue bowel regimen: Continue daily Senna, BID Colace, and PRN Dulcolax Renal/Electrolytes: Voiding spontaneously. - no indication for IVF - Encourage PO intake - Replete electrolytes PRN - Repeat BMP and Mag in AM Heme: H and H remains stable. Patient remains hemodynamically stable. - No indication for tranfusion - CBC in AM ID: Febrile, leukocytosis. - ABX for percutaneous drain through diaphragm. - patient meeting SIRS criteria prior to Endocrine: No glycemic/endocrine issues. MSK: - WB status:as tolerated - Activity: OOB as tolerated. - Continue progressive mobilty procedure. Prophylaxis: - VTE: Continue SCDs, patient anticoagulated with Eliquis. Tubes/Lines/Drains: - Maintain PIVs - Monitor for urinary retention. - Percutaneous drain, right. Monitor output. - Pigtail chest tube to water seal, right Discussed with MD Isra Doll DO Associated attestation - Rosalio Childers MD - 08/06/2024 6:49 PM EDT Teaching Physician Note: I reviewed the resident's documentation and discussed the patient with the resident. I agree with the resident's medical decision making as documented in the resident's note. 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 Post-operative Diagnosis: same Attending: Henry Taylor MD Cavalry Scout: Foster Meyer MD A TIME OUT was performed prior to the procedure using active communication to verify correct patient, procedure, and site: Yes Intraoperative Medications: Medications Medication Event Details Admin User Admin Time midazolam (VERSED) 2 MG/2ML injection Medication Given Dose: 1 mg; Route: Intravenous Anne Perrin RN 08/11/2024 8:25 AM fentaNYL (SUBLIMAZE) 100 MCG/2ML injection Medication Given Dose: 50 mcg; Route: Intravenous Anne Perrin RN 08/11/2024 8:25 AM midazolam (VERSED) 2 MG/2ML injection Medication Given Dose: 0.5 mg; Route: Intravenous Anne Perrin RN 08/11/2024 8:31 AM fentaNYL (SUBLIMAZE) 100 MCG/2ML injection Medication Given Dose: 50 mcg; Route: Intravenous Anne Perrin RN 08/11/2024 8:31 AM midazolam (VERSED) 2 MG/2ML injection Medication Given Dose: 0.5 mg; Route: Intravenous Anne Perrin RN 08/11/2024 9:11 AM fentaNYL (SUBLIMAZE) 100 MCG/2ML injection Medication Given Dose: 50 mcg; Route: Intravenous Anne Perrin RN 08/11/2024 9:11 AM iohexol (OMNIPAQUE) 350 MG/ML injection Medication Given Dose: 150 mL; Route: Intra-arterial; Scheduled Time: 9:55 AM Ana Ridleydajuan 08/11/2024 9:55 AM fentaNYL (SUBLIMAZE) 100 MCG/2ML injection Medication Given Dose: 50 mcg; Route: Intravenous Anne Perrin RN 08/11/2024 9:57 AM Complications: None Specimens: N/A Estimated Blood Loss: less than 10 cc Post Procedure Pain Ratin/10 Findings: Successful angiogram of aorta, celiac, SMA demonstrating the common hepatic is fully supplied by SMA collaterals. Celiac axis only supplied pancreatic magna and splenic artery. 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 Plan: Observe for signs of pancreatitis. Please see procedure dictation in EPIC/PACS for full procedural details. 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 Post-operative Diagnosis: same Attending: Henry Taylor MD Cavalry Scout: Foster Meyer MD A TIME OUT was performed prior to the procedure using active communication to verify correct patient, procedure, and site: Yes Intraoperative Medications: Medications Medication Event Details Admin User Admin Time midazolam (VERSED) 2 MG/2ML injection Medication Given Dose: 1 mg; Route: Intravenous Anne Perrin RN 08/11/2024 8:25 AM fentaNYL (SUBLIMAZE) 100 MCG/2ML injection Medication Given Dose: 50 mcg; Route: Intravenous Anne Perrin RN 08/11/2024 8:25 AM midazolam (VERSED) 2 MG/2ML injection Medication Given Dose: 0.5 mg; Route: Intravenous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 1500 mL on IS. ABDOMINAL: Soft, non-distended. Non tender. Rose-hepatic drain in place to the R flank region draining dark brownish red liquid EXTREMITIES: MEJIA x4. No peripheral edema appreciated. SKIN: Warm and dry. NEUROLOGICAL: GCS 15. Awake, alert, oriented x3. MEJIA x4 to commands with no focal deficits appreciated. LABORATORY RESULTS (LAST 24 HOURS) CBC/PT/INR 07/25/2024 12:46 AM WBC 9.3 RBC 3.43 Hgb 10.0 Hct 29.4 MCV 86 RDW 14.3 Plt 579 Basic Metabolic Panel No lab values to display. Fingerstick Glucose None IMAGING RESULTS (PERSONALLY REVIEWED) All admit imaging and follow up imaging reviewed. No new imaging today. ASSESSMENT & PLAN Diagnoses: S/p CUSTODIAL 07/11/2024 Grade 5 liver injury Grade 3-4 splenic lac with associated hematoma Small R pneumothorax Right posterior rib 10 T5 vertebral body anterior compression fracture T4 vertebral body fracture with involvement of superior endplate Lung opacities concerning for contusion vs. aspiration ABLA S/P MTP (1 unit whole blood, 2 units FFP) Acute pain due to trauma Leukocytosis (resolved) Hemoperitoneum Right pleural effusion Subcapsular fluid collection Celiac trunk narrowing concerning for dissection or thrombus PMHx: None Incidental Findings: None on imaging obtained at [facility] (reviewed 07/16 by ANA) Plan Neurologic: Acute pain due to trauma; [facility] completed 07/21 due to complaints of headache -- negative. Pain control improving - Continue Tylenol to 650 mg q6h - Continue Robaxin to 750 mg q6h - Continue lidocaine 4% patches x 2 daily - Continue oxycodone 5/7.5 mg q4h PRN for moderate/severe pain - Continue toradol 15mg Q6h x 3 days - Q4h neurovascular checks - Continue melatonin 5 mg at bedtime PRN for insomnia Respiratory: R posterior rib fx, small R pneumothorax, BLL compressive atelectasis vs. contusions; R > L pleural effusions. Sats appropriate on RA. IS goal 990 mL, patient meeting goal - Continue Respiratory [employer] Protocol - Continue hyperinflation therapy - Continue bronchopulmonary hygiene - Maintain O2 sats > 92% - Continue IS 10x/hour Cardiovascular: Intermittent tachycardia, now resolved. Celiac trunk narrowing concerning for dissection or thrombus -- likely iatrogenic - Continue VS monitoring per unit protocol - Vascular Surgery consult, appreciate recs: - ASA 81 mg PO daily - Anticoagulation when able - Repeat CTA in 1 month - Follow up with Dr. Zarate as an outpatient - Continue eliquis 5mg BID - Eliquis and Xarelto pricing $ 280-289 for a 30 day supply at patient's preferred pharmacy. Discussed with pharmacist this AM, they are able to provide co-pay card and cost of eliquis, 30 day supply will be $10/month and co-pay card is available for duration of patient's intended therapy (3-6 months), per pharmacist GI: Tolerating regular diet. No nausea or vomiting. Last BM 07/2415. Grade 3-4 splenic laceration, grade 5 right hepatic lobe liver laceration; persistent large subcapsular hematoma which tracks into the included right hemiabdomen along the right paracolic gutter and does not increase in size on the delayed images. - Diet: Continue regular and Boost post-procedure - Continue BR: Senna, Miralax, Colace, PRN Dulcolax Renal: Voiding spontaneously. Last BMP with acceptable electrolytes and stable BUN/creatinine. - Continue Gatorade on with meals; PO intake encouraged - Does not need repeat BMP/Mag in AM, obtain PRN Hematologic: Grade 3-4 splenic laceration, grade 5 right hepatic lobe liver laceration; persistent large subcapsular hematoma which tracks into the included right hemiabdomen along the right paracolic gutter and does not increase in size on the delayed images. Total blood in trauma bay: 1 unit prehospital whole blood, 2u FFP. IR angio 07/11 - successful mesenteric and liver angiogram without identification of an active arterial bleeding. 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 07/17 rCTA A/P showed narrowing of celiac trunk concerning for dissection or thrombus; new fluid collection also noted. CT A/P completed 07/21 with increased size in fluid collection - No current indication for transfusion - Active type & screen at all times given risk for bleed - Vascular surgery consult as above; heparin gtt with plan for long-term AC post-procedure ID: Leukocytosis resolved, remains afebrile. - No indication for abx - CBC PRN Endo: No glycemic/endocrine issues MSK: T4-5 anterior body fx - Continue PT/OT - recs for home with outpatient PT (order placed) - Ortho Spine consulted: - Standing T-spine XR reviewed with fellow - No acute spine surgical intervention at this time - WBAT - TLSO bracing as needed - Follow-up with Dr. Ivey as needed Prophylaxis: - VTE ppx: SCDs; Eliquis 5mg BID - DVT ppx: No indication Dispo: patient is medically clear for d/c Home with outpatient PT. Anticipate discharge home today. Follow-up with Trauma in 1-2 weeks Follow-up with Vascular Surgery ([facility]) in 1 month with repeat CTA A/P Follow-up with Spine (Dr. Ivey) as needed Santiago Jacome PA-C Trauma Surgery & Emergency General Surgery Pager: [phone]. The patient's care was discussed with the Trauma floor attending, Dr. Berrios. Images from the original note were not included. GENERAL INFORMATION TRAUMA FLOOR- DAILY PROGRESS NOTE Patient Name: Marilee Collado Admission Date: 07/11/2024 Patient seen and examined on 07/24/24 INTERVAL HISTORY/EVENTS Background: Marilee Collado is a 28 year old female 28 year old female brought in by [facility] following CUSTODIAL (-)head strike, (?)LOC, (-)AC,AP, (+)helmet. Found to have right posterior rib fractures and G5 liver injury with associated hemoperitoneum. MTP started for hypotension. Patient went emergently to IR and admitted to the TICU post-op. Additional injuries identified post-op T4/T5 vertebral body fractures and Grade 3-4 splenic laceration. Hospital Course: 07/11: Underwent IR angiogram without identification of active bleeding. 07/12: No acute events, no acute intervention PRN TLSO per ortho, Hb to 9.7 from 11.3. Removed art line, CVC. Upright T-spine films complete, no acute intervention. 07/13: Hb to 9.7 from 11.3, HDS. Pt appropriate for transfer to [facility]. 07/14: Poor pain control, modified pain regimen. Not metting IS goal, IS 500cc. 07/15: IS improved to 750 mL; continues to report significant RUQ/R chest wall pain 07/16: LR started overnight for concern for dehydration; IS improved to 875-1000 mL. 07/17: CTA A/P ordered and completed; new subcapsular fluid collection that communicates with intrahepatic hematoma. Also noted have celiac trunk narrowing, concerning for dissection. Vascular Surgery consulted overnight. 07/18: Vascular surgery evaluated, recs for ASA and AC. 07/19: Heparin gtt started. 07/20: No acute events. 07/21: Heparin therapeutic x 1; repeat CT A/P completed. Plan for IR drainage of intrahepatic hematoma tomorrow. 07/22: IR drain placed into perihepatic fluid collection 07/23: Remains on heparin drip. Drain with continued output. Hgb stable. 24 Hour Events: No acute events reported overnight per patient or per nursing. Reporting pain at drain site since insertion but significantly improved over the past 24 hours. Denies any chest pain, shortness of breath or abdominal pain. Tolerating PO intake with no reported nausea or vomiting. Passing flatus and having BMs. Vital signs reviewed. Remains afebrile. No tachycardia/bradycardia. BPs remains acceptable. Acceptable O2 saturations on room air. Labs reviewed. No leukocytosis. H and H with mild down-trend, remains acceptable. Platelets grossly stable. BMP with acceptable electrolytes and stable BUN/creatinine. Intake: 2031 mL PO: 600 mL IV: 1411 mL Irrigation: 20 mL Output: 180 mL UOP: 4 occurrences with no volume documented BM: 0 occurrences. Last documented BM 07/22/2024 Drain: 180 mL Tmax: 37.3 -- PHYSICAL EXAM -- Vital Signs: Vital sign ranges over the past 24 hours (retrieved 07/24/2024 at 6:54 AM): Tmax (24 hours): 99.1 F (37.3 C) Pulse Av.5 Min: 84 Max: 92 Systolic (24hrs), Av , Min:114 , Max:129 Diastolic (24hrs), Av, Min:77, Max:80 MAP (mmHg) Av.3 mmHg Min: 89 mmHg Max: 94 mmHg Resp Av.5 Min: 16 Max: 18 SpO2 Av % Min: 94 % Max: 97 % -- PHYSICAL EXAM -- GENERAL: Lying in bed. HOB elevated. Appears comfortable, in NAD HEENT: Normocephalic, atraumatic. CARDIOVASCULAR: Regular rate and rhythm. Palpable radial and DP pulses bilaterally. PULMONARY: CTA bilaterally. No wheezing, rales, or rhonchi. Breathing comfortably on room air. Pulling 1100 mL on IS. ABDOMINAL: Soft, non-distended. Tender to palpation in the RUQ. Rose-hepatic drain in place to the R flank region draining dark brownish red liquid drainage EXTREMITIES: MEJIA x4. No peripheral edema appreciated. SKIN: Warm and dry. NEUROLOGICAL: GCS 15. Awake, alert, oriented x3. MEJIA x4 to commands with no focal deficits appreciated. LABORATORY RESULTS (LAST 24 HOURS) CBC/PT/INR 07/24/2024 07/23/2024 07/23/2024 07/23/2024 5:00 AM 9:13 PM 5:47 PM 1:19 PM WBC 9.9 -- 10.9 -- RBC 3.39 -- 3.54 -- Hgb 9.8 -- 10.2 -- Hct 29.2 -- 30.8 -- MCV 86 -- 87 -- RDW 14.5 -- 14.7 -- Plt 545 -- 549 -- aPTT -- 61 -- 85 Basic Metabolic Panel 07/24/2024 5:00 AM Na 135 K 4.4 Cl 101 CO2 26 Gap 12 Glu 109 BUN 8 Cr 0.66 Ca 8.0 Mg 2.1 PO4 5.0 Fingerstick Glucose None IMAGING RESULTS (PERSONALLY REVIEWED) All admit imaging and follow up imaging reviewed. No new imaging today. ASSESSMENT & PLAN Diagnoses: S/p CUSTODIAL 07/11/2024 Grade 5 liver injury Grade 3-4 splenic lac with associated hematoma Small R pneumothorax Right posterior rib 10 T5 vertebral body anterior compression fracture T4 vertebral body fracture with involvement of superior endplate Lung opacities concerning for contusion vs. aspiration ABLA S/P MTP (1 unit whole blood, 2 units FFP) Acute pain due to trauma Leukocytosis Hemoperitoneum Right pleural effusion Subcapsular fluid collection Celiac trunk narrowing concerning for dissection or thrombus PMHx: None Incidental Findings: None on imaging obtained at [facility] (reviewed 07/16 by CRK) Plan Neurologic: Acute pain due to trauma; [facility] completed 07/21due to complaints of headache -- negative. Pain control improving - Continue Tylenol to 650 mg q6h - Continue Robaxin to 750 mg q6h - Continue lidocaine 4% patches x 2 daily - Continue oxycodone but increase to 5/7.5 mg q4h PRN for moderate/severe pain - Discontinue hydromorphone 0.5mg IV Q4h PRN for BTP - Continue toradol 15mg Q6h x 3 days due to pain at drain site - Q4h neurovascular checks - Continue melatonin 5 mg at bedtime PRN for insomnia Respiratory: R posterior rib fx, small R pneumothorax, BLL compressive atelectasis vs. contusions; R > L pleural effusions. Sats appropriate on RA. IS goal 990 mL, patient meeting goal today, only pulling 1100 mL - Continue Respiratory [employer] Protocol - Continue hyperinflation therapy - Continue bronchopulmonary hygiene - Maintain O2 sats > 92% - Continue IS 10x/hour Cardiovascular: Intermittent tachycardia, now resolved. Celiac trunk narrowing concerning for dissection or thrombus -- likely iatrogenic - Continue VS monitoring per unit protocol - Vascular Surgery consult, appreciate recs: - ASA 81 mg PO daily - Anticoagulation when able - Repeat CTA in 1 month - Follow up with Dr. Zarate as an outpatient - Start eliquis 5mg BID today (will not load, per Dr. Tesfaye) - Discontinue heparin drip today at time of first dose of eliquis - Eliquis and Xarelto pricing $ 280-289 for a 30 day supply at patient's preferred pharmacy. Discussed with pharmacist this AM, they are able to provide co-pay card and cost of eliquis, 30 day supply will be $10/month and co-pay card is available for duration of patient's intended therapy (3-6 months), per pharmacist - Please call pharmacy at discharge to ensure above discussed pricing and co-pay card is applied when medications are ordered for discharge GI: Tolerating regular diet. No nausea or vomiting. Last BM 07/2314. Grade 3-4 splenic laceration, grade 5 right hepatic lobe liver laceration; persistent large subcapsular hematoma which tracks into the included right hemiabdomen along the right paracolic gutter and does not increase in size on the delayed images. - Diet: Continue regular and Boost post-procedure - Continue BR: Senna, Miralax, Colace, PRN Dulcolax Renal: Voiding spontaneously. BMP with acceptable electrolytes and stable BUN/creatinine. - Continue Gatorade on with meals; PO intake encouraged - Does not need repeat BMP/Mag in AM, obtain PRN Hematologic: Grade 3-4 splenic laceration, grade 5 right hepatic lobe liver laceration; persistent large subcapsular hematoma which tracks into the included right hemiabdomen along the right paracolic gutter and does not increase in size on the delayed images. Total blood in trauma bay: 1 unit prehospital whole blood, 2u FFP. IR angio 07/11 - successful mesenteric and liver angiogram without identification of an active arterial bleeding. 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 07/17 rCTA A/P showed narrowing of celiac trunk concerning for dissection or thrombus; new fluid collection also noted. CT A/P completed 07/21 with increased size in fluid collection - No current indication for transfusion - OR 20 with IR assist if patient were to decompensate and concern for active bleeding - Active type & screen at all times given risk for bleed - Vascular surgery consult as above; heparin gtt with plan for long-term AC post-procedure ID: Leukocytosis resolved, remains afebrile. - No indication for abx - Repeat CBC in AM Endo: No glycemic/endocrine issues MSK: T4-5 anterior body fx - Continue PT/OT - recs for home with outpatient PT (order placed) - Ortho Spine consulted: - Standing T-spine XR reviewed with fellow - No acute spine surgical intervention at this time - WBAT - TLSO bracing as needed - Follow-up with Dr. Ivey as needed Prophylaxis: - VTE ppx: SCDs; Eliquis 5mg BID - DVT ppx: No indication Dispo: Home with outpatient PT when medically clear. Anticipate patient will be medically cleared for discharge tomorrow (07/25) pending stable AM hgb with initiation of eliquis today Follow-up with Trauma in 1-2 weeks Follow-up with Vascular Surgery (Falls) in 1 month with repeat CTA A/P Follow-up with Spine (Dr. Ivey) as needed Мария Hill APRN-EDUCATION PROFESSOR Trauma Surgery Surgical Critical Care Emergency General Surgery Trauma KENNETH Pager [phone] Trauma Service Pager: [phone] *For issues arising after 6 pm, please contact the Trauma resident oracle application consultant via the trauma service pager at [phone] The patient's care was discussed with the Trauma floor attending, Dr. Tesfaye. Images from the original note were not included. GENERAL INFORMATION TRAUMA FLOOR- DAILY PROGRESS NOTE Patient Name: Marilee Collado Admission Date: 07/11/2024 Patient seen and examined on 07/23/24 INTERVAL HISTORY/EVENTS Background: Marilee Collado is a 28 year old female 28 year old female brought in by [facility] following CUSTODIAL (-)head strike, (?)LOC, (-)AC,AP, (+)helmet. Found to have right posterior rib fractures and G5 liver injury with associated hemoperitoneum. MTP started for hypotension. Patient went emergently to IR and admitted to the TICU post-op. Additional injuries identified post-op T4/T5 vertebral body fractures and Grade 3-4 splenic laceration. Hospital Course: 07/11: Underwent IR angiogram without identification of active bleeding. 07/12: No acute events, no acute intervention PRN TLSO per ortho, Hb to 9.7 from 11.3. Removed art line, CVC. Upright T-spine films complete, no acute intervention. 07/13: Hb to 9.7 from 11.3, HDS. Pt appropriate for transfer to [facility]. 07/14: Poor pain control, modified pain regimen. Not metting IS goal, IS 500cc. 07/15: IS improved to 750 mL; continues to report significant RUQ/R chest wall pain 07/16: LR started overnight for concern for dehydration; IS improved to 875-1000 mL. 07/17: CTA A/P ordered and completed; new subcapsular fluid collection that communicates with intrahepatic hematoma. Also noted have celiac trunk narrowing, concerning for dissection. Vascular Surgery consulted overnight. 07/18: Vascular surgery evaluated, recs for ASA and AC. 07/19: Heparin gtt started. 07/20: No acute events. 07/21: Heparin therapeutic x 1; repeat CT A/P completed. Plan for IR drainage of intrahepatic hematoma tomorrow. 07/22: IR drain placed into perihepatic fluid collection 24 Hour Events: Patient known to me from day of presentation. Reporting pain at drain site since insertion yesterday, controlled on current regimen. Reports abdominal bloating and difficulty with deep breathing resolved following drain placement yesterday. Denies any chest pain, shortness of breath or abdominal pain. Tolerating PO intake with no reported nausea or vomiting. Passing flatus and having BMs. Vital signs reviewed. Remains afebrile. Tachycardia resolved. BPs remains acceptable. Acceptable O2 saturations on room air. Labs reviewed. No leukocytosis. H and H remains stable and acceptable. Platelets up-trending. BMP with acceptable electrolytes and stable BUN/creatinine. Trending PTTs while patient remains on heparin drip. Intake: 10 mL PO: 0 mL Irrigation: 10 mL Output: 340 mL UOP: 6 occurrences with no volume documented BM: 1 occurrences. Last documented BM 07/22/2024 Drain: 340 mL Tmax: 37.5 -- PHYSICAL EXAM -- Vital Signs: Vital sign ranges over the past 24 hours (retrieved 07/23/2024 at 10:33 AM): Tmax (24 hours): 99.5 F (37.5 C) Pulse Av.4 Min: 85 Max: 109 Systolic (24hrs), Av , Min:122 , Max:138 Diastolic (24hrs), Av, Min:62, Max:96 MAP (mmHg) Av mmHg Min: 77 mmHg Max: 103 mmHg Resp Av.1 Min: 16 Max: 27 SpO2 Av.2 % Min: 92 % Max: 100 % -- PHYSICAL EXAM -- GENERAL: Lying in bed. HOB elevated. Appears comfortable, in NAD HEENT: Normocephalic, atraumatic. CARDIOVASCULAR: Regular rate and rhythm. Palpable radial and DP pulses bilaterally. PULMONARY: CTA bilaterally. No wheezing, rales, or rhonchi. Breathing comfortably on room air. Pulling 750 mL on IS. ABDOMINAL: Soft, non-distended. Tender to palpation in the RUQ. Rose-hepatic drain in place to the R flank region draining dark brownish red liquid drainage EXTREMITIES: MEJIA x4. No peripheral edema appreciated. SKIN: Warm and dry. NEUROLOGICAL: GCS 15. Awake, alert, oriented x3. MEJIA x4 to commands with no focal deficits appreciated. LABORATORY RESULTS (LAST 24 HOURS) CBC/PT/INR 07/23/2024 07/22/2024 6:11 AM 12:26 PM WBC 11.2 11.1 RBC 3.51 3.65 Hgb 10.0 10.4 Hct 30.6 31.6 MCV 87 87 RDW 14.5 14.4 Plt 478 473 aPTT 33 -- Basic Metabolic Panel 07/23/2024 6:23 AM Na 136 K 4.4 Cl 102 CO2 23 Gap 15 Glu 102 BUN 8 Cr 0.52 Ca 7.8 Mg 2.1 PO4 4.8 Fingerstick Glucose (last 72 hours) None IMAGING RESULTS (PERSONALLY REVIEWED) All admit imaging and follow up imaging reviewed. No new imaging today. ASSESSMENT & PLAN Diagnoses: S/p CUSTODIAL 07/11/2024 Grade 5 liver injury Grade 3-4 splenic lac with associated hematoma Small R pneumothorax Right posterior rib 10 T5 vertebral body anterior compression fracture T4 vertebral body fracture with involvement of superior endplate Lung opacities concerning for contusion vs. aspiration ABLA S/P MTP (1 unit whole blood, 2 units FFP) Acute pain due to trauma Leukocytosis Hemoperitoneum Right pleural effusion Subcapsular fluid collection Celiac trunk narrowing concerning for dissection or thrombus PMHx: None Incidental Findings: None on imaging obtained at [facility] (reviewed 07/16 by SIOMARAK) Plan Neurologic: Acute pain due to trauma; [facility] completed 07/21due to complaints of headache -- negative - Continue Tylenol to 650 mg q6h - Continue Robaxin to 750 mg q6h - Continue lidocaine 4% patches x 2 daily - Continue oxycodone but increase to 5/7.5 mg q4h PRN for moderate/severe pain - Continue hydromorphone 0.5mg IV Q4h PRN for BTP - Reinitiate toradol 15mg Q6h x 3 days due to pain at drain site - Q4h neurovascular checks - Continue melatonin 5 mg at bedtime PRN for insomnia Respiratory: R posterior rib fx, small R pneumothorax, BLL compressive atelectasis vs. contusions; R > L pleural effusions. Sats appropriate on RA. IS goal 990 mL, patient not meeting goal today, only pulling 750 mL - Continue Respiratory [employer] Office [employer] Protocol - Continue hyperinflation therapy - Continue bronchopulmonary hygiene - Maintain O2 sats > 92% - Continue IS 10x/hour Cardiovascular: Intermittent tachycardia improving today. Celiac trunk narrowing concerning for dissection or thrombus -- likely iatrogenic - Continue VS monitoring per unit protocol - Vascular Surgery consult, appreciate recs: - ASA 81 mg PO daily - Anticoagulation when able - Repeat CTA in 1 month - Continue heparin drip for now. - Eliquis and Xarelto pricing $ 280-289 for a 30 day supply at patient's preferred pharmacy. Will follow up with [facility] pharmacy tomorrow (07/23) to see if pricing better through [facility]. GI: Tolerating regular diet. No nausea or vomiting. Last BM 07/2213. Grade 3-4 splenic laceration, grade 5 right hepatic lobe liver laceration; persistent large subcapsular hematoma which tracks into the included right hemiabdomen along the right paracolic gutter and does not increase in size on the delayed images. - Diet: Continue regular and Boost post-procedure - Continue BR: Senna, Miralax, Colace, PRN Dulcolax Renal: Voiding spontaneously. BMP with acceptable electrolytes and stable BUN/creatinine. - Continue Gatorade on with meals; PO intake encouraged - Repeat BMP/Mag in AM. Hematologic: Grade 3-4 splenic laceration, grade 5 right hepatic lobe liver laceration; persistent large subcapsular hematoma which tracks into the included right hemiabdomen along the right paracolic gutter and does not increase in size on the delayed images. Total blood in trauma bay: 1 unit prehospital whole blood, 2u FFP. IR angio 07/11 - successful mesenteric and liver angiogram without identification of an active arterial bleeding. 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 07/17 rCTA A/P showed narrowing of celiac trunk concerning for dissection or thrombus; new fluid collection also noted. CT A/P completed 07/21 with increased size in fluid collection - No current indication for transfusion - OR 20 with IR assist if patient were to decompensate and concern for active bleeding - Active type & screen at all times given risk for bleed - Vascular surgery consult as above; heparin gtt with plan for long-term AC post-procedure ID: Leukocytosis resolved, remains afebrile. - No indication for abx - Repeat CBC in AM Endo: No glycemic/endocrine issues MSK: T4-5 anterior body fx - Continue PT/OT - recs for home with outpatient PT (order placed) - Ortho Spine consulted: - Standing T-spine XR reviewed with fellow - No acute spine surgical intervention at this time - WBAT - TLSO bracing as needed - Follow-up with Dr. Ivey as needed Prophylaxis: - VTE ppx: SCDs; heparin gtt - DVT ppx: No indication Dispo: Home with outpatient PT when medically clear. Anticipate additional ~1-2 days pending output from IR drain, drain teaching, pain control and transition to DOAC vs. therapeutic Lovenox. Anticipate DC early next week. Follow-up with Trauma in 1-2 weeks Follow-up with Vascular Surgery (Falls) in 1 month with repeat CTA A/P Follow-up with Spine (Dr. Ivey) as needed ROSLYN Escalante Trauma Surgery Surgical Critical Care Emergency General Surgery Trauma KENNETH Pager [phone] Trauma Service Pager: [phone] *For issues arising after 6 pm, please contact the Trauma resident oracle application consultant via the trauma service pager at [phone] The patient's care was discussed with the Trauma floor attending, Dr. Tesfaye. Images from the original note were not included. GENERAL INFORMATION TRAUMA FLOOR - STAFF NOTE Patient Name: Marilee Collado Admission Date: 07/11/2024 Patient seen and examined on 07/22/24 INTERVAL HISTORY/EVENTS Background: Marilee Collado is a 29 year old female 28 year old female brought in by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 [facility] DME Provider at [phone]. 07/19/2024 6 Clicks Daily Activity OT Help from another person Eating meals 4 Help from another person taking care of personal grooming 4 Help from another person bathing 3 Help from another person putting on and taking off regular upper body clothing 4 Help from another person putting on and taking off regular lower body clothing 3 Help from another person toileting 4 OT 6 Clicks Score 22 6 Click Score Guidelines: 1 - Unable = Total/Dependent Assist 2 - A lot = Max/Moderate Assist 3 - A little = Minimum/Contact Guard Assist/Supervision 4 - Non = Modified [place]/Independent ASSESSMENT: ASSESSMENT: Patient is functionally appropriate for discharge home once medically cleared. Will continue to follow patient while in hospital as appropriate. Revised [employer] Drafter Goals: GOALS ONGOING Patient will dress upper body with Modified Independent Patient will dress lower body with Modified Independent Patient will perform bed mobility with Modified Independent Patient will perform bed transfers with Modified Independent Patient will perform commode transfers with Modified Independent Patient will increase endurance sufficient to perform 10 min ADL with rest breaks PRN Patient will demonstrate safety awareness as evidenced by compliance with safe transfers and mobility; use of log roll Report reduced pain level to allow for participation in ADL/IADL PLAN: Continue with Plan as per Initial Evaluation. Judit Rivero, MOT, OTR/L NA = Not Assessed, I = Independent, WI = Modified Independent, Sup = Supervised, Set up = Physical Assistance for Set-up Only, Min = Minimal Assistance, Mod = Moderate Assistance, Max = Max assistance; Dep = Dependent; AROM = Active Range of Motion;PROM=Passive Range of Motion; MMT = Manual Muscle Test; Shld= Shoulder; Add = Adduction; Abd = Abduction Physical Therapy:Time in 1056 Time out 1059 (3 minutes non-billable time) Pt in bed upon entering room. Pt politely declining PT session d/t being tired. Pt OOB to chair earlier this morning and reports ambulating on unit w/ visitors over the weekend. Pt family has a rolling walker for pt to use if needed. Pt functionally cleared for home on 07/15/24. Will continue to follow per POC. Kristyn PEREIRA Beeper #[phone] OCCUPATIONAL THERAPY PROGRESS SUMMARY Patient seen from 857 to 907 on GC 5E unit for 10 minute treatment. SUBJECTIVE: Patient Subjective/Goals My boyfriend and family can help at home. OBJECTIVE: Pain: Denies pain Pain Relief Interventions Implemented: Pt reports she had pain medications this morning Appearance/Behavior: In bed, hospital gown, hep-locked IV. Pleasant and agreeable. Reports feeling drowsy this AM. Cognition: A&O x3 UE Status: WFL; reports pain with RUE movement due to R posterior rib fractures Self Care: Assistance Level NA Dep Max Mod Min CG CS DS WI I Set-Up Cues Comment Feeding x Grooming/ Hygiene x Pt declines self care routine this AM She reports she was up to bathroom recently; had no difficulties mobilizing on/off toilet or standing at sink for grooming. Bathing: Upper Body x Bathing: Lower Body x Dressing: Upper Body x Dressing: Lower Body x Pt manages socks sitting in chair Toileting x Toilet Transfers x Bed Transfer x Sit to stand to RW Ambulates 5ft with RW, supervision level Bed Mobility x HOB semi-fowlers Moves to EOB at mod I level Endurance for Self Care: Fair, limited due to drowsiness this AM Patient/Family Education: Instructed Patient in roles of therapy. Discussed home equipment needs. Patient reports she can get a RW and shower chair from her parents. DME: With Patients permission ordered no equipment via [employer] Order. If any questions contact [facility] DME Provider at [phone]. 07/18/2024 6 Clicks Daily Activity OT Help from another person Eating meals 4 Help from another person taking care of personal grooming 4 Help from another person bathing 3 Help from another person putting on and taking off regular upper body clothing 3 Help from another person putting on and taking off regular lower body clothing 3 Help from another person toileting 4 OT 6 Clicks Score 21 6 Click Score Guidelines: 1 - Unable = Total/Dependent Assist 2 - A lot = Max/Moderate Assist 3 - A little = Minimum/Contact Guard Assist/Supervision 4 - Non = Modified [place]/Independent ASSESSMENT: Patient is functionally appropriate for discharge home once medically cleared. Recommend PRN family/caregiver assist. OT will continue to follow while at [facility] Revised Senior Care Goals: GOALS ONGOING Patient will dress upper body with Modified Independent Patient will dress lower body with Modified Independent Patient will perform bed mobility with Modified Independent Patient will perform bed transfers with Modified Independent Patient will perform commode transfers with Modified Independent Patient will increase endurance sufficient to perform 10 min ADL with rest breaks PRN Patient will demonstrate safety awareness as evidenced by compliance with safe transfers and mobility; use of log roll Report reduced pain level to allow for participation in ADL/IADL PLAN: Continue with Plan as per Initial Evaluation. Leia Montes OTR/L NA = Not Assessed, I = Independent, WI = Modified Independent, Sup = Supervised, Set up = Physical Assistance for Set-up Only, Min = Minimal Assistance, Mod = Moderate Assistance, Max = Max assistance; Dep = Dependent; AROM = Active Range of Motion;PROM=Passive Range of Motion; MMT = Manual Muscle Test; Shld= Shoulder; Add = Adduction; Abd = Abduction Associated Order(s): IP SURGERY VASCULAR CONSULT Images from the original note were not included. 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 CTA obtained 07/17 due to monitoring of pseudoaneursym. 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 Clinically, patient states new onset of post prandial abdominal pain however a few episodes not related to meal time. Abdominal pain is sharp, goes away on its own, pain medications and time helps with the pain. Pain located in RUQ and occurs immediately after eating and drinking. No nausea, emesis. Passed flatus last night. No BM for days. Prior to the CUSTODIAL, no episodes of abdominal pain like this. No prior abdominal surgery history, no history of heart attack, strokes and no FH of early WI, strokes. No past medical history on file. No past surgical history on file. Medications: None None Allergies: Patient has no known allergies. Family History: family history is not on file. Social History: Smoking (history of vaping 1 cartridge per day for 3 years, quit 2 months ago), EtOH (no), Drug Use (occasional weed) Review of Systems (Bold is Positive + ) Const: Fevers - Chills - WeightLoss - Sweating - Fatigue - MedChanges HEENT: Headaches - VisionChanges Cardiac: ChestPain - Palpitations Pulm: SOB - Cough (Productive) - Orthopnea - PND GI: Nausea - Vomiting - AbdPain - Diarrhea - Constipation - StoolChanges : Dysuria - Frequency - ColorChanges MSK: Pain - Swelling - Weakness Skin: Rash - Itching - Lumps/Bumps - Wounds Neuro: Numbness - Tingling - Dizziness - Falls Heme: Bleeding Physical Exam BP 128/76 (BP Location: left arm) Pulse 108 Temp 98.4 F (36.9 C) (Oral) Resp 20 Ht 5' 9 (1.753 m) Wt 220 lb 3.8 oz (99.9 kg) SpO2 97% BMI 32.52 kg/m General: No acute distress, awake, comfortable in bed Cardiac: regular rate and rhythm Pulmonary: Non-labored breathing. Symmetric chest rise. Abdomen: Soft, non-tender, non-distended. No peritonitis Extremities: Moving all extremities spontaneously. Bilateral palpable DP, PT, radial pulses Skin: Warm, moist Neuro: AOx3 Labs: 9.1 \ 9.0 / 297 / 26.9 \ CBC: 07/18/2024: 2:51 AM 138 100 10 / \ 100 3.5 28 0.56 BMP: 07/18/2024: 2:51 AM Studies: CTA ABDOMEN + PELVIS W/ EXAMINATION: CTA ABDOMEN + PELVIS W/ 07/17/2024 07:10 PM CLINICAL HISTORY: evaluation of hepatic pseudoaneurysm ASSOCIATED DIAGNOSIS: evaluation of hepatic pseudoaneurysm ORDERING PROVIDER: GISELLE ROJAS TECHNOLOGISTS NOTE: COMPARISON: CT 4 PHASE LIVER W/+W/O 07/12/2024, 2:[address] BODY IMAGE IMPORT(ALESSANDRO) 07/11/2024, 6:28 PM TECHNIQUE: Contiguous axial collimated imaging was performed of the abdomen and pelvis from the xyphoid process through the pubic symphysis following bolus administration of intravenous contrast. Coronal and sagittal multiplanar reconstructions and sagittal and coronal 3D maximum intensity projections were reconstructed from the axial data. Before infusion of intravenous contrast, radiology personnel investigated the possibility of an allergic history and of any history of reaction to iodinated contrast material. Contrast Protocol: Omnipaque 350 [>or =100lb] 100 ml [<100 lb] 1 ml per 1 lb. INTRA-PROCEDURE MEDS: iohexol (OMNIPAQUE) 350 MG/ML injection 100 mL Route: Intravenous Push FINDINGS: CTA ABDOMEN AORTA AND BRANCHES Celiac axis: There is moderate-severe narrowing of the celiac trunk with adjacent hypodensity (Series 1001, Image 51). Appearing new or worse compared to 07/12/2024 and new compared to 07/11/2024. There is severe narrowing or short segment of occlusion of the left gastric artery (Series 1001, Image 49). SMA: No significant stenosis. DIMA: No significant stenosis. Right renal vessels: No significant stenosis. Left renal vessels: No significant stenosis. Infrarenal aorta: No significant stenosis. CTA PELVIC VESSELS R. Common iliac artery: No significant stenosis. R. External iliac artery: No significant stenosis. R. Internal iliac artery: No significant stenosis. L. Common iliac artery: No significant stenosis. L. External iliac artery: No significant stenosis. L. Internal iliac artery: No significant stenosis. NON-VASCULAR FINDINGS Included images of the lower thorax: Worsening bibasilar consolidative opacities since 07/12/2024. Moderate right pleural effusion and small left pleural effusion. Hepatobiliary: Redemonstration of large grade 5 laceration involving the majority of the right hepatic lobe. The intrahepatic hematoma is homogenously hypodense. No evidence of active bleed or pooling of contrast on the delayed images. Large subcapsular hematoma is again seen. Small foci of air are present within the intrahepatic hematoma, unchanged. New small foci of air are present within a small vascular structure in the posterior right lobe of liver, favored to be within a vein (Series 6, Image 54). Previously seen hepatic pseudoaneurysm of the left hepatic lobe seen on prior CT abdomen and pelvis from 07/11/2024 is no longer appreciated. The gallbladder is unremarkable. Pancreas: Unremarkable Spleen: No definite splenic laceration on this exam. Adrenal Glands: Unremarkable Kidneys, ureters, and bladder: No calculi or hydroureteronephrosis GI tract: No evidence of obstruction. The appendix is within normal limits. Peritoneum and retroperitoneum: Moderate amount of hemoperitoneum in the pelvis and right paracolic gutter. Small containing umbilical hernia. Interval formation of a right subcapsular/subdiaphragmatic fluid collection/hematoma measuring 9.7 x 4.3 cm which communicates with the intrahepatic hematoma and fluid around the hepatic margin (Series 1005, Image 55) . Lymph Nodes: No abdominal or pelvic lymphadenopathy is evident Uterus and adnexa: An IUD is in good position in the uterus. Visualized musculoskeletal structures: Redemonstration of right lower rib fractures. Mild degenerative changes at L5-S1. IMPRESSION: 1. Stable size large intraparenchymal hepatic and subcapsular hematoma. No evidence of active bleeding or pseudoaneurysm. 2. Moderate volume hemoperitoneum in the pelvis and right paracolic gutter, similar or improved compared to 07/11/2024. 3. Interval formation of a right subcapsular/subdiaphragmatic fluid collection/hematoma measuring 9.7 x 4.3 cm which communicates with the intrahepatic hematoma and fluid around the hepatic margin 4. There is moderate-severe narrowing of the celiac trunk with adjacent hypodensity appearing new or worse compared to 07/12/2024 and new compared to 07/11/2024. The finding is suspicious for a focal dissection or thrombus. This is suspected to be causing severe stenosis or short segment occlusion of the left gastric artery. 5. Worsening bibasilar consolidative opacities since 07/12/2024, likely atelectasis but underlying pneumonia is not excluded. Moderate right pleural effusion and small left pleural effusion. 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 This imaging finding was not seen on initial trauma workup and was not stated to be seen during IR angiogram (however images in chart do not show celiac trunk). Although patient has post prandial pain, she still is taking PO most recently 805 mL in past 24 hours. There could be multiple reasons for immediate post prandial pain. Even with decreased blood flow from celiac artery to the stomach, she should still have collateral blood flow. Therefore, no acute intervention indicated and recommend outpatient follow up with vascular surgery. - No acute surgical intervention - Recommend ASA 81 mg daily when clinically able, start date per primary team - Recommend CTA in 1 month for monitoring of celiac dissection vs thrombus - Plan for outpatient follow up with Dr Zarate following CTA Patient seen with vascular surgery team and Discussed with Dr. Tessa Catherine MD Surgery Resident Department of Surgery [facility] Vascular Pager: [phone] Vascular Surgery Attending Note Patient seen and examined. CT reviewed. Thrombus/possible dissection most likely iatrogenic due to instrumentation of the celiac during recent IR procedure. Would start ASA and anticoagulation if OK with trauma. IF anticoagulation too high risk, would at least start ASA. Re-image in one month. Will follow up in vascular surgery clinic after repeat CT scan Agree with plan as outlined Teaching Physician Note: I saw and evaluated the patient. I personally obtained the adamson and critical portions of the history and physical exam. I reviewed the resident's/MACHINE CELL TUBER's documentation and discussed the patient with the resident/MACHINE CELL TUBER. I agree with the resident's/MACHINE CELL TUBER's medical decision making as documented in the resident's note. Electronically signed by: [place] Zarate MD, FACS, [facility] Vascular Surgery PAGER: [phone] 07/18/24 1:20 PM OCCUPATIONAL THERAPY Attempted to see pt for OT tx. Patient politely declines reporting she already got washed up and wanted to take a nap before visitor arrives. Pt reports wanting to ambulate this afternoon. Will continue to follow and re-attempt as time allows Rohan Yousif OTR/L Images from the original note were not included. Dietitian vs DietaryTech: PodPoster Diet Sand Technician Nutrition Screening Reason for visit: LOS 5 or more days Assessment Admitting Diagnosis: TRAUMA: CUSTODIAL, splenic lac, posterior rib fxs High risk nutrition diagnosis: No - no points Past Medical History: No past medical history on file. Food Allergies: No Known Allergies Labs: LFT's (last 3 years, up to 8 values) 07/12/2024 3:27 AM T Prot 5.7 Albumin 3.6 D Bili 0.21 T Bili 0.8 Alk Phos 43 ALT 705 AST 582 Albumin: Greater than 3 - no points Prealbumin: n/a - no points Skin Integrity: No pressure ulcers at this time - no points Fluid Accumulation: non-pitting Diet Order: Regular Supplements: none % PO Intake: 50% or more Intake difficulties: Decreased appetite - 0 points 5' 9 [id number] lbs .99.9 kg Weight Only Weight 07/11/2024 11:14 PM 220 lb 3.8 oz BMI: 32.52 BMI Screening value: 21 or greater - 0 points % Weight Loss: not significant Weight Loss Screening Value: Not significant - 0 points Education: No nutrition education indicated at this time. Comments: patient reports she is getting her appetite back. Ate more than 50% of her breakfast this morning. No lunch yet due to getting it later in the morning. Not interested in oral supplements at this time. Continue to encourage po and fluids. Number of Points: 0 Nutritional Plan of Care: Less than or equal to 6 points: At this time, patient is at low nutrition risk. DTR to provide routine follow up. Will continue to follow, Yen Bynum, Diet Sand Technician Pager [phone] PHYSICAL THERAPY PROGRESS SUMMARY Patient seen from 1006 to 1039 on GC5E unit for 33 minute treatment. SUBJECTIVE: Patient Subjective/Goals: I'm feeling a little better today. OBJECTIVE: Appearance: pt in bed upon entering room Behavior: alert,cooperative Pain: Site/Location: ribs; Pain Scale: ~5/10 Pain Relief Interventions Implemented: Positioning and Relaxation Training Therex- AP 1x10 Qs 1x10 Mobility NA Dep Max Mod Min CG CS DS WI I Comment Supine to sit x x HOB elevated Use of side rail Sit to/from stand x From EOB to rolling walker 2 trials Walking on level surface x 250 feet with rolling walker Gait Analysis: slow steady pace, no LOB Decrease step length, NBOS ~150 w/o device slow pace, decrease arm swing, mild instability, decrease step length, NBOS Stairs x Stand to sit x x Sit to Supine x Functional Endurance: improving Pox=96% post walk SE=467 Sitting Balance: Static:good Dynamic:good Standing Balance: Static: fair without assistive device Dynamic:fair without assistive device Patient/Family Education: Patient instructed in calling for nursing assist for any additional needs. Encouraged OOB to chair and ambulation on unit w/ staff/visitors, use of IS 10x/hour . Patient up in chair with call light in reach. DME: With Patients permission ordered no equipment via [employer] Order. If any questions contact [facility] DME Provider at [phone]. *pt request to hold ordering of rolling walker 07/15/2024 6 Clicks Basic Mobility PT Difficulty turning over in bed 3 Difficulty sitting down and standing up from a chair with arms 3 Difficulty moving from lying on back to sitting on the side of the bed 3 Help from another person moving to and from bed to a chair 3 Help from another person to walk in hospital room 3 Help from another person climbing 3-5 steps with a railing 3 PT 6 Clicks Score 18 6 Click Score Guidelines: 1 - Total = Requires total assistance, or cannot do at all. 2 - A lot = Requires a lot of help (maximun to moderate assistance) Can use assistive devices. 3 - A little = Requires a little help (supervision, minimal assistance) Can use assistive devices. 4 - None = Does not require any help and does the activity independently. Can use assistive devices. ASSESSMENT: Patient is functionally appropriate for discharge home once medically cleared. Will continue to follow patient while in hospital as appropriate. Recommend outpt PT f/u. Goals (to be achieved by 2 days or by discharge from acute care): ONGOING Patient will achieve acceptable level of pain control to allow participation in therapy. Patient will increase bed mobility to modified independent Patient will perform sit to/from stand with rolling walker with modified independent Patient will transfer bed to/from chair with rolling walker with modified independent Patient will ambulate 150 feet with rolling walker with modified independent Patient will increase ROM/Strength/Endurance/Balance to allow for above goals. PLAN: Will follow established Plan of Care Kristyn PEREIRA Beeper #[phone] This clinician collaborated with supervising PT for patient assessment and POC as appropriate. This document is not finalized until reviewed and cosigned by supervising PT. NA = Not Assessed, I = Independent, WI = Modified Independent, Sup = Supervised, Set up = Physical Assistance for Set-up Only, Min = Minimal Assistance, Mod = Moderate Assistance, Max = Maximal assistance; Dep = Dependent; AROM = Active Range of Motion; PROM = Passive Range of Motion; MMT = Manual Muscle Test PHYSICAL THERAPY PROGRESS SUMMARY Patient seen from 957 to 1021 on GC5E unit for 24 minute treatment. SUBJECTIVE: Patient Subjective/Goals: I have been SOB OBJECTIVE: Appearance: pt in bed upon entering room 2LO2 via NC Behavior: alert,cooperative Pain: Site/Location: ribs; Pain Scale: not rated numerically Pain Relief Interventions Implemented: Positioning and Relaxation Training Therex- AP 1x10 QS 1x10 Mobility NA Dep Max Mod Min CG CS DS WI I Comment Roll to left sidelying x Vc's for technique Use of side rail HOB ~30 degrees Sidelying to sit x HOB ~30 degrees Use of side rail Sit to/from stand x From EOB to rolling walker Vc's for technique 2 trials Walking on level surface x ~120 feet with rolling walker Gait Analysis: slow steady pace, no LOB, NBOS, decrease step length, increase time to complete distance Stairs x Pt does not have stairs at home Stand to sit x Sit to Supine x Functional Endurance: improving Sitting Balance: Static:good Dynamic:good Standing Balance: Static: good w/ rolling walker Dynamic:good w/ rolling walker Patient/Family Education: Patient instructed in calling for nursing assist for any additional needs. Encouraged OOB to chair more than being in the bed during the day and to ambulate to bathroom w/ assist of staff. Pt aware of plan to d/c home at time of medical readiness . Patient up in chair with call light in reach. DME: With Patients permission ordered no equipment via [employer] Order. If any questions contact [facility] DME Provider at [phone]. 07/14/2024 6 Clicks Basic Mobility PT Difficulty turning over in bed 3 Difficulty sitting down and standing up from a chair with arms 3 Difficulty moving from lying on back to sitting on the side of the bed 3 Help from another person moving to and from bed to a chair 3 Help from another person to walk in hospital room 3 Help from another person climbing 3-5 steps with a railing 3 PT 6 Clicks Score 18 6 Click Score Guidelines: 1 - Total = Requires total assistance, or cannot do at all. 2 - A lot = Requires a lot of help (maximun to moderate assistance) Can use assistive devices. 3 - A little = Requires a little help (supervision, minimal assistance) Can use assistive devices. 4 - None = Does not require any help and does the activity independently. Can use assistive devices. ASSESSMENT: Patient is functionally appropriate for discharge home once medically cleared. Will continue to follow patient while in hospital as appropriate. Recommend PRN family/caregiver assist. Pt may require a rolling walker for home use. Goals (to be achieved by 2 days or by discharge from acute care): ONGOING Patient will achieve acceptable level of pain control to allow participation in therapy. Patient will increase bed mobility to modified independent Patient will perform sit to/from stand with rolling walker with modified independent Patient will transfer bed to/from chair with rolling walker with modified independent Patient will ambulate 150 feet with rolling walker with modified independent Patient will increase ROM/Strength/Endurance/Balance to allow for above goals. PLAN: Will follow established Plan of Care Kristyn PEREIRA Beeper #[phone] This clinician collaborated with supervising PT for patient assessment and POC as appropriate. This document is not finalized until reviewed and cosigned by supervising PT. NA = Not Assessed, I = Independent, WI = Modified Independent, Sup = Supervised, Set up = Physical Assistance for Set-up Only, Min = Minimal Assistance, Mod = Moderate Assistance, Max = Maximal assistance; Dep = Dependent; AROM = Active Range of Motion; PROM = Passive Range of Motion; MMT = Manual Muscle Test Associated Order(s): IP PHYSICAL THERAPY SERVICE REQUEST PHYSICAL THERAPY ACUTE EVALUATION Referral received, chart reviewed. Patient seen from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 Breakthrough Pain 0425 (Given - Provider: Natalya Sotomayor RN)0853 (Given - Provider: Vilma Ham RN) HYDROmorphone (DILAUDID) 1 mg/mL injection (CANCELED) 0.5 mg, Intravenous Push, EVERY 3 HOURS PRN, Starting on 07/23/24 at 0901, Until 07/24/24 at 1201, Breakthrough Pain 1621 (Given - Provider: Vilma Ham RN) 0039 (Given - Provider: Pina Olivier RN) melatonin tablet 5 mg, Oral, AT BEDTIME PRN, Starting on Jamila 07/21/24 at 0109, Until Discontinued, Sleep naloxone (NARCAN) 0.4 MG/ML injection 0.4 mg, Intravenous Push, PRN, Starting on Thu07/22/24 at 1847, Until Discontinued, Respiratory Rate Less Than 8 for adults and less than 12 for Peds or for suspected overdose ondansetron (ZOFRAN) 4 MG/2ML injection 4 mg, Intravenous Push, EVERY 6 HOURS PRN, Starting on 07/18/24 at 1003, Until Discontinued oxyCODONE immediate release tablet (CANCELED) 5 mg, Oral, EVERY 4 HOURS PRN, Starting on Thu07/19/24 at 0728, Until 07/23/24 at 0900, Severe Pain (pain score 7,8,9,10) 0242 (Given - Provider: Pina Olivier RN)0649 (Given - Provider: Pina Olivier RN) oxyCODONE immediate release tablet 5 mg, Oral, EVERY 4 HOURS PRN, Starting on 07/23/24 at 0900, Until Discontinued, Moderate Pain (pain score 4,5,6) 2105 (Given - Provider: Pina Olivier RN) 0307 (Given - Provider: Pina Olivier RN) oxyCODONE immediate release tablet 7.5 mg, Oral, EVERY 4 HOURS PRN, Starting on 07/23/24 at 0900, Until Discontinued, Severe Pain (pain score 7,8,9,10) 1325 (Given - Provider: Vilma Ham RN) 1720 (Given - Provider: Marian Jimenez, RN)2354 (Given - Provider: Itzel Chun, RN) 0604 (Given - Provider: Itzel Chun, RN) Linked Groups Order Group 1: heparin (porcine) 1000 unit/mL injection (CANCELED)Jump to med 2,400-4,800 Units (rounded from 2,391-4,782 Units = 30-60 Units/kg 79.7 kg Adjusted weight), Intravenous Push, EVERY 6 HOURS PRN, Starting on 07/23/24 at 0000, Until 07/24/24 at 1201, Therapeutic Protocol Adjustments, Enter most recent PTT result in calculator to calculate appropriate bolus dose Scheduled Medication Order 08/14/2024 08/15/2024 08/16/2024 acetaminophen (TYLENOL) tablet 1,000 mg, Oral, EVERY 8 HOURS, First dose (after last modification) on Thu08/10/24 at 2030, Until Discontinued 0430 (Hold/Not Given - Provider: Scarlett Magana RN - Reason: Patient sleeping)1230 (Hold/Not Given - Provider: Linda Castle RN - Reason: Patient refused)2143 (Given - Provider: Jannie Parson RN) 0516 (Given - Provider: Jannie Parson RN)1359 (Given - Provider: Fletcher Richey, PRISCILLA)2113 (Given - Provider: Jannie Parson RN) 0542 (Given - Provider: Jannie Parson RN)1305 (Given - Provider: Efraín Hull, PRISCILLA)2030 (Due) aspirin 81 MG chewable tablet 81 mg, Oral, DAILY, First dose on Thu08/12/24 at 1130, Until Discontinued 1055 (Given - Provider: Linda Castle RN) 0922 (Given - Provider: Fletcher Richey RN) 0920 (Given - Provider: Efraín Hull, PRISCILLA) enoxaparin (LOVENOX) 60 MG/0.6ML injection 50 mg 50 mg (rounded from 46.95 mg = 0.5 mg/kg 93.9 kg), Subcutaneous, 2 TIMES DAILY, First dose on Thu08/11/24 at 2100, Until Discontinued 105 (Given - Provider: Linda Castle RN)2142 (Given - Provider: Jannie Parson RN) 922 (Given - Provider: Fletcher Richey RN)2113 (Given - Provider: Jannie Parson RN) 0920 (Given - Provider: Efraín Hull, PRISCILLA)2099 (Due) lidocaine (LIDODERM) 4 % patch 2 Patch, Transdermal, EVERY 24 HOURS, First dose (after last modification) on Thu08/16/24 at 0900, Until Discontinued 919 (Hold/Not Given - Provider: Efraín Hull, RN - Reason: Patient refused) magnesium hydroxide (MILK OF MAGNESIA) 400 MG/5ML oral suspension 30 mL, Oral, Once, 1 dose, On Thu08/16/24 at 1230 1306 (Hold/Not Given - Provider: Efraín Hull RN - Reason: Patient refused) melatonin tablet 3 mg, Oral, AT BEDTIME, First dose on Thu08/15/24 at 2200, Until Discontinued 2112 (Given - Provider: Jannie Parson RN) 2199 (Due) methocarbamol (ROBAXIN) tablet 750 mg, Oral, EVERY 6 HOURS, First dose (after last modification) on Thu08/14/24 at 0900, Until Discontinued 1054 (Given - Provider: Linda Castle RN)1500 (Hold/Not Given - Provider: Linda Castle RN - Reason: Patient refused)2142 (Given - Provider: Jannie Parson RN) 0516 (Given - Provider: Jannie Parson RN)1359 (Given - Provider: Fletcher Richey RN)1999 (Hold/Not Given - Provider: Jannie Parson RN - Reason: Other - Comment: duplicate)2112 (Given - Provider: Jannie Parson RN) 0542 (Given - Provider: Jannie Parson RN)1306 (Given - Provider: Efraín Hull RN)1500 (Hold/Not Given - Provider: Efraín Hull RN - Reason: Clinical contraindications)21 00 (Due) polyethylene glycol (MIRALAX) 17 g packet 17 g, Oral, DAILY, First dose on Thu08/08/24 at 0900, Until Discontinued 1055 (Hold/Not Given - Provider: Linda Castle RN - Reason: Patient refused) 09 (Given - Provider: Fletcher Richey RN) 0920 (Given - Provider: Efraín Hull RN) senna (SENOKOT) tablet 8.6 mg, Oral, AT BEDTIME, First dose on Thu08/08/24 at 2200, Until Discontinued 2142 (Given - Provider: Jannie Parson RN) 2113 (Given - Provider: Jannie Parson RN) 2200 (Due) PRN Medication Order 08/14/2024 08/15/2024 08/16/2024 albuterol (PROVENTIL) (2.5 MG/3ML) 0.083% nebulizer solution 2.5 mg, Nebulization, EVERY 4 HOURS PRN, Starting on Thu08/10/24 at 0751, Until Discontinued, Shortness of Breath, or not indicated bisacodyl (DULCOLAX) 10 MG suppository 10 mg, Rectal, DAILY PRN, Starting on Thu08/10/24 at 1014, Until Discontinued, Constipation HYDROmorphone (DILAUDID) tablet (CANCELED) 2 mg, Oral, EVERY 4 HOURS PRN, Starting on Thu08/14/24 at 1916, Until Thu08/15/24 at 1431, Moderate Pain (pain score 4,5,6), Severe Pain (pain score 7,8,9,10) 192 (Given - Provider: Linda Castle RN) 09 (Given - Provider: Fletcher Richey RN)1359 (Given - Provider: Fletcher Richey RN) ondansetron (ZOFRAN) 4 MG/2ML injection 4 mg, Intravenous Push, EVERY 4 HOURS PRN, Starting on Thu08/10/24 at 1137, Until Discontinued oxyCODONE immediate release tablet 2.5 mg, Oral, EVERY 4 HOURS PRN, Starting on Thu08/15/24 at 1427, Until Discontinued, Moderate Pain (pain score 4,5,6) oxyCODONE immediate release tablet 5 mg, Oral, EVERY 4 HOURS PRN, Starting on Thu08/15/24 at 1428, Until Discontinued, Severe Pain (pain score 7,8,9,10) 2114 (Given - Provider: Jannie Parson RN) simethicone (GAS-X) 80 MG chewable tablet 80 mg, Oral, EVERY 6 HOURS PRN, Starting on 08/15/24 at 1430, Until Discontinued, Flatulence 1848 (Given - Provider: Fletcher Richey RN) sodium chloride 0.9 % nebulizer solution 3 mL, Nebulization, PRN, Starting on Thu08/10/24 at 0750, Until Discontinued, Shortness of Breath, Wheezing FOR RECORDS PERTAINING TO PATIENTS WHO ARE OR HAVE BEEN ENROLLED IN A CHEMICAL DEPENDENCY/SUBSTANCEABUSE PROGRAM, SOME INFORMATION MAY BE OMITTED. This clinical summary was aggregated from multiple sources. Caution should be exercised in using it in the provision of clinical care. This summary normalizes information from multiple sources, and as a consequence, information in this document may materially change the coding, format and clinical context of patient data. In addition, data may be omitted in some cases. CLINICAL DECISIONS SHOULD BE BASED ON THE PRIMARY CLINICAL RECORDS. [employer] [facility] provides no warranty or guarantee of the accuracy or completeness of information in this document.
== END 2024-11-03 12:41 | disposition home or self-care (01) ==
LOC: MRI 12:40
PROVIDERS: PCP Family Medicine; Visit Provider Family Medicine
DX: S22.050A Wedge compression fracture of T5-T6 vertebra, initial encounter for closed fracture (principal); S22.040A Wedge compression fracture of fourth thoracic vertebra, initial encounter for closed fracture
CPT/HCPCS: 72146